=== PATIENT | male | born 1945 | race Caucasian/White ===

== ENCOUNTER → 2016-08-06 | Outpatient (CLI) | payer MEDICARE, OTHER ==
[~2016-08-06] MED LIST: AC325T PO; ALLO100T PO; ALPR1T PO; ALPR1TAB2 PO; ALPR1TAB7 PO; AMIO200T50 PO; AMLO10TA PO; AMLO10TA2 PO; ASP325T PO; ASP81TEC PO; ATEN50TA PO; ATOR40TA70 PO; Amlodipine Besylate PO; CEFE2FRO IV; CITA20TA7; CLOMIPHENE CITRATE PO; CLPD75T; CRS350T PO; CTLP20T; CYCL10TA9 PO; DABI150C2 PO; DIGO250T96 PO; DILT180C PO; DOXY100T2 PO; DRON400T PO; DXZS2T PO; ENAL20TA PO; ENLP10T; ENOX150D SQ; ENOX40DI8 SC; FLUT16SP22 NS; FURO-124 PO; FURO20TA4 PO; FURO40TA4 PO; GLBR2.5T; GLBR2.5T PO; GLYB5TAB6 PO; HCT25T; HCT25T PO; HYDR-31; HYDR-3714 PO; HYDR-3812 PO; HYDR-3816 PO; HYDR-700 PO; HYDR50TA76 PO; INSU100V6 SQ; IPRA3AMP IH; IPRA3AMP INH; LIRA0.6P SQ; LORA10TA7 PO; LOSA25TA21; LOSA25TA21 PO; LOSA50TA2 PO; LOSA50TA36 PO; LOVA10TA PO; METH40VI2 IV; METO-270; METO10TA7 PO; METO50TA7 PO; MTP100TCR; MTP50T; MULT-974 PO; NAPR-243 PO; NITR0.4T SL; NTR.4SL; NTR.4SL SL; OLME20TA21 PO; OMEP-10; OMEP20CA12; OMEP40CA36 PO; OMG1KC PO; OXYB5SYR2 PO; OXYC10TA55 PO; PANT40TA PO; PANT40TA3 PO; PNT40TEC PO; POTA-51 PO; POTA20TA15 PO; PRAM0.257 PO; PRAZ2CAP2; RANEXA 500MG PO; ROPI0.5T2 PO; ROPI2TAB4 PO; ROPI3TAB2; ROSU10TA12 PO; SIMV40TA2 PO; SPIR25TA3 PO; SPRN25T PO; TORS20TA3 PO; TRAM50TA2 PO; TRM50T PO; VANC1.254 IV; VENL150C53 PO; VENL75TA6 PO; WARF-48 PO; WARF3TAB6 PO; WARF4TAB70 PO; WARF5TAB6 PO; WARF7.5T49; WARF7.5T49 PO; WRF5T PO; ZLP10T; [UNRECOGNIZED DRUG - CODE] PO; [UNRECOGNIZED DRUG - MIXTURE]; [UNRECOGNIZED DRUG - OTHER] PO
--- NOTE | 2016-08-06 17:00 | Diagnostic Imaging Report ---
Indication: Right testicular pain. Comparison: None. Discussion: Sonographic evaluation of the scrotum was performed. The testicles appear normal and symmetric in echotexture and size bilaterally with normal color and spectral Doppler blood flow. The right testicle measures 3.7 x 1.8 x 2.4 cm. The left testicle measures 3.6 x 1.8 x 2.2 cm. The epididymides appear normal. No hydrocele or varicocele. The scrotum is unremarkable. Impression: 1. Normal sonographic appearance of the scrotum. Dictated by: Dictated on workstation # [id number]
== END ==
LOC: RAD 15:27
PROVIDERS: ATTEND Nurse Practitioner Family
DX: N50.89 Other specified disorders of the male genital organs (principal)
CPT/HCPCS: 76870

== ENCOUNTER 2016-09-29 08:17 | Inpatient (IN) | payer MEDICARE, OTHER ==
[~2016-09-29] VITALS: Ht 180.3 cm; Wt 133.5 kg
[2016-09-29] VITALS (7 sets, daily range): BP systolic 124–148; BP diastolic 68–80
[~2016-09-29 08:17] MED LIST changes: -CITA20TA7; +CITA20TA7 PO; -LOSA25TA21; -METO-270; +METO-270 PO; -ROPI3TAB2; +ROPI3TAB2 PO
[2016-09-29] MEDS ORDERED: NS IV 1000 ML 1,000 ML IV STA (09:06)
--- NOTE | 2016-09-29 09:06 | ED Fever ---
History of Present Illness General Chief Complaint: Fever-Adult/Adol Stated Complaint: COUGHING UP BLOOD, SHAKEY, COLD Source: patient, family () Exam Limitations: no limitations History of Present Illness Time seen by provider: 08:56 Initial Comments Patient presents with progressively worsening 2 weeks of productive cough and now today a fever of 103 at home. He reports last he was started on a steroid taper as well as antibiotic. He says last year he had an infection that lead to sepsis is not sure what the original infection was. He does not know what the antibiotic is. He denies any pain, nausea, vomiting, diarrhea, constipation. He states he took the antibiotics and steroids this morning. He denies COPD. He dips occasionally and drinks 3 beers a day but denies smoking. There is no rash or abdominal pain. There is no shortness of breath or chest pain. Allergies and Home Medications Allergies Coded Allergies: oxycodone HCl (Verified Allergy, Mild, itching, Pt states can take hydrocodone, 10/03/15) Sulfa (Sulfonamide Antibiotics) (Verified Allergy, Unknown, 12/09/06) Home Medications Alprazolam 1 Mg Tablet, 1 MG PO, (Reported) Citalopram Hydrobromide 20 Mg Tablet, #90 (Reported) Doxycycline Hyclate 100 Mg Tablet, #28 (Reported) Furosemide 40 Mg Tablet, 40 MG PO, (Reported) Losartan Potassium 25 Mg Tablet, #90 (Reported) Metoprolol Succinate 25 Mg Tab.er.24h, #90 (Reported) Potassium Chloride 20 Meq Tablet.er, 20 MEQ PO, (Reported) Prazosin HCl 2 Mg Capsule, #180 (Reported) Ropinirole HCl 3 Mg Tablet, #90 (Reported) Warfarin Sodium 7.5 Mg Tablet, #90 (Reported) Constitutional: see HPI EENTM: see HPI Respiratory: No cough Cardiovascular: No chest pain Gastrointestinal: No abdominal pain, No constipation, No diarrhea Genitourinary: No dysuria, No frequency Musculoskeletal: No back pain, No joint pain Past Pvfahsf-Zmcvgk-Znvpdi Hx Patient Social History Alcohol Use: Occasionally Uses Recreational Drug Use: No Smoking Status: Never a Smoker Former Smoker/When Quit: Aug 21, 1971 Recent Foreign Travel: No Contact w/Someone Who Travel: No Recent Hopitalizations: No Immunizations Up To Date Tetanus Booster (TDap): Less than 5yrs Date of Pneumonia Vaccine: Jan 20, 2014 Date of Influenza Vaccine: Jan 31, 2015 Seasonal Allergies Seasonal Allergies: No Surgeries HX Surgeries: Yes (SPINAL FUSION,RIGHT ROTATOR CUFF,COLT.KNEE ARTHROSCOPYS,LDA STENT, lap band) Surgeries: Abdominal, Coronary Stent, Gallbladder, Joint Replacement, Orthopedic, Pacemaker Respiratory Hx Respiratory Disorders: Yes Respiratory Disorders: Pneumonia Cardiovascular Hx Cardiac Disorders: Yes (STENT X1, PACEMAKER) Cardiac Disorders: Atrial Fibrillation, Coronary Artery Disease, Hypertension Neurological Hx Neurological Disorders: Yes (Restless leg syndrome) Reproductive System Hx Reproductive Disorders: No Genitourinary Hx Genitourinary Disorders: Yes Genitourinary Disorders: Renal Failure Gastrointestinal Hx Gastrointestinal Disorders: Yes (lap band surgery) Gastrointestinal Disorders: Gastroesophageal Reflux Musculoskeletal Hx Musculoskeletal Disorders: Yes (spinal fusion L5/S1) Musculoskeletal Disorders: Arthritis Endocrine Hx Endocrine Disorders: Yes Endocrine Disorders: Diabetes, Insulin dep HEENT HX ENT Disorders: No Cancer Hx Cancer: No Psychosocial Hx Psychiatric Problems: Yes Behavioral Health Disorders: Anxiety, PTSD, Depression Integumentary HX Skin/Integumentary Disorder: No Blood Transfusions Hx Blood Disorders: No Adverse Reaction to a Blood Tr: No Family Medical History Significant Family History: Heart Disease, Hypertension Family Medial History: Cancer 19 FATHER 19 MOTHER Chest pain 19 FATHER 19 MOTHER G8 BROTHER G8 BROTHER G8 BROTHER G8 BROTHER Congestive heart failure 19 MOTHER G8 BROTHER G8 BROTHER G8 BROTHER Family history: Arthritis Family history: Cardiovascular disease 19 FATHER Family history: Diabetes mellitus Family history: Glaucoma Family history: Hypertension Heart disease History of - respiratory disease Malignant neoplasm of lung 19 FATHER Myocardial infarction 19 MOTHER G8 BROTHER G8 BROTHER G8 BROTHER Parkinson's disease Prostate cancer G8 BROTHER Stroke Visual impairment No Family History of: Abdominal aortic aneurysm Goliad's disease Alcoholism Aphasia Cancer of colon Cataract Congenital heart disease Cystic fibrosis Dementia Dysphagia Family history: Allergy Family history: Alzheimer's disease Family history: Asthma Family history: Breast disease Family history: Coronary thrombosis Family history: Gastrointestinal disease Family history: Osteoporosis Family history: Thyroid disorder Headache Hearing loss Hereditary disease History of - anemia History of - disorder History of drug abuse Human immunodeficiency virus (HIV) seropositivity Hypercholesterolemia Infertile Kidney disease Psychotic disorder Seizure disorder Tuberculosis Physical Exam Vital Signs Vital Sign - Last 12Hours 09/29/16 08:39 Temp 104.4 Pulse 129 Resp 18 B/P (MAP) 188/116 Pulse Ox 90 O2 Delivery Room Air Capillary Refill : General Appearance: WD/WN, moderate distress Eyes: Bilateral Eye EOMI, Bilateral Eye Normal Inspection, Bilateral Eye PERRL HEENT: normal ENT inspection, TMs normal, other (dry mm with white plaque on tongue.) Neck: non-tender, normal inspection Respiratory: chest non-tender, lungs clear, normal breath sounds, no respiratory distress Cardiovascular: normal peripheral pulses, regular rate, rhythm, other (trace edema) Gastrointestinal: normal bowel sounds, non tender, soft Extremities: normal range of motion, non-tender, normal inspection, no calf tenderness Neurologic/Psychiatric: alert, normal mood/affect, oriented x 3 Focused Exam Lactic Acid Level Laboratory Tests Test 09/29/16 08:54 Lactic Acid Level 2.38 MMOL/L (0.50-2.00) *H Date of ETT Placement: October 01, 2015 Time of ETT Placement: 511 Progress/Results/Core Measures Results/Orders Lab Results Laboratory Tests Test 09/29/16 08:54 Range/Units White Blood Count 22.1 H 4.3-11.0 10^3/uL Red Blood Count 5.12 4.35-5.85 10^6/uL Hemoglobin 14.7 13.3-17.7 G/DL Hematocrit 45 40-54 % Mean Corpuscular Volume 87 80-99 FL Mean Corpuscular Hemoglobin 29 25-34 PG Mean Corpuscular Hemoglobin Concent 33 32-36 G/DL Red Cell Distribution Width 16.2 H 10.0-14.5 % Platelet Count 291 130-400 10^3/uL Mean Platelet Volume 10.4 7.4-10.4 FL Neutrophils (%) (Auto) 87 H 42-75 % Lymphocytes (%) (Auto) 5 L 12-44 % Monocytes (%) (Auto) 8 0-12 % Eosinophils (%) (Auto) 0 0-10 % Basophils (%) (Auto) 0 0-10 % Neutrophils # (Auto) 19.3 H 1.8-7.8 X 10^3 Lymphocytes # (Auto) 1.1 1.0-4.0 X 10^3 Monocytes # (Auto) 1.7 H 0.0-1.0 X 10^3 Eosinophils # (Auto) 0.0 0.0-0.3 10^3/uL Basophils # (Auto) 0.0 0.0-0.1 10^3/uL Neutrophils % (Manual) 88 % Lymphocytes % (Manual) 4 % Monocytes % (Manual) 4 % Eosinophils % (Manual) 0 % Basophils % (Manual) 0 % Band Neutrophils 0 % Reactive Lymphocytes 4 % Anisocytosis SLIGHT Prothrombin Time 16.1 H 12.2-14.7 SEC INR Comment 1.3 0.8-1.4 Activated Partial Thromboplast Time 33 24-35 SEC Sodium Level 139 135-145 MMOL/L Potassium Level 4.2 3.6-5.0 MMOL/L Chloride Level 103 98-107 MMOL/L Carbon Dioxide Level 23 21-32 MMOL/L Anion Gap 13 5-14 MMOL/L Blood Urea Nitrogen 25 H 7-18 MG/DL Creatinine 1.13 0.60-1.30 MG/DL Estimat Glomerular Filtration Rate > 60 BUN/Creatinine Ratio 22 Glucose Level 159 H 70-105 MG/DL Lactic Acid Level 2.38 *H 0.50-2.00 MMOL/L Calcium Level 9.5 8.5-10.1 MG/DL Total Bilirubin 1.6 H 0.1-1.0 MG/DL Aspartate Amino Transf (AST/SGOT) 21 5-34 U/L Alanine Aminotransferase (ALT/SGPT) 20 0-55 U/L Alkaline Phosphatase 86 40-136 U/L Total Protein 6.9 6.4-8.2 G/DL Albumin 3.9 3.2-4.5 G/DL Thyroid Stimulating Hormone (TSH) 0.83 0.35-4.94 UIU/ML My Orders Orders - NICHOLE KENDALL Cbc With Automated Diff (09/29/16 09:06) Comprehensive Metabolic Panel (09/29/16 09:06) Lactic Acid Analyzer (09/29/16 09:06) Thyroid Stimulating Hormone (09/29/16 09:06) Ua Culture If Indicated (09/29/16 09:06) Blood Culture (09/29/16 09:06) Influenza A And B Antigens (09/29/16 09:06) Sputum Culture (09/29/16 09:06) Chest Pa/Lat (2 View) (09/29/16 09:06) Protime With Inr (09/29/16 09:06) Partial Thromboplastin Time (09/29/16 09:06) O2 (09/29/16 09:06) Acetaminophen Tablet (Tylenol Tablet) (09/29/16 09:15) Saline Lock/Iv-Start (09/29/16 09:06) Levofloxacin 750 Mg/150 Ml Iv (Levaquin (09/29/16 09:15) Vital Signs Adult Sepsis Patie Q1HR (09/29/16 09:06) Ns Iv 1000 Ml (Sodium Chloride 0.9%) (09/29/16 09:06) Remove Rings In Anticipation O (09/29/16 09:06) Manual Differential (09/29/16 08:54) Saline Lock/Iv-Start (09/29/16 09:26) Ns Iv 1000 Ml (Sodium Chloride 0.9%) (09/29/16 09:30) Medications Given in ED Current Medications Medications Dose Ordered Sig/Leatha Route Start Time Stop Time Status Last Admin Dose Admin Acetaminophen 1,000 mg ONCE PRN PO 09/29/16 09:15 09/29/16 09:28 DC 09/29/16 09:36 1,000 MG Levofloxacin/ Dextrose 750 mg ONCE ONCE IV 09/29/16 09:15 09/29/16 09:16 DC 09/29/16 09:40 750 MG Sodium Chloride 4,000 ml @ 2,000 mls/hr PRN PRN IV 09/29/16 09:30 09/29/16 09:48 2,000 MLS/HR Vital Signs/I&O Vital Sign - Last 12Hours 09/29/16 08:39 Temp 104.4 Pulse 129 Resp 18 B/P (MAP) 188/116 Pulse Ox 90 O2 Delivery Room Air Progress Note : Time: 09:51 Progress Note Patient has a lactate of greater than 2 and a white count greater than 22 as well as a tachycardia consistent with sepsis. Primary concern would be his cough for a community acquired pneumonia. We'll cover him with Levaquin, give him adequate IV fluids and get him admitted. Diagnostic Imaging Diagonstic Imaging: Xray Plain Films/CT/US/NM/MRI: chest Comments VIA [facility]. [place], [place] NAME: CHIKI SNYDER [facility] REC#: [id number] PT STATUS: REG ER : 1945 PHYSICIAN: NICHOLE KENDALL MD ADMIT DATE: 09/29/16/ER Draft Date of Exam:09/29/16 CHEST PA/LAT (2 VIEW) EXAMINATION: CHEST (PA AND LATERAL) CLINICAL INDICATION: 71-year-old male, cough and congestion for one week. COMPARISON: October 06, 2015. FINDINGS: There is a left-sided cardiac assist device with right atrial and right ventricular leads. The leads appear intact. Stable overall appearance of the cardiomediastinal silhouette. There is an anchor overlying the right humeral head. There is no identified pneumothorax. There is no pleural effusion. There are subtle areas of reticular nodularity in the left upper lobe and right upper lobe as well as the left midlung. There is a nodular opacity projecting over the right midlung measuring 3 mm in size. IMPRESSION: 1. Subtle areas of reticular nodularity in the left upper lobe, right upper lobe, and left midlung which potentially could relate to an inflammatory or infectious etiology. There is also nonspecific streaky opacities in the left lung base which may relate to infiltrate and/or atelectasis. 2. 3 mm nodular opacity overlying the right midlung likely relating to a benign calcified granuloma. Dictated on workstation # [id number] Dict: 09/29/16 0931 Trans: 09/29/16 0937 JUANITA [id number] Interpreted by: QUOC SEVERINO MD Electronically signed by: Departure Communication Time/Spoke to Admitting Phy: 10:[address] Parson covering for Dr Guaman. Reviewed previous cultures that were negative blood and urine from 1 year ago. Okay with Levaquin and will see him today. Impression Impression: Primary Impression: Sepsis Qualified Codes: A41.9 - Sepsis, unspecified organism Additional Impression: Cough Disposition: ADMITTED INPATIENT Condition: Improved Decision to Admit Reason: Admit from ER (General) Decision to Admit/Date: September 29, 2016 Time/Decision to Admit Time: 10:09 Departure-Patient Inst. Referrals: ABEL GUAMAN MD (PCP/Family) Primary Care Physician Copy Copies To 1: ABEL GUAMAN MD, TITUS J September 29, 2016 09:06
[2016-09-29] MEDS ORDERED: DOXY100T2 PO (09:11)
[2016-09-29] MEDS ORDERED: LEVOFLOXACIN IV 750 MG/150 ML (LEVAQUIN) BAG IV ONE (09:15)
[2016-09-29 09:23] LABS: BASOPHILS % (AUTO) 0 % (0-10); EOSINOPHILS % (AUTO) 0 % (0-10); LYMPHOCYTES # (AUTO) 1.1 X 10^3 (1.0-4.0); LYMPHOCYTES % (AUTO) 5 % (12-44); MEAN CORPUSCULAR HEMOGLOBIN 29 PG (25-34); MEAN CORPUSCULAR HGB CONC 33 G/DL (32-36); MEAN CORPUSCULAR VOLUME 87 FL (80-99); MEAN PLATELET VOLUME 10.4 FL (7.4-10.4); MONOCYTES # (AUTO) 1.7 X 10^3 (0.0-1.0); MONOCYTES % (AUTO) 8 % (0-12); NEUTROPHILS # (AUTO) 19.3 X 10^3 (1.8-7.8); NEUTROPHILS % (AUTO) 87 % (42-75); PLATELET COUNT 291 10^3/uL (130-400); RED BLOOD COUNT 5.12 10^6/uL (4.35-5.85); RED CELL DISTRIBUTION WIDTH 16.2 % (10.0-14.5); WHITE BLOOD COUNT 22.1 10^3/uL (4.3-11.0)
[2016-09-29 09:27] LABS: INR 1.3 (0.8-1.4); PROTHROMBIN TIME PATIENT 16.1 SEC (12.2-14.7)
[2016-09-29] MEDS: ACETAMINOPHEN 500 MG TAB (TYLENOL) PO PRN ×2 (09:28→09:36)
[2016-09-29] MEDS ORDERED: NS IV 1000 ML 4,000 ML IV PRN (09:30)
[2016-09-29 09:31] LABS: ALANINE AMINOTRANSFERASE 20 U/L (0-55); ALBUMIN 3.9 G/DL (3.2-4.5); ANION GAP 13 MMOL/L (5-14); ASPARTATE AMINO TRANSFERASE 21 U/L (5-34); BILIRUBIN,TOTAL 1.6 MG/DL (0.1-1.0); BLOOD UREA NITROGEN 25 MG/DL (7-18); BUN/CREATININE RATIO 22; CALCIUM 9.5 MG/DL (8.5-10.1); CARBON DIOXIDE 23 MMOL/L (21-32); CHLORIDE 103 MMOL/L (98-107); CREATININE SERUM 1.13 MG/DL (0.60-1.30); GFR ESTIMATED > 60; GLUCOSE 159 MG/DL (70-105); POTASSIUM 4.2 MMOL/L (3.6-5.0); SODIUM 139 MMOL/L (135-145); TOTAL PROTEIN 6.9 G/DL (6.4-8.2)
--- NOTE | 2016-09-29 09:37 | Diagnostic Imaging Report ---
EXAMINATION: CHEST (PA AND LATERAL) CLINICAL INDICATION: 71-year-old male, cough and congestion for one week. COMPARISON: October 06, 2015. FINDINGS: There is a left-sided cardiac assist device with right atrial and right ventricular leads. The leads appear intact. Stable overall appearance of the cardiomediastinal silhouette. There is an anchor overlying the right humeral head. There is no identified pneumothorax. There is no pleural effusion. There are subtle areas of reticular nodularity in the left upper lobe and right upper lobe as well as the left midlung. There is a nodular opacity projecting over the right midlung measuring 3 mm in size. IMPRESSION: 1. Subtle areas of reticular nodularity in the left upper lobe, right upper lobe, and left midlung which potentially could relate to an inflammatory or infectious etiology. There is also nonspecific streaky opacities in the left lung base which may relate to infiltrate and/or atelectasis. 2. 3 mm nodular opacity overlying the right midlung likely relating to a benign calcified granuloma. Dictated by: Dictated on workstation # [id number]
[2016-09-29 09:51] LABS: THYROID STIMULATING HORMONE 0.83 UIU/ML (0.35-4.94)
[2016-09-29 09:53] LABS: ANISOCYTOSIS SLIGHT; BAND NEUTROPHILS 0 %; BASOPHILS % (MANUAL) 0 %; EOSINOPHILS % (MANUAL) 0 %; LYMPHOCYTES % (MANUAL) 4 %; NEUTROPHILS % (MANUAL) 88 %; REACTIVE LYMPHOCYTES 4 %
[2016-09-29] MEDS ORDERED: warFARin 7.5 MG (COUMADIN) TAB PO ONE (11:15)
--- NOTE | 2016-09-29 11:49 | History & Physical-Hospitalist ---
HPI History of Present Illness: HPI/Chief Complaint Mr. Kumar is a 71-year-old white male reports he was initiated usual state of health up until about 1/2-2 weeks ago when he developed the onset of head congestion now. He had been outdoors trimming trees and attributed to allergies. He wasn't sure whether or not he was febrile at that time. He has not felt well since. He had increased weakness questionable chills not sure whether he was febrile. he became weak to the point of staggering causing him to present to Dr. Pride's office this Friday. They apparently they found 2 ticks on his left chest which were removed. He was given prednisone and doxycycline. he is continued feel weak with chills. He's had a dry cough but did produce a little bit of hemoptysis. The scant amount of sputum he's had has been clear otherwise. He developed Reiger's this morning with weakness which caused him to present to the emergency room. There is temperature was reportedly 104 he was given antipyretic therapy. He was noted to be in atrial fibrillation with a ventricular response in the 120-130 range which has been chronic for him. His initial blood pressure was quite high in the 180/110 range but his last blood pressure was in the 120s over 70s just before this interview. He denies shortness of breath at rest but had noted increased dyspnea on exertion. He has not noted any rashes. Past medical history is significant for 3 admissions beginning in July and ending in September of last year for pneumonia. His last admission in late August led to mechanical ventilation and a three-week recovery at [facility]. He had no bouts of infections since. He has a distant past history of stent placement in the late with chronic atrial fibrillation and underlying sick sinus syndrome requiring pacemaker placement several years ago. He has history of restless leg syndrome and hypertension. Date Seen 09/29/16 Attending Physician Mani Pride MD PCP Mani Pride MD Referring Physician Date of Admission September 29, 2016 at 10:17 Home Medications & Allergies Home Medications Reviewed patient Home Medication Reconciliation Form Allergies Allergies Coded Allergies oxycodone HCl (Verified Allergy, Mild, itching, Pt states can take hydrocodone , 10/03/15) Sulfa (Sulfonamide Antibiotics) (Verified Allergy, Unknown, 12/09/06) Past Xreqbgo-Zpgimp-Bpkhqq Hx Patient Social History Alcohol Use: Occasionally Uses Recreational Drug Use: No Smoking Status: Never a Smoker Former smoker/When Quit: Aug 21, 1971 Recent Foreign Travel: No Contact w/other who traveled: No Recent Hopitalizations: No Recent Infectious Disease Expo: No Immunizations Up To Date Tetanus Booster (TDap): Less than 5yrs Date of Pneumonia Vaccine: Jan 20, 2014 Date of Influenza Vaccine: Jan 31, 2015 Seasonal Allergies Seasonal Allergies: No Surgeries HX Surgeries: Yes (SPINAL FUSION,RIGHT ROTATOR CUFF,COLT.KNEE ARTHROSCOPYS,LDA STENT, lap band) Surgeries: Abdominal, Coronary Stent, Gallbladder, Joint Replacement, Orthopedic, Pacemaker Respiratory Hx Respiratory Disorders: Yes Cardiovascular Hx Cardiovascular Disorders: Yes (STENT X1, PACEMAKER) Cardiac Disorders: Atrial Fibrillation, Coronary Artery Disease, Hypertension Neurological Hx Neurological Disorders: Yes (Restless leg syndrome) Reproductive System Hx Reproductive Disorders: No Genitourinary Hx Genitourinary Disorders: Yes Genitourinary Disorders: Renal Failure Gastrointestinal Hx Gastrointestinal Disorders: Yes (lap band surgery) Gastrointestinal Disorders: Gastroesophageal Reflux Musculoskeletal Hx Musculoskeletal Disorders: Yes (spinal fusion L5/S1) Musculoskeletal Disorders: Arthritis Endocrine Hx Endocrine Disorders: Yes Endocrine Disorders: Diabetes, Insulin dep HEENT HX ENT Disorders: No Cancer Hx Cancer: No Psychosocial Hx Psychiatric Problems: Yes Behavioral Health Disorders: Anxiety, PTSD, Depression Integumentary HX Skin/Integumentary Disorder: No Blood Transfusions Hx Blood Disorders: No Adverse Reaction to a Blood Tr: No Family Medical History Significant Family History: Heart Disease, Hypertension Family Hx: Cancer 19 FATHER 19 MOTHER Chest pain 19 FATHER 19 MOTHER G8 BROTHER G8 BROTHER G8 BROTHER G8 BROTHER Congestive heart failure 19 MOTHER G8 BROTHER G8 BROTHER G8 BROTHER Family history: Arthritis Family history: Cardiovascular disease 19 FATHER Family history: Diabetes mellitus Family history: Glaucoma Family history: Hypertension Heart disease History of - respiratory disease Malignant neoplasm of lung 19 FATHER Myocardial infarction 19 MOTHER G8 BROTHER G8 BROTHER G8 BROTHER Parkinson's disease Prostate cancer G8 BROTHER Stroke Visual impairment No Family History of: Abdominal aortic aneurysm Fallon's disease Alcoholism Aphasia Cancer of colon Cataract Congenital heart disease Cystic fibrosis Dementia Dysphagia Family history: Allergy Family history: Alzheimer's disease Family history: Asthma Family history: Breast disease Family history: Coronary thrombosis Family history: Gastrointestinal disease Family history: Osteoporosis Family history: Thyroid disorder Headache Hearing loss Hereditary disease History of - anemia History of - disorder History of drug abuse Human immunodeficiency virus (HIV) seropositivity Hypercholesterolemia Infertile Kidney disease Psychotic disorder Seizure disorder Tuberculosis Review of Systems Constitutional: chills, diaphoresis, fever, weakness, weight loss (known amount over the past month) EENTM: other (eyes any sores in his mouth current sore throat with only mild head congestion without significant rhinorrhea.) Respiratory: No no symptoms reported, No see HPI, cough, dyspnea on exertion, hemoptysis (small volume), No orthopnea, No stridor, No wheezing Cardiovascular: No chest pain, No edema, Hx of Intervention, No palpitations, No syncope, vascular heart diseas, No other Gastrointestinal: no symptoms reported, No abdominal pain, No constipation, No diarrhea, No dysphagia, No hematemesis, No heartburn, loss of appetite, No melena, No nausea, No vomiting Physical Exam Physical Exam Vital Signs Vital Sign - Last 12Hours 09/29/16 09/29/16 08:39 10:23 Temp 104.4 Pulse 129 Resp 18 B/P (MAP) 188/116 Pulse Ox 90 O2 Delivery Room Air O2 Flow Rate 2.00 Capillary Refill : Less Than 3 Seconds General Appearance: No Apparent Distress Eyes: Bilateral Eye EOMI HEENT: Normal ENT Inspection Neck: Normal Inspection, Non Tender Respiratory: Chest Non Tender, Lungs Clear, Normal Breath Sounds, No Accessory Muscle Use, No Respiratory Distress Cardiovascular: No Edema, No Gallop, No JVD, No Murmur, Irregularly Irregular Gastrointestinal: Normal Bowel Sounds, No Organomegaly, No Pulsatile Mass, Non Tender, Soft Skin: Normal Color, Warm/Dry (despite recent fever he was not diaphoretic and small erythematous papule noted previous tick bite on chest there are chronic venous insufficiency changes in the lower extremities with no other evidence for rash or petechia) Results Results/Procedures Lab Laboratory Tests 09/29/16 08:54 Assessment/Plan Admission Diagnosis 1. Sepsis of unclear etiology. White count elevation may be aggravated by recent onset steroid usage. considering tick exposure will continue by mouth doxycycline as well as the Levaquin ordered in the emergency room. Chest x-ray findings may be old although clearly can't rule out atypical pneumonia. The patient states that tick serologies were obtained and pending from Dr. Pride 's office on his visit last Friday will need to contact the office to make sure we are made aware of these results when available. 2. Mild dehydration IV fluids were initiated. 3. Chronic atrial fibrillation INR little suboptimal. 7.5 mg of Coumadin will be initiated with INR monitoring in the morning this should suffice for DVT prophylaxis. 4. History of restless leg syndrome continue at bedtime ropinirole 5. Sick sinus syndrome requiring pacemaker placement will continue low-dose beta janusz therapy SHIRIN YEH MD September 29, 2016 11:48
[2016-09-29] MEDS ORDERED: MONT10TA24 PO (13:16)
[2016-09-29] MEDS ORDERED: WARF5TAB PO (13:22)
[2016-09-29] MEDS ORDERED: AMLO5TAB2 PO (13:28)
[2016-09-29] MEDS ORDERED: GABA-486 PO (13:28)
[2016-09-29] MEDS ORDERED: PANT40TA3 PO (13:31)
[2016-09-29] MEDS ORDERED: INSU100V6 SQ ×2 (13:32)
[2016-09-29] MEDS ORDERED: warFARin 7.5 MG (COUMADIN) TAB ONE (15:05)
[2016-09-29] MEDS: DOXYCYCLINE 100 MG (VIBRAMYCIN) TABLET PO SCH ×2 (15:10→16:44)
[2016-09-29] MEDS: NS IV 1000 ML 1,000 ML IV SCH ×2 (15:11→23:46)
[2016-09-29] MEDS ORDERED: RT-ALBUTEROL/IPRATROPIUM 3 ML (DUONEB) VIAL INH PRN (16:00)
[2016-09-29] MEDS ORDERED: ACETAMINOPHEN 500 MG TAB (TYLENOL) PO PRN (16:00)
[2016-09-29 17:23] LABS: ABG BASE EXCESS -0.1 MMOL/L (-2.5-2.5); ABG HCO3 24 MMOL/L (23-27); ABG OXYGEN SATURATION 98 % (94-100); ABG PCO2 34 MMHG (35-45); ABG PH 7.45 (7.37-7.43); ABG PO2 85 MMHG (79-93); ABG TCO2 24.6 MMOL/L (21.0-31.0)
[2016-09-29 17:24] LABS: ALLENS TEST POSITIVE
[2016-09-29 17:25] LABS: PATIENT TEMP 98.3
[2016-09-29 21:07] LABS: BILIRUBIN,URINE NEGATIVE (NEGATIVE); KETONES,URINE NEGATIVE (NEGATIVE); LEUKOCYTE ESTERASE ,URINE NEGATIVE (NEGATIVE); NITRITE,URINE NEGATIVE (NEGATIVE); PH,URINE 6 (5-9); PROTEIN,URINE NEGATIVE (NEGATIVE); UROBILINOGEN,URINE NORMAL (NORMAL)
[2016-09-29 21:23] LABS: SQUAMOUS EPITHELIAL CELL,UR 0-2 /HPF
[2016-09-29] MEDS: rOPINIRole 1 MG (REQUIP) TABLET PO SCH (21:36)
[2016-09-29] MEDS: inSUlin DETERMIR 1 UNIT/0.01 ML (LEVEMIR) CHARGE PER UNIT SQ SCH (21:37)
[2016-09-30] VITALS (10 sets, daily range): BP systolic 140–180; BP diastolic 66–90
[2016-09-30 05:21] LABS: BASOPHILS % (AUTO) 0 % (0-10); EOSINOPHILS # (AUTO) 0.1 10^3/uL (0.0-0.3); EOSINOPHILS % (AUTO) 0 % (0-10); LYMPHOCYTES # (AUTO) 4.4 X 10^3 (1.0-4.0); LYMPHOCYTES % (AUTO) 24 % (12-44); MEAN CORPUSCULAR HEMOGLOBIN 28 PG (25-34); MEAN CORPUSCULAR HGB CONC 32 G/DL (32-36); MEAN CORPUSCULAR VOLUME 88 FL (80-99); MEAN PLATELET VOLUME 10.3 FL (7.4-10.4); MONOCYTES # (AUTO) 1.3 X 10^3 (0.0-1.0); MONOCYTES % (AUTO) 7 % (0-12); NEUTROPHILS # (AUTO) 12.3 X 10^3 (1.8-7.8); NEUTROPHILS % (AUTO) 68 % (42-75); PLATELET COUNT 217 10^3/uL (130-400); RED CELL DISTRIBUTION WIDTH 16.1 % (10.0-14.5); WHITE BLOOD COUNT 18.1 10^3/uL (4.3-11.0)
[2016-09-30 05:29] LABS: INR 1.4 (0.8-1.4); PROTHROMBIN TIME PATIENT 16.9 SEC (12.2-14.7)
[2016-09-30 05:46] LABS: ALANINE AMINOTRANSFERASE 14 U/L (0-55); ALBUMIN 3.1 G/DL (3.2-4.5); ANION GAP 10 MMOL/L (5-14); ASPARTATE AMINO TRANSFERASE 15 U/L (5-34); BILIRUBIN,TOTAL 1.3 MG/DL (0.1-1.0); BLOOD UREA NITROGEN 20 MG/DL (7-18); BUN/CREATININE RATIO 24; CALCIUM 8.4 MG/DL (8.5-10.1); CARBON DIOXIDE 22 MMOL/L (21-32); CHLORIDE 106 MMOL/L (98-107); CREATININE SERUM 0.82 MG/DL (0.60-1.30); GFR ESTIMATED > 60; GLUCOSE 112 MG/DL (70-105); POTASSIUM 3.7 MMOL/L (3.6-5.0); SODIUM 138 MMOL/L (135-145); TOTAL PROTEIN 5.4 G/DL (6.4-8.2)
[2016-09-30] MEDS: DOXYCYCLINE 100 MG (VIBRAMYCIN) TABLET PO SCH ×2 (06:33→17:19)
[2016-09-30] MEDS: inSUlin DETERMIR 1 UNIT/0.01 ML (LEVEMIR) CHARGE PER UNIT SQ SCH ×2 (09:10→21:09)
[2016-09-30] MEDS: LEVOFLOXACIN 500 MG/100 ML IV 100 ML IV SCH (09:10)
[2016-09-30] MEDS: NS IV 1000 ML 1,000 ML IV SCH ×3 (09:12→21:03)
--- NOTE | 2016-09-30 09:30 | Diagnostic Imaging Report ---
Indication: Dyspnea, leukocytosis. Discussion: Two views of the chest were obtained, comparison 09/29/2016. Patchy alveolar infiltrates are again noted within the bilateral upper lungs, favoring pneumonia. A 3 mm calcified granuloma again noted within the right midlung, benign. Normal heart size. Left-sided pacemaker is stable. No pleural fluid or pneumothorax. No acute osseous abnormality. Impression: 1. Bilateral alveolar infiltrates, most consistent with pneumonia. Dictated by: Dictated on workstation # [id number]
[2016-09-30] MEDS ORDERED: LOSA100T28 PO (09:56)
[2016-09-30] MEDS ORDERED: PROM5SYR PO (10:30)
[2016-09-30] MEDS ORDERED: OXYC10TA55 PO (10:30)
[2016-09-30] MEDS ORDERED: DULO60CA6 PO (10:30)
[2016-09-30] MEDS ORDERED: SPIR25TA3 PO (10:30)
--- NOTE | 2016-09-30 12:42 | Progress Note-Hospitalist ---
Standard Progress Note Progress Notes/Assess & Plan Date Seen 09/30/16 Diagnosis 1. Sepsis of unclear etiology. White count elevation may be aggravated by recent onset steroid usage. considering tick exposure will continue by mouth doxycycline as well as the Levaquin ordered in the emergency room. Chest x-ray findings may be old although clearly can't rule out atypical pneumonia. The patient states that tick serologies were obtained and pending from Dr. Pride 's office on his visit last Friday will need to contact the office to make sure we are made aware of these results when available. 2. Mild dehydration IV fluids were initiated. 3. Chronic atrial fibrillation INR little suboptimal. 7.5 mg of Coumadin will be initiated with INR monitoring in the morning this should suffice for DVT prophylaxis. 4. History of restless leg syndrome continue at bedtime ropinirole 5. Sick sinus syndrome requiring pacemaker placement will continue low-dose beta janusz therapy Assess & Plan/Chief Complaint The patient is a 71-year-old white male known to me. He apparently has felt ill for a period of about 2 weeks. Early yesterday morning he had a fever of 103 at home which proved to be 104 in the emergency room. In addition he had shaking chills and diaphoresis. He was noted that his white count was 22,000 at presentation. It is also noted that he had been taking steroids in the previous week. Urine and chest x-ray were negative. He had been seen last week and Dr. Pride's office and apparently 2 ticks were removed from his left chest. He was started on doxycycline and a tick panel was sent off. It is not presently available. I spoke to Dr. Pride's office and they have agreed to fax it to us when it is available. The patient reports that he feels much better today. He in fact made a weak effort at bargaining for dismissal today. He was informed that he may be a candidate tomorrow however I need to see a longer performance and have blood cultures reported before this is possible. Physical exam: We have a plump white male in no apparent distress. He is sitting in the recliner at bedside with family in the room. Lungs are clear to auscultation. CV is regular without murmur. Abdomen is obese. Bowel sounds are present. Extremities shows no pedal edema. Impression: Fever and chills. At this point he qualifies as Sirs but no clear source of infection is noted. 2.diabetes mellitus type II. 3.coronary artery disease. 4.COPD with previous admission including pneumonia which resulted in ventilation and transfer to [facility]. Plan: Continue Levaquin and doxycycline. Await blood cultures and serology for tickborne disease. Labs Laboratory Tests 09/29/16 08:54 09/30/16 04:32 DESTINEY BECERRA MD September 30, 2016 12:42
[2016-09-30] MEDS: GABAPENTIN 300 MG (NEURONTIN) CAP PO SCH ×2 (13:30→21:08)
[2016-09-30] MEDS ORDERED: DOXYCYCLINE 100 MG (VIBRAMYCIN) TABLET PO SCH (21:00)
[2016-09-30] MEDS ORDERED: NON-FORMULARY MEDICATION 1 EA EA (Ropinirole HCl 3 MG) PO SCH (21:00)
[2016-09-30] MEDS: rOPINIRole 1 MG (REQUIP) TABLET PO SCH (21:08)
[2016-09-30] MEDS: ALPRAZolam 1 MG (XANAX) TAB PO SCH (21:09)
[2016-10-01 00:12] VITALS: BP 150/77
[2016-10-01 04:02] VITALS: BP 142/72
[2016-10-01] MEDS: DOXYCYCLINE 100 MG (VIBRAMYCIN) TABLET PO SCH (06:07)
[2016-10-01] MEDS: NS IV 1000 ML 1,000 ML IV SCH (06:12)
[2016-10-01 07:53] VITALS: BP 142/82
[2016-10-01] MEDS ORDERED: SPIRONOLACTONE 25 MG (ALDACTONE) TAB PO SCH (09:00)
[2016-10-01] MEDS ORDERED: FUROSEMIDE 40 MG (LASIX) TAB PO SCH (09:00)
[2016-10-01] MEDS ORDERED: DULoxetine 30 MG (CYMBALTA) CAP PO SCH (09:00)
[2016-10-01] MEDS ORDERED: LOSARTAN 50 MG (COZAAR) TAB PO SCH (09:00)
[2016-10-01] MEDS ORDERED: amLODIPine 5 MG (NORVASC) TAB PO SCH (09:00)
[2016-10-01] MEDS ORDERED: warFARin 5 MG (COUMADIN) TAB PO SCH (09:00)
[2016-10-01] MEDS ORDERED: MONTELUKAST 10 MG (SINGULAIR) TAB PO SCH (09:00)
[2016-10-01] MEDS ORDERED: PANTOPRAZOLE 40 MG (PROTONIX) TAB PO SCH (09:00)
[2016-10-01] MEDS: LEVOFLOXACIN 500 MG/100 ML IV 100 ML IV SCH (09:24)
[2016-10-01] MEDS: ALPRAZolam 1 MG (XANAX) TAB PO SCH (09:25)
[2016-10-01] MEDS: GABAPENTIN 300 MG (NEURONTIN) CAP PO SCH (09:25)
[2016-10-01] MEDS: inSUlin DETERMIR 1 UNIT/0.01 ML (LEVEMIR) CHARGE PER UNIT SQ SCH (09:26)
[2016-10-01 09:54] LABS: BASOPHILS % (AUTO) 0 % (0-10); EOSINOPHILS # (AUTO) 0.1 10^3/uL (0.0-0.3); EOSINOPHILS % (AUTO) 1 % (0-10); LYMPHOCYTES % (AUTO) 20 % (12-44); MEAN CORPUSCULAR HEMOGLOBIN 28 PG (25-34); MEAN CORPUSCULAR HGB CONC 33 G/DL (32-36); MEAN CORPUSCULAR VOLUME 87 FL (80-99); MEAN PLATELET VOLUME 10.1 FL (7.4-10.4); MONOCYTES # (AUTO) 1.2 X 10^3 (0.0-1.0); MONOCYTES % (AUTO) 8 % (0-12); NEUTROPHILS # (AUTO) 10.3 X 10^3 (1.8-7.8); NEUTROPHILS % (AUTO) 71 % (42-75); PLATELET COUNT 235 10^3/uL (130-400); RED BLOOD COUNT 4.45 10^6/uL (4.35-5.85); RED CELL DISTRIBUTION WIDTH 15.8 % (10.0-14.5); WHITE BLOOD COUNT 14.5 10^3/uL (4.3-11.0)
[2016-10-01 12:04] VITALS: BP 130/76
[2016-10-01] MEDS ORDERED: LEVO750T9 PO (12:06)
--- NOTE | 2016-10-01 12:13 | Discharge Instructions ---
Discharge Instructions Discharge Medications New, Converted or Re-Newed RX: Transmitted to Pharmacy Patient Instructions Goal/Follow Up Appt: Resume medications as on the discharge list. Complete the doxycycline from your home supply Take 5 days of Levaquin Get a pro time done on 10/03 and make sure you have instructions from your community physician about any adjustments necessary on your Coumadin Return to The Hospital For: Declining condition Activity & Diet Discharge Diet: ADA Diet, Low Fat/Low Cholesterol Activity as Tolerated: Yes DESTINEY BECERRA MD October 01, 2016 12:13
--- NOTE | 2016-10-01 12:18 | Progress Note-Hospitalist ---
Standard Progress Note Progress Notes/Assess & Plan Date Seen 10/01/16 Diagnosis 1. Sepsis of unclear etiology. White count elevation may be aggravated by recent onset steroid usage. considering tick exposure will continue by mouth doxycycline as well as the Levaquin ordered in the emergency room. Chest x-ray findings may be old although clearly can't rule out atypical pneumonia. The patient states that tick serologies were obtained and pending from Dr. Guaman 's office on his visit last Friday will need to contact the office to make sure we are made aware of these results when available. 2. Mild dehydration IV fluids were initiated. 3. Chronic atrial fibrillation INR little suboptimal. 7.5 mg of Coumadin will be initiated with INR monitoring in the morning this should suffice for DVT prophylaxis. 4. History of restless leg syndrome continue at bedtime ropinirole 5. Sick sinus syndrome requiring pacemaker placement will continue low-dose beta janusz therapy Assess & Plan/Chief Complaint The patient is afebrile and feeling much better. His white blood count has fallen to 12,000. His present medications are equally efficacious orally and he will therefore be dismissed. We discussed a previously booked trip with a 's group to [facility] on 10/07. After discussing the physical requirements of him, it would appear possible for him to carry this out if there is no recrudescence of symptoms between now and then. He will require a pro time prior to his departure because of the potential interaction of his antibiotics and Coumadin. Physical exam shows him to be up and sitting in the chair at bedside. Color is good. Lungs are clear to auscultation. CV is regular. Abdomen is obese. Impression: Febrile illness/possible tickborne disease Plan: See discharge sequence for meds and activities Labs Laboratory Tests 09/30/16 04:32 10/01/16 09:47 Final Diagnosis 1.febrile illness/possible tickborne disease. 2.COPD. 3.arteriosclerotic heart disease. 4.diabetes2 Copy Copies To 1: ABEL GUAMAN MD, RODNEY K MD October 01, 2016 12:18
[2016-10-01 13:26] VITALS: BP 130/76
== END 2016-10-01 13:30 | disposition home or self-care (01) | DRG 866 ==
LOC: EDUNIT# 08:17 → ER 08:18 → 4TH 10:17
PROVIDERS: ADMIT Internal Medicine
DX: A93.8 Other specified arthropod-borne viral fevers (principal); E86.0 Dehydration; I10 Essential (primary) hypertension; E11.9 Type 2 diabetes mellitus without complications; I48.2 Chronic atrial fibrillation; J44.9 Chronic obstructive pulmonary disease, unspecified; I25.10 Atherosclerotic heart disease of native coronary artery without angina pectoris; F43.10 Post-traumatic stress disorder, unspecified; F41.9 Anxiety disorder, unspecified; G25.81 Restless legs syndrome; K21.9 Gastro-esophageal reflux disease without esophagitis; Z95.5 Presence of coronary angioplasty implant and graft; Z95.0 Presence of cardiac pacemaker; Z79.4 Long term (current) use of insulin; Z98.84 Bariatric surgery status; Z87.891 Personal history of nicotine dependence; Z86.79 Personal history of other diseases of the circulatory system
CPT/HCPCS: 36415; 71020; 80053; 81000; 82805; 82962; 83605; 84443; 85007; 85025; 85027; 85610; 85730; 87040; 87804; 93005; 94760; 96361; 96367

== ENCOUNTER → 2016-10-29 | Outpatient (CLI) | payer MEDICARE, OTHER ==
[~2016-10-29] MED LIST changes: +AMLO5TAB2 PO; +DULO60CA6 PO; +GABA-486 PO; +LEVO750T9 PO; +LOSA100T28 PO; +MONT10TA24 PO; +PROM5SYR PO; +TRAZ100T92 PO; +WARF5TAB PO; +WARF6TAB6 PO
== END ==
LOC: LAB 12:31
DX: D72.829 Elevated white blood cell count, unspecified (principal)
CPT/HCPCS: 87040

== ENCOUNTER 2016-10-31 15:00 | Outpatient (CLI) | payer MEDICARE, OTHER ==
[~2016-10-31] VITALS: Ht 180.3 cm; Wt 124.7 kg
[~2016-10-31 15:00] MED LIST changes: -TRAZ100T92 PO; -WARF6TAB6 PO
[2016-10-31] MEDS ORDERED: TRAZ100T92 PO (15:08)
[2016-10-31] MEDS ORDERED: WARF6TAB6 PO (15:08)
[2016-11-01] MEDS ORDERED: [UNRECOGNIZED DRUG - OTHER] PO (10:59)
[2016-11-01] MEDS ORDERED: TAMS0.4C2 PO (10:59)
[2016-11-01] MEDS ORDERED: DOXY100T2 PO (10:59)
== END 2016-10-31 15:13 ==
LOC: PREOP 15:00
PROVIDERS: ATTEND Surgery Pediatric Surgery
DX: Z01.818 Encounter for other preprocedural examination (principal); K21.9 Gastro-esophageal reflux disease without esophagitis; Z98.84 Bariatric surgery status

== ENCOUNTER 2016-11-01 09:55 | Day surgery (SDC) | payer MEDICARE, OTHER ==
[~2016-11-01] VITALS: Ht 180.3 cm; Wt 124.7 kg
[~2016-11-01 09:55] MED LIST changes: +TRAZ100T92 PO; +WARF6TAB6 PO
[2016-11-01 10:05] VITALS: BP 128/77
[2016-11-01] MEDS ORDERED: HURRICAINE EXT TUBE (BENZOCAINE) XX PRN (10:15)
[2016-11-01] MEDS ORDERED: NS IV 500 ML 500 ML IV PRN (10:15)
[2016-11-01] MEDS ORDERED: NALOXONE 0.4 MG/ML 1 ML (NARCAN) VIAL IVP PRN (10:15)
[2016-11-01] MEDS ORDERED: FLUMAZENIL (ROMAZICON) 0.1 MG/ML 5 ML VIAL INJ PRN (10:15)
[2016-11-01] MEDS ORDERED: LIDOCAINE JELLY 2% (XYLOCAINE) 5 ML TUBE MM PRN (10:15)
[2016-11-01] MEDS ORDERED: NS IV 500 ML 500 ML ONE (10:18)
[2016-11-01] MEDS ORDERED: [UNRECOGNIZED DRUG - OTHER] PO (10:59)
[2016-11-01] MEDS ORDERED: TAMS0.4C2 PO (10:59)
[2016-11-01] MEDS ORDERED: DOXY100T2 PO (10:59)
[2016-11-01] MEDS ORDERED: ACETAMINOPHEN 325 MG TABLET/CAPLET (TYLENOL) PO PRN (11:15)
[2016-11-01] MEDS ORDERED: ONDANSETRON 4 MG/2 ML (SDV) Z0FRAN IV PRN (11:15)
[2016-11-01] MEDS ORDERED: morphine INJ 10 MG/ML 1ML (SYR OR VIAL) IV PRN (11:15)
[2016-11-01] MEDS ORDERED: HYDROcodone/APAP 5 MG/325 MG (LORTAB) TAB PO PRN (11:15)
--- NOTE | 2016-11-01 11:15 | Progress Note-Pre Operative ---
Pre-Operative Progress Note H&P Reviewed The H&P was reviewed, patient examined and no changes noted. Date Seen by Provider: Nov 01, 2016 Time Seen by Provider: 11:00 Date H&P Reviewed: Nov 01, 2016 Time H&P Reviewed: 11:00 Pre-Operative Diagnosis: dysphagia, GERD LESLYE MARTIN MD Nov 01, 2016 11:15 am
--- NOTE | 2016-11-01 11:15 | Conscious Sedation/ASA ---
Conscious Sedation Pre-Proced Time Reviewed: 11:00 ASA Class: 2 Airway Mallampati Classification: ([place] appropriate class) I. II. III, IV Lungs Heart ASA score ASA 1: a normal healthy patient ASA 2: a patient with a mild systemic disease (mid diabetes, controlled hypertension, obesity ASA 3: a patient with a severe systemic disease that limits activity (angina , COPD, prior Myocardial infarction) ASA 4: a patient with an incapacitating disease that is a constant threat to life (CHF, renal failure) ASA 5: a moribund patient not expected to survive 24 hrs. (ruptured aneurysm) ASA 6: a declared brain patient whose organs are being harvested. For emergent operations, add the letter E after the classification Grade 3 Sedation Plan: Analgesia, Amnesia, Plan communicated to team members, Discussed options with patient/fam, Discussed risks with patient/fam Note The patient is an appropriate candidate to undergo the planned procedure, sedation, and anesthesia. The patient immediately re-assessed prior to indication. LESLYE MARTIN MD Nov 01, 2016 11:15 am
[2016-11-01] MEDS ORDERED: MIDAZOLAM 2 MG/2 ML (VERSED) VIAL ONE ×5 (11:41→11:50)
[2016-11-01] MEDS ORDERED: fentaNYL INJECTION 100 MCG/2 ML AMP ONE ×2 (11:41→11:50)
[2016-11-01] MEDS ORDERED: LIDOCAINE JELLY 2% (XYLOCAINE) 5 ML TUBE ONE (11:41)
[2016-11-01] MEDS ORDERED: HURRICAINE EXT TUBE (BENZOCAINE) ONE (11:42)
[2016-11-01] MEDS: MIDAZOLAM 2 MG/2 ML (VERSED) VIAL IVP PRN ×5 (11:50→12:02)
[2016-11-01] MEDS: fentaNYL INJECTION 100 MCG/2 ML AMP IVP PRN ×4 (11:51→12:01)
[2016-11-01 12:40] VITALS: BP 142/88
--- NOTE | 2016-11-01 12:49 | Progress Note-Post Operative ---
Post-Operative Progess Note Surgeon (s)/Rides Attendant (s) Surgeon LESLYE MARTIN MD Rides Attendant: none Pre-Operative Diagnosis dysphagia, GERD Post-Operative Diagnosis reflux esophagitis(class B-C), intact gastric pouch and band, no erosion/slippage, mild-moderate gastritis. Procedure & Operative Findings Date of Procedure 11/01/16 Procedure Performed/Findings EGD with bx. Anesthesia Type CS Estimated Blood Loss Estimated blood loss (mL): minimal Specimens/Packing Specimens Removed GE jxn, antrum LESLYE MARTIN MD Nov 01, 2016 12:48 pm
--- NOTE | 2016-11-01 12:50 | Discharge Inst-Surgical ---
D/C Lap Instructions-VERONICA Follow Up RPN Activity as tolerated High Fiber Diet 25g or more per day Avoid Alcohol, Caffeine, Spicy [place] and Acid foods. Drink 64 fluid oz or more of fluids per day. Symptoms to Report: Fever over 101 degree F, Nausea/Vomiting If any problems/questions: Contact your physician or go to Emergency Room LESLYE MARTIN MD Nov 01, 2016 12:50 pm
[2016-11-01 13:00] VITALS: BP 129/77
[2016-11-01 13:30] VITALS: BP 129/77
--- NOTE | 2016-11-01 13:34 | OPERATIVE REPORT ---
DATE OF SERVICE: 11/01/2016 ATTENDING PRIMARY CARE PHYSICIAN: Dr. Mani Pride. PREOPERATIVE DIAGNOSES: 1. Dysphagia. 2. Gastroesophageal reflux disease. 3. Morbid obesity. POSTOPERATIVE DIAGNOSES: 1. Reflux esophagitis between class B and C. Intact band. No erosion or slippage apparent. 2. Mild to moderate gastritis. 3. Small antral polyp. PROCEDURE: EGD with biopsy. SURGEON: Dr. Martin. ANESTHESIA: Conscious sedation. ESTIMATED BLOOD LOSS: Minimal. FINDINGS: Reflux esophagitis between class B and C. There were no strictures identified in this region. The band was intact and appeared to be in normal position with a normal sized gastric pouch. The endoscope was able to pass through the band without any difficulty. The band appeared to be intact with no erosions. Mild to moderate gastritis with a small antral polyp approximately 2 mm in size. Pylorus and duodenum appeared normal with no distal obstructions. DISPOSITION: The patient tolerated the procedure well. INDICATIONS: The patient is a 71-year-old male with history of morbid obesity and medical comorbidities including hypertension, hypercholesterolemia, coronary artery disease, sleep apnea and gastroesophageal reflux disease. He is status post lap band placement with an AP large band on 04/07/2014. He has had issues with reflux and regurgitation. We would do a small adjustment, then he would have significant reflux to the point where he was experiencing dysphagia and then we would remove fluid from the band, then he would become unrestricted and gain weight. He reports that despite proceeding with the necessary lifestyle and diet accommodation including small and more frequent meals as well as avoid caffeinated beverages, spicy, greasy and acidic foods as well as taking Protonix, he has had persistent symptoms. His preoperative weight was 383.7 pounds at 5 feet 11 inches, recent weight was 284.1 pounds with a body mass index of 39.8. The patient was brought to the endoscopy suite, laid in the left lateral decubitus position. After adequate IV pain and sedative medications and conscious sedation anesthesia, the mouthpiece was applied. Endoscope was placed in the mouth visualizing the pharynx and hypopharyngeal region. Vocal cords, epiglottis and vallecula identified and appeared to be normal. The endoscope was then gently intubated in the esophageal opening, esophagus insufflated. The endoscope was then advanced to the first, second and third portions of the esophagus. At the level of the GE junction, a reflux esophagitis between class B and C identified. A biopsy was taken with forceps with visualization of good hemostasis. There were no ulcers or strictures identified in this region. The gastric pouch was then entered which appeared normal in size. There were no ulcerations in this region. The band also appeared to be intact with no ulcerations or strictures in this region and the scope was easily palpable through this region. The endoscope was then retroflexed visualizing the intact band including placement as well as no erosion identified. There was a mild to moderate gastritis of the antrum with a small antral polyp approximately 2 mm in size which was biopsied with forceps with visualization of good hemostasis. The endoscope was then advanced to the pylorus and the first and second portions of the duodenum, which appeared normal with no distal obstructions. The endoscope was then slowly withdrawn while taking a second look and suctioning of residual air with no additional findings. The patient tolerated the procedure well. We will recommend continued conservative management for now with small and more frequent meals, avoidance of eating at night as well as head elevation. We will just recommend relying less on the band and more on lifestyle with high protein diet with lean meat protein sources as well as smaller more frequent meals and to stop eating when he feels any sensation of pressure or fullness. If he continues to have symptoms despite maximal medical management, he may be a candidate for removal of the band followed by an interval laparoscopic sleeve gastrectomy. Job ID: [id number] DocumentID: [id number] Dictated Date: 11/01/2016 12:19:57 Delivery Person Date: 11/01/2016 13:33:55 Dictated By: LESLYE MARTIN MD
--- OUTSIDE RECORDS SUMMARY | 2016-11-06 12:38 | XMS REPORT | Continuity of Care Document ---
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 SWELLING OF LIMB 02/16/2016 GERA DO, SIMON F Ot 719.41 JOINT PAIN-SHLDER 02/16/2016 CARISSA LU APRN Ot R22.42 LOCALIZED SWELLING, MASS AND LUMP, LEFT 02/16/2016 OTHER, UNLISTED Ot Z51.81 ENCOUNTER FOR THERAPEUTIC DRUG LEVEL MON 02/16/2016 OTHER, UNLISTED Ot Z79.01 CARE HOME (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 02/16/2016 SHARA TRAMMELL MD Ot Z51.81 ENCOUNTER FOR THERAPEUTIC DRUG LEVEL MON 02/16/2016 SHARA TRAMMELL MD Ot Z79.01 CARE HOME (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 02/21/2016 NO BLOCK MD Ot E11.9 TYPE 2 DIABETES MELLITUS WITHOUT COMPLIC 02/21/2016 NO BLOCK MD Ot I10 ESSENTIAL (PRIMARY) HYPERTENSION 02/21/2016 NO BLOCK MD, Ot I25.10 ATHSCL HEART DISEASE OF [place] CORONARY 02/21/2016 NO BLOCK MD Ot R51 HEADACHE 02/21/2016 NO BLOCK MD Ot 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 02/21/2016 NO BLOCK MD Ot Z95.0 PRESENCE OF CARDIAC PACEMAKER 02/21/2016 NO BLOCK MD Ot Z95.1 PRESENCE OF AORTOCORONARY BYPASS GRAFT 02/21/2016 NO BLOCK MD Ot Z98.1 ARTHRODESIS STATUS 08/07/2016 CARISSA LU [employer]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 Ot N50.89 OTHER SPECIFIED DISORDERS OF THE MALE GE 08/07/2016 CARISSA LU APRN Ot N50.89 OTHER SPECIFIED DISORDERS OF THE MALE GE 08/07/2016 CARISSA LU N [employer] SYSTEMS WORKER Ot N50.89 OTHER SPECIFIED DISORDERS OF THE MALE GE 08/28/2016 CARISSA LU N [employer]AS SYSTEMS WORKER Ot N50.89 OTHER SPECIFIED DISORDERS OF THE MALE GE 09/02/2016 ALY CARISSA N G[employer] SYSTEMS WORKER Ot N50.89 OTHER SPECIFIED DISORDERS OF THE MALE GE 10/01/2016 ABEL GUAMAN MD Ot A93.8 OTHER SPECIFIED ARTHROPOD-BORNE VIRAL FE 10/01/2016 ABEL GUAMAN MD Ot E11.9 TYPE 2 DIABETES MELLITUS WITHOUT COMPLIC 10/01/2016 ABEL GUAMAN MD, Ot E86.0 DEHYDRATION 10/01/2016 ABEL GUAMAN MD, Ot F41.9 ANXIETY DISORDER, UNSPECIFIED 10/01/2016 ABEL GUAMAN MD, Ot F43.10 POST-TRAUMATIC STRESS DISORDER, UNSPECIF 10/01/2016 ABEL GUAMAN MD, Ot G25.81 RESTLESS LEGS SYNDROME 10/01/2016 ABEL GUAMAN MD, Ot I10 ESSENTIAL (PRIMARY) HYPERTENSION 10/01/2016 ABEL GUAMAN MD, Ot I25.10 ATHSCL HEART DISEASE OF [place] CORONARY 10/01/2016 ABEL GUAMAN MD Ot I48.2 CHRONIC ATRIAL FIBRILLATION 10/01/2016 ABEL GUAMAN MD, Ot J44.9 CHRONIC OBSTRUCTIVE PULMONARY DISEASE, U 10/01/2016 ABEL GUAMAN MD, Ot K21.9 GASTRO-ESOPHAGEAL REFLUX DISEASE WITHOUT 10/01/2016 ABEL GUAMAN MD Ot Z79.4 CARE HOME (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 INSULIN 10/01/2016 ABEL GUAMAN MD Ot Z86.79 PERSONAL HISTORY OF OTHER DISEASES OF TH 10/01/2016 ABEL GUAMAN MD, Ot Z87.891 PERSONAL HISTORY OF NICOTINE DEPENDENCE 10/01/2016 ABEL GUAMAN MD Ot Z95.0 PRESENCE OF CARDIAC PACEMAKER 10/01/2016 ABEL GUAMAN MD Ot Z95.5 PRESENCE OF CORONARY ANGIOPLASTY IMPLANT 10/01/2016 ABEL GUAMAN MD, Ot Z98.84 BARIATRIC SURGERY STATUS 10/30/2016 ABEL GUAMAN MD, Ot D72.829 ELEVATED WHITE BLOOD CELL COUNT, UNSPECI 10/31/2016 LESLYE MARTIN MD Ot K21.9 GASTRO-ESOPHAGEAL REFLUX DISEASE WITHOUT 10/31/2016 LESLYE MARTIN MD, Ot Z01.818 ENCOUNTER FOR OTHER PREPROCEDURAL EXAMIN 10/31/2016 LESLYE MARTIN MD, Ot Z98.84 BARIATRIC SURGERY STATUS Procedures Code Description Performed By Performed On 88.72 02/20/2011 99.61 02/20/2011 40541 PSYCH DIAGNOSTIC EVALUATION 03/29/2014 [id number] 10/01/2015 [id number] 10/01/2015 Results Test Result Range Complete blood count (CBC) with automated white blood cell (WBC) differential - 02/15/16 22:50 Blood leukocytes automated count (number/volume) 8.3 10*3/ uL 4.3-11.0 Blood erythrocytes automated count (number/volume) 4.62 10*6 /uL 4.35-5.85 Venous blood hemoglobin measurement (mass/volume) 12.3 g/dL 13.3-17.7 Blood hematocrit (volume fraction) 38 % 40-54 Automated erythrocyte mean corpuscular volume 83 [foz_us] 80-99 Automated erythrocyte mean corpuscular hemoglobin (mass per erythrocyte) 27 pg 25-34 Automated erythrocyte mean corpuscular hemoglobin concentration measurement ( mass/volume) 32 g/dL 32-36 Automated erythrocyte distribution width ratio 14.8 % 10.0-14.5 Automated blood platelet count (count/volume) 207 10*3/uL 130-400 Automated blood platelet mean volume measurement 10.4 [foz_ us] 7.4-10.4 Automated blood neutrophils/100 leukocytes 54 % 42-75 Automated blood lymphocytes/100 leukocytes 34 % 12-44 Blood monocytes/100 leukocytes 10 % 0-12 Automated blood eosinophils/100 leukocytes 2 % 0-10 Automated blood basophils/100 leukocytes 0 % 0-10 Blood neutrophils automated count (number/volume) 4.5 10*3 1.8-7.8 Blood lymphocytes automated count (number/volume) 2.8 10*3 1.0-4.0 Blood monocytes automated count (number/volume) 0.9 10*3 0.0-1.0 Automated eosinophil count 0.1 10*3/uL 0.0-0.3 Automated blood basophil count (count/volume) 0.0 10*3/uL 0.0-0.1 PT panel in platelet poor plasma by coagulation assay - 02/15/16 22:50 Prothrombin time (PT) in platelet poor plasma by coagulation assay 30.7 s 12.2-14.7 INR in platelet poor plasma or blood by coagulation assay 3.0 0.8-1.4 Activated partial thromboplastin time (aPTT) in platelet poor plasma bycoagulation assay - 02/15/16 22:50 Activated partial thromboplastin time (aPTT) in platelet poor plasma bycoagulation assay 49 s 24-35 Comprehensive metabolic panel - 02/15/16 22:50 Serum or plasma sodium measurement (moles/volume) 139 mmol/ L 135-145 Serum or plasma potassium measurement (moles/volume) 4.0 mmol/L 3.6-5.0 Serum or plasma chloride measurement (moles/volume) 107 mmol /L 98-107 Carbon dioxide 20 mmol/L 21-32 Serum or plasma anion gap determination (moles/volume) 12 mmol/L 5-14 Serum or plasma urea nitrogen measurement (mass/volume) 17 mg/dL 7-18 Serum or plasma creatinine measurement (mass/volume) 1.08 mg /dL 0.60-1.30 Serum or plasma urea nitrogen/creatinine mass ratio 16 NRG Serum or plasma creatinine measurement with calculation of estimated glomerular filtration rate > NRG Serum or plasma glucose measurement (mass/volume) 116 mg/dL 70-105 Serum or plasma calcium measurement (mass/volume) 9.1 mg/dL 8.5-10.1 Serum or plasma total bilirubin measurement (mass/volume) 1.0 mg/dL 0.1-1.0 Serum or plasma alkaline phosphatase measurement (enzymatic activity/volume) 95 U/L 40-136 Serum or plasma aspartate aminotransferase measurement (enzymatic activity/ volume) 27 U/L 5-34 Serum or plasma alanine aminotransferase measurement (enzymatic activity/volume ) 20 U/L 0-55 Serum or plasma protein measurement (mass/volume) 6.6 g/dL 6.4-8.2 Serum or plasma albumin measurement (mass/volume) 4.0 g/dL 3.2-4.5 Magnesium - 02/15/16 22:50 Magnesium 2.2 mg/dL 1.8-2.4 Complete blood count (CBC) with automated white blood cell (WBC) differential - 09/29/16 08:54 Blood leukocytes automated count (number/volume) 22.1 10*3/ uL 4.3-11.0 Blood erythrocytes automated count (number/volume) 5.12 10*6 /uL 4.35-5.85 Venous blood hemoglobin measurement (mass/volume) 14.7 g/dL 13.3-17.7 Blood hematocrit (volume fraction) 45 % 40-54 Automated erythrocyte mean corpuscular volume 87 [foz_us] 80-99 Automated erythrocyte mean corpuscular hemoglobin (mass per erythrocyte) 29 pg 25-34 Automated erythrocyte mean corpuscular hemoglobin concentration measurement ( mass/volume) 33 g/dL 32-36 Automated erythrocyte distribution width ratio 16.2 % 10.0-14.5 Automated blood platelet count (count/volume) 291 10*3/uL 130-400 Automated blood platelet mean volume measurement 10.4 [foz_ us] 7.4-10.4 Automated blood neutrophils/100 leukocytes 87 % 42-75 Automated blood lymphocytes/100 leukocytes 5 % 12-44 Blood monocytes/100 leukocytes 8 % 0-12 Automated blood eosinophils/100 leukocytes 0 % 0-10 Automated blood basophils/100 leukocytes 0 % 0-10 Blood neutrophils automated count (number/volume) 19.3 10*3 1.8-7.8 Blood lymphocytes automated count (number/volume) 1.1 10*3 1.0-4.0 Blood monocytes automated count (number/volume) 1.7 10*3 0.0-1.0 Automated eosinophil count 0.0 10*3/uL 0.0-0.3 Automated blood basophil count (count/volume) 0.0 10*3/uL 0.0-0.1 Blood lactic acid measurement (moles/volume) - 09/29/16 08:54 Blood lactic acid measurement (moles/volume) 2.38 mmol/L 0.50-2.00 PT panel in platelet poor plasma by coagulation assay - 09/29/16 08:54 Prothrombin time (PT) in platelet poor plasma by coagulation assay 16.1 s 12.2-14.7 INR in platelet poor plasma or blood by coagulation assay 1.3 0.8-1.4 Activated partial thromboplastin time (aPTT) in platelet poor plasma bycoagulation assay - 09/29/16 08:54 Activated partial thromboplastin time (aPTT) in platelet poor plasma bycoagulation assay 33 s 24-35 Comprehensive metabolic panel - 09/29/16 08:54 Serum or plasma sodium measurement (moles/volume) 139 mmol/ L 135-145 Serum or plasma potassium measurement (moles/volume) 4.2 mmol/L 3.6-5.0 Serum or plasma chloride measurement (moles/volume) 103 mmol /L 98-107 Carbon dioxide 23 mmol/L 21-32 Serum or plasma anion gap determination (moles/volume) 13 mmol/L 5-14 Serum or plasma urea nitrogen measurement (mass/volume) 25 mg/dL 7-18 Serum or plasma creatinine measurement (mass/volume) 1.13 mg /dL 0.60-1.30 Serum or plasma urea nitrogen/creatinine mass ratio 22 NRG Serum or plasma creatinine measurement with calculation of estimated glomerular filtration rate > NRG Serum or plasma glucose measurement (mass/volume) 159 mg/dL 70-105 Serum or plasma calcium measurement (mass/volume) 9.5 mg/dL 8.5-10.1 Serum or plasma total bilirubin measurement (mass/volume) 1.6 mg/dL 0.1-1.0 Serum or plasma alkaline phosphatase measurement (enzymatic activity/volume) 86 U/L 40-136 Serum or plasma aspartate aminotransferase measurement (enzymatic activity/ volume) 21 U/L 5-34 Serum or plasma alanine aminotransferase measurement (enzymatic activity/volume ) 20 U/L 0-55 Serum or plasma protein measurement (mass/volume) 6.9 g/dL 6.4-8.2 Serum or plasma albumin measurement (mass/volume) 3.9 g/dL 3.2-4.5 THYROID STIMULATING HORMONE - 09/29/16 08:54 THYROID STIMULATING HORMONE 0.83 u[iU]/mL 0.35-4.94 Blood manual differential performed detection - 09/29/16 08:54 Blood monocytes/100 leukocytes 4 % NRG Manual blood segmented neutrophils/100 leukocytes 88 % NRG Blood band neutrophils/100 leukocytes 0 % NRG Manual blood lymphocytes/100 leukocytes 4 % NRG Manual eosinophils/100 leukocytes in nose 0 % NRG Manual blood basophils/100 leukocytes 0 % NRG Blood lymphocytes variant/100 leukocytes 4 % NRG Blood anisocytosis detection by light microscopy SLIGHT NRG Bacterial blood culture - 09/29/16 08:54 Bacterial blood culture NG NRG Bacterial blood culture - 09/29/16 09:35 Bacterial blood culture NG NRG Influenza virus A and B antigen detection - 09/29/16 10:05 FLU RESULT NEGATIVE FOR INFLUENZA A AND B ANTIGENS BY IA NRG Serum or plasma lactate measurement (moles/volume) - 09/29/16 11:07 Serum or plasma lactate measurement (moles/volume) 1.25 mmol /L 0.50-2.00 Blood lactic acid measurement (moles/volume) - 09/29/16 16:10 Blood lactic acid measurement (moles/volume) 2.79 mmol/L 0.50-2.00 Capillary blood glucose measurement by glucometer (mass/volume) - 09/29/16 16: 28 Capillary blood glucose measurement by glucometer (mass/volume) 132 mg/dL 70-110 Arterial blood gas measurement - 09/29/16 17:15 Blood pCO2 34 mm[Hg] 35-45 Blood pO2 85 mm[Hg] 79-93 Arterial blood bicarbonate measurement (moles/volume) 24 mmol/L 23-27 Arterial blood base excess by calculation -0.1 mmol/L -2.5-2.5 Arterial blood oxygen saturation measurement 98 % 94-100 * Inhaled oxygen flow rate 2L NRG Arterial blood pH measurement with patient temperature correction 7.45 7.37-7.43 Arterial blood carbon dioxide, total measurement (moles/volume) 24.6 mmol/L 21.0-31.0 Body site RIGHT RADIAL NRG Assessment of wrist artery patency prior to arterial puncture POSITIVE NRG Setting of ventilation mode NO NRG Measurement of body temperature 98.3 NRG Serum or plasma lactate measurement (moles/volume) - 09/29/16 18:15 Serum or plasma lactate measurement (moles/volume) 1.90 mmol /L 0.50-2.00 Capillary blood glucose measurement by glucometer (mass/volume) - 09/30/16 11: 42 Capillary blood glucose measurement by glucometer (mass/volume) 95 mg/dL 70-110 Capillary blood glucose measurement by glucometer (mass/volume) - 09/30/16 16: 40 Capillary blood glucose measurement by glucometer (mass/volume) 188 mg/dL 70-110 Capillary blood glucose measurement by glucometer (mass/volume) - 09/30/16 20: 53 Capillary blood glucose measurement by glucometer (mass/volume) 89 mg/dL 70-110 Capillary blood glucose measurement by glucometer (mass/volume) - 10/01/16 05: 10 Capillary blood glucose measurement by glucometer (mass/volume) 126 mg/dL 70-110 Capillary blood glucose measurement by glucometer (mass/volume) - 10/01/16 09: 37 Capillary blood glucose measurement by glucometer (mass/volume) 137 mg/dL 70-110 Complete blood count (CBC) with automated white blood cell (WBC) differential - 10/01/16 09:47 Blood leukocytes automated count (number/volume) 14.5 10*3/ uL 4.3-11.0 Blood erythrocytes automated count (number/volume) 4.45 10*6 /uL 4.35-5.85 Venous blood hemoglobin measurement (mass/volume) 12.6 g/dL 13.3-17.7 Blood hematocrit (volume fraction) 39 % 40-54 Automated erythrocyte mean corpuscular volume 87 [foz_us] 80-99 Automated erythrocyte mean corpuscular hemoglobin (mass per erythrocyte) 28 pg 25-34 Automated erythrocyte mean corpuscular hemoglobin concentration measurement ( mass/volume) 33 g/dL 32-36 Automated erythrocyte distribution width ratio 15.8 % 10.0-14.5 Automated blood platelet count (count/volume) 235 10*3/uL 130-400 Automated blood platelet mean volume measurement 10.1 [foz_ us] 7.4-10.4 Automated blood neutrophils/100 leukocytes 71 % 42-75 Automated blood lymphocytes/100 leukocytes 20 % 12-44 Blood monocytes/100 leukocytes 8 % 0-12 Automated blood eosinophils/100 leukocytes 1 % 0-10 Automated blood basophils/100 leukocytes 0 % 0-10 Blood neutrophils automated count (number/volume) 10.3 10*3 1.8-7.8 Blood lymphocytes automated count (number/volume) 3.0 10*3 1.0-4.0 Blood monocytes automated count (number/volume) 1.2 10*3 0.0-1.0 Automated eosinophil count 0.1 10*3/uL 0.0-0.3 Automated blood basophil count (count/volume) 0.0 10*3/uL 0.0-0.1 Capillary blood glucose measurement by glucometer (mass/volume) - 10/01/16 10: 41 Capillary blood glucose measurement by glucometer (mass/volume) 164 mg/dL 70-110 Bacterial blood culture - 10/29/16 12:46 Bacterial blood culture NG NRG Bacterial blood culture - 10/29/16 12:49 Bacterial blood culture NG NRG Capillary blood glucose measurement by glucometer (mass/volume) - 11/01/16 10: 30 Capillary blood glucose measurement by glucometer (mass/volume) 141 mg/dL 70-110 Encounters ACCT No. Visit Date/Time Discharge Status Pt. Type Provider Facility Loc./Unit Complaint [id number] 03/29/2014 08:43:00 03/29/2014 23: 59:59 CLS Dilshad GALVIN PHD, [facility]
== END 2016-11-01 13:25 | disposition home or self-care (01) ==
LOC: ENDO 09:55
PROVIDERS: ATTEND Surgery Pediatric Surgery
DX: K21.0 Gastro-esophageal reflux disease with esophagitis (principal); K29.70 Gastritis, unspecified, without bleeding; K31.7 Polyp of stomach and duodenum; I10 Essential (primary) hypertension; E78.00 Pure hypercholesterolemia, unspecified; I25.10 Atherosclerotic heart disease of native coronary artery without angina pectoris; G47.30 Sleep apnea, unspecified; E66.01 Morbid (severe) obesity due to excess calories; Z68.38 Body mass index [BMI] 38.0-38.9, adult; Z98.84 Bariatric surgery status
CPT/HCPCS: 82962

== ENCOUNTER 2016-11-17 07:08 | Inpatient (IN) | payer MEDICARE, OTHER ==
[~2016-11-17] VITALS: Ht 180.3 cm; Wt 137.7 kg
[2016-11-17] VITALS (18 sets, daily range): BP systolic 98–138; BP diastolic 56–84
[~2016-11-17 07:08] MED LIST changes: -METO-270 PO; +METO-387 PO; +TAMS0.4C2 PO; +[UNRECOGNIZED DRUG - OTHER] PO
[2016-11-17 08:11] LABS: BASOPHILS % (AUTO) 0 % (0-10); EOSINOPHILS # (AUTO) 0.1 10^3/uL (0.0-0.3); EOSINOPHILS % (AUTO) 1 % (0-10); LYMPHOCYTES # (AUTO) 3.2 X 10^3 (1.0-4.0); LYMPHOCYTES % (AUTO) 20 % (12-44); MEAN CORPUSCULAR HEMOGLOBIN 29 PG (25-34); MEAN CORPUSCULAR HGB CONC 33 G/DL (32-36); MEAN CORPUSCULAR VOLUME 87 FL (80-99); MEAN PLATELET VOLUME 9.9 FL (7.4-10.4); MONOCYTES # (AUTO) 0.9 X 10^3 (0.0-1.0); MONOCYTES % (AUTO) 6 % (0-12); NEUTROPHILS # (AUTO) 12.1 X 10^3 (1.8-7.8); NEUTROPHILS % (AUTO) 74 % (42-75); PLATELET COUNT 227 10^3/uL (130-400); RED CELL DISTRIBUTION WIDTH 17.7 % (10.0-14.5); WHITE BLOOD COUNT 16.4 10^3/uL (4.3-11.0)
[2016-11-17] MEDS ORDERED: ACETAMINOPHEN 500 MG TAB (TYLENOL) ONE (08:17)
[2016-11-17 08:22] LABS: INR 2.1 (0.8-1.4); PROTHROMBIN TIME PATIENT 23.2 SEC (12.2-14.7)
[2016-11-17 08:28] LABS: ASPARTATE AMINO TRANSFERASE 28 U/L (5-34); CALCIUM 10.3 MG/DL (8.5-10.1); CHLORIDE 100 MMOL/L (98-107); POTASSIUM 4.2 MMOL/L (3.6-5.0); SODIUM 140 MMOL/L (135-145)
[2016-11-17 08:31] LABS: BAND NEUTROPHILS 3 %; LYMPHOCYTES % (MANUAL) 24 %; NEUTROPHILS % (MANUAL) 69 %
--- NOTE | 2016-11-17 08:35 | Diagnostic Imaging Report ---
INDICATION: Febrile with chills. Comparison with 09/30/2016. FINDINGS: There has been development of dense consolidated infiltrate in the left lower lung since previous exam. Right lung is well-aerated and clear. The heart is not enlarged. Pacemaker present with leads in good position. IMPRESSION: Consolidated pneumonia left lower lobe. Dictated by: Dictated on workstation # [id number]
[2016-11-17 08:40] LABS: ALANINE AMINOTRANSFERASE 25 U/L (0-55); ALBUMIN 4.4 GM/DL (3.2-4.5); ANION GAP 17 MMOL/L (5-14); BLOOD UREA NITROGEN 20 MG/DL (7-18); BUN/CREATININE RATIO 18; CARBON DIOXIDE 23 MMOL/L (21-32); CREATININE SERUM 1.14 MG/DL (0.60-1.30); GFR ESTIMATED > 60; GLUCOSE 150 MG/DL (70-105); TOTAL PROTEIN 8.3 GM/DL (6.4-8.2)
--- NOTE | 2016-11-17 08:53 | ED General ---
General Chief Complaint: Cough/Cold/Flu Symptoms Stated Complaint: COUGHING UP BLOOD Nursing Triage Note: pt reports coughing up blood this am. pt states he is weaker than normal and has chills. no fever upon arrival. Nursing Sepsis Screen: No Definite Risk Source of Information: Patient Exam Limitations: No Limitations History of Present Illness Time Seen by Provider: 08:49 Initial Comments The patient is a 71-year-old white male known to me. He reported that they had been at [facility]. Yesterday he began to cough up some phlegm and generally feel weak. He has had a past history of possible pneumonia. He uses oxygen chronically at home. He felt as if he might chilled this morning. And he also coughed up blood. He is on Coumadin chronically. His temperature on arrival was 97.7. At approximately 0845 he began to exhibit shaking chills and his fever spiked to 100.7. Chest x-ray rest turned almost exactly at that time and shows a considerable infiltrate on the left. Timing/Duration: 12-24 Hours Associated Systoms: Cough, Fever/Chills, Shortness of Air, Weakness Allergies and Home Medications Allergies Coded Allergies: oxycodone HCl (Verified Allergy, Mild, itching, Pt states can take hydrocodone, 10/03/15) Sulfa (Sulfonamide Antibiotics) (Verified Allergy, Unknown, 12/09/06) Home Medications Amlodipine Besylate 5 Mg Tablet, 5 MG PO DAILY, (Reported) Doxycycline Hyclate 100 Mg Tablet, 100 MG PO BID, (Reported) Furosemide 40 Mg Tablet, 40 MG PO DAILY, (Reported) Gabapentin 100 Mg Capsule, 200 MG PO BID, (Reported) TAKES 2 (100MG) CAPSULES IN AM Insulin Glargine,Hum.rec.anlog 100 Unit/1 Ml Vial, 26 UNIT SQ DAILY, (Reported) Insulin Glargine,Hum.rec.anlog 100 Unit/1 Ml Vial, 26 UNIT SQ HS, (Reported) Metoprolol Succinate 25 Mg Tab.er.24h, 25 MG PO DAILY, (Reported) Montelukast Sodium 10 Mg Tablet, 10 MG PO DAILY, (Reported) Pantoprazole Sodium 40 Mg Tablet.dr, 40 MG PO DAILY, (Reported) Potassium Chloride 20 Meq Tablet.er, 40 PO BID, (Reported) Ropinirole HCl 3 Mg Tablet, 3 MG PO HS, (Reported) Spironolactone 25 Mg Tablet, 25 MG PO DAILY, (Reported) Tamsulosin HCl 0.4 Mg Cap.er.24h, 0.4 MG PO BID, (Reported) Trazodone HCl 100 Mg Tablet, 100 MG PO HS, (Reported) Warfarin Sodium 6 Mg Tablet, 4-7.5 MG PO EVENING, (Reported) [Apieonolactone] , 25 MG PO DAILY, (Reported) Constitutional: see HPI EENTM: no symptoms reported Respiratory: see HPI, cough, dyspnea on exertion, hemoptysis, short of breath Gastrointestinal: no symptoms reported Genitourinary: no symptoms reported Musculoskeletal: no symptoms reported Skin: no symptoms reported Psychiatric/Neurological: No Symptoms Reported Hematologic/Lymphatic: No Symptoms Reported Immunological/Allergic: no symptoms reported Past Afozbvm-Kbjenr-Mmgugu Hx Patient Social History Alcohol Use: Occasionally Uses Recreational Drug Use: No Smoking Status: Former Smoker Type Used: Cigarettes Former Smoker/When Quit: Aug 21, 1971 Recent Foreign Travel: No Contact w/Someone Who Travel: No Recent Infectious Disease Expo: No Recent Hopitalizations: No Immunizations Up To Date Tetanus Booster (TDap): Less than 5yrs Date of Pneumonia Vaccine: Jan 21, 2016 Date of Influenza Vaccine: Jan 31, 2015 Seasonal Allergies Seasonal Allergies: No Surgeries HX Surgeries: Yes (SPINAL FUSION,RIGHT ROTATOR CUFF,COLT TKR, LDA STENT, lap band) Surgeries: Abdominal, Coronary Stent, Gallbladder, Joint Replacement, Orthopedic, Pacemaker, Tonsillectomy Respiratory Hx Respiratory Disorders: Yes Respiratory Disorders: Pneumonia, Sleep Apnea Cardiovascular Hx Cardiac Disorders: Yes (STENT X1, PACEMAKER-meditronic) Cardiac Disorders: Atrial Fibrillation, Coronary Artery Disease, Heart Attack, Hypertension Neurological Hx Neurological Disorders: Yes (Restless leg syndrome) Reproductive System Hx Reproductive Disorders: No Sexually Transmitted Disease: No HIV/AIDS: No Genitourinary Hx Genitourinary Disorders: Yes Genitourinary Disorders: Renal Failure Gastrointestinal Hx Gastrointestinal Disorders: Yes (lap band surgery) Gastrointestinal Disorders: Gastroesophageal Reflux Musculoskeletal Hx Musculoskeletal Disorders: Yes (spinal fusion L5/S1) Musculoskeletal Disorders: Arthritis Endocrine Hx Endocrine Disorders: Yes Endocrine Disorders: Diabetes, Insulin dep HEENT HX ENT Disorders: No HEENT Disorders: Cataract Loss of Vision: Denies Hearing Impairment: Denies Cancer Hx Cancer: No Psychosocial Hx Psychiatric Problems: Yes Behavioral Health Disorders: Anxiety, PTSD, Depression Integumentary HX Skin/Integumentary Disorder: No Blood Transfusions Hx Blood Disorders: No Adverse Reaction to a Blood Tr: No Family Medical History Significant Family History: Heart Disease, Hypertension Family Medial History: Cancer 19 FATHER 19 MOTHER Chest pain 19 FATHER 19 MOTHER G8 BROTHER G8 BROTHER G8 BROTHER G8 BROTHER Congestive heart failure 19 MOTHER G8 BROTHER G8 BROTHER G8 BROTHER Family history: Arthritis Family history: Cardiovascular disease 19 FATHER Family history: Diabetes mellitus Family history: Glaucoma Family history: Hypertension Heart disease History of - respiratory disease Malignant neoplasm of lung 19 FATHER Myocardial infarction 19 MOTHER G8 BROTHER G8 BROTHER G8 BROTHER Parkinson's disease Prostate cancer G8 BROTHER Stroke Visual impairment No Family History of: Abdominal aortic aneurysm [place]'s disease Alcoholism Aphasia Cancer of colon Cataract Congenital heart disease Cystic fibrosis Dementia Dysphagia Family history: Allergy Family history: Alzheimer's disease Family history: Asthma Family history: Breast disease Family history: Coronary thrombosis Family history: Gastrointestinal disease Family history: Osteoporosis Family history: Thyroid disorder Headache Hearing loss Hereditary disease History of - anemia History of - disorder History of drug abuse Human immunodeficiency virus (HIV) seropositivity Hypercholesterolemia Infertile Kidney disease Psychotic disorder Seizure disorder Tuberculosis Physical Exam Vital Signs Vital Sign - Last 12Hours 11/17/16 11/17/16 11/17/16 07:17 07:20 07:50 Temp 97.7 Pulse 86 Resp 18 B/P (MAP) 184/102 Pulse Ox 91 O2 Delivery Room Air O2 Flow Rate 2.00 Capillary Refill : Less Than 3 Seconds General Appearance: Mild Distress, Moderate Distress Eyes: Bilateral Eye Normal Inspection HEENT: Normal ENT Inspection Neck: Normal Inspection Respiratory: Other (distant breath sounds, tachypnea, shallow respirations) Cardiovascular: Irregularly Irregular Gastrointestinal: Normal Bowel Sounds, No Organomegaly, No Pulsatile Mass, Non Tender, Soft Back: Normal Inspection, No CVA Tenderness, No Vertebral Tenderness Extremity: Normal Capillary Refill, Normal Inspection, Normal Range of Motion, Non Tender, No Calf Tenderness, No Pedal Edema Neurologic/Psychiatric: Alert, Oriented x3, No Motor/Sensory Deficits, Normal Mood/Affect Skin: Normal Color, Warm/Dry Lymphatic: No Adenopathy Focused Exam Lactic Acid Level Laboratory Tests Test 11/17/16 08:30 Lactic Acid Level 2.89 MMOL/L (0.50-2.00) *H Date of ETT Placement: October 01, 2015 Time of ETT Placement: 05 Progress/Results/Core Measures Results/Orders Lab Results Laboratory Tests Test 11/17/16 08:00 11/17/16 08:30 11/17/16 09:18 Range/Units White Blood Count 16.4 H 4.3-11.0 10^3/uL Red Blood Count 5.90 H 4.35-5.85 10^6/uL Hemoglobin 17.1 13.3-17.7 G/DL Hematocrit 52 40-54 % Mean Corpuscular Volume 87 80-99 FL Mean Corpuscular Hemoglobin 29 25-34 PG Mean Corpuscular Hemoglobin Concent 33 32-36 G/DL Red Cell Distribution Width 17.7 H 10.0-14.5 % Platelet Count 227 130-400 10^3/uL Mean Platelet Volume 9.9 7.4-10.4 FL Neutrophils (%) (Auto) 74 42-75 % Lymphocytes (%) (Auto) 20 12-44 % Monocytes (%) (Auto) 6 0-12 % Eosinophils (%) (Auto) 1 0-10 % Basophils (%) (Auto) 0 0-10 % Neutrophils # (Auto) 12.1 H 1.8-7.8 X 10^3 Lymphocytes # (Auto) 3.2 1.0-4.0 X 10^3 Monocytes # (Auto) 0.9 0.0-1.0 X 10^3 Eosinophils # (Auto) 0.1 0.0-0.3 10^3/uL Basophils # (Auto) 0.0 0.0-0.1 10^3/uL Neutrophils % (Manual) 69 % Lymphocytes % (Manual) 24 % Monocytes % (Manual) 4 % Band Neutrophils 3 % Toxic Granulation 1+ Blood Morphology Comment NORMAL Prothrombin Time 23.2 H 12.2-14.7 SEC INR Comment 2.1 H 0.8-1.4 Sodium Level 140 135-145 MMOL/L Potassium Level 4.2 3.6-5.0 MMOL/L Chloride Level 100 98-107 MMOL/L Carbon Dioxide Level 23 21-32 MMOL/L Anion Gap 17 H 5-14 MMOL/L Blood Urea Nitrogen 20 H 7-18 MG/DL Creatinine 1.14 0.60-1.30 MG/DL Estimat Glomerular Filtration Rate > 60 BUN/Creatinine Ratio 18 Glucose Level 150 H 70-105 MG/DL Calcium Level 10.3 H 8.5-10.1 MG/DL Total Bilirubin 1.0 0.1-1.0 MG/DL Aspartate Amino Transf (AST/SGOT) 28 5-34 U/L Alanine Aminotransferase (ALT/SGPT) 25 0-55 U/L Alkaline Phosphatase 103 40-136 U/L Total Protein 8.3 H 6.4-8.2 GM/DL Albumin 4.4 3.2-4.5 GM/DL Lactic Acid Level 2.89 *H 0.50-2.00 MMOL/L Urine Color YELLOW Urine Clarity CLEAR Urine pH 5 5-9 Urine Specific [place] 1.020 1.016-1.022 Urine Protein NEGATIVE NEGATIVE Urine Glucose (UA) NEGATIVE NEGATIVE Urine Ketones NEGATIVE NEGATIVE Urine Nitrite NEGATIVE NEGATIVE Urine Bilirubin NEGATIVE NEGATIVE Urine Urobilinogen 1 NORMAL MG/DL Urine Leukocyte Esterase 1+ H NEGATIVE Urine RBC (Auto) NEGATIVE NEGATIVE Urine RBC NONE /HPF Urine WBC RARE /HPF Urine Squamous Epithelial Cells RARE /HPF Urine Crystals NONE /LPF Urine Bacteria TRACE /HPF Urine Casts NONE /LPF Urine Mucus NEGATIVE /LPF Urine Culture Indicated NO My Orders Orders - DESTINEY BECERRA MD Cbc With Automated Diff (11/17/16 07:14) Comprehensive Metabolic Panel (11/17/16 07:14) Protime With Inr (11/17/16 07:14) Chest 1 View, Ap/Pa Only (11/17/16 07:14) Manual Differential (11/17/16 08:00) Acetaminophen Tablet (Tylenol Tablet) (11/17/16 08:17) Ua Culture If Indicated (11/17/16 08:55) Blood Culture (11/17/16 08:55) Sputum Culture (11/17/16 08:55) Lactic Acid Analyzer (11/17/16 08:55) Ceftriaxone Injection (Rocephin Injectio (11/17/16 09:15) Levofloxacin 750 Mg/150 Ml Iv (Levaquin (11/17/16 09:15) Lactated Ringers (Lr 1000 Ml Iv Solution (11/17/16 09:15) Lactated Ringers (Lr 1000 Ml Iv Solution (11/17/16 09:01) Medications Given in ED Current Medications Medications Dose Ordered Sig/Leatha Route Start Time Stop Time Status Last Admin Dose Admin Acetaminophen 500 mg STK-MED ONCE .ROUTE 11/17/16 08:17 11/17/16 08:22 DC 11/17/16 08:20 1,000 MG Levofloxacin/ Dextrose 150 ml @ 100 mls/hr ONCE ONCE IV 11/17/16 09:15 11/17/16 10:44 11/17/16 09:11 100 MLS/HR Vital Signs/I&O Vital Sign - Last 12Hours 11/17/16 11/17/16 11/17/16 11/17/16 07:17 07:20 07:50 08:10 Temp 97.7 97.7 97.7 Pulse 86 86 87 Resp 18 18 18 B/P (MAP) 184/102 184/102 206/139 Pulse Ox 91 91 92 O2 Delivery Room Air Nasal Cannula Nasal Cannula O2 Flow Rate 2.00 2.00 11/17/16 11/17/16 11/17/16 08:30 09:00 09:38 Temp 100.7 101.0 101.6 Pulse 102 102 102 Resp 20 20 18 B/P (MAP) 136/100 162/109 Pulse Ox 92 92 96 O2 Delivery Nasal Cannula OxyMask O2 Flow Rate 2.00 4.00 Blood Pressure Mean: 129 Departure Communication Progress Notes As noted in the history and chief complaint the patient began to exhibit fever and shaking chills. Chest x-ray by my interpretation shows apparent significant left sided infiltrate consistent with pneumonia. Additional laboratory is obtained to complete the sepsis protocol. The patient will be admitted to the ICU. SIRS, Sepsis, and Septic Shock Criteria SIRS Criteria: Temp Over 38.0 deg C (100.4 deg F) or Below 36.0 deg C (96.8 deg F): Yes Heart Rate Over 90: No Respiratory Rate Over 20 or CO2 Partial Pressure Below 32: No WBC Over 76383, Below 4000, or More than 10% bands: Yes Sepsis Criteria: Suspected or Present Source of Infection: Yes Severe Sepsis Criteria: Organ Dysfunction, Hypotension, or Hypoperfusion: No Septic Shock Criteria: Severe Sepsis with Hypotension, despite adequate fluid resuscitation: No Multiple Organ Dysfunction Syndrome Criteria: Evidence of 2 or More Organs Failing: No Meets Sepsis Criteria. Follow Sepsis Guidelines Impression Impression: Primary Impression: PNEUMONIA/SEPSIS Disposition: ADMITTED INPATIENT Condition: Stable/Unchanged Decision to Admit Reason: Admit from ER (General) Decision to Admit/Date: Nov 17, 2016 Time/Decision to Admit Time: 09:18 Departure-Patient Inst. Referrals: ABEL GUAMAN MD (PCP/Family) Primary Care Physician DESTINEY BECERRA MD Nov 17, 2016 08:53
[2016-11-17] MEDS ORDERED: LACTATED RINGERS 1,000 ML IV ONE (09:01)
[2016-11-17] MEDS ORDERED: LACTATED RINGERS 1,000 ML IV SCH (09:15)
[2016-11-17] MEDS ORDERED: cefTRIAXone INJECTION 1,000 MG in NS (IVPB) 50 ML IV ONE (09:15)
[2016-11-17] MEDS ORDERED: LEVOFLOXACIN 750 MG/150 ML IV 150 ML IV ONE (09:15)
[2016-11-17 09:23] LABS: BILIRUBIN,URINE NEGATIVE (NEGATIVE); KETONES,URINE NEGATIVE (NEGATIVE); LEUKOCYTE ESTERASE ,URINE 1+ (NEGATIVE); NITRITE,URINE NEGATIVE (NEGATIVE); PH,URINE 5 (5-9); PROTEIN,URINE NEGATIVE (NEGATIVE); UROBILINOGEN,URINE 1 MG/DL (NORMAL)
[2016-11-17 09:31] LABS: SQUAMOUS EPITHELIAL CELL,UR RARE /HPF; WBC,URINE RARE /HPF
[2016-11-17] MEDS: LACTATED RINGERS 1,000 ML IV SCH ×2 (10:47→18:32)
[2016-11-17] MEDS ORDERED: fentaNYL INJECTION 100 MCG/2 ML AMP IVP PRN (11:00)
[2016-11-17] MEDS ORDERED: LACTULOSE SYRUP 10GM/15ML (ENULOSE) 30ML UDC PO PRN (11:00)
[2016-11-17] MEDS ORDERED: ACETAMINOPHEN 500 MG TAB (TYLENOL) PO PRN (11:00)
[2016-11-17] MEDS ORDERED: ONDANSETRON 4 MG/2 ML (SDV) Z0FRAN IVP PRN (11:00)
[2016-11-17] MEDS ORDERED: HYDROcodone/APAP 5 MG/325 MG (LORTAB) TAB PO PRN (11:00)
[2016-11-17] MEDS ORDERED: ALPRAZolam 0.25 MG (XANAX) TAB PO PRN (11:00)
[2016-11-17] MEDS ORDERED: RT-ALBUTEROL/IPRATROPIUM 3 ML (DUONEB) VIAL ONE (11:45)
--- NOTE | 2016-11-17 11:53 | History & Physical-Hospitalist ---
HPI History of Present Illness: HPI/Chief Complaint CC: LLL pneumonia with sepsis HPI: This is a 71-year-old white male clinic patient of Dr. Pride'erika with a past medical history of chronic atrial fibrillation on Coumadin therapy for stroke prophylaxis and obstructive sleep apnea that presents to the ICU after diagnosed with a left lower lobe pneumonia with sepsis and elevated lactic acid. He has been placed on sepsis protocol and empiric antibiotics were initiated upon the assessment of the infiltrate on chest x-ray that currently he is sleeping soundly and denies any pain when he is aroused. His is bringing his sleep apnea machine and all of his home medications so we can reconcile. He denies any pain or shortness of breath currently. Source: patient, RN/MD Exam Limitations: clinical condition Date Seen 11/17/16 Time Seen by Provider: 11:00 Attending Physician Denise Montes DO PCP Mani Pride MD Referring Physician Date of Admission Nov 17, 2016 at 09:22 Home Medications & Allergies Home Medications Reviewed patient Home Medication Reconciliation Form Allergies Allergies Coded Allergies oxycodone HCl (Verified Allergy, Mild, itching, Pt states can take hydrocodone , 10/03/15) Sulfa (Sulfonamide Antibiotics) (Verified Allergy, Unknown, 12/09/06) Past Fleheza-Dpqspf-Dysheh Hx Patient Social History Marrital Status: Employed/Student: retired Alcohol Use: Occasionally Uses Recreational Drug Use: No Smoking Status: Former Smoker Former smoker/When Quit: Aug 21, 1971 Type Used: Cigarettes Physical Abuse Screen: No Sexual Abuse: No Recent Foreign Travel: No Contact w/other who traveled: No Recent Hopitalizations: No Recent Infectious Disease Expo: No Immunizations Up To Date Tetanus Booster (TDap): Less than 5yrs Date of Pneumonia Vaccine: Jan 21, 2016 Date of Influenza Vaccine: Jan 31, 2015 Seasonal Allergies Seasonal Allergies: No Surgeries HX Surgeries: Yes (SPINAL FUSION,RIGHT ROTATOR CUFF,COLT TKR, LDA STENT, lap band) Surgeries: Abdominal, Coronary Stent, Gallbladder, Joint Replacement, Orthopedic, Pacemaker, Tonsillectomy Respiratory Hx Respiratory Disorders: Yes Respiratory Disorders: COPD, Pneumonia, Sleep Apnea Cardiovascular Hx Cardiovascular Disorders: Yes (STENT X1, PACEMAKER-meditronic) Cardiac Disorders: Atrial Fibrillation, Coronary Artery Disease, Heart Attack, Hypertension Neurological Hx Neurological Disorders: Yes (Restless leg syndrome) Reproductive System Hx Reproductive Disorders: No Sexually Transmitted Disease: No HIV/AIDS: No Genitourinary Hx Genitourinary Disorders: Yes Genitourinary Disorders: Prostate Problems, Renal Failure Gastrointestinal Hx Gastrointestinal Disorders: Yes (lap band surgery) Gastrointestinal Disorders: Gastroesophageal Reflux Musculoskeletal Hx Musculoskeletal Disorders: Yes (spinal fusion L5/S1) Musculoskeletal Disorders: Arthritis Endocrine Hx Endocrine Disorders: Yes Endocrine Disorders: Diabetes, Insulin dep HEENT HX ENT Disorders: No HEENT Disorders: Cataract Loss of Vision: Denies Hearing Impairment: Denies Cancer Hx Cancer: No Psychosocial Hx Psychiatric Problems: Yes Behavioral Health Disorders: Anxiety, PTSD, Depression Integumentary HX Skin/Integumentary Disorder: No Blood Transfusions Hx Blood Disorders: No Adverse Reaction to a Blood Tr: No Family Medical History Significant Family History: Heart Disease, Hypertension Family Hx: Cancer 19 FATHER 19 MOTHER Chest pain 19 FATHER 19 MOTHER G8 BROTHER G8 BROTHER G8 BROTHER G8 BROTHER Congestive heart failure 19 MOTHER G8 BROTHER G8 BROTHER G8 BROTHER Family history: Arthritis Family history: Cardiovascular disease 19 FATHER Family history: Diabetes mellitus Family history: Glaucoma Family history: Hypertension Heart disease History of - respiratory disease Malignant neoplasm of lung 19 FATHER Myocardial infarction 19 MOTHER G8 BROTHER G8 BROTHER G8 BROTHER Parkinson's disease Prostate cancer G8 BROTHER Stroke Visual impairment No Family History of: Abdominal aortic aneurysm [place]'s disease Alcoholism Aphasia Cancer of colon Cataract Congenital heart disease Cystic fibrosis Dementia Dysphagia Family history: Allergy Family history: Alzheimer's disease Family history: Asthma Family history: Breast disease Family history: Coronary thrombosis Family history: Gastrointestinal disease Family history: Osteoporosis Family history: Thyroid disorder Headache Hearing loss Hereditary disease History of - anemia History of - disorder History of drug abuse Human immunodeficiency virus (HIV) seropositivity Hypercholesterolemia Infertile Kidney disease Psychotic disorder Seizure disorder Tuberculosis Review of Systems Constitutional: see HPI, chills, dizziness, fever, malaise, weakness, weight loss EENTM: no symptoms reported Respiratory: cough, dyspnea on exertion, short of breath Cardiovascular: no symptoms reported Gastrointestinal: nausea, vomiting Genitourinary: decreased output Musculoskeletal: back pain Skin: no symptoms reported Psychiatric/Neurological: No Symptoms Reported All Other Systems Reviewed Negative Unless Noted: Yes Physical Exam Physical Exam Vital Signs Vital Sign - Last 12Hours 11/17/16 11/17/16 11/17/16 07:17 07:20 07:50 Temp 97.7 Pulse 86 Resp 18 B/P (MAP) 184/102 Pulse Ox 91 O2 Delivery Room Air O2 Flow Rate 2.00 Capillary Refill : Less Than 3 Seconds General Appearance: No Apparent Distress, WD/WN, Chronically ill, Obese Eyes: Bilateral Eye Normal Inspection, Bilateral Eye PERRL HEENT: PERRL/EOMI, Normal ENT Inspection, Pharynx Normal Neck: Full Range of Motion, Normal Inspection, Non Tender, Supple, Carotid Bruit Respiratory: Chest Non Tender, No Accessory Muscle Use, No Respiratory Distress , Crackles (LLL), Decreased Breath Sounds Cardiovascular: No Edema, No Gallop, No JVD, No Murmur, Normal Peripheral Pulses, Irregularly Irregular, Tachycardia Gastrointestinal: Normal Bowel Sounds, No Organomegaly, No Pulsatile Mass, Non Tender, Soft Back: Normal Inspection, No CVA Tenderness, No Vertebral Tenderness Extremity: Normal Capillary Refill, Normal Inspection, Normal Range of Motion, Non Tender, No Calf Tenderness, No Pedal Edema Neurologic/Psychiatric: Alert, Oriented x3, No Motor/Sensory Deficits, Normal Mood/Affect Skin: Normal Color, Warm/Dry Lymphatic: No Adenopathy Results Results/Procedures Lab Laboratory Tests 11/17/16 08:00 Assessment/Plan Admission Diagnosis Assessment: Left lower lobe pneumonia with sepsis and elevated lactic acid placed on sepsis protocol Chronic it fibrillation now tachycardic at 93 bpm consulting cardiology in case rapid ventricular response occurs Obstructive sleep apnea compliant with sleep apnea machine Leukocytosis Hypertension Hyperlipidemia Assessment and Plan Plan: Sepsis protocol with IV fluids and antibiotics Nebulizer treatments Reconcile home meds when available Sleep apnea machine to be brought by Monitor closely Consult cardiology Clinical Quality Measures DVT/VTE Risk/Contraindication: Risk Factor Score Per Nursin RFS Level Per Nursing on Admit: 4+=Very High DENISE MONTES DO Nov 17, 2016 11:53
[2016-11-17] MEDS: RT-ALBUTEROL/IPRATROPIUM 3 ML (DUONEB) VIAL INH SCH ×3 (11:58→18:58)
--- NOTE | 2016-11-17 12:45 | Consultation-Cardiology ---
HPI-Cardiology Cardiology Consultation: Date of Consultation 11/17/16 Date of Admission Attending Physician Denise Montes DO Admitting Physician Mani Pride MD Consulting Physician Kelle GOLD MD HPI: Time Seen by Provider: 12:50 Chief Complaint: fever this is a 71-year-old gentleman who has history of atrial fibrillation and CAD with previous PCI. He presents with fever and was diagnosed and treated as pneumonia. During my history he is very drowsy, however, when I wake him up he is able to answer my questions. He feels better and denies any shortness of breath or chest pain at this moment. Review of Systems-Cardiology Review of Systems Time Seen by Provider: 12:57 Constitutional: fever Eyes: No As described under HPI, No no symptoms reported, No blindness, No blurred vision, No contact lenses, No drainage, No decreased acuity, No foreign body sensation, No glasses, No inflammation, No pain, No photophobia, No previous injury, No shadows, No tunnel vision, No other, No vision change Ears/Nose/Throat: No As described under HPI, No no symptoms reported, No chronic hearing loss, No epistaxis, No ear discharge, No ear pain, No loose teeth, No mouth pain, No mouth swelling, No nasal drainage, No nose pain, No recent hearing loss, No throat pain, No throat swelling, No ulcerations, No other Respiratory: No no symptoms reported, No As described under HPI, cough, No orthopnea, No shortness of breath, No SOB with excertion, No SOB at rest, No stridor, No wheezing, No other Cardiovascular: No no symptoms reported, No As described under HPI, No chest pain, No edema, No irregular heart rate, No lightheadedness, No palpitations, No syncope, No other Gastrointestinal: No no symptoms reported, No As described under HPI, No abdomen distended, No abdominal pain, No blood streaked bowels, No constipation , No diarrhea, No difficulty swallowing, No nausea, No poor appetite, No poor fluid intake, No rectal bleeding, No vomiting, No other, No nausea/vomiting/ diarrhea, No stool coloration changes Genitourinary: No no symptoms reported, No As described under HPI, No burning, No dysuria, No discharge, No frequency, No flank pain, No hematuria, No incontinence, No pain, No urgency, No other, No urine frequency changes, No urine coloration changes Musculoskeletal: No no symptoms reported, No As describe under HPI, No back pain, No gout, No joint pain, No joint swelling, No muscle pain, No muscle stiffness, No neck pain, No other Skin: No no symptoms reported, No As described under HPI, No change in color, No change in hair/nails, No dryness, No lesions, No lumps, No rash, No other, No skin related problems, No ulcerations, No rash on exposed areas, No ulcerations on exposed areas Psychiatric/Neurological: No As described under HPI, No anxiety, No depression , No emotional problems, No focal weakness, No headache, No no symptoms reported , No numbness, No other, No pre-existing deficit, No seizure, No syncope, No tingling, No tremors, No weakness Hematologic: No no symptoms reported, No As described under HPI, No anemia, No blood clots, No easy bleeding, No easy bruising, No swollen glands, No other, No bleeding abnormalities All Other Systems Reviewed Negative Unless Noted: Yes HAX-Gouaur-Ykkuxs Hx Patient Social History Marrital Status: Employed/Student: retired Alcohol Use: Occasionally Uses Recreational Drug Use: No Smoking Status: Former Smoker Former smoker/When Quit: Aug 21, 1971 Type Used: Cigarettes Recent Foreign Travel: No Recent Infectious Disease Expo: No Physical Abuse Screen: No Sexual Abuse: No Immunizations Up To Date Tetanus Booster (TDap): Less than 5yrs Date of Pneumonia Vaccine: Jan 21, 2016 Date of Influenza Vaccine: Jan 31, 2015 Past Medical History PMH As described under Assessment. Family Medical History Family Medical History: Reports fam h/o early CAD Family History: Cancer 19 FATHER 19 MOTHER Chest pain 19 FATHER 19 MOTHER G8 BROTHER G8 BROTHER G8 BROTHER G8 BROTHER Congestive heart failure 19 MOTHER G8 BROTHER G8 BROTHER G8 BROTHER Family history: Arthritis Family history: Cardiovascular disease 19 FATHER Family history: Diabetes mellitus Family history: Glaucoma Family history: Hypertension Heart disease History of - respiratory disease Malignant neoplasm of lung 19 FATHER Myocardial infarction 19 MOTHER G8 BROTHER G8 BROTHER G8 BROTHER Parkinson's disease Prostate cancer G8 BROTHER Stroke Visual impairment No Family History of: Abdominal aortic aneurysm Angelina's disease Alcoholism Aphasia Cancer of colon Cataract Congenital heart disease Cystic fibrosis Dementia Dysphagia Family history: Allergy Family history: Alzheimer's disease Family history: Asthma Family history: Breast disease Family history: Coronary thrombosis Family history: Gastrointestinal disease Family history: Osteoporosis Family history: Thyroid disorder Headache Hearing loss Hereditary disease History of - anemia History of - disorder History of drug abuse Human immunodeficiency virus (HIV) seropositivity Hypercholesterolemia Infertile Kidney disease Psychotic disorder Seizure disorder Tuberculosis Allergies and Home Medications Allergies Coded Allergies: oxycodone HCl (Verified Allergy, Mild, itching, Pt states can take hydrocodone, 10/03/15) Sulfa (Sulfonamide Antibiotics) (Verified Allergy, Unknown, 12/09/06) Home Medications Amlodipine Besylate 5 Mg Tablet, 5 MG PO DAILY, (Reported) Doxycycline Hyclate 100 Mg Tablet, 100 MG PO BID, (Reported) Furosemide 40 Mg Tablet, 40 MG PO DAILY, (Reported) Gabapentin 100 Mg Capsule, 200 MG PO BID, (Reported) TAKES 2 (100MG) CAPSULES IN AM Insulin Glargine,Hum.rec.anlog 100 Unit/1 Ml Vial, 26 UNIT SQ DAILY, (Reported) Insulin Glargine,Hum.rec.anlog 100 Unit/1 Ml Vial, 26 UNIT SQ HS, (Reported) Metoprolol Succinate 25 Mg Tab.er.24h, 25 MG PO DAILY, (Reported) Montelukast Sodium 10 Mg Tablet, 10 MG PO DAILY, (Reported) Pantoprazole Sodium 40 Mg Tablet.dr, 40 MG PO DAILY, (Reported) Potassium Chloride 20 Meq Tablet.er, 40 PO BID, (Reported) Ropinirole HCl 3 Mg Tablet, 3 MG PO HS, (Reported) Spironolactone 25 Mg Tablet, 25 MG PO DAILY, (Reported) Tamsulosin HCl 0.4 Mg Cap.er.24h, 0.4 MG PO BID, (Reported) Trazodone HCl 100 Mg Tablet, 100 MG PO HS, (Reported) Warfarin Sodium 6 Mg Tablet, 4-7.5 MG PO EVENING, (Reported) [Apieonolactone] , 25 MG PO DAILY, (Reported) Physical Exam-Cardiology Physical Exam Vital Signs/I&O Vital Sign - Last 12Hours 11/17/16 11/17/16 11/17/16 11/17/16 07:17 07:20 07:50 08:10 Temp 97.7 97.7 97.7 Pulse 86 86 87 Resp 18 18 18 B/P (MAP) 184/102 184/102 206/139 Pulse Ox 91 91 92 O2 Delivery Room Air Nasal Cannula Nasal Cannula O2 Flow Rate 2.00 2.00 11/17/16 11/17/16 11/17/16 11/17/16 08:30 09:00 09:38 09:45 Temp 100.7 101.0 101.6 Pulse 102 102 102 100 Resp 20 20 18 B/P (MAP) 136/100 162/109 Pulse Ox 92 92 96 O2 Delivery Nasal Cannula OxyMask O2 Flow Rate 2.00 4.00 11/17/16 11/17/16 11/17/16 11/17/16 09:50 10:03 11:37 11:58 Temp 99.4 99.3 Pulse 99 86 Resp 21 22 B/P (MAP) 135/78 138/79 Pulse Ox 99 97 96 95 O2 Delivery OxyMask Nasal Cannula Nasal Cannula O2 Flow Rate 5.00 3.00 3.00 4.00 11/17/16 12:00 Pulse Ox 97 Capillary Refill : Less Than 3 Seconds Constitutional: No appears stated age, No AAO x 3, No apparent distress, No PERRL, No well-developed, No well-nourished, No other HEENT: No PERRL, No normal ENT inspection, No TMs normal, No pharynx normal, No scleral icterus (R), No scleral icterus (L), No pale conjunctivae (R), No pale conjunctivae (L), No photophobia, No TM abnormal (R), No TM abnormal (L), No pharyngeal erythema, No tonsillar exudate, No other, No discharge, No EOMI, No hearing is well preserved, No hard of hearing, No oral hygience is good, No ulceration, No xanthelasmas are seen Neck: No non-tender, No full range of motion, No supple, No normal inspection, No carotid bruit, No limited range of motion, No lymphadenopathy (R), No lymphadenopathy (L), No tender lateral, No tender midline, No thyromegaly, No other, No carotid pulses are 2 + bilaterally, No with good upstrokes Respiratory: No accessory muscle use, No respiratory distress, No chest tender , No chest expansion is symmetric, No chest is bilaterally symmetric, No lungs clear to percussion, No lungs clear to auscultation, No crackles, No rhonchi, No rales, No stridor, No wheezing, No pleural rub, No other Cardiovascular: irregularly irregular, tachycardia, S1 and S2 Gastrointestinal: No tender, No soft, No round, No distended, No pulsatile mass , No organomegaly, No guarding, No rebound, No tenderness, No hernia, No mass, No audible bowel sounds, No abnormal bowel sounds, No abdominal bruits, No spleenomegaly, No other Rectal: deferred Extremities: No normal range of motion, No non-tender, No normal inspection, No pedal edema, No calf tenderness, No normal capillary refill, No pelvis stable , No calf tenderness, No inflammation, No pedal edema, No slow capillary refill , No swelling, No other, No abrasion, No clubbing, No cyanosis, No ecchymosis, No laceration, No no lower extremity edema bilateral, No significant edema, No tenderness, No wound Neurologic/Psychiatric: No insurance claims supervisor II-XII nml as tested, No no motor/sensory deficits, No alert, No normal mood/affect, No oriented x 3, No abnormal cerebellar tests, No abnormal insurance claims supervisor II-XII, No abnormal gait, No aphasia, No EOM palsy, No facial droop, No motor weakness, No sensory deficit, No depressed affect, No disoriented x 3, No other, No grossly intact, No power is 5/5 both on sides Skin: No normal color, No warm/dry, No cyanosis, No cool, diaphoresis, No damp , No ecchymosis, No jaundice, No mottled, No pallor, No rash, No tattoos/ piercings, No ulcerations, No rash on exposed areas, No ulcerations on exposed areas, No other Data Review Labs Laboratory Tests 11/17/16 08:00: White Blood Count 16.4H, Red Blood Count 5.90H, Hemoglobin 17.1, Hematocrit 52, Mean Corpuscular Volume 87, Mean Corpuscular Hemoglobin 29, Mean Corpuscular Hemoglobin Concent 33, Red Cell Distribution Width 17.7H, Platelet Count 227, Mean Platelet Volume 9.9, Neutrophils (%) (Auto) 74, Lymphocytes (%) (Auto) 20, Monocytes (%) (Auto) 6, Eosinophils (%) (Auto) 1, Basophils (%) (Auto) 0, Neutrophils # (Auto) 12.1H, Lymphocytes # (Auto) 3.2, Monocytes # (Auto) 0.9, Eosinophils # (Auto) 0.1, Basophils # (Auto) 0.0, Neutrophils % (Manual) 69, Lymphocytes % (Manual) 24, Monocytes % (Manual) 4, Band Neutrophils 3, Toxic Granulation 1+, Blood Morphology Comment NORMAL, Prothrombin Time 23.2H, INR Comment 2.1H, Sodium Level 140, Potassium Level 4.2, Chloride Level 100, Carbon Dioxide Level 23, Anion Gap 17H, Blood Urea Nitrogen 20H, Creatinine 1.14, Estimat Glomerular Filtration Rate > 60, BUN/Creatinine Ratio 18, Glucose Level 150H, Calcium Level 10.3H, Total Bilirubin 1.0, Aspartate Amino Transf (AST/SGOT ) 28, Alanine Aminotransferase (ALT/SGPT) 25, Alkaline Phosphatase 103, Total Protein 8.3H, Albumin 4.4 11/17/16 08:30: Lactic Acid Level 2.89*H 11/17/16 09:18: Urine Color YELLOW, Urine Clarity CLEAR, Urine pH 5, Urine Specific [place] 1.020, Urine Protein NEGATIVE, Urine Glucose (UA) NEGATIVE, Urine Ketones NEGATIVE, Urine Nitrite NEGATIVE, Urine Bilirubin NEGATIVE, Urine Urobilinogen 1 , Urine Leukocyte Esterase 1+H, Urine RBC (Auto) NEGATIVE, Urine RBC NONE, Urine WBC RARE, Urine Squamous Epithelial Cells RARE, Urine Crystals NONE, Urine Bacteria TRACE, Urine Casts NONE, Urine Mucus NEGATIVE, Urine Culture Indicated NO 11/17/16 10:40: Lactic Acid Level 2.91*H ECG Impression ECG Initial ECG Impression: Atrial Fibrillation w/RVR A/P-Cardiology Assessment/Admission Diagnosis Admission Diagnosis pneumonia atrial fibrillation with RVR Coronary artery disease hypertension Plan Assessment/Plan pneumonia: Defer treatment to primary team. Coronary artery disease, history of 3.5X16 mm Taxus stent in the LAD in 2005, has been following with Dr. Booth, workup has been normal, had a normal 2-D echocardiogram done in July 2015 Paroxysmal atrial fibrillation, sick sinus syndrome, history of dual-chamber pacemaker implantation. Seen and followed by Dr. Haney. currently in atrial fibrillation with heart rate between 100 and 110. He needs to be started on the same dose of beta janusz which he was taking as an outpatient. The nurse tells me that the has gone home to get his medication list, once we have that he will be started on his outpatient medications. Worsening heart rate with atrial fibrillation is likely secondary to his respiratory infection. Hypertension: elevated BP - has not started his home meds. Does need to be started. Hyperlipidemia, continue to monitor Diabetes mellitus, followed and managed by primary care physician Morbid obesity Thank you for your consultation. Please call me if you have any questions. Brenda Gold MD, FACP, FACC, FSCAI, FHRS, CCDS Interventional Cardiology Cardiac Electrophysiology Vascular Medicine and Endovascular Interventions Clinical Quality Measures DVT/VTE Risk/Contraindication: Risk Factor Score Per Nursin RFS Level Per Nursing on Admit: 4+=Very High Kelle GOLD MD Nov 17, 2016 12:45 pm
[2016-11-17] MEDS: ACETAMINOPHEN 500 MG TAB (TYLENOL) PO PRN (13:28)
[2016-11-17] MEDS ORDERED: ALPR0.5T7 PO (13:53)
[2016-11-17] MEDS ORDERED: DULO30CA48 PO (13:53)
[2016-11-17] MEDS ORDERED: ALPRAZolam 0.5 MG (XANAX) TAB PO PRN (14:15)
[2016-11-17] MEDS ORDERED: GABAPENTIN 100 MG (NEURONTIN) CAP PO SCH (14:23)
[2016-11-17] MEDS: SPIRONOLACTONE 25 MG (ALDACTONE) TAB PO SCH (15:36)
[2016-11-17] MEDS: KCL 20 MEQ TAB (K-DUR) PO SCH (15:36)
[2016-11-17] MEDS: PANTOPRAZOLE 40 MG (PROTONIX) TAB PO SCH (15:37)
[2016-11-17] MEDS: MONTELUKAST 10 MG (SINGULAIR) TAB PO SCH (15:37)
[2016-11-17] MEDS: DULoxetine 30 MG (CYMBALTA) CAP PO SCH (15:37)
[2016-11-17] MEDS: FUROSEMIDE 40 MG (LASIX) TAB PO SCH (15:38)
[2016-11-17] MEDS: amLODIPine 5 MG (NORVASC) TAB PO SCH (15:39)
[2016-11-17] MEDS ORDERED: RT-ALBUTEROL SULF 2.5 MG/3 ML PRE-MIX VIAL IH PRN (16:15)
[2016-11-17 16:19] LABS: ABG BASE EXCESS 3.9 MMOL/L (-2.5-2.5); ABG HCO3 28 MMOL/L (23-27); ABG OXYGEN SATURATION 97 % (94-100); ABG PCO2 40 MMHG (35-45); ABG PH 7.46 (7.37-7.43); ABG PO2 75 MMHG (79-93); ABG TCO2 29.1 MMOL/L (21.0-31.0); ALLENS TEST YES-POS
[2016-11-17 16:20] LABS: PATIENT TEMP 97.5
[2016-11-17] MEDS: warFARin 7.5 MG (COUMADIN) TAB PO SCH (17:54)
[2016-11-17] MEDS: ALFUZOSIN HCL 10 MG TAB (UROXATRAL) PO SCH (17:55)
[2016-11-17] MEDS: inSUlin (REGULAR) HUMAN 1 UNIT/0.01 ML (CHARGE PER UNIT) SC SCH (20:47)
[2016-11-17] MEDS ORDERED: traZODone 100 MG (DESYREL) TAB PO SCH (21:00)
[2016-11-17] MEDS: inSUlin DETERMIR 1 UNIT/0.01 ML (LEVEMIR) CHARGE PER UNIT SQ SCH (21:39)
[2016-11-17] MEDS: rOPINIRole 1 MG (REQUIP) TABLET PO SCH (21:46)
[2016-11-17] MEDS ORDERED: inSUlin DETERMIR 1 UNIT/0.01 ML (LEVEMIR) CHARGE PER UNIT SQ ONE (23:00)
[2016-11-18] VITALS (18 sets, daily range): BP systolic 109–173; BP diastolic 61–93
[2016-11-18 04:20] LABS: BASOPHILS % (AUTO) 0 % (0-10); EOSINOPHILS # (AUTO) 0.1 10^3/uL (0.0-0.3); EOSINOPHILS % (AUTO) 1 % (0-10); LYMPHOCYTES # (AUTO) 3.2 X 10^3 (1.0-4.0); LYMPHOCYTES % (AUTO) 18 % (12-44); MEAN CORPUSCULAR HEMOGLOBIN 30 PG (25-34); MEAN CORPUSCULAR HGB CONC 33 G/DL (32-36); MEAN CORPUSCULAR VOLUME 90 FL (80-99); MONOCYTES # (AUTO) 1.2 X 10^3 (0.0-1.0); MONOCYTES % (AUTO) 7 % (0-12); NEUTROPHILS # (AUTO) 13.5 X 10^3 (1.8-7.8); NEUTROPHILS % (AUTO) 75 % (42-75); PLATELET COUNT 181 10^3/uL (130-400); RED BLOOD COUNT 4.45 10^6/uL (4.35-5.85); RED CELL DISTRIBUTION WIDTH 16.6 % (10.0-14.5)
[2016-11-18 04:30] LABS: INR 2.2 (0.8-1.4); PROTHROMBIN TIME PATIENT 24.2 SEC (12.2-14.7)
[2016-11-18 04:43] LABS: ALANINE AMINOTRANSFERASE 14 U/L (0-55); ALBUMIN 3.1 GM/DL (3.2-4.5); ANION GAP 12 MMOL/L (5-14); ASPARTATE AMINO TRANSFERASE 16 U/L (5-34); BILIRUBIN,TOTAL 1.4 MG/DL (0.1-1.0); BLOOD UREA NITROGEN 18 MG/DL (7-18); BUN/CREATININE RATIO 20; CALCIUM 8.7 MG/DL (8.5-10.1); CARBON DIOXIDE 23 MMOL/L (21-32); CHLORIDE 103 MMOL/L (98-107); GFR ESTIMATED > 60; GLUCOSE 161 MG/DL (70-105); MAGNESIUM 1.8 MG/DL (1.8-2.4); PHOSPHORUS 2.5 MG/DL (2.3-4.7); POTASSIUM 3.9 MMOL/L (3.6-5.0); SODIUM 138 MMOL/L (135-145); TOTAL PROTEIN 5.5 GM/DL (6.4-8.2)
[2016-11-18] MEDS: LACTATED RINGERS 1,000 ML IV SCH ×4 (04:46→21:44)
[2016-11-18 04:49] LABS: TROPONIN I < 0.30 NG/ML (<0.30)
[2016-11-18] MEDS: inSUlin (REGULAR) HUMAN 1 UNIT/0.01 ML (CHARGE PER UNIT) SC SCH ×4 (05:25→21:05)
[2016-11-18] MEDS ORDERED: inSUlin ASPART (NovoLOG) 1 UNIT/0.01 ML (CHARGE PER UNIT) SC SCH (06:00)
[2016-11-18] MEDS: RT-ALBUTEROL/IPRATROPIUM 3 ML (DUONEB) VIAL INH SCH ×4 (07:36→19:27)
--- NOTE | 2016-11-18 07:41 | Pulmonary Consultation ---
History of Present Illness History of Present Illness Date of Consultation 11/18/16 07:35 Time Seen by Provider: 11:29 Date of Admission History of Present Illness 71yo with hx of oxygen dependanc, Afib, CHIN presented to ED secondary to productive cough sputum mixed with blood and weakness. Pt is on Coumadin for Afib. Tm since admission 101.6. CXR and labs reviewed CXR shows LLL infiltrate. I am consulted for pulmonary/CC management. Allergies and Home Medications Allergies Coded Allergies: Sulfa (Sulfonamide Antibiotics) (Verified Allergy, Intermediate, RASH, 03/04) BROKE OUT IN BRIGHT RED BURNING RASH BUT IS UNSURE OF ANY BREATHING DIFFICULTY AT THE TIME. WAS GIVEN TWO SHOTS DECADRON WHILE IN DR. OFFICE. Home Medications Alprazolam 0.5 Mg Tablet, 0.5 MG PO BID PRN for ANXIETY, (Reported) Amlodipine Besylate 5 Mg Tablet, 5 MG PO DAILY, (Reported) Duloxetine HCl 60 Mg Capsule.dr, 60 MG PO DAILY, (Reported) Enoxaparin Sodium 100 Mg/1 Ml Syringe, 100 MG SQ DAILY, #3 Prescribed by: DESTINEY BECERRA on 11/26/16 1353 Furosemide 40 Mg Tablet, 40 MG PO DAILY, (Reported) Gabapentin 100 Mg Capsule, 200 MG PO HS, (Reported) TAKES 2 (100MG) CAPSULES Insulin Glargine,Hum.rec.anlog 100 Unit/1 Ml Vial, 32 UNIT SQ DAILY, (Reported) Insulin Glargine,Hum.rec.anlog 100 Unit/1 Ml Vial, 26 UNIT SQ HS, (Reported) Levofloxacin 750 Mg Tablet, 750 MG PO DAILY@1100, #3 Beginning 11/27 take at approximately 1100 hours Prescribed by: DESTINEY BECERRA on 11/26/16 1353 Metoprolol Succinate 25 Mg Tab.er.24h, 25 MG PO DAILY, (Reported) Montelukast Sodium 10 Mg Tablet, 10 MG PO DAILY, (Reported) Oxycodone HCl 10 Mg Tab.er.12h, 10 MG PO Q12H PRN for PAIN-SEVERE, (Reported) Potassium Chloride 20 Meq Tablet.er, 20 MEQ PO BID, (Reported) Ropinirole HCl 3 Mg Tablet, 3 MG PO HS, (Reported) Spironolactone 25 Mg Tablet, 25 MG PO DAILY, (Reported) Tamsulosin HCl 0.4 Mg Cap.er.24h, 0.8 MG PO HS, (Reported) TAKES 2 (0.4 MG) CAPSULES Trazodone HCl 100 Mg Tablet, 100 MG PO HS, (Reported) Warfarin Sodium 7.5 Mg Tablet, 7.5 MG PO DAILY, (Reported) Past Ossyjxj-Smmdaz-Ejdkdq Hx Patient Social History Alcohol Use: Occasionally Uses Recreational Drug Use: No Smoking Status: Former Smoker Type Used: Cigarettes Former Smoker/When Quit: Aug 21, 1971 Recent Foreign Travel: No Contact w/Someone Who Travel: No Recent Infectious Disease Expo: No Recent Hopitalizations: No Physical Abuse Screen: No Sexual Abuse: No Immunizations Up To Date Tetanus Booster (TDap): Less than 5yrs Date of Pneumonia Vaccine: Jan 21, 2016 Date of Influenza Vaccine: Jan 31, 2015 Seasonal Allergies Seasonal Allergies: No Surgeries HX Surgeries: Yes (SPINAL FUSION,RIGHT ROTATOR CUFF,COLT TKR, LDA STENT, lap band) Surgeries: Abdominal, Coronary Stent, Gallbladder, Joint Replacement, Orthopedic, Pacemaker, Tonsillectomy Respiratory Hx Respiratory Disorders: Yes Respiratory Disorders: Pneumonia, Sleep Apnea Cardiovascular Hx Cardiac Disorders: Yes (STENT X1, PACEMAKER-meditronic) Cardiac Disorders: Atrial Fibrillation, Coronary Artery Disease, Heart Attack, Hypertension Neurological Hx Neurological Disorders: Yes (Restless leg syndrome) Reproductive System Hx Reproductive Disorders: No Sexually Transmitted Disease: No HIV/AIDS: No Genitourinary Hx Genitourinary Disorders: Yes Genitourinary Disorders: Prostate Problems, Renal Failure Gastrointestinal Hx Gastrointestinal Disorders: Yes (lap band surgery) Gastrointestinal Disorders: Gastroesophageal Reflux Musculoskeletal Hx Musculoskeletal Disorders: Yes (spinal fusion L5/S1) Musculoskeletal Disorders: Arthritis Endocrine Hx Endocrine Disorders: Yes Endocrine Disorders: Diabetes, Insulin dep HEENT HX ENT Disorders: No HEENT Disorders: Cataract Loss of Vision: Denies Hearing Impairment: Denies Cancer Hx Cancer: No Psychosocial Hx Psychiatric Problems: Yes Behavioral Health Disorders: Anxiety, PTSD, Depression Integumentary HX Skin/Integumentary Disorder: No Blood Transfusions Hx Blood Disorders: No Adverse Reaction to a Blood Tr: No Family Medical History Significant Family History: Heart Disease, Hypertension Family Medial History: Cancer 19 FATHER 19 MOTHER Chest pain 19 FATHER 19 MOTHER G8 BROTHER G8 BROTHER G8 BROTHER G8 BROTHER Congestive heart failure 19 MOTHER G8 BROTHER G8 BROTHER G8 BROTHER Family history: Arthritis Family history: Cardiovascular disease 19 FATHER Family history: Diabetes mellitus Family history: Glaucoma Family history: Hypertension Heart disease History of - respiratory disease Malignant neoplasm of lung 19 FATHER Myocardial infarction 19 MOTHER G8 BROTHER G8 BROTHER G8 BROTHER Parkinson's disease Prostate cancer G8 BROTHER Stroke Visual impairment No Family History of: Abdominal aortic aneurysm Stockbridge's disease Alcoholism Aphasia Cancer of colon Cataract Congenital heart disease Cystic fibrosis Dementia Dysphagia Family history: Allergy Family history: Alzheimer's disease Family history: Asthma Family history: Breast disease Family history: Coronary thrombosis Family history: Gastrointestinal disease Family history: Osteoporosis Family history: Thyroid disorder Headache Hearing loss Hereditary disease History of - anemia History of - disorder History of drug abuse Human immunodeficiency virus (HIV) seropositivity Hypercholesterolemia Infertile Kidney disease Psychotic disorder Seizure disorder Tuberculosis Review of Systems Time Seen by Provider: 11:29 Exam Exam Vital Signs Date Time Temp Pulse Resp B/P (MAP) Pulse Ox O2 Delivery O2 Flow Rate FiO2 11/18/16 06:00 73 14 112/77 NIV CPAP 3.00 11/18/16 05:00 68 14 117/69 NIV CPAP 3.00 11/18/16 04:17 97.9 11/18/16 04:00 71 11 111/67 97 NIV CPAP 3.00 11/18/16 04:00 97 Nasal Cannula 3.00 11/18/16 03:00 74 10 135/66 99 NIV CPAP 3.00 11/18/16 02:00 74 25 124/72 96 NIV CPAP 3.00 11/18/16 01:00 68 17 141/76 96 NIV CPAP 3.00 11/18/16 01:00 68 11/18/16 00:00 95 NIV CPAP 3.00 11/18/16 00:00 69 22 126/74 92 NIV CPAP 3.00 11/17/16 23:38 97.1 63 18 132/71 92 NIV CPAP 3.00 11/17/16 23:00 68 22 132/72 93 Nasal Cannula 3.00 11/17/16 22:00 65 18 121/63 94 Nasal Cannula 3.00 11/17/16 21:00 75 18 126/65 94 Nasal Cannula 3.00 11/17/16 20:00 94 NIV CPAP 3.00 11/17/16 20:00 64 26 114/68 92 Nasal Cannula 3.00 11/17/16 19:45 97.0 61 18 119/76 94 Nasal Cannula 3.00 11/17/16 19:00 65 14 119/61 93 Nasal Cannula 3.00 11/17/16 19:00 76 11/17/16 18:58 93 NIV CPAP 3.00 11/17/16 18:00 73 17 129/66 95 Nasal Cannula 3.00 11/17/16 17:00 71 18 129/76 95 Nasal Cannula 3.00 11/17/16 16:00 95 NIV CPAP 3.00 11/17/16 15:43 97.5 81 20 123/70 94 Nasal Cannula 3.00 11/17/16 15:22 96 4.00 11/17/16 15:00 81 19 124/84 95 Nasal Cannula 3.00 11/17/16 14:00 79 18 107/56 95 Nasal Cannula 3.00 11/17/16 13:58 97.8 11/17/16 13:28 99.4 11/17/16 13:19 86 11/17/16 13:00 Nasal Cannula 3.00 11/17/16 13:00 97 21 98/60 93 Nasal Cannula 3.00 11/17/16 12:00 97 11/17/16 12:00 95 Nasal Cannula 3.00 11/17/16 12:00 82 24 122/68 96 Nasal Cannula 3.00 11/17/16 11:58 95 4.00 11/17/16 11:37 99.3 86 22 138/79 96 Nasal Cannula 3.00 11/17/16 11:00 93 22 134/74 96 Nasal Cannula 3.00 11/17/16 10:03 97 Nasal Cannula 3.00 11/17/16 10:00 88 25 122/83 93 Nasal Cannula 3.00 11/17/16 09:50 99.4 99 21 135/78 99 OxyMask 5.00 11/17/16 09:45 100 11/17/16 09:38 101.6 102 18 96 11/17/16 09:00 101.0 102 20 162/109 92 OxyMask 4.00 11/17/16 08:30 100.7 102 20 136/100 92 Nasal Cannula 2.00 11/17/16 08:10 Nasal Cannula 2.00 11/17/16 07:50 97.7 87 18 206/139 92 Nasal Cannula 2.00 I & O 11/18/16 07:00 Intake Total 4900 ml Output Total 1600 ml Balance 3300 ml General Appearance: No Apparent Distress, WD/WN, Chronically ill, Obese HEENT: PERRL/EOMI, Normal ENT Inspection, Pharynx Normal Neck: Full Range of Motion, Normal Inspection, Non Tender, Supple, Carotid Bruit Respiratory: Chest Non Tender, No Accessory Muscle Use, No Respiratory Distress , Crackles (LLL), Decreased Breath Sounds Cardiovascular: No Edema, No Gallop, No JVD, No Murmur, Normal Peripheral Pulses, Irregularly Irregular, Tachycardia Capillary Refill: Less Than 3 Seconds Extremity: Normal Capillary Refill, Normal Inspection, Normal Range of Motion, Non Tender, No Calf Tenderness, No Pedal Edema Neurologic/Psychiatric: Alert, Oriented x3, No Motor/Sensory Deficits, Normal Mood/Affect Skin: Normal Color, Warm/Dry Lymphatic: No Adenopathy Results Lab Laboratory Tests 11/17/16 08:00 11/18/16 04:01 Assessment/Plan Assessment/Plan LLL pneumonia with sepsis -cultures pending -continue Abx therapy -SVNS, and oxygen Infiltration of left IV -obtain PICC line Hemoptysis -Check CT of chest Afib- controlled -on Coumadin -cardiology following CHIN -Uses CPAP therapy Clinical Quality Measures DVT/VTE Risk/Contraindication: Risk Factor Score Per Nursin RFS Level Per Nursing on Admit: 4+=Very High ZARI HAWKINS DO Nov 18, 2016 07:41
[2016-11-18] MEDS ORDERED: NS 100 ML (IVPB) BAG IV ONE (08:15)
[2016-11-18] MEDS ORDERED: IOHEXOL 350 MG/ML 100 ML (OMNIPAQUE 350) VIAL IV ONE (08:15)
--- NOTE | 2016-11-18 08:37 | Diagnostic Imaging Report ---
Indication: Pneumonia. Sepsis. Comparison: 11/17/2016 Findings: Single frontal radiographic view of the chest was obtained and demonstrates normal cardiac silhouette and pulmonary vasculature. Lungs show significant interval improved aeration on the left. No large effusion or pneumothorax is seen on either side. Left-sided dual-lead pacemaker is noted. Bony structures show no gross acute abnormalities. Impression: 1. Significant interval improved aeration on the left. Continued followup is recommended. Dictated by: Dictated on workstation # [id number]
[2016-11-18] MEDS: PANTOPRAZOLE 40 MG (PROTONIX) TAB PO SCH (09:29)
[2016-11-18] MEDS: MONTELUKAST 10 MG (SINGULAIR) TAB PO SCH (09:29)
[2016-11-18] MEDS: KCL 20 MEQ TAB (K-DUR) PO SCH (09:29)
[2016-11-18] MEDS: LEVOFLOXACIN 750 MG/D5W 150 ML PRE-MIX IV SCH (09:29)
[2016-11-18] MEDS: cefTRIAXone 1 GM/NS 50 ML IVPB IV SCH ×2 (09:29)
[2016-11-18] MEDS: SPIRONOLACTONE 25 MG (ALDACTONE) TAB PO SCH (09:30)
[2016-11-18] MEDS: FUROSEMIDE 40 MG (LASIX) TAB PO SCH (09:30)
[2016-11-18] MEDS: DULoxetine 30 MG (CYMBALTA) CAP PO SCH (09:30)
[2016-11-18] MEDS: inSUlin DETERMIR 1 UNIT/0.01 ML (LEVEMIR) CHARGE PER UNIT SQ SCH ×2 (09:30→21:05)
[2016-11-18] MEDS: amLODIPine 5 MG (NORVASC) TAB PO SCH (09:30)
--- NOTE | 2016-11-18 09:47 | Diagnostic Imaging Report ---
PROCEDURE: CT chest with contrast only. TECHNIQUE: Multiple contiguous axial images were obtained through the chest after administration of intravenous contrast. INDICATION: Hemoptysis. Rule out mass. 75 ML of Omnipaque 350 is administered. Comparison with 10/06/15. Findings: There are predominantly groundglass areas of patchy consolidation more prominent. A similar pattern, more extensive was seen on the previous exam of 10/06/2015. This may relate to recurrent atypical infection or inflammatory pneumonitis. This could also be related to alveolar proteinosis or hemorrhage. There is no suspicious pulmonary nodule or mass. The heart size is normal. The thoracic aorta is normal in caliber. There is no mediastinal, hilar or axillary significantly enlarged lymph nodes. There is a pacemaker seen with cardiac leads in the right ventricle and right atrium. There is also gastric band in place. Note is made of a small amount of fluid in the mid esophagus associated with mild esophageal wall thickening. This could relate to reflux, relatively tight gastric band or esophageal motility dysfunction with probable associated esophagitis explaining the wall thickening. The osseous structures demonstrate mild degenerative changes in the thoracic spine. IMPRESSION: 1. Groundglass consolidation asymmetric to the left may relate to atypical infection or inflammatory pneumonitis. Alveolar proteinosis or hemorrhage could also be considered. Correlate clinically. 2. Small amount of fluid in the esophagus associated with esophageal wall thickening may relate to motility dysfunction, reflux or potentially tight gastric band. The wall thickening is suggestive of esophagitis. Dictated by: Dictated on workstation # [id number]
--- NOTE | 2016-11-18 10:02 | Cardiology Progress Note ---
Cardiology SOAP Progress Note Subjective: Feels much better. Objective: I&O/Vital Signs Vital Sign - Last 12Hours 11/17/16 11/17/16 11/18/16 11/18/16 23:00 23:38 00:00 00:00 Temp 97.1 Pulse 68 63 69 Resp 22 18 22 B/P (MAP) 132/72 132/71 126/74 Pulse Ox 93 92 92 95 O2 Delivery Nasal Cannula NIV CPAP NIV CPAP NIV CPAP O2 Flow Rate 3.00 3.00 3.00 3.00 11/18/16 11/18/16 11/18/16 11/18/16 01:00 01:00 02:00 03:00 Pulse 68 68 74 74 Resp 17 25 10 B/P (MAP) 141/76 124/72 135/66 Pulse Ox 96 96 99 O2 Delivery NIV CPAP NIV CPAP NIV CPAP O2 Flow Rate 3.00 3.00 3.00 11/18/16 11/18/16 11/18/16 11/18/16 04:00 04:00 04:17 05:00 Temp 97.9 Pulse 71 68 Resp 11 14 B/P (MAP) 111/67 117/69 Pulse Ox 97 97 O2 Delivery Nasal Cannula NIV CPAP NIV CPAP O2 Flow Rate 3.00 3.00 3.00 11/18/16 11/18/16 11/18/16 06:00 07:00 07:36 Pulse 73 79 Resp 14 B/P (MAP) 112/77 Pulse Ox 96 O2 Delivery NIV CPAP Nasal Cannula O2 Flow Rate 3.00 3.00 Intake and Output 11/18/16 00:00 Intake Total 1450 ml Output Total 1050 ml Balance 400 ml Weight (Pounds): 297 Weight (Ounces): 1.0 Weight (Calculated Kilograms): 134.134162 Constitutional: No appears stated age, No AAO x 3, No apparent distress, No PERRL, No well-developed, No well-nourished, No other Respiratory: No accessory muscle use, No respiratory distress, No chest tender , No chest expansion is symmetric, No chest is bilaterally symmetric, No lungs clear to percussion, No lungs clear to auscultation, No crackles, No rhonchi, No rales, No stridor, No wheezing, No pleural rub, No other Cardiovascular: irregularly irregular, S1 and S2 Gastrointestional: No tender, No soft, No round, No distended, No pulsatile mass, No organomegaly, No guarding, No rebound, No tenderness, No hernia, No mass, No audible bowel sounds, No abnormal bowel sounds, No abdominal bruits, No spleenomegaly, No other Extremities: No normal range of motion, No non-tender, No normal inspection, No pedal edema, No calf tenderness, No normal capillary refill, No pelvis stable , No calf tenderness, No inflammation, No pedal edema, No slow capillary refill , No swelling, No other, No abrasion, No clubbing, No cyanosis, No ecchymosis, No laceration, No no lower extremity edema bilateral, No significant edema, No tenderness, No wound Neurologic/Psychiatric: No professor of vegetable science II-XII nml as tested, No no motor/sensory deficits, No alert, No normal mood/affect, No oriented x 3, No abnormal cerebellar tests, No abnormal professor of vegetable science II-XII, No abnormal gait, No aphasia, No EOM palsy, No facial droop, No motor weakness, No sensory deficit, No depressed affect, No disoriented x 3, No other, No grossly intact, No power is 5/5 both on sides Skin: No normal color, No warm/dry, No cyanosis, No cool, No diaphoresis, No damp, No ecchymosis, No jaundice, No mottled, No pallor, No rash, No tattoos/ piercings, No ulcerations, No rash on exposed areas, No ulcerations on exposed areas, No other Results/Procedures: Labs Laboratory Tests 11/17/16 10:40: Lactic Acid Level 2.91*H 11/17/16 13:26: Lactic Acid Level 2.12*H 11/17/16 16:04: Lactic Acid Level 2.27*H 11/17/16 16:05: Blood Gas Puncture Site RT RAD, Blood Gas Patient Temperature 97.5, Arterial Blood pH 7.46H, Arterial Blood Partial Pressure CO2 40, Arterial Blood Partial Pressure O2 75L, Arterial Blood HCO3 28H, Arterial Blood Total CO2 29.1, Arterial Blood Oxygen Saturation 97, Arterial Blood Base Excess 3.9H, Raffi Test YES-POS, Blood Gas Ventilator Setting NO, Blood Gas Inspired Oxygen 3.5 CPAP 7/2/17 20:45: Glucometer 118H 11/17/16 23:37: Glucometer 115H 11/18/16 04:01: White Blood Count 18.0H, Red Blood Count 4.45, Hemoglobin 13.3#, Hematocrit 40, Mean Corpuscular Volume 90, Mean Corpuscular Hemoglobin 30, Mean Corpuscular Hemoglobin Concent 33, Red Cell Distribution Width 16.6H, Platelet Count 181, Mean Platelet Volume 10.0, Neutrophils (%) (Auto) 75, Lymphocytes (%) (Auto) 18 , Monocytes (%) (Auto) 7, Eosinophils (%) (Auto) 1, Basophils (%) (Auto) 0, Neutrophils # (Auto) 13.5H, Lymphocytes # (Auto) 3.2, Monocytes # (Auto) 1.2H, Eosinophils # (Auto) 0.1, Basophils # (Auto) 0.0, Prothrombin Time 24.2H, INR Comment 2.2H, Sodium Level 138, Potassium Level 3.9, Chloride Level 103, Carbon Dioxide Level 23, Anion Gap 12, Blood Urea Nitrogen 18, Creatinine 0.90, Estimat Glomerular Filtration Rate > 60, BUN/Creatinine Ratio 20, Glucose Level 161H, Calcium Level 8.7, Phosphorus Level 2.5, Magnesium Level 1.8, Total Bilirubin 1.4H, Aspartate Amino Transf (AST/SGOT) 16, Alanine Aminotransferase ( ALT/SGPT) 14, Alkaline Phosphatase 63, Troponin I < 0.30, B-Type Natriuretic Peptide 141.2H, Total Protein 5.5L, Albumin 3.1L A/P: Assessment/Dx: Admission Diagnosis pneumonia atrial fibrillation with RVR Coronary artery disease hypertension Plan: Assessment/Plan pneumonia: Defer treatment to primary team. Coronary artery disease, history of 3.5X16 mm Taxus stent in the LAD in 2005, has been following with Dr. Booth, workup has been normal, had a normal 2-D echocardiogram done in July 2015 Paroxysmal atrial fibrillation, sick sinus syndrome, history of dual-chamber pacemaker implantation. Seen and followed by Dr. Haney. Atrial flutter ablation is better controlled. His heart rate was in the 80s during my interview. Outpatient medications have been started. Hypertension: Outpatient medications restarted with better blood pressure control. Hyperlipidemia, continue to monitor Diabetes mellitus, followed and managed by primary care physician Morbid obesity Dr. Eugene to take over care from tomorrow. Thank you for your consultation. Please call me if you have any questions. Brenda Gold MD, FACP, FACC, FSCAI, FHRS, CCDS Interventional Cardiology Cardiac Electrophysiology Vascular Medicine and Endovascular Interventions Kelle GOLD MD Nov 18, 2016 10:02
[2016-11-18] MEDS ORDERED: OXYC10TA55 PO (11:40)
[2016-11-18] MEDS ORDERED: DULO60CA58 PO (11:40)
[2016-11-18] MEDS ORDERED: LOSA100T28 PO (11:40)
[2016-11-18] MEDS ORDERED: WARF7.5T49 PO (11:42)
[2016-11-18] MEDS: rOPINIRole 1 MG (REQUIP) TABLET PO SCH (15:32)
--- NOTE | 2016-11-18 15:48 | Progress Note-Hospitalist ---
Standard Progress Note Progress Notes/Assess & Plan Date Seen 11/18/16 Time Seen by Provider: 15:44 Diagnosis Assessment: Left lower lobe pneumonia with sepsis and elevated lactic acid placed on sepsis protocol Chronic it fibrillation now tachycardic at 93 bpm consulting cardiology in case rapid ventricular response occurs Obstructive sleep apnea compliant with sleep apnea machine Leukocytosis Hypertension Hyperlipidemia Assess & Plan/Chief Complaint The patient reports that he feels much better today. His cough is diminished. His sense of dyspnea is also greatly improved. He has not been producing any mucus on coughing. He has had no fever since 10 o'clock yesterday. His white count has actually increased from 16,000-18,000. Physical exam: His color is much better. He is not tachypneic. Lungs show distant breath sounds without rales or rhonchi. There is no dullness on the left. CV is irregular and consistent with atrial fibrillation. Abdomen is obese and soft palpation. Extremities show no pedal edema. Impression: Left lower lobe pneumonia (sepsis) 2.chronic atrial fibrillation. 3.obstructive sleep apnea. Plan: Continue IV antibiotics Labs Laboratory Tests 11/17/16 08:00 11/18/16 04:01 DESTINEY BECERRA MD Nov 18, 2016 15:48
[2016-11-18] MEDS: ALFUZOSIN HCL 10 MG TAB (UROXATRAL) PO SCH (17:33)
[2016-11-18] MEDS: warFARin 7.5 MG (COUMADIN) TAB PO SCH (17:33)
[2016-11-18] MEDS: ACETAMINOPHEN 500 MG TAB (TYLENOL) PO PRN (21:06)
[2016-11-19] VITALS (15 sets, daily range): BP systolic 132–187; BP diastolic 74–99
[2016-11-19 04:16] LABS: BASOPHILS % (AUTO) 0 % (0-10); EOSINOPHILS # (AUTO) 0.1 10^3/uL (0.0-0.3); EOSINOPHILS % (AUTO) 1 % (0-10); LYMPHOCYTES # (AUTO) 3.5 X 10^3 (1.0-4.0); LYMPHOCYTES % (AUTO) 25 % (12-44); MEAN CORPUSCULAR HEMOGLOBIN 29 PG (25-34); MEAN CORPUSCULAR HGB CONC 33 G/DL (32-36); MEAN CORPUSCULAR VOLUME 89 FL (80-99); MEAN PLATELET VOLUME 10.1 FL (7.4-10.4); MONOCYTES # (AUTO) 1.1 X 10^3 (0.0-1.0); MONOCYTES % (AUTO) 8 % (0-12); NEUTROPHILS # (AUTO) 9.3 X 10^3 (1.8-7.8); NEUTROPHILS % (AUTO) 67 % (42-75); PLATELET COUNT 182 10^3/uL (130-400); RED BLOOD COUNT 3.98 10^6/uL (4.35-5.85)
[2016-11-19 04:40] LABS: ANION GAP 8 MMOL/L (5-14); BLOOD UREA NITROGEN 12 MG/DL (7-18); BUN/CREATININE RATIO 15; CALCIUM 8.9 MG/DL (8.5-10.1); CARBON DIOXIDE 27 MMOL/L (21-32); CHLORIDE 105 MMOL/L (98-107); CREATININE SERUM 0.79 MG/DL (0.60-1.30); GFR ESTIMATED > 60; GLUCOSE 104 MG/DL (70-105); POTASSIUM 3.6 MMOL/L (3.6-5.0); SODIUM 140 MMOL/L (135-145)
[2016-11-19] MEDS: POTASSIUM CL 10MEQ/50ML IVPB 50 ML IV SCH ×2 (05:22→06:23)
[2016-11-19] MEDS: LACTATED RINGERS 1,000 ML IV SCH ×3 (05:51→23:58)
[2016-11-19] MEDS: inSUlin (REGULAR) HUMAN 1 UNIT/0.01 ML (CHARGE PER UNIT) SC SCH ×4 (05:54→21:03)
--- NOTE | 2016-11-19 07:08 | Pulmonary Progress Note ---
Subjective Time Seen by Provider: 07:07 Subjective/Events-last exam Pt is doing better currently using home CPAP will transfer to 4th floor. He states he has not been coughing up anymore blood. Exam Exam Vital Signs Date Time Temp Pulse Resp B/P (MAP) Pulse Ox O2 Delivery O2 Flow Rate FiO2 11/19/16 06:00 60 23 167/93 98 Nasal Cannula 3.00 11/19/16 05:00 62 21 150/74 98 Nasal Cannula 3.00 11/19/16 04:00 97 Nasal Cannula 3.00 11/19/16 04:00 97.8 63 15 144/86 99 Nasal Cannula 3.00 11/19/16 03:00 64 17 149/83 99 Nasal Cannula 3.00 11/19/16 02:00 66 17 157/85 98 NIV CPAP 2.00 11/19/16 01:00 75 34 162/93 98 NIV CPAP 2.00 11/19/16 01:00 75 11/19/16 00:00 97 NIV CPAP 2.00 11/19/16 00:00 98.0 72 25 152/92 99 NIV CPAP 2.00 11/18/16 23:00 87 18 99 Nasal Cannula 3.00 11/18/16 22:00 75 24 147/79 97 Nasal Cannula 3.00 11/18/16 21:00 75 14 151/71 100 Nasal Cannula 3.00 11/18/16 20:00 98.7 86 21 173/93 100 Nasal Cannula 3.00 11/18/16 20:00 97 Nasal Cannula 3.00 11/18/16 19:27 98 Nasal Cannula 3.00 11/18/16 19:00 92 11/18/16 19:00 92 13 141/81 99 Nasal Cannula 3.00 11/18/16 18:00 73 10 Nasal Cannula 11/18/16 17:00 79 30 109/89 Nasal Cannula 11/18/16 16:00 99.0 78 11 134/69 97 Nasal Cannula 11/18/16 15:12 97 Nasal Cannula 3.00 11/18/16 15:00 78 22 154/82 Nasal Cannula 3.00 11/18/16 14:45 98 Nasal Cannula 3.00 11/18/16 14:00 78 36 137/83 Nasal Cannula 3.00 11/18/16 13:00 74 22 134/70 Nasal Cannula 3.00 11/18/16 13:00 72 11/18/16 11:54 98.2 82 28 120/70 98 Nasal Cannula 3.00 11/18/16 11:09 97 Nasal Cannula 3.00 11/18/16 10:57 98 Nasal Cannula 3.00 11/18/16 08:00 97 Nasal Cannula 3.00 11/18/16 08:00 98.0 87 16 120/61 Nasal Cannula 3.00 11/18/16 07:36 96 Nasal Cannula 3.00 I & O 11/19/16 07:00 Intake Total 4570 ml Output Total 3125 ml Balance 1445 ml General Appearance: No Apparent Distress, WD/WN, Chronically ill, Obese HEENT: PERRL/EOMI, Normal ENT Inspection, Pharynx Normal Neck: Full Range of Motion, Normal Inspection, Non Tender, Supple, Carotid Bruit Respiratory: Chest Non Tender, No Accessory Muscle Use, No Respiratory Distress , Crackles (LLL), Decreased Breath Sounds Cardiovascular: No Edema, No Gallop, No JVD, No Murmur, Normal Peripheral Pulses, Irregularly Irregular, Tachycardia Capillary Refill: Less Than 3 Seconds Extremity: Normal Capillary Refill, Normal Inspection, Normal Range of Motion, Non Tender, No Calf Tenderness, No Pedal Edema Neurologic/Psychiatric: Alert, Oriented x3, No Motor/Sensory Deficits, Normal Mood/Affect Skin: Normal Color, Warm/Dry Lymphatic: No Adenopathy Results Lab Laboratory Tests 11/17/16 08:00 11/18/16 04:01 11/19/16 04:03 Assessment/Plan Assessment/Plan LLL pneumonia with sepsis -cultures pending -continue Abx therapy -SVNS, and oxygen Infiltration of left IV -obtain PICC line Hemoptysis -CT of chest - reviewed shows pneumonia - doubt pulmonary hemorrhage Afib- controlled -on Coumadin -cardiology following [facility] -Uses CPAP therapy Labs and radiology reviewed. 233 Pt is doing better. Will transfer to the floor. CT of chest reviewed Clinical Quality Measures DVT/VTE Risk/Contraindication: Risk Factor Score Per Nursin RFS Level Per Nursing on Admit: 4+=Very High ZARI HAWKINS DO Nov 19, 2016 07:08
[2016-11-19] MEDS: RT-ALBUTEROL/IPRATROPIUM 3 ML (DUONEB) VIAL INH SCH ×4 (08:01→18:55)
--- NOTE | 2016-11-19 08:26 | Diagnostic Imaging Report ---
INDICATION: Sepsis Upright portable chest shows normal heart size and vascularity. There is patchy airspace disease which is most noticeable in the left upper lobe. No large area of consolidation is seen. Focal mass is not seen. There is no atelectasis. There is no effusion or pneumothorax. IMPRESSION: There are bilateral infiltrates which are most evident in the left upper lobe. These findings correspond with the CT chest from 11/18/16. Dictated by: Dictated on workstation # [id number]
--- NOTE | 2016-11-19 09:47 | Cardiology Progress Note ---
Subjective Date Seen by Provider: Nov 19, 2016 Time Seen by Provider: 09:43 Subjective/Events-last exam patient is sitting up in a chair, still having cough and mild dyspnea, expressed that he is getting more anxious, inquiring about restarting his Xanax. Review of Systems General: No Chills, No Night Sweats, No Fatigue, No Malaise, No Appetite, No Other HEENT: No Head Aches, No Visual Changes, No Eye Pain, No Ear Pain, No Dysphasia , No Sinus Congestion, No Post Nasal Drip, No Sore Throat, No Other Pulmonary: Dyspnea, Cough, No Pleuritic Chest Pain, No Other Cardiovascular: No: Chest Pain, Edema, Lt Headedness, Orthopnea, Other, Palpitations, Paroxysmal Noc. Dyspnea Objective-Cardiology Exam Last Set of Vital Signs Vital Signs 11/19/16 11/19/16 04:00 09:00 Temp 97.8 Pulse 79 Resp 21 B/P (MAP) 161/92 Pulse Ox 95 O2 Delivery Nasal Cannula O2 Flow Rate 3.00 Capillary Refill : Less Than 3 Seconds I&O Intake and Output 11/19/16 00:00 Intake Total 4770 ml Output Total 2000 ml Balance 2770 ml Intake Oral 1570 ml IV Total 3200 ml Output Urine Total 2000 ml General: Alert, Oriented X3, Cooperative HEENT: Atraumatic, PERRLA Neck: Supple, No JVD, No Thyromegaly Lungs: Normal Air Movement, Other (bilateral rales) Heart: Normal S1, Normal S2, No Murmurs, Other (irregular, S3 is present) Abdomen: Normal Bowel Sounds, Soft, No Tenderness, No Hepatosplenomegaly, No Masses Extremities: No Clubbing, No Cyanosis, No Edema, Normal Pulses, No Tenderness/ Swelling Skin: No Rashes, No Breakdown, No Significant Lesion Neuro: Normal Speech, Normal Tone Psych/Mental Status: Mental Status NL, Mood NL Results Lab Laboratory Tests 11/19/16 04:03 A/P-Cardiology Admission Diagnosis pneumonia Paroxysmal atrial fibrillation Coronary artery disease Hypertension Hyperlipidemia Assessment/Plan Pneumonia, chest x-ray showed bilateral infiltrate, receiving antibiotics, managed by primary care physician. Coronary artery disease, history of 3.5X16 mm Taxus stent in the LAD in 2005, has been following with Dr. Booth, workup has been normal, had a normal 2-D echocardiogram done in July 2015, currently asymptomatic. Continue to monitor. Paroxysmal atrial fibrillation, sick sinus syndrome, history of dual-chamber pacemaker implantation. Seen and followed by Dr. Haney. Atrial flutter ablation is better controlled. continue on current meds and monitor heart rate and blood pressure [id number] score is 4, yearly risk of stroke without oral anticoagulation is 4 percent, maintained on Coumadin, monitor INR Hypertension, controlled, continue on current medications and monitor blood pressure Hyperlipidemia, continue to monitor Diabetes mellitus, followed and managed by primary care physician Morbid obesity, BMI 42. Clinical Quality Measures DVT/VTE Risk/Contraindication: Risk Factor Score Per Nursin RFS Level Per Nursing on Admit: 4+=Very High LIDA WALTERS MD Nov 19, 2016 09:47
[2016-11-19] MEDS: LEVOFLOXACIN 750 MG/D5W 150 ML PRE-MIX IV SCH (09:53)
[2016-11-19] MEDS: amLODIPine 5 MG (NORVASC) TAB PO SCH (09:54)
[2016-11-19] MEDS: MONTELUKAST 10 MG (SINGULAIR) TAB PO SCH (09:54)
[2016-11-19] MEDS: SPIRONOLACTONE 25 MG (ALDACTONE) TAB PO SCH (09:54)
[2016-11-19] MEDS: KCL 20 MEQ TAB (K-DUR) PO SCH (09:54)
[2016-11-19] MEDS: PANTOPRAZOLE 40 MG (PROTONIX) TAB PO SCH (09:54)
[2016-11-19] MEDS: FUROSEMIDE 40 MG (LASIX) TAB PO SCH (09:54)
[2016-11-19] MEDS: cefTRIAXone 1 GM/NS 50 ML IVPB IV SCH ×2 (09:54)
[2016-11-19] MEDS: DULoxetine 30 MG (CYMBALTA) CAP PO SCH (09:54)
[2016-11-19] MEDS: inSUlin DETERMIR 1 UNIT/0.01 ML (LEVEMIR) CHARGE PER UNIT SQ SCH ×2 (09:55→21:48)
[2016-11-19] MEDS: ALPRAZolam 0.5 MG (XANAX) TAB PO PRN ×2 (10:29→21:48)
--- NOTE | 2016-11-19 12:22 | Progress Note-Hospitalist ---
Standard Progress Note Progress Notes/Assess & Plan Date Seen 11/19/16 Time Seen by Provider: 12:20 Diagnosis Assessment: Left lower lobe pneumonia with sepsis and elevated lactic acid placed on sepsis protocol Chronic it fibrillation now tachycardic at 93 bpm consulting cardiology in case rapid ventricular response occurs Obstructive sleep apnea compliant with sleep apnea machine Leukocytosis Hypertension Hyperlipidemia Assess & Plan/Chief Complaint The patient reports that he is feeling much better. He has been afebrile now for at least 36 hours. His white count has fallen from 18,000 yesterday to 14, 000 today. He has a minimum cough. Physical exam: Color is good and he is alert and oriented. Lungs show somewhat distant breath sounds but are clear and without rales or rhonchi. CV is irregular with a controlled rate. Abdomen is obese. There is no tenderness to palpation. Extremities show no pedal edema. Impression: Left lower lobe pneumonia. 2.chronic atrial fibrillation. Plan: Transfer to the floor. Continue IV antibiotics. He may be ready for discharge as early as tomorrow. Labs Laboratory Tests 11/18/16 04:01 11/19/16 04:03 DESTINEY BECERRA MD Nov 19, 2016 12:22
[2016-11-19] MEDS: ALFUZOSIN HCL 10 MG TAB (UROXATRAL) PO SCH (18:33)
[2016-11-19] MEDS: warFARin 7.5 MG (COUMADIN) TAB PO SCH (18:33)
[2016-11-19] MEDS: rOPINIRole 1 MG (REQUIP) TABLET PO SCH (19:02)
[2016-11-20 04:05] VITALS: BP 162/85
[2016-11-20] MEDS: inSUlin (REGULAR) HUMAN 1 UNIT/0.01 ML (CHARGE PER UNIT) SC SCH ×2 (05:51→11:03)
[2016-11-20 06:35] LABS: BASOPHILS % (AUTO) 0 % (0-10); EOSINOPHILS # (AUTO) 0.1 10^3/uL (0.0-0.3); EOSINOPHILS % (AUTO) 1 % (0-10); LYMPHOCYTES # (AUTO) 3.3 X 10^3 (1.0-4.0); LYMPHOCYTES % (AUTO) 26 % (12-44); MEAN CORPUSCULAR HEMOGLOBIN 30 PG (25-34); MEAN CORPUSCULAR HGB CONC 33 G/DL (32-36); MEAN CORPUSCULAR VOLUME 89 FL (80-99); MEAN PLATELET VOLUME 10.5 FL (7.4-10.4); MONOCYTES % (AUTO) 8 % (0-12); NEUTROPHILS # (AUTO) 8.2 X 10^3 (1.8-7.8); NEUTROPHILS % (AUTO) 65 % (42-75); PLATELET COUNT 189 10^3/uL (130-400); RED BLOOD COUNT 4.04 10^6/uL (4.35-5.85); RED CELL DISTRIBUTION WIDTH 16.1 % (10.0-14.5); WHITE BLOOD COUNT 12.7 10^3/uL (4.3-11.0)
[2016-11-20 06:48] LABS: INR 1.7 (0.8-1.4); PROTHROMBIN TIME PATIENT 19.3 SEC (12.2-14.7)
[2016-11-20 06:54] LABS: ANION GAP 12 MMOL/L (5-14); BLOOD UREA NITROGEN 9 MG/DL (7-18); BUN/CREATININE RATIO 12; CARBON DIOXIDE 24 MMOL/L (21-32); CHLORIDE 102 MMOL/L (98-107); CREATININE SERUM 0.76 MG/DL (0.60-1.30); GFR ESTIMATED > 60; GLUCOSE 78 MG/DL (70-105); MAGNESIUM 1.8 MG/DL (1.8-2.4); PHOSPHORUS 3.5 MG/DL (2.3-4.7); POTASSIUM 3.7 MMOL/L (3.6-5.0); SODIUM 138 MMOL/L (135-145)
[2016-11-20] MEDS: RT-ALBUTEROL/IPRATROPIUM 3 ML (DUONEB) VIAL INH SCH ×2 (07:12→11:00)
--- NOTE | 2016-11-20 07:23 | Diagnostic Imaging Report ---
INDICATION: Sepsis. Comparison with 11/19/2016. FINDINGS: Patchy infiltrate again noted in the left upper lobe. Right lung appears clear. Costophrenic angles are sharp. Heart remains mildly enlarged. No evidence of pulmonary edema. Pacemaker with generator on the left appears unchanged. IMPRESSION: 1. Persistent patchy left upper lobe alveolar infiltrate. 2. Right lung appears clear. Dictated by: Dictated on workstation # [id number]
[2016-11-20 07:52] VITALS: BP 153/78
[2016-11-20] MEDS: LACTATED RINGERS 1,000 ML IV SCH (08:13)
[2016-11-20] MEDS: SPIRONOLACTONE 25 MG (ALDACTONE) TAB PO SCH (08:13)
[2016-11-20] MEDS: KCL 20 MEQ TAB (K-DUR) PO SCH (08:13)
[2016-11-20] MEDS: inSUlin DETERMIR 1 UNIT/0.01 ML (LEVEMIR) CHARGE PER UNIT SQ SCH (08:13)
[2016-11-20] MEDS: amLODIPine 5 MG (NORVASC) TAB PO SCH (08:13)
[2016-11-20] MEDS: cefTRIAXone 1 GM/NS 50 ML IVPB IV SCH ×2 (08:13)
[2016-11-20] MEDS: FUROSEMIDE 40 MG (LASIX) TAB PO SCH (08:13)
[2016-11-20] MEDS: DULoxetine 30 MG (CYMBALTA) CAP PO SCH (08:13)
[2016-11-20] MEDS: PANTOPRAZOLE 40 MG (PROTONIX) TAB PO SCH (08:13)
[2016-11-20] MEDS: MONTELUKAST 10 MG (SINGULAIR) TAB PO SCH (08:14)
--- NOTE | 2016-11-20 09:03 | Cardiology Progress Note ---
Subjective Date Seen by Provider: Nov 20, 2016 Time Seen by Provider: 08:45 Subjective/Events-last exam Patient sitting up in bed. Reports he feels much improved. Asking to go home. Denies any CP or dyspnea. Review of Systems General: No Night Sweats, No Fatigue, No Malaise HEENT: No Visual Changes, No Dysphasia, No Sore Throat Pulmonary: No Dyspnea, No Cough Cardiovascular: No: Chest Pain, Edema, Palpitations, Paroxysmal Noc. Dyspnea Gastrointestinal: No: Constipation, Nausea, Vomiting Genitourinary: No Dysuria, No Frequency Musculoskeletal: No: back pain, neck pain Neurological: No: Change in speech, Confusion, Numbness, Weakness Objective-Cardiology Exam Last Set of Vital Signs Vital Signs 11/20/16 11/20/16 07:52 11:55 Temp 98.0 Pulse 88 Resp 20 B/P (MAP) 153/78 Pulse Ox 96 O2 Delivery Room Air O2 Flow Rate 3.00 Capillary Refill : Less Than 3 Seconds I&O Intake and Output 11/20/16 00:00 Intake Total 3150 ml Output Total 4100 ml Balance -950 ml Intake Oral 1850 ml IV Total 1300 ml Output Urine Total 4100 ml # Bowel Movements 3 General: Alert, Oriented X3, Cooperative HEENT: Atraumatic, PERRLA Neck: Supple, No JVD, No Thyromegaly Lungs: Clear to Auscultation, Normal Air Movement Heart: Normal S1, Normal S2, No Murmurs, Other (irregular, S3 is present) Abdomen: Normal Bowel Sounds, Soft, No Tenderness, No Hepatosplenomegaly, No Masses Extremities: No Clubbing, No Cyanosis, No Edema, Normal Pulses, No Tenderness/ Swelling Skin: No Rashes, No Breakdown, No Significant Lesion Neuro: Normal Speech, Normal Tone Psych/Mental Status: Mental Status NL, Mood NL Results Lab Laboratory Tests 11/20/16 05:50 A/P-Cardiology Admission Diagnosis pneumonia Paroxysmal atrial fibrillation Coronary artery disease Hypertension Hyperlipidemia Assessment/Plan Pneumonia, improved, managed by primary care physician Coronary artery disease, history of 3.5X16 mm Taxus stent in the LAD in 2005, has been following with Dr. Booth, workup has been normal, had a normal 2-D echocardiogram done in July 2015, currently asymptomatic. Continue to monitor. Paroxysmal atrial fibrillation, sick sinus syndrome, history of dual-chamber pacemaker implantation. Seen and followed by Dr. Haney. Heart rate is better controlled. Continue on current meds and monitor heart rate and blood pressure [id number] score is 4, yearly risk of stroke without oral anticoagulation is 4 percent, maintained on Coumadin, monitor INR Hypertension,mildly elevated, continue on current medications and monitor blood pressure Hyperlipidemia, continue to monitor Diabetes mellitus, followed and managed by primary care physician Morbid obesity, BMI 42. This is Dr. Eugene, I have seen and evaluated the patient, her for physical examination and interview the patient, he was reporting improvement in his symptoms, lungs were clear to auscultation, heart rate is controlled. Patient is being managed for pneumonia, coronary artery disease, paroxysmal atrial fibrillation and hypertension. He expressed that he is going to follow-up with Dr. Booth in the next one to 2 weeks. Denied any chest pain. Agree with the current plan. Continue to monitor as an outpatient. Maintained on Coumadin, I explained to him the slight decrease in INR due to the use of antibiotics. Clinical Quality Measures DVT/VTE Risk/Contraindication: Risk Factor Score Per Nursin RFS Level Per Nursing on Admit: 4+=Very High ROZ WILSON Nov 20, 2016 09:03 LIDA EUGENE MD Nov 20, 2016 17:32
[2016-11-20] MEDS: LEVOFLOXACIN 750 MG/D5W 150 ML PRE-MIX IV SCH (09:11)
--- NOTE | 2016-11-20 10:08 | Pulmonary Progress Note ---
Subjective Time Seen by Provider: 10:07 Subjective/Events-last exam pt feels improved. Exam Exam Vital Signs Date Time Temp Pulse Resp B/P (MAP) Pulse Ox O2 Delivery O2 Flow Rate FiO2 11/20/16 07:52 98.0 88 20 153/78 96 Room Air 11/20/16 07:13 96 Room Air 11/20/16 04:05 98.0 78 20 162/85 98 Room Air 11/20/16 01:00 83 11/19/16 23:08 96.4 69 20 162/81 98 Room Air 11/19/16 20:30 98 Room Air 3.00 11/19/16 19:34 98.3 76 20 146/85 96 Room Air 11/19/16 19:00 74 11/19/16 18:58 97 Room Air 11/19/16 16:07 98.4 69 22 187/99 97 Room Air 11/19/16 14:50 97 Room Air 11/19/16 12:00 97 Room Air 11/19/16 12:00 97.7 71 16 136/86 97 Room Air 11/19/16 11:22 98 Room Air I & O 11/20/16 07:00 Intake Total 2100 ml Output Total 2925 ml Balance -825 ml General Appearance: No Apparent Distress, WD/WN, Chronically ill, Obese HEENT: PERRL/EOMI, Normal ENT Inspection, Pharynx Normal Neck: Full Range of Motion, Normal Inspection, Non Tender, Supple, Carotid Bruit Respiratory: Chest Non Tender, No Accessory Muscle Use, No Respiratory Distress , Crackles (LLL), Decreased Breath Sounds Cardiovascular: No Edema, No Gallop, No JVD, No Murmur, Normal Peripheral Pulses, Irregularly Irregular, Tachycardia Capillary Refill: Less Than 3 Seconds Extremity: Normal Capillary Refill, Normal Inspection, Normal Range of Motion, Non Tender, No Calf Tenderness, No Pedal Edema Neurologic/Psychiatric: Alert, Oriented x3, No Motor/Sensory Deficits, Normal Mood/Affect Skin: Normal Color, Warm/Dry Lymphatic: No Adenopathy Results Lab Laboratory Tests 11/19/16 04:03 11/20/16 05:50 Assessment/Plan Assessment/Plan LLL pneumonia with sepsis -cultures negative -continue Abx therapy -SVNS, and oxygen Hemoptysis -CT of chest - reviewed shows pneumonia - doubt pulmonary hemorrhage Afib- controlled -on Coumadin -cardiology following [facility] -Uses CPAP therapy Labs and radiology reviewed. 232 Clinical Quality Measures DVT/VTE Risk/Contraindication: Risk Factor Score Per Nursin RFS Level Per Nursing on Admit: 4+=Very High ZARI HAWKINS DO Nov 20, 2016 10:08
--- NOTE | 2016-11-20 10:50 | Discharge Summary-Hospitalist ---
Diagnosis/Chief Complaint Date of Admission Nov 17, 2016 at 09:22 Date of Discharge Admission Diagnosis Assessment: Left lower lobe pneumonia with sepsis and elevated lactic acid placed on sepsis protocol Chronic it fibrillation now tachycardic at 93 bpm consulting cardiology in case rapid ventricular response occurs Obstructive sleep apnea compliant with sleep apnea machine Leukocytosis Hypertension Hyperlipidemia Discharge Diagnosis Assessment: Left lower lobe pneumonia with sepsis and elevated lactic acid placed on sepsis protocol Chronic it fibrillation now tachycardic at 93 bpm consulting cardiology in case rapid ventricular response occurs sees Dr Do as out-pt Obstructive sleep apnea compliant with sleep apnea machine Leukocytosis Hypertension Hyperlipidemia Plan: Sepsis protocol with IV fluids and antibiotics Nebulizer treatments Reconcile home meds when available Sleep apnea machine to be brought by Monitor closely Consult cardiology Reason Hospital Visit/Course CC: LLL pneumonia with sepsis HPI: This is a 71-year-old white male clinic patient of Dr. Pride'erika with a past medical history of chronic atrial fibrillation on Coumadin therapy for stroke prophylaxis and obstructive sleep apnea that presents to the ICU after diagnosed with a left lower lobe pneumonia with sepsis and elevated lactic acid. He has been placed on sepsis protocol and empiric antibiotics were initiated upon the assessment of the infiltrate on chest x-ray that currently he is sleeping soundly and denies any pain when he is aroused. His is bringing his sleep apnea machine and all of his home medications so we can reconcile. He denies any pain or shortness of breath currently. Notes from 11/20/16 Chart Review: No fever Vitals stable WBC 12.7 Hgb 12 CMP normal INR 1.7 Reviewed meds pt on Rocephin, Levaquin, and Coumadin Review cardiology note Patient Interview: Pt states that he was doing well until he was disconnected and had to take the sticker off his chest. Pt did not like that it was pulling his chest hair. Pt would like to dc Pt confirms Dr. Do for cardiology and Dr. Ash as PCP. Pt confirms [facility] as pharmacy Pt states that he has been up and around and has just showered Pt has had BMs Physical exam stable. Lungs sound perfect Pt feels that he could benefit from some cough syrup. Pt does not feel that he needs pain medicine. Pt is concerned about getting pneumonia again. Pt was informed that if a pt has pneumonia once, they are at risk to have it again. Pt states that he will try harder to notice his symptoms when they occur so that he can get earlier treatment. AFVSS, Pleasant, O x 3 Irr Irr, CTAB No edema Plan: DC Telemetry Cough syrup and Abx to [facility] pharmacy Follow up with Dr. Pride Scribed by Tayler Ragsdale under the direct supervision of Dr. Rai. Hospital course: Patient had an uneventful hospital course. He was admitted for pneumonia with sepsis and placed on empiric abx per protocol with Nebs and O2 and Cardiology consultation due to AF w/mild RVR. Pt was maintained on all meds and sleep apnea machine and overall did very well. He was transferred to 4th floor and continued to improve and overall he was feeling well enough to be DC home on PO abx. Pt will see PCP within 1 week and PT/INR will be monitored closely. Discharge Summary Discharge Physical Examination Allergies: Coded Allergies: oxycodone HCl (Verified Allergy, Mild, itching, Pt states can take hydrocodone, 10/03/15) Sulfa (Sulfonamide Antibiotics) (Verified Allergy, Unknown, 12/09/06) Vitals & I&Os Vital Signs Date Time Temp Pulse Resp B/P (MAP) Pulse Ox O2 Delivery O2 Flow Rate FiO2 11/20/16 07:52 98.0 88 20 153/78 96 Room Air 11/19/16 20:30 3.00 Hospital Course Labs (last 24 hrs) Laboratory Tests 11/19/16 11:43: Glucometer 201H 11/19/16 15:58: Glucometer 147H 11/19/16 20:54: Glucometer 133H 11/20/16 05:50: White Blood Count 12.7H, Red Blood Count 4.04L, Hemoglobin 12.0L, Hematocrit 36L , Mean Corpuscular Volume 89, Mean Corpuscular Hemoglobin 30, Mean Corpuscular Hemoglobin Concent 33, Red Cell Distribution Width 16.1H, Platelet Count 189, Mean Platelet Volume 10.5H, Neutrophils (%) (Auto) 65, Lymphocytes (%) (Auto) 26 , Monocytes (%) (Auto) 8, Eosinophils (%) (Auto) 1, Basophils (%) (Auto) 0, Neutrophils # (Auto) 8.2H, Lymphocytes # (Auto) 3.3, Monocytes # (Auto) 1.0, Eosinophils # (Auto) 0.1, Basophils # (Auto) 0.0, Prothrombin Time 19.3H, INR Comment 1.7H, Sodium Level 138, Potassium Level 3.7, Chloride Level 102, Carbon Dioxide Level 24, Anion Gap 12, Blood Urea Nitrogen 9, Creatinine 0.76, Estimat Glomerular Filtration Rate > 60, BUN/Creatinine Ratio 12, Glucose Level 78, Calcium Level 9.0, Phosphorus Level 3.5, Magnesium Level 1.8 11/20/16 05:51: Glucometer 81 11/20/16 10:42: Glucometer 152H Microbiology 11/17/16 Blood Culture - Preliminary, Resulted No growth 11/17/16 MRSA Screen - Final, Complete MRSA not isolated Pending Labs Laboratory Tests 11/20/16 05:50: White Blood Count 12.7, Red Blood Count 4.04, Hemoglobin 12.0, Hematocrit 36, Mean Corpuscular Volume 89, Mean Corpuscular Hemoglobin 30, Mean Corpuscular Hemoglobin Concent 33, Red Cell Distribution Width 16.1, Platelet Count 189, Mean Platelet Volume 10.5, Neutrophils (%) (Auto) 65, Lymphocytes (%) (Auto) 26 , Monocytes (%) (Auto) 8, Eosinophils (%) (Auto) 1, Basophils (%) (Auto) 0, Neutrophils # (Auto) 8.2, Lymphocytes # (Auto) 3.3, Monocytes # (Auto) 1.0, Eosinophils # (Auto) 0.1, Basophils # (Auto) 0.0, Prothrombin Time 19.3, INR Comment 1.7, Sodium Level 138, Potassium Level 3.7, Chloride Level 102, Carbon Dioxide Level 24, Anion Gap 12, Blood Urea Nitrogen 9, Creatinine 0.76, Estimat Glomerular Filtration Rate > 60, BUN/Creatinine Ratio 12, Glucose Level 78, Calcium Level 9.0, Phosphorus Level 3.5, Magnesium Level 1.8 11/20/16 05:51: Glucometer 81 11/20/16 10:42: Glucometer 152 Discharge Home Medications: Active Scripts Active Guaifenesin-Codeine Syrup (Guaifenesin/Codeine) 10 Ml Syrp 10 Ml PO Q4H Cefdinir 300 Mg Capsule 300 Mg PO BID Reported Warfarin Sodium 7.5 Mg Tablet 7.5 Mg PO DAILY Losartan Potassium 100 Mg Tablet 100 Mg PO DAILY Duloxetine HCl 60 Mg Capsule.dr 60 Mg PO DAILY Oxycontin (Oxycodone HCl) 10 Mg Tab.er.12h 10 Mg PO Q12H Alprazolam 0.5 Mg Tablet 0.5 Mg PO BID PRN Tamsulosin HCl 0.4 Mg Cap.er.24h 0.8 Mg PO HS TAKES 2 (0.4 MG) CAPSULES Trazodone HCl 100 Mg Tablet 100 Mg PO HS Spironolactone 25 Mg Tablet 25 Mg PO DAILY Lantus (Insulin Glargine,Hum.rec.anlog) 100 Unit/1 Ml Vial 26 Unit SQ HS Lantus (Insulin Glargine,Hum.rec.anlog) 100 Unit/1 Ml Vial 32 Unit SQ DAILY Gabapentin 100 Mg Capsule 200 Mg PO DAILY TAKES 2 (100MG) CAPSULES IN AM Amlodipine Besylate 5 Mg Tablet 5 Mg PO DAILY Montelukast Sodium 10 Mg Tablet 10 Mg PO DAILY Ropinirole HCl 3 Mg Tablet 3 Mg PO HS Potassium Chloride 20 Meq Tablet.er 20 Meq PO BID Lasix (Furosemide) 40 Mg Tablet 40 Mg PO DAILY Metoprolol Succinate 25 Mg Tab.er.24h 25 Mg PO DAILY Instructions to patient/family Please see electonic discharge instructions given to patient. Clinical Quality Measures DVT/VTE Risk/Contraindication: Risk Factor Score Per Nursin RFS Level Per Nursing on Admit: 4+=Very High REYNALDO RAI DO Nov 20, 2016 10:50
[2016-11-20] MEDS ORDERED: CEFD300C3 PO (10:56)
[2016-11-20] MEDS ORDERED: GFCD10B PO (10:56)
[2016-11-20 11:55] VITALS: BP 153/78
== END 2016-11-20 11:55 | disposition home or self-care (01) | DRG 871 ==
LOC: EDUNIT# 07:08 → ER 07:09 → ICU 09:22 → 4TH 11-19 12:50
PROVIDERS: ADMIT Internal Medicine; ATTEND Internal Medicine
PROC: 02HV33Z Insertion of Infusion Device into Superior Vena Cava, Percutaneous Approach (ICD-10-PCS; principal; 2016-11-17)
DX: A41.9 Sepsis, unspecified organism (principal); J18.9 Pneumonia, unspecified organism; R04.2 Hemoptysis; I48.0 Paroxysmal atrial fibrillation; G47.33 Obstructive sleep apnea (adult) (pediatric); I10 Essential (primary) hypertension; E78.5 Hyperlipidemia, unspecified; I25.10 Atherosclerotic heart disease of native coronary artery without angina pectoris; E11.9 Type 2 diabetes mellitus without complications; E66.01 Morbid (severe) obesity due to excess calories; K21.9 Gastro-esophageal reflux disease without esophagitis; G25.81 Restless legs syndrome; Z99.81 Dependence on supplemental oxygen; Z79.01 Long term (current) use of anticoagulants; Z87.891 Personal history of nicotine dependence; Z95.5 Presence of coronary angioplasty implant and graft; Z95.0 Presence of cardiac pacemaker; Z79.4 Long term (current) use of insulin; Z68.41 Body mass index [BMI] 40.0-44.9, adult
CPT/HCPCS: 36415; 71010; 71260; 76937; 80048; 80053; 81000; 82274; 82805; 82962; 83605; 83615; 83735; 83880; 84100; 84484; 85007; 85025; 85027; 85045; 85610; 87040; 87081; 88368; 88369; 94640; 94760; 96365; 99214

== ENCOUNTER 2016-11-23 10:17 | Inpatient (IN) | payer MEDICARE, OTHER ==
[~2016-11-23] VITALS: Ht 180.3 cm; Wt 136.5 kg
[2016-11-23] VITALS (12 sets, daily range): BP systolic 105–138; BP diastolic 60–82
[~2016-11-23 10:17] MED LIST changes: +ALPR0.5T7 PO; +CEFD300C3 PO; +DULO30CA48 PO; +DULO60CA58 PO; +GFCD10B PO; +METO-270 PO; -METO-387 PO
[2016-11-23] MEDS ORDERED: IBUPROFEN 800 MG (MOTRIN) TAB PO ONE (10:45)
[2016-11-23] MEDS ORDERED: ACETAMINOPHEN 500 MG TAB (TYLENOL) PO ONE (10:45)
[2016-11-23 10:59] LABS: BILIRUBIN,URINE NEGATIVE (NEGATIVE); KETONES,URINE NEGATIVE (NEGATIVE); LEUKOCYTE ESTERASE ,URINE NEGATIVE (NEGATIVE); NITRITE,URINE NEGATIVE (NEGATIVE); PH,URINE 5 (5-9); PROTEIN,URINE NEGATIVE (NEGATIVE); UROBILINOGEN,URINE NORMAL (NORMAL)
[2016-11-23 11:02] LABS: BASOPHILS # (AUTO) 0.1 10^3/uL (0.0-0.1); BASOPHILS % (AUTO) 0 % (0-10); EOSINOPHILS # (AUTO) 0.1 10^3/uL (0.0-0.3); EOSINOPHILS % (AUTO) 1 % (0-10); LYMPHOCYTES # (AUTO) 1.8 X 10^3 (1.0-4.0); LYMPHOCYTES % (AUTO) 9 % (12-44); MEAN CORPUSCULAR HEMOGLOBIN 29 PG (25-34); MEAN CORPUSCULAR HGB CONC 33 G/DL (32-36); MEAN CORPUSCULAR VOLUME 88 FL (80-99); MEAN PLATELET VOLUME 10.2 FL (7.4-10.4); MONOCYTES # (AUTO) 1.3 X 10^3 (0.0-1.0); MONOCYTES % (AUTO) 6 % (0-12); NEUTROPHILS # (AUTO) 16.9 X 10^3 (1.8-7.8); NEUTROPHILS % (AUTO) 84 % (42-75); PLATELET COUNT 282 10^3/uL (130-400); RED BLOOD COUNT 5.55 10^6/uL (4.35-5.85); RED CELL DISTRIBUTION WIDTH 16.6 % (10.0-14.5); WHITE BLOOD COUNT 20.2 10^3/uL (4.3-11.0)
--- NOTE | 2016-11-23 11:08 | Diagnostic Imaging Report ---
INDICATION: Hematemesis with fever. Post recent discharge for pneumonia. TECHNIQUE: Two view chest 11:08 AM CORRELATION STUDY: 11/20/2016 FINDINGS: There are rather prominent scattered somewhat patchy rounded nodular areas of increased density throughout both lung tovar which have adversely changed since the prior study. Left-sided pacemaker is stable. Heart size borderline enlarged and overall is improved and decreased from prior study. Vasculature is obscured. Likely prior right rotator cuff surgery. Degenerative changes of the thoracic spine. IMPRESSION: Extensive somewhat patchy nodular infiltrates have developed throughout both lung tovar, right greater than left. Features favor probable pneumonia. However, other processes including embolic phenomenon not excluded. Followup imaging until complete resolution, is recommended. Dictated by: Dictated on workstation # [id number]
[2016-11-23 11:09] LABS: INR 1.4 (0.8-1.4); PROTHROMBIN TIME PATIENT 16.8 SEC (12.2-14.7)
[2016-11-23 11:17] LABS: ALANINE AMINOTRANSFERASE 19 U/L (0-55); ALBUMIN 4.1 GM/DL (3.2-4.5); ANION GAP 15 MMOL/L (5-14); ASPARTATE AMINO TRANSFERASE 34 U/L (5-34); BLOOD UREA NITROGEN 13 MG/DL (7-18); BUN/CREATININE RATIO 11; CALCIUM 9.7 MG/DL (8.5-10.1); CARBON DIOXIDE 23 MMOL/L (21-32); CHLORIDE 99 MMOL/L (98-107); CREATININE SERUM 1.15 MG/DL (0.60-1.30); GFR ESTIMATED > 60; GLUCOSE 162 MG/DL (70-105); MAGNESIUM 2.8 MG/DL (1.8-2.4); SODIUM 137 MMOL/L (135-145); TOTAL PROTEIN 8.3 GM/DL (6.4-8.2)
[2016-11-23 11:19] LABS: SQUAMOUS EPITHELIAL CELL,UR 0-2 /HPF
[2016-11-23] MEDS ORDERED: LEVOFLOXACIN 750 MG/150 ML IV 150 ML IV ONE (11:30)
--- NOTE | 2016-11-23 11:54 | ED General ---
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 Nursing Sepsis Screen: Possible Sepsis Risk Allergies and Home Medications Allergies Coded Allergies: oxycodone HCl (Verified Allergy, Mild, itching, Pt states can take hydrocodone, 10/03/15) Sulfa (Sulfonamide Antibiotics) (Verified Allergy, Unknown, 12/09/06) Home Medications Alprazolam 0.5 Mg Tablet, 0.5 MG PO BID PRN for ANXIETY, (Reported) Amlodipine Besylate 5 Mg Tablet, 5 MG PO DAILY, (Reported) Cefdinir 300 Mg Capsule, 300 MG PO BID, #10 Prescribed by: REYNALDO RAI on 11/20/16 1056 Duloxetine HCl 60 Mg Capsule.dr, 60 MG PO DAILY, (Reported) Furosemide 40 Mg Tablet, 40 MG PO DAILY, (Reported) Gabapentin 100 Mg Capsule, 200 MG PO DAILY, (Reported) TAKES 2 (100MG) CAPSULES IN AM Guaifenesin/Codeine 10 Ml Syrp, 10 ML PO Q4H, #30 Prescribed by: REYNALDO RAI on 11/20/16 1056 Insulin Glargine,Hum.rec.anlog 100 Unit/1 Ml Vial, 32 UNIT SQ DAILY, (Reported) Insulin Glargine,Hum.rec.anlog 100 Unit/1 Ml Vial, 26 UNIT SQ HS, (Reported) Losartan Potassium 100 Mg Tablet, 100 MG PO DAILY, (Reported) Metoprolol Succinate 25 Mg Tab.er.24h, 25 MG PO DAILY, (Reported) Montelukast Sodium 10 Mg Tablet, 10 MG PO DAILY, (Reported) Oxycodone HCl 10 Mg Tab.er.12h, 10 MG PO Q12H, (Reported) Potassium Chloride 20 Meq Tablet.er, 20 MEQ PO BID, (Reported) Ropinirole HCl 3 Mg Tablet, 3 MG PO HS, (Reported) Spironolactone 25 Mg Tablet, 25 MG PO DAILY, (Reported) Tamsulosin HCl 0.4 Mg Cap.er.24h, 0.8 MG PO HS, (Reported) TAKES 2 (0.4 MG) CAPSULES Trazodone HCl 100 Mg Tablet, 100 MG PO HS, (Reported) Warfarin Sodium 7.5 Mg Tablet, 7.5 MG PO DAILY, (Reported) Past Gnughtk-Zpiupj-Ufgbrj Hx Patient Social History Alcohol Use: Occasionally Uses Recreational Drug Use: No Smoking Status: Former Smoker Type Used: Cigarettes Former Smoker/When Quit: Aug 21, 1971 Recent Foreign Travel: No Contact w/Someone Who Travel: No Recent Infectious Disease Expo: No Recent Hopitalizations: Yes (11/20/16) Immunizations Up To Date Tetanus Booster (TDap): Less than 5yrs Date of Pneumonia Vaccine: Jan 21, 2016 Date of Influenza Vaccine: Jan 31, 2015 Seasonal Allergies Seasonal Allergies: No Surgeries HX Surgeries: Yes (SPINAL FUSION,RIGHT ROTATOR CUFF,COLT TKR, LDA STENT, lap band) Surgeries: Abdominal, Coronary Stent, Gallbladder, Joint Replacement, Orthopedic, Pacemaker, Tonsillectomy Respiratory Hx Respiratory Disorders: Yes Respiratory Disorders: Pneumonia, Sleep Apnea Cardiovascular Hx Cardiac Disorders: Yes (STENT X1, PACEMAKER-meditronic) Cardiac Disorders: Atrial Fibrillation, Coronary Artery Disease, Heart Attack, Hypertension Neurological Hx Neurological Disorders: Yes (Restless leg syndrome) Reproductive System Hx Reproductive Disorders: No Sexually Transmitted Disease: No HIV/AIDS: No Genitourinary Hx Genitourinary Disorders: Yes Genitourinary Disorders: Prostate Problems, Renal Failure Gastrointestinal Hx Gastrointestinal Disorders: Yes (lap band surgery) Gastrointestinal Disorders: Gastroesophageal Reflux Musculoskeletal Hx Musculoskeletal Disorders: Yes (spinal fusion L5/S1) Musculoskeletal Disorders: Arthritis Endocrine Hx Endocrine Disorders: Yes Endocrine Disorders: Diabetes, Insulin dep HEENT HX ENT Disorders: No HEENT Disorders: Cataract Loss of Vision: Denies Hearing Impairment: Denies Cancer Hx Cancer: No Psychosocial Hx Psychiatric Problems: Yes Behavioral Health Disorders: Anxiety, PTSD, Depression Integumentary HX Skin/Integumentary Disorder: No Blood Transfusions Hx Blood Disorders: No Adverse Reaction to a Blood Tr: No Family Medical History Significant Family History: Heart Disease, Hypertension Family Medial History: Cancer 19 FATHER 19 MOTHER Chest pain 19 FATHER 19 MOTHER G8 BROTHER G8 BROTHER G8 BROTHER G8 BROTHER Congestive heart failure 19 MOTHER G8 BROTHER G8 BROTHER G8 BROTHER Family history: Arthritis Family history: Cardiovascular disease 19 FATHER Family history: Diabetes mellitus Family history: Glaucoma Family history: Hypertension Heart disease History of - respiratory disease Malignant neoplasm of lung 19 FATHER Myocardial infarction 19 MOTHER G8 BROTHER G8 BROTHER G8 BROTHER Parkinson's disease Prostate cancer G8 BROTHER Stroke Visual impairment No Family History of: Abdominal aortic aneurysm Redstone's disease Alcoholism Aphasia Cancer of colon Cataract Congenital heart disease Cystic fibrosis Dementia Dysphagia Family history: Allergy Family history: Alzheimer's disease Family history: Asthma Family history: Breast disease Family history: Coronary thrombosis Family history: Gastrointestinal disease Family history: Osteoporosis Family history: Thyroid disorder Headache Hearing loss Hereditary disease History of - anemia History of - disorder History of drug abuse Human immunodeficiency virus (HIV) seropositivity Hypercholesterolemia Infertile Kidney disease Psychotic disorder Seizure disorder Tuberculosis Physical Exam Vital Signs Vital Sign - Last 12Hours 11/23/16 11/23/16 10:26 10:40 Temp 102.5 Pulse 117 Resp 24 Pulse Ox 93 O2 Delivery Room Air O2 Flow Rate 2.00 Capillary Refill : Less Than 3 Seconds Focused Exam Lactic Acid Level Laboratory Tests Test 11/23/16 10:31 Date of ETT Placement: October 01, 2015 Time of ETT Placement: 511 Progress/Results/Core Measures Results/Orders Lab Results Laboratory Tests Test 11/23/16 10:31 11/23/16 10:45 11/23/16 10:50 Range/Units White Blood Count 20.2 H 4.3-11.0 10^3/uL Red Blood Count 5.55 4.35-5.85 10^6/uL Hemoglobin 16.1 # 13.3-17.7 G/DL Hematocrit 49 40-54 % Mean Corpuscular Volume 88 80-99 FL Mean Corpuscular Hemoglobin 29 25-34 PG Mean Corpuscular Hemoglobin Concent 33 32-36 G/DL Red Cell Distribution Width 16.6 H 10.0-14.5 % Platelet Count 282 130-400 10^3/uL Mean Platelet Volume 10.2 7.4-10.4 FL Neutrophils (%) (Auto) 84 H 42-75 % Lymphocytes (%) (Auto) 9 L 12-44 % Monocytes (%) (Auto) 6 0-12 % Eosinophils (%) (Auto) 1 0-10 % Basophils (%) (Auto) 0 0-10 % Neutrophils # (Auto) 16.9 H 1.8-7.8 X 10^3 Lymphocytes # (Auto) 1.8 1.0-4.0 X 10^3 Monocytes # (Auto) 1.3 H 0.0-1.0 X 10^3 Eosinophils # (Auto) 0.1 0.0-0.3 10^3/uL Basophils # (Auto) 0.1 0.0-0.1 10^3/uL Prothrombin Time 16.8 H 12.2-14.7 SEC INR Comment 1.4 0.8-1.4 Activated Partial Thromboplast Time 37 H 24-35 SEC Sodium Level 137 135-145 MMOL/L Potassium Level 5.4 H 3.6-5.0 MMOL/L Chloride Level 99 98-107 MMOL/L Carbon Dioxide Level 23 21-32 MMOL/L Anion Gap 15 H 5-14 MMOL/L Blood Urea Nitrogen 13 7-18 MG/DL Creatinine 1.15 0.60-1.30 MG/DL Estimat Glomerular Filtration Rate > 60 BUN/Creatinine Ratio 11 Glucose Level 162 H 70-105 MG/DL Calcium Level 9.7 8.5-10.1 MG/DL Magnesium Level 2.8 H 1.8-2.4 MG/DL Total Bilirubin 1.0 0.1-1.0 MG/DL Aspartate Amino Transf (AST/SGOT) 34 5-34 U/L Alanine Aminotransferase (ALT/SGPT) 19 0-55 U/L Alkaline Phosphatase 116 40-136 U/L Total Protein 8.3 H 6.4-8.2 GM/DL Albumin 4.1 3.2-4.5 GM/DL Urine Color YELLOW Urine Clarity CLEAR Urine pH 5 5-9 Urine Specific [place] 1.005 L 1.016-1.022 Urine Protein NEGATIVE NEGATIVE Urine Glucose (UA) NEGATIVE NEGATIVE Urine Ketones NEGATIVE NEGATIVE Urine Nitrite NEGATIVE NEGATIVE Urine Bilirubin NEGATIVE NEGATIVE Urine Urobilinogen NORMAL NORMAL MG/DL Urine Leukocyte Esterase NEGATIVE NEGATIVE Urine RBC (Auto) NEGATIVE NEGATIVE Urine RBC NONE /HPF Urine WBC NONE /HPF Urine Squamous Epithelial Cells 0-2 /HPF Urine Crystals NONE /LPF Urine Bacteria NEGATIVE /HPF Urine Casts NONE /LPF Urine Mucus NEGATIVE /LPF Urine Culture Indicated NO My Orders Orders - VIHSAL EL DO Saline Lock/Iv-Start (11/23/16 10:31) Monitor-Rhythm Ecg Trace Only (11/23/16 10:31) Cbc With Automated Diff (11/23/16 10:31) Comprehensive Metabolic Panel (11/23/16 10:31) Lactic Acid Analyzer (11/23/16 10:31) Magnesium (11/23/16 10:31) Protime With Inr (11/23/16 10:31) Partial Thromboplastin Time (11/23/16 10:31) Blood Culture (11/23/16 10:31) Sputum Culture (11/23/16 10:31) Chest Pa/Lat (2 View) (11/23/16 10:31) Acetaminophen Tablet (Tylenol Tablet) (11/23/16 10:45) Ibuprofen Tablet (Motrin Tablet) (11/23/16 10:45) Ua Culture If Indicated (11/23/16 10:43) Manual Differential (11/23/16 10:45) Levofloxacin 750 Mg/150 Ml Iv (Levaquin (11/23/16 11:30) Medications Given in ED Current Medications Medications Dose Ordered Sig/Leatha Route Start Time Stop Time Status Last Admin Dose Admin Acetaminophen 1,000 mg ONCE ONCE PO 11/23/16 10:45 11/23/16 10:46 DC 11/23/16 11:05 1,000 MG Ibuprofen 800 mg ONCE ONCE PO 11/23/16 10:45 11/23/16 10:46 DC 11/23/16 11:04 800 MG Vital Signs/I&O Vital Sign - Last 12Hours 11/23/16 11/23/16 10:26 10:40 Temp 102.5 Pulse 117 Resp 24 B/P (MAP) Pulse Ox 93 O2 Delivery Room Air Nasal Cannula O2 Flow Rate 2.00 Progress Note : Progress Note NO LONGER SHIVERING, AND PT RESTING COMFORTABLY TEMP CAME DOWN NO DYSPNEA AND O2 SATS REMAINED IN MID 90'S ON O2 AT 2L/NC Diagnostic Imaging Comments CXR--EXTENSIVE BILATERAL PATCHY INFILTRATES --RIGHT > LEFT, PER RADIOLOGIST REPORT @ 1121 Departure Communication Progress Notes 1125--SPOKE WITH DR. RAI, ACCEPTS PT FOR ADMIT 1130--SPOKE WITH DR. HAWKINS FOR PULMONOLOGY CONSULT--ANTIBIOTIC ORDERS NOTED FOR CEFEPIME, LEVAQUIN AND VANCOMYCIN Impression Impression: Primary Impression: Bilateral pneumonia Additional Impressions: Sepsis Chronic atrial fibrillation Disposition: ADMITTED INPATIENT Condition: Improved Decision to Admit Reason: Admit from ER (General) Decision to Admit/Date: Nov 23, 2016 Time/Decision to Admit Time: 11:25 Departure-Patient Inst. Referrals: ABEL GUAMAN MD (PCP/Family) Primary Care Physician VISHAL EL DO Nov 23, 2016 11:54
[2016-11-23 12:07] LABS: BAND NEUTROPHILS 2 %; LYMPHOCYTES % (MANUAL) 8 %; NEUTROPHILS % (MANUAL) 89 %
[2016-11-23] MEDS ORDERED: ACETAMINOPHEN 500 MG TAB (TYLENOL) PO PRN (13:00)
[2016-11-23] MEDS ORDERED: VANCOMYCIN 2000 MG/NS 500 ML IVPB IV NR ×2 (13:00)
[2016-11-23] MEDS ORDERED: CATHETER FLUSH 10 ML SYR IV PRN (13:00)
[2016-11-23] MEDS: NS IV 1000 ML 1,000 ML IV SCH ×2 (13:14→22:58)
[2016-11-23] MEDS: CEFEPIME 2 GM/NS 50 ML IVPB IV SCH ×2 (13:35)
--- NOTE | 2016-11-23 14:15 | Pulmonary Consultation ---
History of Present Illness History of Present Illness Date of Consultation 11/23/16 14:13 Time Seen by Provider: 08:16 Date of Admission History of Present Illness 71yo with recent hospitalization 1 wk ago secondary to pneumonia and coughing up blood. He also has a hx of Afib and is on Coumadin. Pt presented to Ed secondary to progressive SOB, hemoptysis, fever/chills. He was found to have leukocytosis of 20,000. CXR shows persistent infiltration. I am consulted for pulmonary/CC management. Allergies and Home Medications Allergies Coded Allergies: Sulfa (Sulfonamide Antibiotics) (Verified Allergy, Intermediate, RASH, 03/04) BROKE OUT IN BRIGHT RED BURNING RASH BUT IS UNSURE OF ANY BREATHING DIFFICULTY AT THE TIME. WAS GIVEN TWO SHOTS DECADRON WHILE IN DR. OFFICE. Home Medications Alprazolam 0.5 Mg Tablet, 0.5 MG PO BID PRN for ANXIETY, (Reported) Amlodipine Besylate 5 Mg Tablet, 5 MG PO DAILY, (Reported) Duloxetine HCl 60 Mg Capsule.dr, 60 MG PO DAILY, (Reported) Enoxaparin Sodium 100 Mg/1 Ml Syringe, 100 MG SQ DAILY, #3 Prescribed by: DESTINEY BECERRA on 11/26/16 1353 Furosemide 40 Mg Tablet, 40 MG PO DAILY, (Reported) Gabapentin 100 Mg Capsule, 200 MG PO HS, (Reported) TAKES 2 (100MG) CAPSULES Insulin Glargine,Hum.rec.anlog 100 Unit/1 Ml Vial, 32 UNIT SQ DAILY, (Reported) Insulin Glargine,Hum.rec.anlog 100 Unit/1 Ml Vial, 26 UNIT SQ HS, (Reported) Levofloxacin 750 Mg Tablet, 750 MG PO DAILY@1100, #3 Beginning 11/27 take at approximately 1100 hours Prescribed by: DESTINEY BECERRA on 11/26/16 1353 Metoprolol Succinate 25 Mg Tab.er.24h, 25 MG PO DAILY, (Reported) Montelukast Sodium 10 Mg Tablet, 10 MG PO DAILY, (Reported) Oxycodone HCl 10 Mg Tab.er.12h, 10 MG PO Q12H PRN for PAIN-SEVERE, (Reported) Potassium Chloride 20 Meq Tablet.er, 20 MEQ PO BID, (Reported) Ropinirole HCl 3 Mg Tablet, 3 MG PO HS, (Reported) Spironolactone 25 Mg Tablet, 25 MG PO DAILY, (Reported) Tamsulosin HCl 0.4 Mg Cap.er.24h, 0.8 MG PO HS, (Reported) TAKES 2 (0.4 MG) CAPSULES Trazodone HCl 100 Mg Tablet, 100 MG PO HS, (Reported) Warfarin Sodium 7.5 Mg Tablet, 7.5 MG PO DAILY, (Reported) Past Osztqig-Ezxltq-Jmsdcg Hx Patient Social History Alcohol Use: Occasionally Uses Recreational Drug Use: No Smoking Status: Former Smoker Type Used: Cigarettes Former Smoker/When Quit: Aug 21, 1971 Recent Foreign Travel: No Contact w/Someone Who Travel: No Recent Infectious Disease Expo: No Recent Hopitalizations: Yes (11/20/16) Immunizations Up To Date Tetanus Booster (TDap): Less than 5yrs Date of Pneumonia Vaccine: Jan 21, 2016 Date of Influenza Vaccine: Jan 31, 2015 Seasonal Allergies Seasonal Allergies: No Surgeries HX Surgeries: Yes (SPINAL FUSION,RIGHT ROTATOR CUFF,COLT TKR, LDA STENT, lap band) Surgeries: Abdominal, Coronary Stent, Gallbladder, Joint Replacement, Orthopedic, Pacemaker, Tonsillectomy Respiratory Hx Respiratory Disorders: Yes Respiratory Disorders: Pneumonia, Sleep Apnea Cardiovascular Hx Cardiac Disorders: Yes (STENT X1, PACEMAKER-meditronic) Cardiac Disorders: Atrial Fibrillation, Coronary Artery Disease, Heart Attack, Hypertension Neurological Hx Neurological Disorders: Yes (Restless leg syndrome) Reproductive System Hx Reproductive Disorders: No Sexually Transmitted Disease: No HIV/AIDS: No Genitourinary Hx Genitourinary Disorders: Yes Genitourinary Disorders: Prostate Problems, Renal Failure Gastrointestinal Hx Gastrointestinal Disorders: Yes (lap band surgery) Gastrointestinal Disorders: Gastroesophageal Reflux Musculoskeletal Hx Musculoskeletal Disorders: Yes (spinal fusion L5/S1) Musculoskeletal Disorders: Arthritis Endocrine Hx Endocrine Disorders: Yes Endocrine Disorders: Diabetes, Insulin dep HEENT HX ENT Disorders: No HEENT Disorders: Cataract Loss of Vision: Denies Hearing Impairment: Denies Cancer Hx Cancer: No Psychosocial Hx Psychiatric Problems: Yes Behavioral Health Disorders: Anxiety, PTSD, Depression Integumentary HX Skin/Integumentary Disorder: No Blood Transfusions Hx Blood Disorders: No Adverse Reaction to a Blood Tr: No Family Medical History Significant Family History: Heart Disease, Hypertension Family Medial History: Cancer 19 FATHER 19 MOTHER Chest pain 19 FATHER 19 MOTHER G8 BROTHER G8 BROTHER G8 BROTHER G8 BROTHER Congestive heart failure 19 MOTHER G8 BROTHER G8 BROTHER G8 BROTHER Family history: Arthritis Family history: Cardiovascular disease 19 FATHER Family history: Diabetes mellitus Family history: Glaucoma Family history: Hypertension Heart disease History of - respiratory disease Malignant neoplasm of lung 19 FATHER Myocardial infarction 19 MOTHER G8 BROTHER G8 BROTHER G8 BROTHER Parkinson's disease Prostate cancer G8 BROTHER Stroke Visual impairment No Family History of: Abdominal aortic aneurysm Haines's disease Alcoholism Aphasia Cancer of colon Cataract Congenital heart disease Cystic fibrosis Dementia Dysphagia Family history: Allergy Family history: Alzheimer's disease Family history: Asthma Family history: Breast disease Family history: Coronary thrombosis Family history: Gastrointestinal disease Family history: Osteoporosis Family history: Thyroid disorder Headache Hearing loss Hereditary disease History of - anemia History of - disorder History of drug abuse Human immunodeficiency virus (HIV) seropositivity Hypercholesterolemia Infertile Kidney disease Psychotic disorder Seizure disorder Tuberculosis Review of Systems Time Seen by Provider: 14:51 Constitutional: Chills, Fever, Weakness Respiratory: Hemoptysis, SOB with excertion, Shortness of breath, Wheezing Neurological: Numbness, Weakness Exam Exam Vital Signs Date Time Temp Pulse Resp B/P (MAP) Pulse Ox O2 Delivery O2 Flow Rate FiO2 11/23/16 12:45 101.6 104 20 96 Nasal Cannula 2.00 11/23/16 10:40 Nasal Cannula 2.00 11/23/16 10:26 102.5 117 24 93 Room Air General Appearance: Moderate Distress HEENT: PERRL/EOMI, TMs Normal, Pharynx Normal Neck: Full Range of Motion, Non Tender, Supple Respiratory: Chest Non Tender, Decreased Breath Sounds, Respiratory Distress Cardiovascular: Regular Rate, Rhythm Capillary Refill: Less Than 3 Seconds Extremity: Normal Capillary Refill, Normal Inspection Neurologic/Psychiatric: Alert, Oriented x3 Skin: Normal Color Lymphatic: No Adenopathy Results Lab Laboratory Tests 11/23/16 10:45 Assessment/Plan Assessment/Plan Hemoptysis with pneumonia post bronchoscopy this AM -- no signs of hemoptysis on bronchoscopy -Continue Abx -restart home coumadin and continue hep drip for now -SCDs -Duoneb Q 6 IS -Pt will need repeat CT as outpatient Afib 255 ZARI HAWKINS DO Nov 23, 2016 14:15
[2016-11-23] MEDS ORDERED: HEParin 1000 UNIT/ML (10ML VIAL) FOR BOLUS IV PRN (14:30)
[2016-11-23] MEDS: RT-ALBUTEROL/IPRATROPIUM 3 ML (DUONEB) VIAL INH SCH ×2 (15:10→20:16)
[2016-11-23] MEDS: HEParin DRIP 25000 UNIT/500ML 500 ML IV SCH (15:19)
[2016-11-23] MEDS: inSUlin (REGULAR) HUMAN 1 UNIT/0.01 ML (CHARGE PER UNIT) SC SCH ×2 (17:35→21:28)
[2016-11-24] VITALS (24 sets, daily range): BP systolic 114–154; BP diastolic 55–85
[2016-11-24] MEDS: CEFEPIME 2 GM/NS 50 ML IVPB IV SCH ×6 (00:03→23:47)
[2016-11-24] MEDS: VANCOMYCIN 1500 MG/NS 500 ML IVPB IV SCH ×4 (00:47→13:25)
[2016-11-24] MEDS: RT-ALBUTEROL/IPRATROPIUM 3 ML (DUONEB) VIAL INH SCH ×4 (01:51→20:48)
[2016-11-24 02:03] LABS: BASOPHILS % (AUTO) 0 % (0-10); EOSINOPHILS # (AUTO) 0.1 10^3/uL (0.0-0.3); EOSINOPHILS % (AUTO) 1 % (0-10); LYMPHOCYTES # (AUTO) 4.1 X 10^3 (1.0-4.0); LYMPHOCYTES % (AUTO) 29 % (12-44); MEAN CORPUSCULAR HEMOGLOBIN 30 PG (25-34); MEAN CORPUSCULAR HGB CONC 33 G/DL (32-36); MEAN CORPUSCULAR VOLUME 89 FL (80-99); MEAN PLATELET VOLUME 9.6 FL (7.4-10.4); MONOCYTES # (AUTO) 1.2 X 10^3 (0.0-1.0); MONOCYTES % (AUTO) 9 % (0-12); NEUTROPHILS # (AUTO) 8.9 X 10^3 (1.8-7.8); NEUTROPHILS % (AUTO) 62 % (42-75); PLATELET COUNT 245 10^3/uL (130-400); RED BLOOD COUNT 4.22 10^6/uL (4.35-5.85); RED CELL DISTRIBUTION WIDTH 15.9 % (10.0-14.5); WHITE BLOOD COUNT 14.3 10^3/uL (4.3-11.0)
[2016-11-24 02:23] LABS: ALANINE AMINOTRANSFERASE 11 U/L (0-55); ANION GAP 10 MMOL/L (5-14); ASPARTATE AMINO TRANSFERASE 11 U/L (5-34); BILIRUBIN,TOTAL 0.7 MG/DL (0.1-1.0); BLOOD UREA NITROGEN 16 MG/DL (7-18); BUN/CREATININE RATIO 14; CALCIUM 8.4 MG/DL (8.5-10.1); CARBON DIOXIDE 25 MMOL/L (21-32); CHLORIDE 104 MMOL/L (98-107); CREATININE SERUM 1.13 MG/DL (0.60-1.30); GFR ESTIMATED > 60; GLUCOSE 164 MG/DL (70-105); POTASSIUM 3.8 MMOL/L (3.6-5.0); SODIUM 139 MMOL/L (135-145); TOTAL PROTEIN 5.6 GM/DL (6.4-8.2)
[2016-11-24 02:38] LABS: MAGNESIUM 1.7 MG/DL (1.8-2.4); PHOSPHORUS 3.1 MG/DL (2.3-4.7)
[2016-11-24] MEDS: POTASSIUM CL 10MEQ/50ML IVPB 50 ML IV SCH (02:43)
[2016-11-24] MEDS: KCL 20 MEQ TAB (K-DUR) PO SCH ×2 (02:43→17:17)
[2016-11-24] MEDS: MAGNESIUM 1 GM/100 ML IVPB 100 ML IV SCH ×3 (02:44→06:26)
[2016-11-24] MEDS: inSUlin (REGULAR) HUMAN 1 UNIT/0.01 ML (CHARGE PER UNIT) SC SCH ×4 (06:09→21:05)
[2016-11-24] MEDS: NS IV 1000 ML 1,000 ML IV SCH ×3 (09:33→23:47)
[2016-11-24] MEDS: ALPRAZolam 0.5 MG (XANAX) TAB PO SCH (09:46)
--- NOTE | 2016-11-24 10:01 | Diagnostic Imaging Report ---
INDICATION: Pneumonia. COMPARISON: Comparison made with prior examination 11/23/2016. FINDINGS: There is cardiomegaly. There is mild venous congestion. There is no pleural effusion or pneumothorax. Mediastinum is unremarkable. Pacemaker overlies the left hemithorax. IMPRESSION: Cardiomegaly and mild central pulmonary venous congestion. Dictated by: Dictated on workstation # [id number]
[2016-11-24] MEDS: LEVOFLOXACIN 750 MG/D5W 150 ML PRE-MIX IV SCH (10:40)
--- NOTE | 2016-11-24 11:58 | History & Physical-Hospitalist ---
HPI History of Present Illness: HPI/Chief Complaint CC: Severe pneumonia with F/C HPI: This is a 71-year-old white male known to me from prior hospitalizations the most recent one week ago 11/17/16 who presented to the emergency room with fever and chills leukocytosis of 20,000 and recurrent pneumonia bilateral on chest x-ray. He completed his antibiotics as instructed when we discharged him last week and overall felt well until abruptly began having fever and chills and diaphoresis went to the emergency room and found to have the recurrent uncomplicated bilateral pneumonia. Dr. Alford was gracious enough to see him yesterday and will plan on bronchoscopy tomorrow. At this current time patient denies any pain and overall feels much better. Source: patient Exam Limitations: no limitations Date Seen 11/24/16 Time Seen by Provider: 10:30 Attending Physician Denise Montes DO PCP Mani Pride MD Referring Physician Date of Admission Nov 23, 2016 at 11:25 Home Medications & Allergies Home Medications Reviewed patient Home Medication Reconciliation Form Allergies Allergies Coded Allergies oxycodone HCl (Verified Allergy, Mild, itching, Pt states can take hydrocodone , 10/03/15) Sulfa (Sulfonamide Antibiotics) (Verified Allergy, Unknown, 12/09/06) Past Wxzignl-Thaoiv-Cosoto Hx Patient Social History Marrital Status: Employed/Student: retired Alcohol Use: Occasionally Uses Recreational Drug Use: No Smoking Status: Former Smoker Former smoker/When Quit: Aug 21, 1971 Type Used: Cigarettes Physical Abuse Screen: No Sexual Abuse: No Recent Foreign Travel: No Contact w/other who traveled: No Recent Hopitalizations: Yes (DISCHARGED 11/20/16) Recent Infectious Disease Expo: No Immunizations Up To Date Tetanus Booster (TDap): Less than 5yrs Date of Pneumonia Vaccine: Jan 21, 2016 Date of Influenza Vaccine: Jan 31, 2015 Seasonal Allergies Seasonal Allergies: No Surgeries HX Surgeries: Yes (SPINAL FUSION,RIGHT ROTATOR CUFF,COLT TKR, LDA STENT, lap band) Surgeries: Abdominal, Coronary Stent, Gallbladder, Joint Replacement, Orthopedic, Pacemaker, Tonsillectomy Respiratory Hx Respiratory Disorders: Yes Respiratory Disorders: COPD, Pneumonia, Sleep Apnea Cardiovascular Hx Cardiovascular Disorders: Yes (STENT X1, PACEMAKER-meditronic) Cardiac Disorders: Atrial Fibrillation, Coronary Artery Disease, Heart Attack, Hypertension Neurological Hx Neurological Disorders: Yes (Restless leg syndrome) Reproductive System Hx Reproductive Disorders: No Sexually Transmitted Disease: No HIV/AIDS: No Genitourinary Hx Genitourinary Disorders: Yes Genitourinary Disorders: Prostate Problems, Renal Failure Gastrointestinal Hx Gastrointestinal Disorders: Yes (lap band surgery) Gastrointestinal Disorders: Gastroesophageal Reflux Musculoskeletal Hx Musculoskeletal Disorders: Yes (spinal fusion L5/S1) Musculoskeletal Disorders: Arthritis Endocrine Hx Endocrine Disorders: Yes Endocrine Disorders: Diabetes, Insulin dep HEENT HX ENT Disorders: No HEENT Disorders: Cataract Loss of Vision: Denies Hearing Impairment: Denies Cancer Hx Cancer: No Psychosocial Hx Psychiatric Problems: Yes Behavioral Health Disorders: Anxiety, PTSD, Depression Integumentary HX Skin/Integumentary Disorder: No Blood Transfusions Hx Blood Disorders: No Adverse Reaction to a Blood Tr: No Family Medical History Significant Family History: Heart Disease, Hypertension Family Hx: Cancer 19 FATHER 19 MOTHER Chest pain 19 FATHER 19 MOTHER G8 BROTHER G8 BROTHER G8 BROTHER G8 BROTHER Congestive heart failure 19 MOTHER G8 BROTHER G8 BROTHER G8 BROTHER Family history: Arthritis Family history: Cardiovascular disease 19 FATHER Family history: Diabetes mellitus Family history: Glaucoma Family history: Hypertension Heart disease History of - respiratory disease Malignant neoplasm of lung 19 FATHER Myocardial infarction 19 MOTHER G8 BROTHER G8 BROTHER G8 BROTHER Parkinson's disease Prostate cancer G8 BROTHER Stroke Visual impairment No Family History of: Abdominal aortic aneurysm [place]'s disease Alcoholism Aphasia Cancer of colon Cataract Congenital heart disease Cystic fibrosis Dementia Dysphagia Family history: Allergy Family history: Alzheimer's disease Family history: Asthma Family history: Breast disease Family history: Coronary thrombosis Family history: Gastrointestinal disease Family history: Osteoporosis Family history: Thyroid disorder Headache Hearing loss Hereditary disease History of - anemia History of - disorder History of drug abuse Human immunodeficiency virus (HIV) seropositivity Hypercholesterolemia Infertile Kidney disease Psychotic disorder Seizure disorder Tuberculosis Review of Systems Constitutional: see HPI, chills, diaphoresis, dizziness, fever, malaise, weakness EENTM: no symptoms reported Respiratory: cough, dyspnea on exertion, short of breath Cardiovascular: no symptoms reported Gastrointestinal: nausea Genitourinary: no symptoms reported Musculoskeletal: no symptoms reported Skin: no symptoms reported Psychiatric/Neurological: No Symptoms Reported All Other Systems Reviewed Negative Unless Noted: Yes Physical Exam Physical Exam Vital Signs Vital Sign - Last 12Hours 11/23/16 11/23/16 10:26 10:40 Temp 102.5 Pulse 117 Resp 24 Pulse Ox 93 O2 Delivery Room Air O2 Flow Rate 2.00 Capillary Refill : Less Than 3 Seconds General Appearance: No Apparent Distress, WD/WN, Chronically ill, Obese Eyes: Bilateral Eye Normal Inspection, Bilateral Eye PERRL HEENT: PERRL/EOMI, Normal ENT Inspection, Pharynx Normal Neck: Full Range of Motion, Normal Inspection, Non Tender, Supple, Carotid Bruit Respiratory: Chest Non Tender, Lungs Clear, Normal Breath Sounds, No Accessory Muscle Use, No Respiratory Distress Cardiovascular: Regular Rate, Rhythm, No Edema, No Gallop, No JVD, No Murmur, Normal Peripheral Pulses Gastrointestinal: Normal Bowel Sounds, No Organomegaly, No Pulsatile Mass, Non Tender, Soft Back: Normal Inspection, No CVA Tenderness, No Vertebral Tenderness Extremity: Normal Capillary Refill, Normal Inspection, Normal Range of Motion, Non Tender, No Calf Tenderness, No Pedal Edema Neurologic/Psychiatric: Alert, Oriented x3, No Motor/Sensory Deficits, Normal Mood/Affect Skin: Normal Color, Warm/Dry Lymphatic: No Adenopathy Results Results/Procedures Lab Laboratory Tests 11/23/16 10:45 11/24/16 01:56 Assessment/Plan Admission Diagnosis Assessment: Recurrent bilateral pneumonia after recently being discharged one week prior for pneumonia in need of bronchoscopy Severe COPD Severe sleep apnea Atrial fibrillation Anticoagulation for stroke prophylaxis Hypertension Hyperlipidemia Assessment and Plan Plan: Bronchoscopy tomorrow appreciate Dr. Alford's consultation Empiric antibiotics triple antibiotics therapy Sleep apnea treatment Nebulizer treatments O2 Clinical Quality Measures DVT/VTE Risk/Contraindication: Risk Factor Score Per Nursin RFS Level Per Nursing on Admit: 4+=Very High DENISE MONTES DO Nov 24, 2016 11:58
[2016-11-24] MEDS ORDERED: guaiFENesin/CODEINE (ROBITUSSIN AC) 10ML UDC PO PRN (12:00)
[2016-11-24] MEDS ORDERED: OXYCODONE HCL 10 MG PO SCH (12:00)
[2016-11-24] MEDS ORDERED: TROUGH ORDER-PHARMACY XX NR (12:00)
[2016-11-24] MEDS ORDERED: ALPRAZolam 0.5 MG (XANAX) TAB PO PRN (12:00)
[2016-11-24] MEDS: oxyCODONE ER 10 MG (OxyCONTIN CR) TAB PO SCH ×2 (13:25→20:40)
[2016-11-24] MEDS: HEParin DRIP 25000 UNIT/500ML 500 ML IV SCH (15:40)
[2016-11-24] MEDS: ALFUZOSIN HCL 10 MG TAB (UROXATRAL) PO SCH (17:17)
[2016-11-24] MEDS: inSUlin DETERMIR 1 UNIT/0.01 ML (LEVEMIR) CHARGE PER UNIT SQ SCH (20:40)
[2016-11-24] MEDS: traZODone 100 MG (DESYREL) TAB PO SCH (20:40)
[2016-11-24] MEDS: rOPINIRole 1 MG (REQUIP) TABLET PO SCH (20:40)
[2016-11-24] MEDS ORDERED: INSULIN GLARGINE HUM REC ANLOG 26 UNIT SQ SCH (21:00)
[2016-11-24] MEDS ORDERED: TAMSULOSIN HCL 0.8 MG PO SCH (21:00)
[2016-11-24] MEDS ORDERED: NON-FORMULARY MEDICATION 1 EA EA (Potassium Chloride 20 MEQ) PO SCH (21:00)
[2016-11-24] MEDS ORDERED: NON-FORMULARY MEDICATION 1 EA EA (Ropinirole HCl 3 MG) PO SCH (21:00)
[2016-11-25] VITALS (15 sets, daily range): BP systolic 111–143; BP diastolic 55–116
[2016-11-25] MEDS: VANCOMYCIN 1500 MG/NS 500 ML IVPB IV SCH ×2 (00:53)
[2016-11-25] MEDS: RT-ALBUTEROL/IPRATROPIUM 3 ML (DUONEB) VIAL INH SCH ×4 (02:30→20:10)
[2016-11-25 03:59] LABS: BASOPHILS % (AUTO) 0 % (0-10); EOSINOPHILS # (AUTO) 0.1 10^3/uL (0.0-0.3); EOSINOPHILS % (AUTO) 1 % (0-10); LYMPHOCYTES # (AUTO) 3.6 X 10^3 (1.0-4.0); LYMPHOCYTES % (AUTO) 36 % (12-44); MEAN CORPUSCULAR HEMOGLOBIN 30 PG (25-34); MEAN CORPUSCULAR HGB CONC 33 G/DL (32-36); MEAN CORPUSCULAR VOLUME 90 FL (80-99); MEAN PLATELET VOLUME 9.7 FL (7.4-10.4); MONOCYTES % (AUTO) 10 % (0-12); NEUTROPHILS # (AUTO) 5.1 X 10^3 (1.8-7.8); NEUTROPHILS % (AUTO) 52 % (42-75); PLATELET COUNT 221 10^3/uL (130-400); RED BLOOD COUNT 4.02 10^6/uL (4.35-5.85); RED CELL DISTRIBUTION WIDTH 16.1 % (10.0-14.5); WHITE BLOOD COUNT 9.9 10^3/uL (4.3-11.0)
[2016-11-25 04:35] LABS: ANION GAP 9 MMOL/L (5-14); BLOOD UREA NITROGEN 11 MG/DL (7-18); BUN/CREATININE RATIO 13; CALCIUM 8.8 MG/DL (8.5-10.1); CARBON DIOXIDE 24 MMOL/L (21-32); CHLORIDE 104 MMOL/L (98-107); CREATININE SERUM 0.83 MG/DL (0.60-1.30); GFR ESTIMATED > 60; GLUCOSE 166 MG/DL (70-105); SODIUM 137 MMOL/L (135-145)
[2016-11-25 04:51] LABS: MAGNESIUM 1.9 MG/DL (1.8-2.4); PHOSPHORUS 3.1 MG/DL (2.3-4.7)
[2016-11-25] MEDS ORDERED: LIDOCAINE PF 1% 2 ML AMP INJ ONE (06:00)
[2016-11-25] MEDS ORDERED: LIDOCAINE 4% INJ (XYLOCAINE) 5ML AMP INJ ONE (06:00)
[2016-11-25] MEDS ORDERED: LIDOCAINE JELLY 2% (XYLOCAINE) 30 ML TUBE TOP ONE (06:00)
[2016-11-25] MEDS: POTASSIUM CL 10MEQ/50ML IVPB 50 ML IV SCH (06:12)
[2016-11-25] MEDS: KCL 20 MEQ TAB (K-DUR) PO SCH ×3 (06:13→17:44)
[2016-11-25] MEDS: inSUlin (REGULAR) HUMAN 1 UNIT/0.01 ML (CHARGE PER UNIT) SC SCH ×4 (06:13→20:54)
[2016-11-25] MEDS: MAGNESIUM 1 GM/100 ML IVPB 100 ML IV SCH (06:13)
[2016-11-25] MEDS ORDERED: MIDAZOLAM 5 MG/5 ML (VERSED) VIAL ONE (06:31)
[2016-11-25] MEDS ORDERED: fentaNYL INJECTION 100 MCG/2 ML AMP ONE (06:31)
--- NOTE | 2016-11-25 08:10 | Diagnostic Imaging Report ---
INDICATION: Post bronchoscopy. Frontal chest obtained at 7:04 AM and compared with same day at 5:39 AM. There is poor inspiration. There is some right basilar infiltrate versus atelectasis. There is mild central vascular prominence. There is no pneumothorax or pleural fluid. Pacemaker is unchanged. IMPRESSION: Poor inspiration. No pneumothorax or pleural fluid following bronchoscopy. There is a small area of infiltrate versus atelectasis in the right base, suggest followup. Dictated by: Dictated on workstation # [id number]
--- NOTE | 2016-11-25 08:11 | Diagnostic Imaging Report ---
Indication: Lower respiratory infection Portable chest 5:39 AM Heart size and pulmonary vascular normal. Lungs are clear. There are no effusions or pneumothoraces. Impression: Negative chest Dictated by: Dictated on workstation # [id number]
[2016-11-25] MEDS ORDERED: NON-FORMULARY MEDICATION 1 EA EA (Duloxetine HCl 60 MG) PO SCH (09:00)
[2016-11-25] MEDS ORDERED: INSULIN GLARGINE HUM REC ANLOG 32 UNIT SQ SCH (09:00)
[2016-11-25] MEDS ORDERED: NON-FORMULARY MEDICATION 1 EA EA (Losartan Potassium 100 MG) PO SCH (09:00)
[2016-11-25] MEDS: GABAPENTIN 100 MG (NEURONTIN) CAP PO SCH (09:34)
[2016-11-25] MEDS: MONTELUKAST 10 MG (SINGULAIR) TAB PO SCH (09:34)
[2016-11-25] MEDS: amLODIPine 5 MG (NORVASC) TAB PO SCH (09:34)
[2016-11-25] MEDS: ALPRAZolam 0.5 MG (XANAX) TAB PO SCH (09:34)
[2016-11-25] MEDS: FUROSEMIDE 40 MG (LASIX) TAB PO SCH (09:34)
[2016-11-25] MEDS: SPIRONOLACTONE 25 MG (ALDACTONE) TAB PO SCH (09:35)
[2016-11-25] MEDS: DULoxetine 30 MG (CYMBALTA) CAP PO SCH (09:35)
[2016-11-25] MEDS: LOSARTAN 50 MG (COZAAR) TAB PO SCH (09:35)
[2016-11-25] MEDS: inSUlin DETERMIR 1 UNIT/0.01 ML (LEVEMIR) CHARGE PER UNIT SQ SCH ×2 (09:35→20:54)
[2016-11-25] MEDS: LEVOFLOXACIN 750 MG/D5W 150 ML PRE-MIX IV SCH (09:36)
[2016-11-25] MEDS: oxyCODONE ER 10 MG (OxyCONTIN CR) TAB PO SCH ×2 (09:39→20:28)
[2016-11-25] MEDS ORDERED: CEFD300C3 PO (10:04)
[2016-11-25] MEDS: PANTOPRAZOLE 40 MG (PROTONIX) TAB PO SCH (11:45)
--- NOTE | 2016-11-25 11:53 | Pulmonary Procedures ---
Pulmonary Procedures Date of Procedure Date of Service: Nov 25, 2016 Bronch Bronchoscopy with bronchoalveolar lavage (BAL), Preop DX hemoptysis Postop DX: No signs of hemoptysis noted Complications: none After informed consent obtained and formal time out pt was sedated using Fentanyl and Versed. Bronchoscope was advanced through the nare and vocal cords. 1% lidocaine was used to anesthetize vocal cords, epiglottis, danial, and left/right main stem bronchus. An anatomical tour was undertaken down to the segmental bronchi bilaterally. No endobronchial lesions noted. From the L a bronchoalveolar lavage (BAL. Pt tolerated procedure well. No complications noted. Stat CXR is pending. ZARI HAWKINS DO Nov 25, 2016 11:53
[2016-11-25] MEDS ORDERED: TROUGH ORDER-PHARMACY XX NR (12:00)
--- NOTE | 2016-11-25 12:27 | Progress Note-Hospitalist ---
Standard Progress Note Progress Notes/Assess & Plan Date Seen 11/25/16 Time Seen by Provider: 12:21 Diagnosis Assessment: Recurrent bilateral pneumonia after recently being discharged one week prior for pneumonia in need of bronchoscopy Severe COPD Severe sleep apnea Atrial fibrillation Anticoagulation for stroke prophylaxis Hypertension Hyperlipidemia Assess & Plan/Chief Complaint The patient is a 71-year-old white male well-known to me. He was admitted to a week ago for the acute onset of a left-sided pneumonia. That would have been at least his third admission for pneumonia and less than 2 years. He responded well to therapy and was discharged on 11/20. He returned to the emergency room on the evening of 11/23 with recrudescence of fever and cough. Chest x-ray at that time showed significant and new infiltrates on the right with the left having greatly improved. His outpatient treatment is challenging on an antibiotic basis because of his chronic use of warfarin for anticoagulation for stroke prophylaxis because of chronic atrial fibrillation. He reports that he is greatly improved today and Dr. Alford has okayed transfer to the floor. His previous antibiotic regimen was Rocephin and Levaquin. He was sent home on Omnicef because of concerns about hypertension anticoagulation. In retrospect it appears that we likely would have been better with Levaquin despite the risks of hyperanticoagulation. Physical exam: He is alert and energetic. Color is pink. Lungs show distant breath sounds but no rales or rhonchi. CV shows a controlled rate but is irregular consistent with the atrial fibrillation. Impression: Recrudescence of recent pneumonia. 2.severe COPD. 3.obstructive sleep apnea. 4.chronic atrial fibrillation. Plan: It is noted that he is afebrile and his white count has been coming down nicely. He will receive antibiotics on the floor. At the present he will remain on a heparin drip. Labs Laboratory Tests 11/24/16 01:56 11/25/16 03:52 DESTINEY BECERRA MD Nov 25, 2016 12:27
[2016-11-25] MEDS: ALFUZOSIN HCL 10 MG TAB (UROXATRAL) PO SCH (17:44)
[2016-11-25] MEDS ORDERED: warFARin 7.5 MG (COUMADIN) TAB PO SCH (18:00)
[2016-11-25] MEDS: rOPINIRole 1 MG (REQUIP) TABLET PO SCH (20:27)
[2016-11-25] MEDS: traZODone 100 MG (DESYREL) TAB PO SCH (20:28)
[2016-11-25] MEDS: HEParin DRIP 25000 UNIT/500ML 500 ML IV SCH (22:00)
[2016-11-26 00:21] VITALS: BP 120/58
[2016-11-26] MEDS: RT-ALBUTEROL/IPRATROPIUM 3 ML (DUONEB) VIAL INH SCH ×2 (02:18→09:08)
[2016-11-26 04:55] LABS: BASOPHILS # (AUTO) 0.1 10^3/uL (0.0-0.1); BASOPHILS % (AUTO) 1 % (0-10); EOSINOPHILS # (AUTO) 0.2 10^3/uL (0.0-0.3); EOSINOPHILS % (AUTO) 1 % (0-10); LYMPHOCYTES % (AUTO) 39 % (12-44); MEAN CORPUSCULAR HEMOGLOBIN 30 PG (25-34); MEAN CORPUSCULAR HGB CONC 32 G/DL (32-36); MEAN CORPUSCULAR VOLUME 91 FL (80-99); MEAN PLATELET VOLUME 10.6 FL (7.4-10.4); MONOCYTES % (AUTO) 10 % (0-12); NEUTROPHILS # (AUTO) 5.2 X 10^3 (1.8-7.8); NEUTROPHILS % (AUTO) 50 % (42-75); PLATELET COUNT 263 10^3/uL (130-400); RED BLOOD COUNT 4.14 10^6/uL (4.35-5.85); RED CELL DISTRIBUTION WIDTH 16.2 % (10.0-14.5); WHITE BLOOD COUNT 10.4 10^3/uL (4.3-11.0)
[2016-11-26 05:06] LABS: INR 1.2 (0.8-1.4); PROTHROMBIN TIME PATIENT 15.1 SEC (12.2-14.7)
[2016-11-26 05:18] LABS: ANION GAP 8 MMOL/L (5-14); BLOOD UREA NITROGEN 10 MG/DL (7-18); BUN/CREATININE RATIO 11; CALCIUM 9.1 MG/DL (8.5-10.1); CARBON DIOXIDE 28 MMOL/L (21-32); CHLORIDE 103 MMOL/L (98-107); CREATININE SERUM 0.88 MG/DL (0.60-1.30); GFR ESTIMATED > 60; GLUCOSE 151 MG/DL (70-105); POTASSIUM 4.1 MMOL/L (3.6-5.0); SODIUM 139 MMOL/L (135-145)
[2016-11-26] MEDS: inSUlin (REGULAR) HUMAN 1 UNIT/0.01 ML (CHARGE PER UNIT) SC SCH ×2 (05:19→11:13)
[2016-11-26] MEDS: PANTOPRAZOLE 40 MG (PROTONIX) TAB PO SCH (06:02)
[2016-11-26] MEDS: KCL 20 MEQ TAB (K-DUR) PO SCH (06:02)
--- NOTE | 2016-11-26 07:23 | Physician Query Clarification ---
PQ-Conflicting Diagnosis Admission/Discharge Admission Date: Nov 23, 2016 at 11:25 Discharge Date: The medical record reflects the following clinical scenario: History/Risk Factors: Pneumonia Severe COPD Clinical Findings: WBC-20.2, Bands 2, Temp 102.5, Pulse 117, Resp 24, Lactic Acid 3.22 Treatment: Triple antibiotic treatment-IV Cefepime HCI, Levofloxacin and Vancomycin HCI Question: Do you agree with the impression of ( Sepsis )per (Dr. Thibodeaux) Please document a response below. PHYSICIAN RESPONSE Do you agree w/Consulting Dx?: Yes In responding to this query, please exercise your independent professional judgment. The purpose of this communication is to more accurately reflect the complexity of your patients condition. The fact that a question is asked does not imply that any particular answer is desired or expected. Thank you for your timely response to this clarification. Requestors name: Estelle Belcher [facility] Phone # ext [phone] or [phone] THIS PHYSICIAN QUERY FORM IS A PERMANENT PART OF THE MEDICAL RECORD ESTELLE BELCHER Nov 26, 2016 07:23 REYNALDO RAI DO Nov 27, 2016 08:25
[2016-11-26 08:08] VITALS: BP 138/65
[2016-11-26] MEDS: FUROSEMIDE 40 MG (LASIX) TAB PO SCH (08:58)
[2016-11-26] MEDS: inSUlin DETERMIR 1 UNIT/0.01 ML (LEVEMIR) CHARGE PER UNIT SQ SCH (08:58)
[2016-11-26] MEDS: SPIRONOLACTONE 25 MG (ALDACTONE) TAB PO SCH (08:58)
[2016-11-26] MEDS: MONTELUKAST 10 MG (SINGULAIR) TAB PO SCH (08:58)
[2016-11-26] MEDS: DULoxetine 30 MG (CYMBALTA) CAP PO SCH (08:58)
[2016-11-26] MEDS: amLODIPine 5 MG (NORVASC) TAB PO SCH (08:58)
[2016-11-26] MEDS: GABAPENTIN 100 MG (NEURONTIN) CAP PO SCH (08:59)
[2016-11-26] MEDS: ALPRAZolam 0.5 MG (XANAX) TAB PO SCH (09:00)
[2016-11-26] MEDS: oxyCODONE ER 10 MG (OxyCONTIN CR) TAB PO SCH (09:00)
[2016-11-26] MEDS: LOSARTAN 50 MG (COZAAR) TAB PO SCH (09:04)
--- OUTSIDE RECORDS SUMMARY | 2016-11-26 09:06 | XMS REPORT | Continuity of Care Document ---
Author Author [facility] Address Unknown Phone Unavailable Allergies Active Description Code Type Severity Reaction Onset Reported/Identified Relationship to Patient Clinical Status Yes Sulfa (Sulfonamide Antibiotics) [id number] Drug Allergy Unknown N/A 12/09/2006 Yes oxycodone HCl [id number] Drug Allergy Mild itching 03/28/2014 Yes oxycodone HCl [id number] Drug Allergy Mild itching, Pt sta 10/03/2015 [...] NOS 09/02/2010 Ot 414.01 CORONARY ATHEROSCLEROSIS OF [place] CORON 09/02/2010 Ot 427.31 ATRIAL FIBRILLATION 09/02/2010 [...] NOS 10/17/2010 Ot 414.01 CORONARY ATHEROSCLEROSIS OF [place] CORON 10/17/2010 Ot 424.0 MITRAL VALVE DISORDER [...] NOS 02/21/2011 Ot 414.01 CORONARY ATHEROSCLEROSIS OF [place] CORON 02/21/2011 Ot 427.31 ATRIAL FIBRILLATION 02/21/2011 [...] NOS 06/19/2012 Ot 414.01 CORONARY ATHEROSCLEROSIS OF [place] CORON 06/19/2012 Ot 427.31 ATRIAL FIBRILLATION 06/19/2012 [...] DESTINEY BECERRA MD Ot 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 11/06/2012 DESTINEY BECERRA MD Ot V58.61 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S,LT,CURRENT [...] GUAMAN MD Ot 414.01 CORONARY ATHEROSCLEROSIS OF [place] CORON 09/21/2013 ABEL GUAMAN MD Ot 427.31 [...] MD Ot 530.81 ESOPHAGEAL REFLUX 04/08/2014 VERONICA GOULD, LESLYE Ot 715.90 OSTEOARTHROS NOS-UNSPEC 04/08/2014 LESLYE [...] FACP CCDS Ot 414.01 CORONARY ATHEROSCLEROSIS OF [place] CORON 08/21/2014 YOHANNES GOULD FACC, ALI FACP [...] MASS INDEX 45.0-49.9, ADULT 12/09/2014 CARISSA LU FIRE CLAIMS ADJUSTER Ot 789.00 12/30/2014 CARISSA LU FIRE CLAIMS ADJUSTER Ot 789.00 01/17/2015 DENIZ GOULD, ABEL Sage Ot 729.81 01/31/2015 OSIIMARTI JOEL GARBAGE COLLECTOR Ot 715.96 01/31/2015 OSIIMARTI JOEL GARBAGE COLLECTOR Ot 959.7 01/31/2015 OSMARTI JAVIER GARBAGE COLLECTOR Ot E000.8 01/31/2015 OSMARTI JAVIER GARBAGE COLLECTOR Ot E849.0 01/31/2015 OSMARTI JAVIER GARBAGE COLLECTOR Ot E888.9 01/31/2015 Ot 272.4 01/31/2015 Ot [...] MD, Ot I25.10 ATHSCL HEART DISEASE OF [place] CORONARY 06/25/2015 SHIRIN YEH MD Ot I48.91 UNSPECIFIED ATRIAL FIBRILLATION 06/25/2015 SHIRIN YEH MD Ot I95.1 ORTHOSTATIC HYPOTENSION 06/25/2015 SHIRIN YEH MD, Ot K21.9 GASTRO-ESOPHAGEAL REFLUX DISEASE WITHOUT 06/25/2015 SHIRIN YEH MD Ot T38.0X5A ADVERSE EFFECT OF GLUCOCORT/SYNTH ANALOG 06/25/2015 SHIRIN YEH MD, Ot T50.2X5A ADVRS EFF OF CRBNC-ANHYDR INHIBTR, BENZO 06/25/2015 SHIRIN YEH MD Ot Z79.4 PENITENTIARY (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 INSULIN 07/24/2015 SHIRIN YEH [...] GOULD, SHIRIN D Ot Z86.79 07/24/2015 RAO GOLUD, SHIRIN D Ot Z87.891 07/24/2015 RAO GOULD, SHIRIN D Ot Z95.0 07/24/2015 RAO GOULD, SHIRIN D Ot Z95.5 07/24/2015 RAO GOULD, SHIRIN D Ot Z98.84 07/25/2015 RAO GOULD, SHIRIN D Ot A41.9 07/25/2015 RAO GOULD, SHIRIN D Ot E11.9 07/25/2015 RAO GOULD, SHIRIN Sage Ot E66.01 07/25/2015 RAO GOULD, SHIRIN Sage Ot G25.81 07/25/2015 RAO GOULD, SHIRIN D Ot G62.9 07/25/2015 ROA GOULD, SHIRIN Sage Ot I25.10 07/25/2015 RAO [...] RAO GOULD, SHIRIN Sage Ot Z86.79 07/26/2015 RAO GOULD, SHIRIN Sage Ot Z87.891 07/26/2015 RAO [...] MD, Ot I25.10 ATHSCL HEART DISEASE OF [place] CORONARY 07/27/2015 SHIRIN YEH MD Ot I48.2 [...] ADULT 07/27/2015 SHIRIN YEH MD Ot 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 07/27/2015 SHIRIN YEH [...] DO Ot I25.10 ATHSCL HEART DISEASE OF [place] CORONARY 08/04/2015 REYNALDO RAI DO Ot I48.0 [...] ADULT 08/04/2015 REYNALDO RAI DO Ot 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 08/04/2015 REYNALDO RAI [...] MD Ot I25.10 ATHSCL HEART DISEASE OF [place] CORONARY 08/14/2015 DESTINEY BECERRA MD Ot I48.2 [...] ADULT 08/14/2015 DESTINEY BECERRA MD Ot Z79.4 PENITENTIARY (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 INSULIN 08/14/2015 DESTINEY BECERRA [...] FEVER) 09/18/2015 URSULA DORMAN MD Ot Z79.01 PENITENTIARY (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 09/18/2015 URSULA DORMAN MD Ot Z79.4 PENITENTIARY (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 INSULIN 09/18/2015 LAKIA GOULD, [...] MD Ot I25.10 ATHSCL HEART DISEASE OF [place] CORONARY 10/06/2015 RASHEEDA BOSS MD Ot I48.2 CHRONIC ATRIAL FIBRILLATION 10/06/2015 RASHEEDA BOSS MD Ot J44.9 CHRONIC OBSTRUCTIVE PULMONARY DISEASE , U 10/06/2015 RASHEEDA BOSS MD Ot J80 ACUTE RESPIRATORY DISTRESS SYNDROME 10/06/2015 RASHEEDA BOSS MD Ot J81.1 CHRONIC PULMONARY EDEMA 10/06/2015 RASHEEDA BOSS MD Ot J84.89 OTHER SPECIFIED INTERSTITIAL PULMONARY D 10/06/2015 RASHEEDA BOSS MD Ot J96.01 ACUTE RESPIRATORY FAILURE WITH HYPOXIA 10/06/2015 RASHEEDA BOSS MD Ot M54.9 DORSALGIA, UNSPECIFIED 10/06/2015 RASHEEDA BOSS MD Ot N32.89 OTHER SPECIFIED DISORDERS OF BLADDER 10/06/2015 SANDNESS MD, RASHEEDA M Ot N40.1 ENLARGED PROSTATE WITH LOWER URINARY TRA 10/06/2015 RASHEEAD BOSS MD Ot R04.2 HEMOPTYSIS 10/06/2015 RASHEEDA BOSS MD Ot R33.8 OTHER RETENTION OF URINE 10/06/2015 RASHEEDA BOSS MD Ot R39.89 OTHER SYMPTOMS AND SIGNS INVOLVING THE G 10/06/2015 RASHEEDA BOSS MD Ot R65.20 SEVERE SEPSIS WITHOUT SEPTIC SHOCK 10/06/2015 RASHEEDA BOSS MD Ot Z68.42 BODY MASS INDEX (BMI) 45.0-49.9, ADULT 10/06/2015 RASHEEDA BOSS MD Ot Z79.4 PENITENTIARY (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 INSULIN 10/06/2015 RASHEEDA BOSS [...] LEVEL MON 11/01/2015 OTHER, UNLISTED Ot Z79.01 CARBON BRUSHER ASSEMBLER (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 11/10/2015 SHARA TRAMMELL MD Ot Z79.01 PENITENTIARY (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 11/10/2015 SHARA TRAMMELL MD Ot Z51.81 ENCOUNTER FOR THERAPEUTIC DRUG LEVEL MON 11/10/2015 SHARA TRAMMELL MD Ot Z79.01 CARBON BRUSHER ASSEMBLER (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 11/22/2015 OTHER, UNLISTED Ot Z51.81 ENCOUNTER FOR THERAPEUTIC DRUG LEVEL Fri11/22/2015 OTHER, UNLISTED Ot Z79.01 CARBON BRUSHER ASSEMBLER (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 11/29/2015 SHARA TRAMMELL MD Ot Z51.81 ENCOUNTER FOR THERAPEUTIC DRUG LEVEL MON 11/29/2015 SHARA TRAMMELL MD Ot Z79.01 CARBON BRUSHER ASSEMBLER (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 02/15/2016 NO BLOCK MD Ot E11.9 TYPE 2 DIABETES MELLITUS WITHOUT COMPLIC 02/15/2016 NO BLOCK MD Ot I10 ESSENTIAL (PRIMARY) HYPERTENSION 02/15/2016 NO BLOCK MD Ot I25.10 ATHSCL HEART DISEASE OF [place] CORONARY 02/15/2016 NO BLOCK MD Ot R51 HEADACHE 02/15/2016 NO BLOCK MD Ot Z79.899 OTHER PENITENTIARY (CURRENT) DRUG THERAPY 02/15/2016 NO BLOCK MD Ot Z95.0 PRESENCE OF CARDIAC PACEMAKER 02/15/2016 NO BLOCK MD Ot Z95.1 PRESENCE OF AORTOCORONARY BYPASS GRAFT 02/15/2016 NO BLOCK MD Ot Z98.1 ARTHRODESIS STATUS 02/16/2016 OSMARTI JAVIER GARBAGE COLLECTOR Ot 715.96 OSTEOARTHROS NOS-L/LEG 02/16/2016 MARTI MELGOZA GARBAGE COLLECTOR Ot 959.7 LOWER LEG INJURY NOS 02/16/2016 MARTI MELGOZA GARBAGE COLLECTOR Ot E000.8 OTHER EXTERNAL CAUSE STATUS 02/16/2016 MARTI MELGOZA GARBAGE COLLECTOR Ot E849.0 ACCIDENT IN HOME 02/16/2016 MARTI MELGOZA GARBAGE COLLECTOR Ot E888.9 FALL NOS 02/16/2016 Ot 715.95 [...] Ot V58.69 OTH MED,LT,CURRENT USE 02/16/2016 SHARA TRAMMELL MD Ot V58.83 ENCOUNTER FOR THERAPEUTIC DRUG [...] LEVEL MON 02/16/2016 OTHER, UNLISTED Ot Z79.01 PENITENTIARY (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 02/16/2016 SHARA TRAMMELL MD Ot Z51.81 ENCOUNTER FOR THERAPEUTIC DRUG LEVEL MON 02/16/2016 SHARA TRAMMELL MD Ot Z79.01 PENITENTIARY (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 02/21/2016 NO BLOCK MD Ot E11.9 TYPE 2 DIABETES MELLITUS WITHOUT COMPLIC 02/21/2016 NO BLOCK MD Ot I10 ESSENTIAL (PRIMARY) HYPERTENSION 02/21/2016 NO BLOCK MD, Ot I25.10 ATHSCL HEART DISEASE OF [place] CORONARY 02/21/2016 NO BLOCK MD Ot R51 HEADACHE 02/21/2016 NO BLOCK MD Ot Z79.899 OTHER CARBON BRUSHER ASSEMBLER (CURRENT) DRUG THERAPY 02/21/2016 NO BLOCK MD Ot Z95.0 PRESENCE OF CARDIAC PACEMAKER 02/21/2016 NO BLOCK MD Ot Z95.1 PRESENCE OF AORTOCORONARY BYPASS GRAFT 02/21/2016 NO BLOCK MD Ot Z98.1 ARTHRODESIS STATUS 08/07/2016 CARISSA LU FIRE CLAIMS ADJUSTER Ot N50.89 OTHER SPECIFIED DISORDERS OF THE MALE GE 08/07/2016 CARISSA LU APRN Ot N50.89 OTHER SPECIFIED DISORDERS OF THE MALE GE 08/07/2016 CARISSA LU N FIRE CLAIMS ADJUSTER Ot N50.89 OTHER SPECIFIED DISORDERS OF THE MALE GE 08/28/2016 CARISSA LU N FIRE CLAIMS ADJUSTER Ot N50.89 OTHER SPECIFIED DISORDERS OF THE MALE GE 09/02/2016 ALY CARISSA N FIRE CLAIMS ADJUSTER Ot N50.89 OTHER SPECIFIED DISORDERS OF THE [...] MD, Ot I25.10 ATHSCL HEART DISEASE OF [place] CORONARY 10/01/2016 ABEL GUAMAN MD Ot I48.2 CHRONIC ATRIAL FIBRILLATION 10/01/2016 ABEL GUAMAN MD, Ot J44.9 CHRONIC OBSTRUCTIVE PULMONARY DISEASE, U 10/01/2016 ABEL GUAMAN MD, Ot K21.9 GASTRO-ESOPHAGEAL REFLUX DISEASE WITHOUT 10/01/2016 ABEL GUAMAN MD Ot Z79.4 PENITENTIARY (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 INSULIN 10/01/2016 ABEL GUAMAN [...] MARTIN MD, Ot Z98.84 BARIATRIC SURGERY STATUS 11/08/2016 LESLYE MARTIN MD, Ot E66.01 MORBID (SEVERE) OBESITY DUE TO EXCESS CA 11/08/2016 LESLYE MARTIN MD Ot E78.00 PURE HYPERCHOLESTEROLEMIA, UNSPECIFIED 11/08/2016 LESLYE MARTIN MD, Ot G47.30 SLEEP APNEA, UNSPECIFIED 11/08/2016 LESLYE MARTIN MD Ot I10 ESSENTIAL (PRIMARY) HYPERTENSION 11/08/2016 LESLYE MARTIN MD, Ot I25.10 ATHSCL HEART DISEASE OF [place] CORONARY 11/08/2016 LESLYE MARTIN MD Ot K21.0 GASTRO-ESOPHAGEAL REFLUX DISEASE WITH ES 11/08/2016 LESLYE MARTIN MD, Ot K29.70 GASTRITIS, UNSPECIFIED, WITHOUT BLEEDING 11/08/2016 LESLYE MARTIN MD, Ot K31.7 POLYP OF STOMACH AND DUODENUM 11/08/2016 LESLYE MARTIN MD Ot Z68.38 BODY MASS INDEX (BMI) 38.0-38.9, ADULT 11/08/2016 LESLYE MARTIN MD, Ot Z98.84 BARIATRIC SURGERY STATUS 11/20/2016 REYNALDO RAI DO Ot A41.9 SEPSIS, UNSPECIFIED ORGANISM 11/20/2016 SKYE RAI DOI Ot E11.9 TYPE 2 DIABETES MELLITUS WITHOUT COMPLIC 11/20/2016 REYNALDO RAI DO Ot E66.01 MORBID (SEVERE) OBESITY DUE TO EXCESS CA 11/20/2016 SKYE RAI DOI Ot E78.5 HYPERLIPIDEMIA, UNSPECIFIED 11/20/2016 FREDI ORTEGA REYNALDO Ot G25.81 RESTLESS LEGS SYNDROME 11/20/2016 REYNALDO RAI DO Ot G47.33 OBSTRUCTIVE SLEEP APNEA (ADULT) (PEDIATR 11/20/2016 SKYE RAI DOI Ot I10 ESSENTIAL (PRIMARY) HYPERTENSION 11/20/2016 SKYE RAI DOI Ot I25.10 ATHSCL HEART DISEASE OF [place] CORONARY 11/20/2016 REYNALDO RAI DO Ot I48.0 PAROXYSMAL ATRIAL FIBRILLATION 11/20/2016 REYNALDO RAI DO Ot J18.9 PNEUMONIA, UNSPECIFIED ORGANISM 11/20/2016 SKYE RAI DOI Ot K21.9 GASTRO-ESOPHAGEAL REFLUX DISEASE WITHOUT 11/20/2016 FREDI ORTEGA REYNALDO Ot R04.2 HEMOPTYSIS 11/20/2016 RAIREYNALDO BONILLA DO Ot Z68.41 BODY MASS INDEX (BMI) 40.0-44.9, ADULT 11/20/2016 REYNALDO RAI DO Ot Z79.01 PENITENTIARY (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 11/20/2016 REYNALDO RAI DO Ot 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 11/20/2016 REYNALDO RAI DO Ot Z87.891 PERSONAL HISTORY OF NICOTINE DEPENDENCE 11/20/2016 REYNALDO RAI DO Ot Z95.0 PRESENCE OF CARDIAC PACEMAKER 11/20/2016 REYNALDO ARI DO Ot Z95.5 PRESENCE OF CORONARY ANGIOPLASTY IMPLANT 11/20/2016 REYNALDO RAI DO Ot Z99.81 DEPENDENCE ON SUPPLEMENTAL OXYGEN 11/21/2016 DENIZ GOUDL, ABEL Sage Ot D72.829 ELEVATED WHITE BLOOD CELL COUNT, UNSPECI Procedures Code Description Performed By Performed On 88.72 02/20/2011 99.61 02/20/2011 69718 PSYCH DIAGNOSTIC EVALUATION 03/29/2014 30BY45A 10/01/2015 [id number] 10/01/2015 [id number] INSERTION OF INFUSION DEV INTO SUP VENA 11/17/2016 Results Test Result Range Complete blood count [...] measurement by glucometer (mass/volume) 141 mg/dL 70-110 Complete blood count (CBC) with automated white blood cell (WBC) differential - 11/17/16 08:00 Blood leukocytes automated count (number/volume) 16.4 10*3/ uL 4.3-11.0 Blood erythrocytes automated count (number/volume) 5.90 10*6 /uL 4.35-5.85 Venous blood hemoglobin measurement (mass/volume) 17.1 g/dL 13.3-17.7 Blood hematocrit (volume fraction) 52 % 40-54 Automated erythrocyte mean corpuscular volume 87 [foz_us] 80-99 Automated erythrocyte mean corpuscular hemoglobin (mass per erythrocyte) 29 pg 25-34 Automated erythrocyte mean corpuscular hemoglobin concentration measurement ( mass/volume) 33 g/dL 32-36 Automated erythrocyte distribution width ratio 17.7 % 10.0-14.5 Automated blood platelet count (count/volume) 227 10*3/uL 130-400 Automated blood platelet mean volume measurement 9.9 [foz_us ] 7.4-10.4 Automated blood neutrophils/100 leukocytes 74 % 42-75 Automated blood lymphocytes/100 leukocytes 20 % 12-44 Blood monocytes/100 leukocytes 6 % 0-12 Automated blood eosinophils/100 leukocytes 1 % 0-10 Automated blood basophils/100 leukocytes 0 % 0-10 Blood neutrophils automated count (number/volume) 12.1 10*3 1.8-7.8 Blood lymphocytes automated count (number/volume) 3.2 10*3 1.0-4.0 Blood monocytes automated count (number/volume) 0.9 10*3 0.0-1.0 Automated eosinophil count 0.1 10*3/uL 0.0-0.3 Automated blood basophil count (count/volume) 0.0 10*3/uL 0.0-0.1 PT panel in platelet poor plasma by coagulation assay - 11/17/16 08:00 Prothrombin time (PT) in platelet poor plasma by coagulation assay 23.2 s 12.2-14.7 INR in platelet poor plasma or blood by coagulation assay 2.1 0.8-1.4 Comprehensive metabolic panel - 11/17/16 08:00 Serum or plasma sodium measurement (moles/volume) 140 mmol/ L 135-145 Serum or plasma potassium measurement (moles/volume) 4.2 mmol/L 3.6-5.0 Serum or plasma chloride measurement (moles/volume) 100 mmol /L 98-107 Carbon dioxide 23 mmol/L 21-32 Serum or plasma anion gap determination (moles/volume) 17 mmol/L 5-14 Serum or plasma urea nitrogen measurement (mass/volume) 20 mg/dL 7-18 Serum or plasma creatinine measurement (mass/volume) 1.14 mg /dL 0.60-1.30 Serum or plasma urea nitrogen/creatinine mass ratio 18 NRG Serum or plasma creatinine measurement with calculation of estimated glomerular filtration rate > NRG Serum or plasma glucose measurement (mass/volume) 150 mg/dL 70-105 Serum or plasma calcium measurement (mass/volume) 10.3 mg/ dL 8.5-10.1 Serum or plasma total bilirubin measurement (mass/volume) 1.0 mg/dL 0.1-1.0 Serum or plasma alkaline phosphatase measurement (enzymatic activity/volume) 103 U/L 40-136 Serum or plasma aspartate aminotransferase measurement (enzymatic activity/ volume) 28 U/L 5-34 Serum or plasma alanine aminotransferase measurement (enzymatic activity/volume ) 25 U/L 0-55 Serum or plasma protein measurement (mass/volume) 8.3 g/dL 6.4-8.2 Serum or plasma albumin measurement (mass/volume) 4.4 g/dL 3.2-4.5 Blood manual differential performed detection - 11/17/16 08:00 Blood monocytes/100 leukocytes 4 % NRG Manual blood segmented neutrophils/100 leukocytes 69 % NRG Blood band neutrophils/100 leukocytes 3 % NRG Manual blood lymphocytes/100 leukocytes 24 % NRG Blood erythrocyte morphology finding identification NORMAL NRG Blood toxic granules detection by light microscopy 1+ NRG Bacterial blood culture - 11/17/16 08:00 Bacterial blood culture NG NRG Blood lactic acid measurement (moles/volume) - 11/17/16 08:30 Blood lactic acid measurement (moles/volume) 2.89 mmol/L 0.50-2.00 Bacterial blood culture - 11/17/16 08:30 Bacterial blood culture NG NRG Complete urinalysis with reflex to culture - 11/17/16 09:18 Urine color determination YELLOW NRG Urine clarity determination CLEAR NRG Urine pH measurement by test strip 5 5- 9 Specific gravity of urine by test strip 1.020 1.016-1.022 Urine protein assay by test strip, semi-quantitative NEGATIVE NEGATIVE Urine glucose detection by automated test strip NEGATIVE NEGATIVE Erythrocytes detection in urine sediment by light microscopy NEGATIVE NEGATIVE Urine ketones detection by automated test strip NEGATIVE NEGATIVE Urine nitrite detection by test strip NEGATIVE NEGATIVE Urine total bilirubin detection by test strip NEGATIVE NEGATIVE Urine urobilinogen measurement by automated test strip (mass/volume) 1 mg/dL NORMAL Urine leukocyte esterase detection by dipstick 1+ NEGATIVE Automated urine sediment erythrocyte count by microscopy (number/high power field) NONE NRG Automated urine sediment leukocyte count by microscopy (number/high power field ) RARE NRG Bacteria detection in urine sediment by light microscopy TRACE NRG Squamous epithelial cells detection in urine sediment by light microscopy RARE NRG Crystals detection in urine sediment by light microscopy NONE NRG Casts detection in urine sediment by light microscopy NONE NRG Mucus detection in urine sediment by light microscopy NEGATIVE NRG Complete urinalysis with reflex to culture NO NRG Methicillin resistant Staphylococcus aureus (MRSA) screening culture - 10:05 Methicillin resistant Staphylococcus aureus (MRSA) screening culture NEG NRG Serum or plasma lactate measurement (moles/volume) - 11/17/16 10:40 Serum or plasma lactate measurement (moles/volume) 2.91 mmol /L 0.50-2.00 Blood lactic acid measurement (moles/volume) - 11/17/16 13:26 Blood lactic acid measurement (moles/volume) 2.12 mmol/L 0.50-2.00 Serum or plasma lactate measurement (moles/volume) - 11/17/16 16:04 Serum or plasma lactate measurement (moles/volume) 2.27 mmol /L 0.50-2.00 Arterial blood gas measurement - 11/17/16 16:05 Blood pCO2 40 mm[Hg] 35-45 Blood pO2 75 mm[Hg] 79-93 Arterial blood bicarbonate measurement (moles/volume) 28 mmol/L 23-27 Arterial blood base excess by calculation 3.9 mmol/L -2.5-2.5 Arterial blood oxygen saturation measurement 97 % 94-100 * Inhaled oxygen flow rate 3.5 CPAP NRG Arterial blood pH measurement with patient temperature correction 7.46 7.37-7.43 Arterial blood carbon dioxide, total measurement (moles/volume) 29.1 mmol/L 21.0-31.0 Body site RT RAD NRG Assessment of wrist artery patency prior to arterial puncture YES-POS NRG Setting of ventilation mode NO NRG Measurement of body temperature 97.5 NRG Capillary blood glucose measurement by glucometer (mass/volume) - 11/17/16 20: 45 Capillary blood glucose measurement by glucometer (mass/volume) 118 mg/dL 70-110 Capillary blood glucose measurement by glucometer (mass/volume) - 11/17/16 23: 37 Capillary blood glucose measurement by glucometer (mass/volume) 115 mg/dL 70-110 Complete blood count (CBC) with automated white blood cell (WBC) differential - 11/18/16 04:01 Blood leukocytes automated count (number/volume) 18.0 10*3/ uL 4.3-11.0 Blood erythrocytes automated count (number/volume) 4.45 10*6 /uL 4.35-5.85 Venous blood hemoglobin measurement (mass/volume) 13.3 g/dL 13.3-17.7 Blood hematocrit (volume fraction) 40 % 40-54 Automated erythrocyte mean corpuscular volume 90 [foz_us] 80-99 Automated erythrocyte mean corpuscular hemoglobin (mass per erythrocyte) 30 pg 25-34 Automated erythrocyte mean corpuscular hemoglobin concentration measurement ( mass/volume) 33 g/dL 32-36 Automated erythrocyte distribution width ratio 16.6 % 10.0-14.5 Automated blood platelet count (count/volume) 181 10*3/uL 130-400 Automated blood platelet mean volume measurement 10.0 [foz_ us] 7.4-10.4 Automated blood neutrophils/100 leukocytes 75 % 42-75 Automated blood lymphocytes/100 leukocytes 18 % 12-44 Blood monocytes/100 leukocytes 7 % 0-12 Automated blood eosinophils/100 leukocytes 1 % 0-10 Automated blood basophils/100 leukocytes 0 % 0-10 Blood neutrophils automated count (number/volume) 13.5 10*3 1.8-7.8 Blood lymphocytes automated count (number/volume) 3.2 10*3 1.0-4.0 Blood monocytes automated count (number/volume) 1.2 10*3 0.0-1.0 Automated eosinophil count 0.1 10*3/uL 0.0-0.3 Automated blood basophil count (count/volume) 0.0 10*3/uL 0.0-0.1 Comprehensive metabolic panel - 11/18/16 04:01 Serum or plasma sodium measurement (moles/volume) 138 mmol/ L 135-145 Serum or plasma potassium measurement (moles/volume) 3.9 mmol/L 3.6-5.0 Serum or plasma chloride measurement (moles/volume) 103 mmol /L 98-107 Carbon dioxide 23 mmol/L 21-32 Serum or plasma anion gap determination (moles/volume) 12 mmol/L 5-14 Serum or plasma urea nitrogen measurement (mass/volume) 18 mg/dL 7-18 Serum or plasma creatinine measurement (mass/volume) 0.90 mg /dL 0.60-1.30 Serum or plasma urea nitrogen/creatinine mass ratio 20 NRG Serum or plasma creatinine measurement with calculation of estimated glomerular filtration rate > NRG Serum or plasma glucose measurement (mass/volume) 161 mg/dL 70-105 Serum or plasma calcium measurement (mass/volume) 8.7 mg/dL 8.5-10.1 Serum or plasma total bilirubin measurement (mass/volume) 1.4 mg/dL 0.1-1.0 Serum or plasma alkaline phosphatase measurement (enzymatic activity/volume) 63 U/L 40-136 Serum or plasma aspartate aminotransferase measurement (enzymatic activity/ volume) 16 U/L 5-34 Serum or plasma alanine aminotransferase measurement (enzymatic activity/volume ) 14 U/L 0-55 Serum or plasma protein measurement (mass/volume) 5.5 g/dL 6.4-8.2 Serum or plasma albumin measurement (mass/volume) 3.1 g/dL 3.2-4.5 Serum or plasma phosphate measurement (mass/volume) - 11/18/16 04:01 Serum or plasma phosphate measurement (mass/volume) 2.5 mg/ dL 2.3-4.7 Magnesium - 11/18/16 04:01 Magnesium 1.8 mg/dL 1.8-2.4 PT panel in platelet poor plasma by coagulation assay - 11/18/16 04:01 Prothrombin time (PT) in platelet poor plasma by coagulation assay 24.2 s 12.2-14.7 INR in platelet poor plasma or blood by coagulation assay 2.2 0.8-1.4 Serum or plasma troponin i.cardiac measurement (mass/volume) - 11/18/16 04:01 Serum or plasma troponin i.cardiac measurement (mass/volume) < ng/mL <0.30 Serum or plasma lithium measurement (moles/volume) - 11/18/16 04:01 BNP level 141.2 pg/mL <100.0 Capillary blood glucose measurement by glucometer (mass/volume) - 11/18/16 11: 38 Capillary blood glucose measurement by glucometer (mass/volume) 125 mg/dL 70-110 Capillary blood glucose measurement by glucometer (mass/volume) - 11/18/16 16: 49 Capillary blood glucose measurement by glucometer (mass/volume) 177 mg/dL 70-110 Capillary blood glucose measurement by glucometer (mass/volume) - 11/18/16 20: 59 Capillary blood glucose measurement by glucometer (mass/volume) 187 mg/dL 70-110 Complete blood count (CBC) with automated white blood cell (WBC) differential - 11/19/16 04:03 Blood leukocytes automated count (number/volume) 14.0 10*3/ uL 4.3-11.0 Blood erythrocytes automated count (number/volume) 3.98 10*6 /uL 4.35-5.85 Venous blood hemoglobin measurement (mass/volume) 11.7 g/dL 13.3-17.7 Blood hematocrit (volume fraction) 36 % 40-54 Automated erythrocyte mean corpuscular volume 89 [foz_us] 80-99 Automated erythrocyte mean corpuscular hemoglobin (mass per erythrocyte) 29 pg 25-34 Automated erythrocyte mean corpuscular hemoglobin concentration measurement ( mass/volume) 33 g/dL 32-36 Automated erythrocyte distribution width ratio 16.0 % 10.0-14.5 Automated blood platelet count (count/volume) 182 10*3/uL 130-400 Automated blood platelet mean volume measurement 10.1 [foz_ us] 7.4-10.4 Automated blood neutrophils/100 leukocytes 67 % 42-75 Automated blood lymphocytes/100 leukocytes 25 % 12-44 Blood monocytes/100 leukocytes 8 % 0-12 Automated blood eosinophils/100 leukocytes 1 % 0-10 Automated blood basophils/100 leukocytes 0 % 0-10 Blood neutrophils automated count (number/volume) 9.3 10*3 1.8-7.8 Blood lymphocytes automated count (number/volume) 3.5 10*3 1.0-4.0 Blood monocytes automated count (number/volume) 1.1 10*3 0.0-1.0 Automated eosinophil count 0.1 10*3/uL 0.0-0.3 Automated blood basophil count (count/volume) 0.0 10*3/uL 0.0-0.1 Whole blood basic metabolic panel - 11/19/16 04:03 Serum or plasma sodium measurement (moles/volume) 140 mmol/ L 135-145 Serum or plasma potassium measurement (moles/volume) 3.6 mmol/L 3.6-5.0 Serum or plasma chloride measurement (moles/volume) 105 mmol /L 98-107 Carbon dioxide 27 mmol/L 21-32 Serum or plasma anion gap determination (moles/volume) 8 mmol/L 5-14 Serum or plasma urea nitrogen measurement (mass/volume) 12 mg/dL 7-18 Serum or plasma creatinine measurement (mass/volume) 0.79 mg /dL 0.60-1.30 Serum or plasma urea nitrogen/creatinine mass ratio 15 NRG Serum or plasma creatinine measurement with calculation of estimated glomerular filtration rate > NRG Serum or plasma glucose measurement (mass/volume) 104 mg/dL 70-105 Serum or plasma calcium measurement (mass/volume) 8.9 mg/dL 8.5-10.1 Serum or plasma phosphate measurement (mass/volume) - 11/19/16 04:03 Serum or plasma phosphate measurement (mass/volume) 3.0 mg/ dL 2.3-4.7 Magnesium - 11/19/16 04:03 Magnesium 2.0 mg/dL 1.8-2.4 Stool occult blood screen - 11/19/16 10:50 Stool gastrointestinal hemoglobin detection POSITIVE NEGATIVE Capillary blood glucose measurement by glucometer (mass/volume) - 11/19/16 11: 43 Capillary blood glucose measurement by glucometer (mass/volume) 201 mg/dL 70-110 Capillary blood glucose measurement by glucometer (mass/volume) - 11/19/16 15: 58 Capillary blood glucose measurement by glucometer (mass/volume) 147 mg/dL 70-110 Capillary blood glucose measurement by glucometer (mass/volume) - 11/19/16 20: 54 Capillary blood glucose measurement by glucometer (mass/volume) 133 mg/dL 70-110 Complete blood count (CBC) with automated white blood cell (WBC) differential - 11/20/16 05:50 Blood leukocytes automated count (number/volume) 12.7 10*3/ uL 4.3-11.0 Blood erythrocytes automated count (number/volume) 4.04 10*6 /uL 4.35-5.85 Venous blood hemoglobin measurement (mass/volume) 12.0 g/dL 13.3-17.7 Blood hematocrit (volume fraction) 36 % 40-54 Automated erythrocyte mean corpuscular volume 89 [foz_us] 80-99 Automated erythrocyte mean corpuscular hemoglobin (mass per erythrocyte) 30 pg 25-34 Automated erythrocyte mean corpuscular hemoglobin concentration measurement ( mass/volume) 33 g/dL 32-36 Automated erythrocyte distribution width ratio 16.1 % 10.0-14.5 Automated blood platelet count (count/volume) 189 10*3/uL 130-400 Automated blood platelet mean volume measurement 10.5 [foz_ us] 7.4-10.4 Automated blood neutrophils/100 leukocytes 65 % 42-75 Automated blood lymphocytes/100 leukocytes 26 % 12-44 Blood monocytes/100 leukocytes 8 % 0-12 Automated blood eosinophils/100 leukocytes 1 % 0-10 Automated blood basophils/100 leukocytes 0 % 0-10 Blood neutrophils automated count (number/volume) 8.2 10*3 1.8-7.8 Blood lymphocytes automated count (number/volume) 3.3 10*3 1.0-4.0 Blood monocytes automated count (number/volume) 1.0 10*3 0.0-1.0 Automated eosinophil count 0.1 10*3/uL 0.0-0.3 Automated blood basophil count (count/volume) 0.0 10*3/uL 0.0-0.1 Whole blood basic metabolic panel - 11/20/16 05:50 Serum or plasma sodium measurement (moles/volume) 138 mmol/ L 135-145 Serum or plasma potassium measurement (moles/volume) 3.7 mmol/L 3.6-5.0 Serum or plasma chloride measurement (moles/volume) 102 mmol /L 98-107 Carbon dioxide 24 mmol/L 21-32 Serum or plasma anion gap determination (moles/volume) 12 mmol/L 5-14 Serum or plasma urea nitrogen measurement (mass/volume) 9 mg /dL 7-18 Serum or plasma creatinine measurement (mass/volume) 0.76 mg /dL 0.60-1.30 Serum or plasma urea nitrogen/creatinine mass ratio 12 NRG Serum or plasma creatinine measurement with calculation of estimated glomerular filtration rate > NRG Serum or plasma glucose measurement (mass/volume) 78 mg/dL 70-105 Serum or plasma calcium measurement (mass/volume) 9.0 mg/dL 8.5-10.1 Serum or plasma phosphate measurement (mass/volume) - 11/20/16 05:50 Serum or plasma phosphate measurement (mass/volume) 3.5 mg/ dL 2.3-4.7 Magnesium - 11/20/16 05:50 Magnesium 1.8 mg/dL 1.8-2.4 PT panel in platelet poor plasma by coagulation assay - 11/20/16 05:50 Prothrombin time (PT) in platelet poor plasma by coagulation assay 19.3 s 12.2-14.7 INR in platelet poor plasma or blood by coagulation assay 1.7 0.8-1.4 Capillary blood glucose measurement by glucometer (mass/volume) - 11/20/16 05: 51 Capillary blood glucose measurement by glucometer (mass/volume) 81 mg/dL 70-110 Capillary blood glucose measurement by glucometer (mass/volume) - 11/20/16 10: 42 Capillary blood glucose measurement by glucometer (mass/volume) 152 mg/dL 70-110 PT panel in platelet poor plasma by coagulation assay - 11/23/16 10:45 Prothrombin time (PT) in platelet poor plasma by coagulation assay 16.8 s 12.2-14.7 INR in platelet poor plasma or blood by coagulation assay 1.4 0.8-1.4 Activated partial thromboplastin time (aPTT) in platelet poor plasma bycoagulation assay - 11/23/16 10:45 Activated partial thromboplastin time (aPTT) in platelet poor plasma bycoagulation assay 37 s 24-35 Complete blood count (CBC) with automated white blood cell (WBC) differential - 11/23/16 10:45 Blood leukocytes automated count (number/volume) 20.2 10*3/ uL 4.3-11.0 Blood erythrocytes automated count (number/volume) 5.55 10*6 /uL 4.35-5.85 Venous blood hemoglobin measurement (mass/volume) 16.1 g/dL 13.3-17.7 Blood hematocrit (volume fraction) 49 % 40-54 Automated erythrocyte mean corpuscular volume 88 [foz_us] 80-99 Automated erythrocyte mean corpuscular hemoglobin (mass per erythrocyte) 29 pg 25-34 Automated erythrocyte mean corpuscular hemoglobin concentration measurement ( mass/volume) 33 g/dL 32-36 Automated erythrocyte distribution width ratio 16.6 % 10.0-14.5 Automated blood platelet count (count/volume) 282 10*3/uL 130-400 Automated blood platelet mean volume measurement 10.2 [foz_ us] 7.4-10.4 Automated blood neutrophils/100 leukocytes 84 % 42-75 Automated blood lymphocytes/100 leukocytes 9 % 12-44 Blood monocytes/100 leukocytes 6 % 0-12 Automated blood eosinophils/100 leukocytes 1 % 0-10 Automated blood basophils/100 leukocytes 0 % 0-10 Blood neutrophils automated count (number/volume) 16.9 10*3 1.8-7.8 Blood lymphocytes automated count (number/volume) 1.8 10*3 1.0-4.0 Blood monocytes automated count (number/volume) 1.3 10*3 0.0-1.0 Automated eosinophil count 0.1 10*3/uL 0.0-0.3 Automated blood basophil count (count/volume) 0.1 10*3/uL 0.0-0.1 Comprehensive metabolic panel - 11/23/16 10:45 Serum or plasma sodium measurement (moles/volume) 137 mmol/ L 135-145 Serum or plasma potassium measurement (moles/volume) 4.0 mmol/L 3.6-5.0 Serum or plasma chloride measurement (moles/volume) 99 mmol/ L 98-107 Carbon dioxide 23 mmol/L 21-32 Serum or plasma anion gap determination (moles/volume) 15 mmol/L 5-14 Serum or plasma urea nitrogen measurement (mass/volume) 13 mg/dL 7-18 Serum or plasma creatinine measurement (mass/volume) 1.15 mg /dL 0.60-1.30 Serum or plasma urea nitrogen/creatinine mass ratio 11 NRG Serum or plasma creatinine measurement with calculation of estimated glomerular filtration rate > NRG Serum or plasma glucose measurement (mass/volume) 162 mg/dL 70-105 Serum or plasma calcium measurement (mass/volume) 9.7 mg/dL 8.5-10.1 Serum or plasma total bilirubin measurement (mass/volume) 1.0 mg/dL 0.1-1.0 Serum or plasma alkaline phosphatase measurement (enzymatic activity/volume) 116 U/L 40-136 Serum or plasma aspartate aminotransferase measurement (enzymatic activity/ volume) 34 U/L 5-34 Serum or plasma alanine aminotransferase measurement (enzymatic activity/volume ) 19 U/L 0-55 Serum or plasma protein measurement (mass/volume) 8.3 g/dL 6.4-8.2 Serum or plasma albumin measurement (mass/volume) 4.1 g/dL 3.2-4.5 Magnesium - 11/23/16 10:45 Magnesium 2.8 mg/dL 1.8-2.4 Blood manual differential performed detection - 11/23/16 10:45 Blood monocytes/100 leukocytes 1 % NRG Manual blood segmented neutrophils/100 leukocytes 89 % NRG Blood band neutrophils/100 leukocytes 2 % NRG Manual blood lymphocytes/100 leukocytes 8 % NRG Blood smudge cells detection by light microscopy SLIGHT NRG Blood erythrocyte morphology finding identification 2 NRG Blood platelet clump detection by light microscopy SLIGHT NRG Complete urinalysis with reflex to culture - 11/23/16 10:50 Urine color determination YELLOW NRG Urine clarity determination CLEAR NRG Urine pH measurement by test strip 5 5- 9 Specific gravity of urine by test strip 1.005 1.016-1.022 Urine protein assay by test strip, semi-quantitative NEGATIVE NEGATIVE Urine glucose detection by automated test strip NEGATIVE NEGATIVE Erythrocytes detection in urine sediment by light microscopy NEGATIVE NEGATIVE Urine ketones detection by automated test strip NEGATIVE NEGATIVE Urine nitrite detection by test strip NEGATIVE NEGATIVE Urine total bilirubin detection by test strip NEGATIVE NEGATIVE Urine urobilinogen measurement by automated test strip (mass/volume) NORMAL NORMAL Urine leukocyte esterase detection by dipstick NEGATIVE NEGATIVE Automated urine sediment erythrocyte count by microscopy (number/high power field) NONE NRG Automated urine sediment leukocyte count by microscopy (number/high power field ) NONE NRG Bacteria detection in urine sediment by light microscopy NEGATIVE NRG Squamous epithelial cells detection in urine sediment by light microscopy 0-2 NRG Crystals detection in urine sediment by light microscopy NONE NRG Casts detection in urine sediment by light microscopy NONE NRG Mucus detection in urine sediment by light microscopy NEGATIVE NRG Complete urinalysis with reflex to culture NO NRG Blood lactic acid measurement (moles/volume) - 11/23/16 11:53 Blood lactic acid measurement (moles/volume) 3.22 mmol/L 0.50-2.00 Serum or plasma lactate measurement (moles/volume) - 11/23/16 13:47 Serum or plasma lactate measurement (moles/volume) 2.22 mmol /L 0.50-2.00 Capillary blood glucose measurement by glucometer (mass/volume) - 11/23/16 17: 28 Capillary blood glucose measurement by glucometer (mass/volume) 190 mg/dL 70-110 Activated partial thromboplastin time (aPTT) in platelet poor plasma bycoagulation assay - 11/23/16 18:58 Activated partial thromboplastin time (aPTT) in platelet poor plasma bycoagulation assay 56 s 24-35 Blood lactic acid measurement (moles/volume) - 11/23/16 19:50 Blood lactic acid measurement (moles/volume) 1.67 mmol/L 0.50-2.00 Capillary blood glucose measurement by glucometer (mass/volume) - 11/23/16 21: 21 Capillary blood glucose measurement by glucometer (mass/volume) 235 mg/dL 70-110 Complete blood count (CBC) with automated white blood cell (WBC) differential - 11/24/16 01:56 Blood leukocytes automated count (number/volume) 14.3 10*3/ uL 4.3-11.0 Blood erythrocytes automated count (number/volume) 4.22 10*6 /uL 4.35-5.85 Venous blood hemoglobin measurement (mass/volume) 12.5 g/dL 13.3-17.7 Blood hematocrit (volume fraction) 38 % 40-54 Automated erythrocyte mean corpuscular volume 89 [foz_us] 80-99 Automated erythrocyte mean corpuscular hemoglobin (mass per erythrocyte) 30 pg 25-34 Automated erythrocyte mean corpuscular hemoglobin concentration measurement ( mass/volume) 33 g/dL 32-36 Automated erythrocyte distribution width ratio 15.9 % 10.0-14.5 Automated blood platelet count (count/volume) 245 10*3/uL 130-400 Automated blood platelet mean volume measurement 9.6 [foz_us ] 7.4-10.4 Automated blood neutrophils/100 leukocytes 62 % 42-75 Automated blood lymphocytes/100 leukocytes 29 % 12-44 Blood monocytes/100 leukocytes 9 % 0-12 Automated blood eosinophils/100 leukocytes 1 % 0-10 Automated blood basophils/100 leukocytes 0 % 0-10 Blood neutrophils automated count (number/volume) 8.9 10*3 1.8-7.8 Blood lymphocytes automated count (number/volume) 4.1 10*3 1.0-4.0 Blood monocytes automated count (number/volume) 1.2 10*3 0.0-1.0 Automated eosinophil count 0.1 10*3/uL 0.0-0.3 Automated blood basophil count (count/volume) 0.0 10*3/uL 0.0-0.1 Activated partial thromboplastin time (aPTT) in platelet poor plasma bycoagulation assay - 11/24/16 01:56 Activated partial thromboplastin time (aPTT) in platelet poor plasma bycoagulation assay 147 s 24-35 Comprehensive metabolic panel - 11/24/16 01:56 Serum or plasma sodium measurement (moles/volume) 139 mmol/ L 135-145 Serum or plasma potassium measurement (moles/volume) 3.8 mmol/L 3.6-5.0 Serum or plasma chloride measurement (moles/volume) 104 mmol /L 98-107 Carbon dioxide 25 mmol/L 21-32 Serum or plasma anion gap determination (moles/volume) 10 mmol/L 5-14 Serum or plasma urea nitrogen measurement (mass/volume) 16 mg/dL 7-18 Serum or plasma creatinine measurement (mass/volume) 1.13 mg /dL 0.60-1.30 Serum or plasma urea nitrogen/creatinine mass ratio 14 NRG Serum or plasma creatinine measurement with calculation of estimated glomerular filtration rate > NRG Serum or plasma glucose measurement (mass/volume) 164 mg/dL 70-105 Serum or plasma calcium measurement (mass/volume) 8.4 mg/dL 8.5-10.1 Serum or plasma total bilirubin measurement (mass/volume) 0.7 mg/dL 0.1-1.0 Serum or plasma alkaline phosphatase measurement (enzymatic activity/volume) 85 U/L 40-136 Serum or plasma aspartate aminotransferase measurement (enzymatic activity/ volume) 11 U/L 5-34 Serum or plasma alanine aminotransferase measurement (enzymatic activity/volume ) 11 U/L 0-55 Serum or plasma protein measurement (mass/volume) 5.6 g/dL 6.4-8.2 Serum or plasma albumin measurement (mass/volume) 3.0 g/dL 3.2-4.5 Serum or plasma phosphate measurement (mass/volume) - 11/24/16 01:56 Serum or plasma phosphate measurement (mass/volume) 3.1 mg/ dL 2.3-4.7 Magnesium - 11/24/16 01:56 Magnesium 1.7 mg/dL 1.8-2.4 Encounters ACCT No. Visit Date/Time Discharge Status Pt. Type Provider Facility Loc./Unit Complaint [id number] 03/29/2014 08:43:00 03/29/2014 23: 59:59 ELDA GALVIN PHD, [facility]
--- OUTSIDE RECORDS SUMMARY | 2016-11-26 09:25 | XMS REPORT | Continuity of Care Document ---
Author Author [facility] Address Unknown Phone Unavailable Allergies Active Description Code Type Severity Reaction Onset Reported/Identified Relationship to Patient Clinical Status Yes Sulfa (Sulfonamide Antibiotics) [id number] Drug Allergy Unknown N/A 12/09/2006 Yes oxycodone HCl [id number] Drug Allergy Mild itching 03/28/2014 Yes oxycodone HCl [id number] Drug Allergy Mild itching, Pt sta 10/03/2015 [...] NOS 09/02/2010 Ot 414.01 CORONARY ATHEROSCLEROSIS OF [place] CORON 09/02/2010 Ot 427.31 ATRIAL FIBRILLATION 09/02/2010 [...] NOS 10/17/2010 Ot 414.01 CORONARY ATHEROSCLEROSIS OF [place] CORON 10/17/2010 Ot 424.0 MITRAL VALVE DISORDER [...] NOS 02/21/2011 Ot 414.01 CORONARY ATHEROSCLEROSIS OF [place] CORON 02/21/2011 Ot 427.31 ATRIAL FIBRILLATION 02/21/2011 [...] NOS 06/19/2012 Ot 414.01 CORONARY ATHEROSCLEROSIS OF [place] CORON 06/19/2012 Ot 427.31 ATRIAL FIBRILLATION 06/19/2012 [...] DESTINEY BECERRA MD Ot 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 11/06/2012 DESTINEY BECERRA MD Ot V58.61 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S,LT,CURRENT USE 11/27/2012 LIDA WALTERS MD Ot 413.9 ANGINA PECTORIS NEC/NOS 11/27/2012 LIDA WLATERS MD Ot V57.89 REHABILITATION PROC NEC 04/01/2013 [...] GUAMAN MD Ot 414.01 CORONARY ATHEROSCLEROSIS OF [place] CORON 09/21/2013 ABEL GUAMAN MD Ot 427.31 [...] FACP CCDS Ot 414.01 CORONARY ATHEROSCLEROSIS OF [place] CORON 08/21/2014 YOHANNES GOULD FACC, ALI FACP CCDS Ot 427.31 ATRIAL FIBRILLATION 08/21/2014 YOHANNES GOULD FACaCrline, ALI FACP CCDS Ot 786.50 CHEST PAIN NOS 08/21/2014 YOHANNES GOULD FACCarline, ALI FACP CCDS Ot V45.82 PERCUTANEOUS TRANSLUM CORON ANGIOPLASTY 08/21/2014 YOHANNES GOULD FACC, ALI FACP CCDS Ot V58.61 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S,LT,CURRENT USE 08/21/2014 YOHANNES GOULD FACC, ALI FACP CCDS Ot V85.42 BODY MASS INDEX 45.0-49.9, ADULT 12/09/2014 CARISSA LU TALENT ACQUISITION PARTNER Ot 789.00 12/30/2014 CARISSA LU TALENT ACQUISITION PARTNER Ot 789.00 01/17/2015 DENIZ GOULD, ABEL Sage Ot 729.81 01/31/2015 OSIIMARTI JOEL PEDIATRIC NP Ot 715.96 01/31/2015 OSIIMARTI JOEL PEDIATRIC NP Ot 959.7 01/31/2015 OSMARTI JAVIER PEDIATRIC NP Ot E000.8 01/31/2015 OSMARTI JAVIER PEDIATRIC NP Ot E849.0 01/31/2015 OSMARTI JAVIER PEDIATRIC NP Ot E888.9 01/31/2015 Ot 272.4 01/31/2015 Ot [...] MD, Ot I25.10 ATHSCL HEART DISEASE OF [place] CORONARY 06/25/2015 SHIRIN YEH MD Ot I48.91 UNSPECIFIED ATRIAL FIBRILLATION 06/25/2015 SHIRIN YEH MD Ot I95.1 ORTHOSTATIC HYPOTENSION 06/25/2015 SHIRIN YEH MD, Ot K21.9 GASTRO-ESOPHAGEAL REFLUX DISEASE WITHOUT 06/25/2015 SHIRIN YEH MD Ot T38.0X5A ADVERSE EFFECT OF GLUCOCORT/SYNTH ANALOG 06/25/2015 SHIRIN YEH MD, Ot T50.2X5A ADVRS EFF OF CRBNC-ANHYDR INHIBTR, BENZO 06/25/2015 SHIRIN YEH MD Ot Z79.4 JAIL (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 INSULIN 07/24/2015 SHIRIN YEH [...] MD Ot G62.9 POLYNEUROPATHY, UNSPECIFIED 07/27/2015 SHIRIN EYH MD, Ot I25.10 ATHSCL HEART DISEASE OF [place] CORONARY 07/27/2015 SHIRIN YEH MD Ot I48.2 CHRONIC ATRIAL FIBRILLATION 07/27/2015 SIHRIN YEH MD, Ot I49.5 SICK SINUS SYNDROME 07/27/2015 SHIRIN YEH MD, Ot J18.9 PNEUMONIA, UNSPECIFIED ORGANISM 07/27/2015 SHIRIN YEH MD Ot L03.311 CELLULITIS OF ABDOMINAL WALL 07/27/2015 SHIRIN YEH MD Ot M79.3 PANNICULITIS, UNSPECIFIED 07/27/2015 SHIRIN YEH MD Ot R09.02 HYPOXEMIA 07/27/2015 SHIRIN YEH MD Ot Z68.42 BODY MASS INDEX (BMI) 45.0-49.9, ADULT 07/27/2015 SHIRIN YEH MD Ot Z79.4 CUT OUT WORKER (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 INSULIN 07/27/2015 SHIRIN [...] DO Ot I25.10 ATHSCL HEART DISEASE OF [place] CORONARY 08/04/2015 REYNALDO RAI DO Ot I48.0 [...] ADULT 08/04/2015 REYNALDO RAI DO Ot Z79.4 CUT OUT WORKER (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 INSULIN 08/04/2015 REYNALDO [...] MD Ot I25.10 ATHSCL HEART DISEASE OF [place] CORONARY 08/14/2015 DESTINEY BECERRA MD Ot I48.2 [...] ADULT 08/14/2015 DESTINEY BECERRA MD Ot Z79.4 JAIL (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 INSULIN 08/14/2015 DESTINEY BECERRA [...] FEVER) 09/18/2015 URSULA DORMAN MD Ot Z79.01 JAIL (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 09/18/2015 URSULA DORMAN MD Ot Z79.4 JAIL (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 INSULIN 09/18/2015 LAKIA GOULD, [...] MD Ot I25.10 ATHSCL HEART DISEASE OF [place] CORONARY 10/06/2015 RASHEEDA BOSS MD Ot I48.2 [...] ADULT 10/06/2015 RASHEEDA BOSS MD Ot Z79.4 JAIL (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 INSULIN 10/06/2015 RASHEEDA BOSS [...] LEVEL MON 11/01/2015 OTHER, UNLISTED Ot Z79.01 CUT OUT 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 11/10/2015 SHARA TRAMMELL MD Ot Z79.01 JAIL (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 11/10/2015 SHARA TRAMMELL MD Ot Z51.81 ENCOUNTER FOR THERAPEUTIC DRUG LEVEL MON 11/10/2015 SHARA TRAMMELL MD Ot Z79.01 CUT OUT 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 11/22/2015 OTHER, UNLISTED Ot Z51.81 ENCOUNTER FOR THERAPEUTIC DRUG LEVEL Fri11/22/2015 OTHER, UNLISTED Ot Z79.01 CUT OUT 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 11/29/2015 SHARA TRAMMELL MD Ot Z51.81 ENCOUNTER FOR THERAPEUTIC DRUG LEVEL MON 11/29/2015 SHARA TRAMMELL MD Ot Z79.01 CUT OUT 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 02/15/2016 NO BLOCK MD Ot E11.9 TYPE 2 DIABETES MELLITUS WITHOUT COMPLIC 02/15/2016 NO BLOCK MD Ot I10 ESSENTIAL (PRIMARY) HYPERTENSION 02/15/2016 NO BLOCK MD Ot I25.10 ATHSCL HEART DISEASE OF [place] CORONARY 02/15/2016 NO BLOCK MD Ot R51 HEADACHE 02/15/2016 NO BLOCK MD Ot Z79.899 OTHER JAIL (CURRENT) DRUG THERAPY 02/15/2016 NO BLOCK MD Ot Z95.0 PRESENCE OF CARDIAC PACEMAKER 02/15/2016 NO BLOCK MD Ot Z95.1 PRESENCE OF AORTOCORONARY BYPASS GRAFT 02/15/2016 NO BLOCK MD Ot Z98.1 ARTHRODESIS STATUS 02/16/2016 OSMARTI JAVIER PEDIATRIC NP Ot 715.96 OSTEOARTHROS NOS-L/LEG 02/16/2016 MARTI MELGOZA PEDIATRIC NP Ot 959.7 LOWER LEG INJURY NOS 02/16/2016 MARTI MELGOZA PEDIATRIC NP Ot E000.8 OTHER EXTERNAL CAUSE STATUS 02/16/2016 MARTI MELGOZA PEDIATRIC NP Ot E849.0 ACCIDENT IN HOME 02/16/2016 MARTI MELGOZA PEDIATRIC NP Ot E888.9 FALL NOS 02/16/2016 Ot 715.95 [...] LEVEL MON 02/16/2016 OTHER, UNLISTED Ot Z79.01 JAIL (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 02/16/2016 SHARA TRAMMELL MD Ot Z51.81 ENCOUNTER FOR THERAPEUTIC DRUG LEVEL MON 02/16/2016 SHARA TRAMMELL MD Ot Z79.01 JAIL (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 02/21/2016 NO BLOCK MD Ot E11.9 TYPE 2 DIABETES MELLITUS WITHOUT COMPLIC 02/21/2016 NO BLOCK MD Ot I10 ESSENTIAL (PRIMARY) HYPERTENSION 02/21/2016 NO BLOCK MD, Ot I25.10 ATHSCL HEART DISEASE OF [place] CORONARY 02/21/2016 NO BLOCK MD Ot R51 HEADACHE 02/21/2016 NO BLOCK MD Ot Z79.899 OTHER CUT OUT WORKER (CURRENT) DRUG THERAPY 02/21/2016 NO BLOCK MD Ot Z95.0 PRESENCE OF CARDIAC PACEMAKER 02/21/2016 NO BLOCK MD Ot Z95.1 PRESENCE OF AORTOCORONARY BYPASS GRAFT 02/21/2016 NO BLOCK MD Ot Z98.1 ARTHRODESIS STATUS 08/07/2016 CARISSA LU TALENT ACQUISITION PARTNER Ot N50.89 OTHER SPECIFIED DISORDERS OF THE MALE GE 08/07/2016 CAIRSSA LU APRN Ot N50.89 OTHER SPECIFIED DISORDERS OF THE MALE GE 08/07/2016 CARISSA LU N TALENT ACQUISITION PARTNER Ot N50.89 OTHER SPECIFIED DISORDERS OF THE MALE GE 08/28/2016 CARISSA LU N TALENT ACQUISITION PARTNER Ot N50.89 OTHER SPECIFIED DISORDERS OF THE MALE GE 09/02/2016 ALY CARISSA N TALENT ACQUISITION PARTNER Ot N50.89 OTHER SPECIFIED DISORDERS OF THE MALE GE 10/01/2016 ABEL GUAMAN MD Ot A93.8 OTHER SPECIFIED ARTHROPOD-BORNE VIRAL FE 10/01/2016 ABEL GUAMAN MD Ot E11.9 TYPE 2 DIABETES MELLITUS WITHOUT COMPLIC 10/01/2016 ABEL GUAMAN MD, Ot E86.0 DEHYDRATION 10/01/2016 ABLE GUAMAN MD, Ot F41.9 ANXIETY DISORDER, UNSPECIFIED 10/01/2016 ABEL GUAMAN MD, Ot F43.10 POST-TRAUMATIC STRESS DISORDER, UNSPECIF 10/01/2016 ABEL GUAMAN MD, Ot G25.81 RESTLESS LEGS SYNDROME 10/01/2016 ABEL GUAMAN MD, Ot I10 ESSENTIAL (PRIMARY) HYPERTENSION 10/01/2016 ABEL GUAMAN MD, Ot I25.10 ATHSCL HEART DISEASE OF [place] CORONARY 10/01/2016 ABEL GUAMAN MD Ot I48.2 CHRONIC ATRIAL FIBRILLATION 10/01/2016 ABEL GUAMAN MD, Ot J44.9 CHRONIC OBSTRUCTIVE PULMONARY DISEASE, U 10/01/2016 ABEL GUAMAN MD, Ot K21.9 GASTRO-ESOPHAGEAL REFLUX DISEASE WITHOUT 10/01/2016 ABEL GUAMAN MD Ot Z79.4 JAIL (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 INSULIN 10/01/2016 ABEL GUAMAN [...] MD, Ot I25.10 ATHSCL HEART DISEASE OF [place] CORONARY 11/08/2016 LESLYE MARTIN MD Ot K21.0 [...] DOI Ot I25.10 ATHSCL HEART DISEASE OF [place] CORONARY 11/20/2016 REYNALDO RAI DO Ot I48.0 PAROXYSMAL ATRIAL FIBRILLATION 11/20/2016 REYNALDO RAI DO Ot J18.9 PNEUMONIA, UNSPECIFIED ORGANISM 11/20/2016 SKYE RAI DOI Ot K21.9 GASTRO-ESOPHAGEAL REFLUX DISEASE WITHOUT 11/20/2016 FREDI ORTEGA REYNALDO Ot R04.2 HEMOPTYSIS 11/20/2016 RAIREYNALDO BONILLA DO Ot Z68.41 BODY MASS INDEX (BMI) 40.0-44.9, ADULT 11/20/2016 REYNALDO RAI DO Ot Z79.01 JAIL (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 11/20/2016 REYNALDO RAI DO Ot Z79.4 CUT OUT WORKER (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 INSULIN 11/20/2016 REYNALDO RAI DO Ot Z87.891 PERSONAL HISTORY OF NICOTINE DEPENDENCE 11/20/2016 REYNALDO RAI DO Ot Z95.0 PRESENCE OF CARDIAC PACEMAKER 11/20/2016 REYNALDO RAI DO Ot Z95.5 PRESENCE OF CORONARY ANGIOPLASTY IMPLANT 11/20/2016 REYNALDO RAI DO Ot Z99.81 DEPENDENCE ON SUPPLEMENTAL OXYGEN 11/21/2016 DENIZ GOULD, ABEL Sage Ot D72.829 ELEVATED WHITE BLOOD CELL COUNT, UNSPECI Procedures Code Description Performed By Performed On 88.72 02/20/2011 99.61 02/20/2011 13569 PSYCH DIAGNOSTIC EVALUATION 03/29/2014 [id number] 10/01/2015 [id number] 10/01/2015 [id number] INSERTION OF INFUSION DEV INTO SUP VENA [...] Status Pt. Type Provider Facility Loc./Unit Complaint [id number] 03/29/2014 08:43:00 03/29/2014 23: 59:59 ELDA GALVIN PHD, [facility]
[2016-11-26] MEDS ORDERED: LEVOFLOXACIN 750 MG TAB (LEVAQUIN) PO SCH (11:00)
--- NOTE | 2016-11-26 13:47 | Progress Note-Hospitalist ---
Standard Progress Note Progress Notes/Assess & Plan Date Seen 11/26/16 Time Seen by Provider: 13:43 Diagnosis Assessment: Recurrent bilateral pneumonia after recently being discharged one week prior for pneumonia in need of bronchoscopy Severe COPD Severe sleep apnea Atrial fibrillation Anticoagulation for stroke prophylaxis Hypertension Hyperlipidemia Assess & Plan/Chief Complaint The patient reports that he continues to improve and is in fact feeling quite well. He has been afebrile for days. He believes that the bronchoscopy performed by Dr. Alford was helpful as well. I discussed the patient with Waldo Flowers, clinical drying can worker. Levaquin will serve as well and deliver blood levels compatible with IV administration. We will elect to restart his warfarin at 7.5 mg each p.m. as that had been a stable dose previously. The patient will bridge with 3 days of subcutaneous therapeutic Lovenox beginning tomorrow. Physical exam: The patient is alert and lively. Lungs are clear to auscultation. CV is irregular. Abdomen is obese and soft to palpation. Impression: Right lower lobe pneumonia. 2.COPD. 3.sleep apnea. 4.chronic atrial fibrillation. 5.hypertension Labs Laboratory Tests 11/25/16 03:52 11/26/16 04:01 DESTINEY BECERRA MD Nov 26, 2016 13:47
[2016-11-26] MEDS ORDERED: ENOX100D9 SQ (13:53)
[2016-11-26] MEDS ORDERED: LEVO750T39 PO (13:53)
--- NOTE | 2016-11-26 13:57 | Discharge Instructions ---
Discharge Instructions Patient Instructions Patient Instructions Take your first dose of Levaquin tomorrow at approximately 1100 hours. Inject your first dose of Lovenox on arising in the morning. Resume your warfarin 7.5 mg after your evening meal tonight. Get a pro time/INR at the lab of your choice next Friday, the results should go to Dr. Guaman [facility] to [facility]: Declining condition Activity & Diet Discharge Diet: Coumadin Patient Diet Activity as Tolerated: Yes Copy Copies To 1: ABEL GUAMAN MD, RODNEY K MD Nov 26, 2016 13:57
[2016-11-26 14:25] VITALS: BP 138/65
--- NOTE | 2016-11-26 14:55 | Pulmonary Progress Note ---
Subjective Time Seen by Provider: 14:54 Subjective/Events-last exam No complications noted. Exam Exam Vital Signs Date Time Temp Pulse Resp B/P (MAP) Pulse Ox O2 Delivery O2 Flow Rate FiO2 11/26/16 14:25 66 20 138/65 94 Room Air 11/26/16 09:09 94 Room Air 11/26/16 09:00 Room Air 11/26/16 08:08 97.4 66 20 138/65 93 Room Air 11/26/16 02:19 90 Room Air 11/26/16 00:21 97.0 72 22 120/58 96 Room Air 11/25/16 20:30 Room Air 11/25/16 20:10 91 Room Air 11/25/16 19:28 98.2 66 20 126/55 94 Room Air 11/25/16 16:11 97.1 65 20 111/67 95 Room Air 11/25/16 15:16 94 Room Air I & O 11/26/16 07:00 Intake Total 5060 ml Output Total 2900 ml Balance 2160 ml General Appearance: No Apparent Distress HEENT: PERRL/EOMI, TMs Normal, Pharynx Normal Neck: Full Range of Motion, Non Tender, Supple Respiratory: Chest Non Tender, Decreased Breath Sounds, Respiratory Distress Cardiovascular: Regular Rate, Rhythm Capillary Refill: Less Than 3 Seconds Extremity: Normal Capillary Refill, Normal Inspection Neurologic/Psychiatric: Alert, Oriented x3 Skin: Normal Color Lymphatic: No Adenopathy Results Lab Laboratory Tests 11/25/16 03:52 11/26/16 04:01 Assessment/Plan Assessment/Plan Hemoptysis with pneumonia post bronchoscopy this AM -- no signs of hemoptysis on bronchoscopy -Continue Abx with Levaquin -coumadin for Afib -SCDs -Duoneb Q 6 IS -Pt will need repeat CT as outpatient Afib 232 Clinical Quality Measures DVT/VTE Risk/Contraindication: Risk Factor Score Per Nursin RFS Level Per Nursing on Admit: 4+=Very High ZARI HAWKINS DO Nov 26, 2016 14:55
== END 2016-11-26 14:25 | disposition home or self-care (01) | DRG 853 ==
LOC: EDUNIT# 10:17 → ER 10:17 → ICU 11:25 → 4TH 11-25 13:41
PROVIDERS: ADMIT Internal Medicine; ATTEND Internal Medicine
PROC: 0B9D8ZX Drainage of Right Middle Lung Lobe, Via Natural or Artificial Opening Endoscopic, Diagnostic (ICD-10-PCS; principal; 2016-11-25)
DX: A41.9 Sepsis, unspecified organism (principal); J44.0 Chronic obstructive pulmonary disease with (acute) lower respiratory infection; J18.9 Pneumonia, unspecified organism; R04.2 Hemoptysis; Z68.41 Body mass index [BMI] 40.0-44.9, adult; G47.33 Obstructive sleep apnea (adult) (pediatric); Z87.891 Personal history of nicotine dependence; I48.2 Chronic atrial fibrillation; I25.10 Atherosclerotic heart disease of native coronary artery without angina pectoris; I25.2 Old myocardial infarction; I10 Essential (primary) hypertension; E11.9 Type 2 diabetes mellitus without complications; G25.81 Restless legs syndrome; Z79.4 Long term (current) use of insulin; E78.5 Hyperlipidemia, unspecified; E66.9 Obesity, unspecified; K21.9 Gastro-esophageal reflux disease without esophagitis; M19.91 Primary osteoarthritis, unspecified site; F41.9 Anxiety disorder, unspecified; F32.9 Major depressive disorder, single episode, unspecified; F43.10 Post-traumatic stress disorder, unspecified; Z79.01 Long term (current) use of anticoagulants; Z95.0 Presence of cardiac pacemaker; Z96.653 Presence of artificial knee joint, bilateral; Z98.1 Arthrodesis status
CPT/HCPCS: 36415; 71010; 71020; 80048; 80053; 80202; 81000; 82962; 83605; 83735; 84100; 85007; 85025; 85027; 85610; 85730; 87040; 87070; 87081; 87101; 87116; 87205; 93041; 94640; 94664; 94760; 96365

== ENCOUNTER 2016-12-05 13:28 | Outpatient (RCR) | payer MEDICARE, OTHER ==
[2016-11-14 09:48] LABS: BASOPHILS % (AUTO) 0 % (0-10); EOSINOPHILS # (AUTO) 0.1 10^3/uL (0.0-0.3); EOSINOPHILS % (AUTO) 2 % (0-10); LYMPHOCYTES # (AUTO) 2.9 X 10^3 (1.0-4.0); LYMPHOCYTES % (AUTO) 35 % (12-44); MEAN CORPUSCULAR HEMOGLOBIN 29 PG (25-34); MEAN CORPUSCULAR HGB CONC 33 G/DL (32-36); MEAN CORPUSCULAR VOLUME 88 FL (80-99); MEAN PLATELET VOLUME 9.5 FL (7.4-10.4); MONOCYTES # (AUTO) 0.9 X 10^3 (0.0-1.0); MONOCYTES % (AUTO) 11 % (0-12); NEUTROPHILS # (AUTO) 4.2 X 10^3 (1.8-7.8); NEUTROPHILS % (AUTO) 52 % (42-75); PLATELET COUNT 215 10^3/uL (130-400); RED BLOOD COUNT 4.89 10^6/uL (4.35-5.85); RED CELL DISTRIBUTION WIDTH 16.5 % (10.0-14.5); RETICULOCYTE % 0.99 % (0.50-2.40); WHITE BLOOD COUNT 8.1 10^3/uL (4.3-11.0)
[2016-11-14 10:14] LABS: ALANINE AMINOTRANSFERASE 17 U/L (0-55); ALBUMIN 3.7 GM/DL (3.2-4.5); ANION GAP 11 MMOL/L (5-14); ASPARTATE AMINO TRANSFERASE 16 U/L (5-34); BILIRUBIN,TOTAL 0.8 MG/DL (0.1-1.0); BLOOD UREA NITROGEN 16 MG/DL (7-18); BUN/CREATININE RATIO 18; CALCIUM 9.1 MG/DL (8.5-10.1); CARBON DIOXIDE 28 MMOL/L (21-32); CHLORIDE 103 MMOL/L (98-107); CREATININE SERUM 0.88 MG/DL (0.60-1.30); GFR ESTIMATED > 60; GLUCOSE 95 MG/DL (70-105); LACTATE DEHYDROGENASE 266 U/L (125-220); POTASSIUM 4.1 MMOL/L (3.6-5.0); SODIUM 142 MMOL/L (135-145); TOTAL PROTEIN 6.5 GM/DL (6.4-8.2)
[2016-11-14 10:15] LABS: BAND NEUTROPHILS 0 %; LYMPHOCYTES % (MANUAL) 35 %; NEUTROPHILS % (MANUAL) 52 %
[2016-11-14 10:16] LABS: ANISOCYTOSIS SLIGHT; BASOPHILS % (MANUAL) 2 %; EOSINOPHILS % (MANUAL) 1 %; POIKILOCYTOSIS SLIGHT; REACTIVE LYMPHOCYTES 1 %
[2016-11-18 08:26] LABS: CLINICAL IND D72.829
[2016-11-20 09:47] LABS: BCR ABL FISH QL SEE FOOTNOTE
[~2016-12-05 13:28] MED LIST changes: +ENOX100D9 SQ; +LEVO750T39 PO
[2016-12-05 14:07] LABS: BASOPHILS % (AUTO) 0 % (0-10); EOSINOPHILS # (AUTO) 0.1 10^3/uL (0.0-0.3); EOSINOPHILS % (AUTO) 1 % (0-10); LYMPHOCYTES # (AUTO) 3.4 X 10^3 (1.0-4.0); LYMPHOCYTES % (AUTO) 32 % (12-44); MEAN CORPUSCULAR HEMOGLOBIN 29 PG (25-34); MEAN CORPUSCULAR HGB CONC 33 G/DL (32-36); MEAN CORPUSCULAR VOLUME 89 FL (80-99); MEAN PLATELET VOLUME 9.1 FL (7.4-10.4); MONOCYTES # (AUTO) 1.1 X 10^3 (0.0-1.0); MONOCYTES % (AUTO) 10 % (0-12); NEUTROPHILS # (AUTO) 6.1 X 10^3 (1.8-7.8); NEUTROPHILS % (AUTO) 57 % (42-75); PLATELET COUNT 314 10^3/uL (130-400); RED BLOOD COUNT 4.67 10^6/uL (4.35-5.85); RED CELL DISTRIBUTION WIDTH 15.8 % (10.0-14.5); WHITE BLOOD COUNT 10.7 10^3/uL (4.3-11.0)
[2017-01-21] MEDS ORDERED: PANT40TA3 PO (10:33)
[2017-01-23] MEDS ORDERED: HYDR-3816 PO (09:57)
== END 2017-02-12 | disposition home or self-care (01) ==
LOC: ONC 13:28
PROVIDERS: ATTEND Internal Medicine Hematology & Oncology
DX: D72.829 Elevated white blood cell count, unspecified (principal); I25.10 Atherosclerotic heart disease of native coronary artery without angina pectoris; I11.0 Hypertensive heart disease with heart failure; I50.30 Unspecified diastolic (congestive) heart failure; E11.9 Type 2 diabetes mellitus without complications; I08.1 Rheumatic disorders of both mitral and tricuspid valves; I48.0 Paroxysmal atrial fibrillation; G47.33 Obstructive sleep apnea (adult) (pediatric); Z79.899 Other long term (current) drug therapy
CPT/HCPCS: 36415; 80053; 83615; 85007; 85025; 85027; 85045; 88368; 88369; 99214

== ENCOUNTER → 2016-12-27 | Outpatient (CLI) | payer MEDICARE, OTHER ==
[~2016-12-27] MED LIST changes: +RT-ALBUTEROL SULF 2.5 MG/3 ML PRE-MIX VIAL IH ONE
== END ==
LOC: RT 11:33
PROVIDERS: ATTEND Nurse Practitioner Family
DX: R05 Cough (principal); R06.00 Dyspnea, unspecified
CPT/HCPCS: 94060; 94640; 94726; 94729

== ENCOUNTER 2017-01-11 00:04 | Emergency (ER) | payer MEDICARE, OTHER ==
[~2017-01-11] VITALS: Ht 180.3 cm; Wt 136.8 kg
[~2017-01-11 00:04] MED LIST changes: -RT-ALBUTEROL SULF 2.5 MG/3 ML PRE-MIX VIAL IH ONE
[2017-01-11 00:26] LABS: BASOPHILS # (AUTO) 0.1 10^3/uL (0.0-0.1); BASOPHILS % (AUTO) 0 % (0-10); EOSINOPHILS # (AUTO) 0.1 10^3/uL (0.0-0.3); EOSINOPHILS % (AUTO) 1 % (0-10); LYMPHOCYTES # (AUTO) 4.3 X 10^3 (1.0-4.0); LYMPHOCYTES % (AUTO) 34 % (12-44); MEAN CORPUSCULAR HEMOGLOBIN 29 PG (25-34); MEAN CORPUSCULAR HGB CONC 33 G/DL (32-36); MEAN CORPUSCULAR VOLUME 87 FL (80-99); MEAN PLATELET VOLUME 10.1 FL (7.4-10.4); MONOCYTES # (AUTO) 1.2 X 10^3 (0.0-1.0); MONOCYTES % (AUTO) 10 % (0-12); NEUTROPHILS # (AUTO) 6.9 X 10^3 (1.8-7.8); NEUTROPHILS % (AUTO) 55 % (42-75); PLATELET COUNT 257 10^3/uL (130-400); RED BLOOD COUNT 4.75 10^6/uL (4.35-5.85); RED CELL DISTRIBUTION WIDTH 13.9 % (10.0-14.5); WHITE BLOOD COUNT 12.6 10^3/uL (4.3-11.0)
[2017-01-11] MEDS ORDERED: ASPIRIN 81 MG CHEW (CHILDREN'S ASA) PO ONE (00:30)
[2017-01-11] MEDS ORDERED: RX-NITROGLYCERIN 0.4 MG TAB BTL 25'S SL PRN (00:30)
[2017-01-11 00:36] LABS: INR 3.9 (0.8-1.4); PROTHROMBIN TIME PATIENT 37.5 SEC (12.2-14.7)
[2017-01-11 00:47] LABS: ALANINE AMINOTRANSFERASE 15 U/L (0-55); ALBUMIN 3.7 GM/DL (3.2-4.5); ANION GAP 13 MMOL/L (5-14); ASPARTATE AMINO TRANSFERASE 18 U/L (5-34); BILIRUBIN,TOTAL 0.5 MG/DL (0.1-1.0); BLOOD UREA NITROGEN 16 MG/DL (7-18); BUN/CREATININE RATIO 16; CARBON DIOXIDE 24 MMOL/L (21-32); CHLORIDE 100 MMOL/L (98-107); CREATININE SERUM 0.99 MG/DL (0.60-1.30); GFR ESTIMATED > 60; GLUCOSE 166 MG/DL (70-105); POTASSIUM 4.2 MMOL/L (3.6-5.0); SODIUM 137 MMOL/L (135-145); TOTAL PROTEIN 6.8 GM/DL (6.4-8.2)
[2017-01-11 00:54] LABS: MYOGLOBIN SERUM 59.6 NG/ML (10.0-92.0)
--- NOTE | 2017-01-11 02:45 | ED Chest Pain ---
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 He describes the pain as a heaviness in the right chest that migrated to the left chest and then back to the right again. He also complains of aching in his teeth associated with the pain. He has a "strange feeling" in his neck. Nitroglycerin 2 at home was not helpful. He denies any shortness of air, sweats, lightheadedness, or nausea. Patient's primary over hauler helper is Dr. Do. He reports having a stress test and an echo performed last week in the office which were both reportedly normal. Pain was stated as 4/10 at its worst and is now 2/10. Patient does have a history of atrial fibrillation and is on anticoagulation. Review of his chart shows a cardiac catheterization performed at this facility in 2012. He had a patent LAD stent at that time with no other obstructive disease. Allergies and Home Medications Allergies Coded Allergies: Sulfa (Sulfonamide Antibiotics) (Verified Allergy, Intermediate, RASH, 03/04) BROKE OUT IN BRIGHT RED BURNING RASH BUT IS UNSURE OF ANY BREATHING DIFFICULTY AT THE TIME. WAS GIVEN TWO SHOTS DECADRON WHILE IN DR. OFFICE. Home Medications Alprazolam 0.5 Mg Tablet, 0.5 MG PO BID PRN for ANXIETY, (Reported) Amlodipine Besylate 5 Mg Tablet, 5 MG PO DAILY, (Reported) Duloxetine HCl 60 Mg Capsule.dr, 60 MG PO DAILY, (Reported) Furosemide 40 Mg Tablet, 40 MG PO DAILY, (Reported) Gabapentin 100 Mg Capsule, 200 MG PO HS, (Reported) TAKES 2 (100MG) CAPSULES Insulin Glargine,Hum.rec.anlog 100 Unit/1 Ml Vial, 32 UNIT SQ DAILY, (Reported) Insulin Glargine,Hum.rec.anlog 100 Unit/1 Ml Vial, 26 UNIT SQ HS, (Reported) Metoprolol Succinate 25 Mg Tab.er.24h, 25 MG PO DAILY, (Reported) Montelukast Sodium 10 Mg Tablet, 10 MG PO DAILY, (Reported) Oxycodone HCl 10 Mg Tab.er.12h, 10 MG PO Q12H PRN for PAIN-SEVERE, (Reported) Potassium Chloride 20 Meq Tablet.er, 20 MEQ PO BID, (Reported) Ropinirole HCl 3 Mg Tablet, 3 MG PO HS, (Reported) Spironolactone 25 Mg Tablet, 25 MG PO DAILY, (Reported) Tamsulosin HCl 0.4 Mg Cap.er.24h, 0.8 MG PO HS, (Reported) TAKES 2 (0.4 MG) CAPSULES Trazodone HCl 100 Mg Tablet, 100 MG PO HS, (Reported) Warfarin Sodium 7.5 Mg Tablet, 7.5 MG PO DAILY, (Reported) Review of Systems Constitutional: no symptoms reported EENTM: No Symptoms Reported Respiratory: No Symptoms Reported Cardiovascular: See HPI Gastrointestinal: No Symptoms Reported Genitourinary: No Symptoms Reported Musculoskeletal: no symptoms reported Skin: no symptoms reported Psychiatric/Neurological: No Symptoms Reported Endocrine: No Symptoms Reported Past Wtnklmz-Oocsgx-Upvvuf Hx Patient Social History Alcohol Use: Denies Use Number of Drinks Today: AA Alcohol Beverage of Choice: Beer Recreational Drug Use: No Smoking Status: Former Smoker Type Used: Cigarettes Former Smoker, Quit: September 29, 1981 Recent Foreign Travel: No Contact w/Someone Who Travel: No Recent Infectious Disease Expo: No Physical Abuse: No Sexual Abuse: No Immunizations Up To Date Tetanus Booster (TDap): Less than 5yrs Date of Pneumonia Vaccine: Jan 21, 2016 Date of Influenza Vaccine: Jan 31, 2015 Seasonal Allergies Seasonal Allergies: No Surgeries History of Surgeries: Yes (SPINAL FUSION,RIGHT ROTATOR CUFF,COLT TKR, LDA STENT , lap band) Surgeries: Abdominal, Coronary Stent, Gallbladder, Joint Replacement, Orthopedic, Pacemaker, Tonsillectomy Respiratory History of Respiratory Disorde: Yes Respiratory Disorders: Pneumonia, Sleep Apnea Currently Using CPAP: Yes Currently Using BIPAP: No Cardiovascular History of Cardiac Disorders: Yes (STENT X1, PACEMAKER-meditronic) Cardiac Disorders: Atrial Fibrillation, Coronary Artery Disease, Heart Attack, Hypertension Neurological History of Neurological Disord: Yes (Restless leg syndrome) Reproductive System Hx Reproductive Disorders: No Sexually Transmitted Disease: No HIV/AIDS: No Genitourinary History of Genitourinary Disor: Yes Genitourinary Disorders: Prostate Problems, Renal Failure Gastrointestinal History of Gastrointestinal Di: Yes (lap band surgery) Gastrointestinal Disorders: Gastroesophageal Reflux Musculoskeletal History of Musculoskeletal Dis: Yes (spinal fusion L5/S1) Musculoskeletal Disorders: Arthritis Endocrine History of Endocrine Disorders: Yes Endocrine Disorders: Diabetes, Insulin dep HEENT History of HEENT Disorders: Yes HEENT Disorders: Cataract Loss of Vision: Denies Hearing Impairment: Denies Cancer History of Cancer: No Psychosocial History of Psychiatric Problem: Yes Behavioral Health Disorders: Anxiety, PTSD, Depression Suicide Risk Score: 0 Integumentary History of Skin or Integumenta: No Blood Transfusions History of Blood Disorders: No Adverse Reaction to a Blood Tr: No Family Medical History Significant Family History: Heart Disease, Hypertension Family Medial History: Cancer 19 FATHER 19 MOTHER Chest pain 19 FATHER 19 MOTHER G8 BROTHER G8 BROTHER G8 BROTHER G8 BROTHER Congestive heart failure 19 MOTHER G8 BROTHER G8 BROTHER G8 BROTHER Family history: Arthritis Family history: Cardiovascular disease 19 FATHER Family history: Diabetes mellitus Family history: Glaucoma Family history: Hypertension Heart disease History of - respiratory disease Malignant neoplasm of lung 19 FATHER Myocardial infarction 19 MOTHER G8 BROTHER G8 BROTHER G8 BROTHER Parkinson's disease Prostate cancer G8 BROTHER Stroke Visual impairment No Family History of: Abdominal aortic aneurysm Yolo's disease Alcoholism Aphasia Cancer of colon Cataract Congenital heart disease Cystic fibrosis Dementia Dysphagia Family history: Allergy Family history: Alzheimer's disease Family history: Asthma Family history: Breast disease Family history: Coronary thrombosis Family history: Gastrointestinal disease Family history: Osteoporosis Family history: Thyroid disorder Headache Hearing loss Hereditary disease History of - anemia History of - disorder History of drug abuse Human immunodeficiency virus (HIV) seropositivity Hypercholesterolemia Infertile Kidney disease Psychotic disorder Seizure disorder Tuberculosis Physical Exam Vital Signs Vital Sign - Last 12Hours 01/11/17 00:10 Temp 98.2 Pulse 83 Resp 18 B/P (MAP) 167/113 Pulse Ox 96 Capillary Refill : Less Than 3 Seconds General Appearance: No Apparent Distress, WD/WN HEENT: PERRL/EOMI, Normal ENT Inspection Neck: Normal Inspection Respiratory: Lungs Clear, Normal Breath Sounds, No Accessory Muscle Use, No Respiratory Distress Cardiovascular: Regular Rate, Rhythm, No Edema, No Murmur, Normal Peripheral Pulses Gastrointestinal: Normal Bowel Sounds, Non Tender, Soft Extremity: Normal Inspection, No Calf Tenderness, No Pedal Edema Neurologic/Psychiatric: Alert, Oriented x3, No Motor/Sensory Deficits, Normal Mood/Affect, 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 Norm as Tested Skin: Normal Color, Warm/Dry Date of ETT Placement: October 01, 2015 Time of ETT Placement: 511 Progress/Results/Core Measures Results/Orders Lab Results Laboratory Tests Test 01/11/17 00:15 01/11/17 02:10 Range/Units White Blood Count 12.6 H 4.3-11.0 10^3/uL Red Blood Count 4.75 4.35-5.85 10^6/uL Hemoglobin 13.7 13.3-17.7 G/DL Hematocrit 41 40-54 % Mean Corpuscular Volume 87 80-99 FL Mean Corpuscular Hemoglobin 29 25-34 PG Mean Corpuscular Hemoglobin Concent 33 32-36 G/DL Red Cell Distribution Width 13.9 10.0-14.5 % Platelet Count 257 130-400 10^3/uL Mean Platelet Volume 10.1 7.4-10.4 FL Neutrophils (%) (Auto) 55 42-75 % Lymphocytes (%) (Auto) 34 12-44 % Monocytes (%) (Auto) 10 0-12 % Eosinophils (%) (Auto) 1 0-10 % Basophils (%) (Auto) 0 0-10 % Neutrophils # (Auto) 6.9 1.8-7.8 X 10^3 Lymphocytes # (Auto) 4.3 H 1.0-4.0 X 10^3 Monocytes # (Auto) 1.2 H 0.0-1.0 X 10^3 Eosinophils # (Auto) 0.1 0.0-0.3 10^3/uL Basophils # (Auto) 0.1 0.0-0.1 10^3/uL Prothrombin Time 37.5 H 12.2-14.7 SEC INR Comment 3.9 H 0.8-1.4 Activated Partial Thromboplast Time 51 H 24-35 SEC Sodium Level 137 135-145 MMOL/L Potassium Level 4.2 3.6-5.0 MMOL/L Chloride Level 100 98-107 MMOL/L Carbon Dioxide Level 24 21-32 MMOL/L Anion Gap 13 5-14 MMOL/L Blood Urea Nitrogen 16 7-18 MG/DL Creatinine 0.99 0.60-1.30 MG/DL Estimat Glomerular Filtration Rate > 60 BUN/Creatinine Ratio 16 Glucose Level 166 H 70-105 MG/DL Calcium Level 9.0 8.5-10.1 MG/DL Magnesium Level 2.0 1.8-2.4 MG/DL Total Bilirubin 0.5 0.1-1.0 MG/DL Aspartate Amino Transf (AST/SGOT) 18 5-34 U/L Alanine Aminotransferase (ALT/SGPT) 15 0-55 U/L Alkaline Phosphatase 107 40-136 U/L Myoglobin 59.6 10.0-92.0 NG/ML Troponin I < 0.30 < 0.30 <0.30 NG/ML Total Protein 6.8 6.4-8.2 GM/DL Albumin 3.7 3.2-4.5 GM/DL My Orders Orders - URSULA DORMAN MD Ekg Tracing (01/11/17 00:06) Cbc With Automated Diff (01/11/17 00:08) Magnesium (01/11/17 00:08) Chest 1 View, Ap/Pa Only (01/11/17 00:08) Cardiac Profile 1 (01/11/17 00:08) Comprehensive Metabolic Panel (01/11/17 00:08) Myoglobin Serum (01/11/17 00:08) Protime With Inr (01/11/17 00:08) Partial Thromboplastin Time (01/11/17 00:08) O2 (01/11/17 00:08) Monitor-Rhythm Ecg Trace Only (01/11/17 00:08) Saline Lock/Iv-Start (01/11/17 00:08) Aspirin Chewable Tablet (Baby Aspirin Ch (01/11/17 00:30) Rx-Nitroglycerin Sl Tabs (Rx-Nitrostat S (01/11/17 00:30) Troponin I (01/11/17 02:08) Medications Given in ED Vital Signs/I&O Vital Sign - Last 12Hours 01/11/17 01/11/17 00:10 02:49 Temp 98.2 Pulse 83 62 Resp 18 18 B/P (MAP) 167/113 Pulse Ox 96 97 Blood Pressure Mean: 131 Progress Note : Progress Note A third nitroglycerin was administered in the emergency room which did not improve his pain. He reports belching which did significantly improve his pain. Case was reviewed with Dr. Eugene who agrees this patient can be dismissed home if a repeat 2 hour troponin is negative as patient just had a negative stress test performed by Dr. Do and had no obstructive disease on his heart catheter in 2012. Patient is agreeable to this plan. Repeat troponin was negative and patient was feeling well at the time of dismissal. INR was super therapeutic and patient was advised to hold his next dose. ECG Initial ECG Impression Date: Jan 11, 2017 Initial ECG Impression Time: 00:10 Initial ECG Rate: 72 Initial ECG Rhythm: A Fib/Flutter Initial ECG Impression: Atrial Fibrillation Comment Atrial fibrillation. Rate controlled. No ST elevation or depression. Diagnostic Imaging Diagonstic Imaging: Xray Plain Films/CT/US/NM/MRI: chest Comments Chest x-ray viewed by me and report not available. No acute abnormalities appreciated. Departure Impression Impression: Primary Impression: Chest pain Qualified Codes: R07.9 - Chest pain, unspecified Additional Impression: Supratherapeutic INR Disposition: 01 HOME, SELF-CARE Condition: Improved Departure-Patient Inst. Decision time for Depature: 02:42 Referrals: ABEL GUAMAN MD (PCP/Family) Primary Care Physician Patient Instructions: Chest Pain (DC) Add. Discharge Instructions: Return to emergency room if symptoms worsen again. Follow-up with your over hauler helper and your primary care provider soon as possible. Consider taking an antacid such as omeprazole for gastric upset. Avoid foods and beverages that irritate your stomach. Skip your next dose of warfarin as your INR is elevated at 3.9 today. Have your INR checked again early next week. All discharge instructions reviewed with patient and/or family. Voiced understanding. URSULA DORMAN MD Jan 11, 2017 2:45 am
[2017-01-11 02:49] VITALS: BP 142/76
--- NOTE | 2017-01-11 06:37 | Diagnostic Imaging Report ---
EXAM: CHEST 1 VIEW, AP/PA ONLY INDICATION: Chest pain. COMPARISON: Chest radiograph 11/25/2016. FINDINGS: Normal heart size and pulmonary vascularity. No focal pulmonary opacity, pleural effusion or pneumothorax. Cardiac pacer. Calcified aorta. No acute osseous findings. IMPRESSION: No acute cardiopulmonary findings. Dictated by: Dictated on workstation # [id number]
== END 2017-01-11 02:55 | disposition home or self-care (01) ==
LOC: EDUNIT# 00:04 → ER 00:05
DX: R07.9 Chest pain, unspecified (principal); E11.9 Type 2 diabetes mellitus without complications; F32.9 Major depressive disorder, single episode, unspecified; F43.10 Post-traumatic stress disorder, unspecified; F41.9 Anxiety disorder, unspecified; K21.9 Gastro-esophageal reflux disease without esophagitis; G25.81 Restless legs syndrome; I25.10 Atherosclerotic heart disease of native coronary artery without angina pectoris; I25.2 Old myocardial infarction; I48.91 Unspecified atrial fibrillation; I10 Essential (primary) hypertension; G47.30 Sleep apnea, unspecified; Z87.891 Personal history of nicotine dependence; Z96.653 Presence of artificial knee joint, bilateral; Z90.89 Acquired absence of other organs; Z79.4 Long term (current) use of insulin; Z51.81 Encounter for therapeutic drug level monitoring; Z79.01 Long term (current) use of anticoagulants; Z98.84 Bariatric surgery status; Z95.5 Presence of coronary angioplasty implant and graft; Z95.0 Presence of cardiac pacemaker
CPT/HCPCS: 36415; 71010; 80053; 83735; 83874; 84484; 85025; 85610; 85730; 93005

== ENCOUNTER → 2017-01-16 | Outpatient (CLI) | payer MEDICARE, OTHER ==
--- NOTE | 2017-01-16 09:39 | Diagnostic Imaging Report ---
PROCEDURE: CT chest without contrast. TECHNIQUE: Multiple contiguous axial images were obtained through the chest without the use of intravenous contrast. INDICATION: Pneumonia. The previous CT chest exam of 11/18/2016, noted diffuse groundglass densities throughout both lungs, particularly in the left perihilar region. These findings were felt to be most likely due to an atypical infection or inflammatory pneumonitis. On this exam the lungs are now generally clear and well aerated. There is no evidence for pneumonia, and there is no sign of a pleural effusion. There is a smooth 5.9-mm noncalcified nodule in the left lung base. This finding was not clearly evident on the prior exam or on the previous study of 10/06/2015, as this portion of the lung was obscured by the groundglass infiltrates. I do suspect that this is a benign process. Even so, I would recommend that a six-month followup CT chest exam be performed for further study. There is no other parenchymal mass identified. There is a small 4-mm calcified granuloma in the right upper lung, however. The heart is stable in size and within normal limits. Coronary artery calcifications are again noted. The aorta is not abnormally dilated. There is no obvious mediastinal or hilar adenopathy. The thyroid gland is not visualized in its entirety. Where visualized the gland is unremarkable. The sections through the upper abdomen fail to show any sign of an acute abnormality. There has been a prior lab band procedure. The left-sided pacemaker seen previously is again evident. IMPRESSION: 1. The appearance of the chest has improved considerably since the prior exam as both lungs are much better aerated. There is no evidence for active disease at this time. 2. The small nodular density in the left lung base is most likely a benign process. Recommendations as above. Dictated by: Dictated on workstation # [id number]
== END ==
LOC: RAD 07:30
PROVIDERS: ATTEND Internal Medicine Critical Care Medicine
DX: R91.1 Solitary pulmonary nodule (principal); Z95.0 Presence of cardiac pacemaker
CPT/HCPCS: 71250

== ENCOUNTER 2017-01-21 11:00 | Outpatient (CLI) | payer MEDICARE, OTHER ==
[~2017-01-21] VITALS: Ht 180.3 cm; Wt 136.8 kg
== END 2017-01-21 11:27 ==
LOC: PREOP 11:00
PROVIDERS: ATTEND Surgery
DX: Z01.818 Encounter for other preprocedural examination (principal); K21.9 Gastro-esophageal reflux disease without esophagitis; R10.9 Unspecified abdominal pain; J69.0 Pneumonitis due to inhalation of food and vomit

== ENCOUNTER 2017-01-23 05:53 | Inpatient (IN) | payer MEDICARE, OTHER ==
[~2017-01-23] VITALS: Ht 180.3 cm; Wt 136.8 kg
[2017-01-23] MEDS ORDERED: NS (IVPB) 50 ML ONE (06:38)
[2017-01-23] MEDS ORDERED: ceFAZolin 1,000 MG (ANCEF) VIAL ONE (06:38)
[2017-01-23] MEDS ORDERED: FAMOTIDINE 20MG/2ML IV (PEPCID) IV ONE (06:45)
[2017-01-23 07:01] LABS: INR 3.9 (0.8-1.4); PROTHROMBIN TIME PATIENT 37.8 SEC (12.2-14.7)
[2017-01-23] MEDS: LACTATED RINGERS 1,000 ML IV PRN ×2 (07:03→09:00)
[2017-01-23] MEDS ORDERED: fentaNYL INJECTION 100 MCG/2 ML AMP ONE (07:09)
[2017-01-23] MEDS ORDERED: proPOfol 200 MG/20 ML (DIPRIVAN) VIAL IV ONE (07:09)
[2017-01-23] MEDS ORDERED: SEVOFLURANE (ULTANE) 15 ML INHAL SOLN ONE ×7 (07:09→10:10)
[2017-01-23] MEDS ORDERED: LACTATED RINGERS 1,000 ML IV ONE ×2 (07:09→08:51)
[2017-01-23] MEDS ORDERED: MIDAZOLAM 2 MG/2 ML (VERSED) VIAL ONE (07:09)
[2017-01-23] MEDS ORDERED: ONDANSETRON 4 MG/2 ML (SDV) Z0FRAN ONE (07:09)
[2017-01-23] MEDS ORDERED: ROCURONIUM 50 MG/5 ML (ZEMURON) VIAL IV ONE (07:09)
[2017-01-23] MEDS ORDERED: LIDOCAINE PF 2% 5 ML (XYLOCAINE) VIAL ONE (07:09)
[2017-01-23] MEDS ORDERED: BUP/EPI 0.5% 1:200,000 (MARCAINE) 10ML VIAL IJ ONE (07:09)
[2017-01-23] MEDS ORDERED: ceFAZolin 1 GM/NS 50 ML IVPB IV ONE ×2 (07:15)
[2017-01-23 07:19] VITALS: BP 159/94
--- NOTE | 2017-01-23 08:09 | Progress Note-Pre Operative ---
Pre-Operative Progress Note H&P Reviewed The H&P was reviewed, patient examined and no changes noted. Date Seen by Provider: Jan 23, 2017 Time Seen by Provider: 07:50 Date H&P Reviewed: Jan 23, 2017 Time H&P Reviewed: 07:55 Pre-Operative Diagnosis: Abdominal pain, reflux, hx aspiration pneumonia ANDREA LUTZ APRN Jan 23, 2017 8:09 am
[2017-01-23] MEDS ORDERED: morphine INJ 10 MG/ML 1ML (SYR OR VIAL) IVP PRN (08:45)
[2017-01-23] MEDS ORDERED: HYDROcodone/APAP 5 MG/325 MG (LORTAB) TAB PO ONE (08:45)
[2017-01-23] MEDS ORDERED: ACETAMINOPHEN 325 MG TABLET/CAPLET (TYLENOL) PO PRN (08:45)
[2017-01-23] MEDS ORDERED: ONDANSETRON 4 MG/2 ML (SDV) Z0FRAN IVP PRN ×2 (08:45→10:15)
[2017-01-23] MEDS ORDERED: SUCCINYLCHOLINE INJ 100 MG/5 ML SYR ONE (08:51)
--- NOTE | 2017-01-23 09:53 | Progress Note-Post Operative ---
Post-Operative Progess Note Surgeon (s)/Probation And Patrol Agent (s) Surgeon LESLYE MARTIN MD Probation And Patrol Agent: none Pre-Operative Diagnosis Abdominal pain, reflux, hx aspiration pneumonia Post-Operative Diagnosis left upper quadrant adhesions. liver steatosis. Procedure & Operative Findings Date of Procedure 01/23/17 Procedure Performed/Findings diagnostic laparoscopy. removal laparoscopic adjustable gastric band and subcutaneous reservoir. Anesthesia Type GET Estimated Blood Loss Estimated blood loss (mL): minimal Specimens/Packing Specimens Removed none LESLYE MARTIN MD Jan 23, 2017 09:53
[2017-01-23] MEDS ORDERED: HYDR-3816 PO (09:57)
--- NOTE | 2017-01-23 09:59 | Discharge Inst-Surgical ---
D/C Lap Instructions-VERONICA New, Converted, or Re-Newed RX: RX on Chart Follow Up Appt in 2 weeks Activity as tolerated No driving for 24 hours No driving while on pain medications Incentive Spirometry use every 2 hours while awake Phase 1 clear liquids 2-3 days then advance as tolerated. Symptoms to Report: Fever over 101 degree F, Nausea/Vomiting Infection Signs and Symptoms to report: Increased redness, Foul odor of wound, Increased drainage Bathing instructions: May shower Operative Area Clean/Dry; Keep incision clean/dry If any problems/questions: Contact your physician or go to Emergency Room LESLYE MARTIN MD Jan 23, 2017 09:59
[2017-01-23] MEDS ORDERED: morphine INJ 10 MG/ML 1ML (SYR OR VIAL) ONE (10:24)
[2017-01-23] MEDS: morphine INJ 10 MG/ML 1ML (SYR OR VIAL) IVP PRN ×3 (10:34→10:42)
--- NOTE | 2017-01-23 11:04 | OPERATIVE REPORT ---
DATE OF SERVICE: 01/23/2017 ATTENDING PHYSICIAN: Dr. Mani Pride PREOPERATIVE DIAGNOSIS: Abdominal pain, reflux, regurgitation. PROCEDURE: Diagnostic laparoscopy and removal of laparoscopic adjustable gastric band and subcutaneous reservoir. Lysis of adhesions. SURGEON: Dr. Martin. CIVIL PROCESS SERVER: Gelacio Herrera APRN. ANESTHESIA: General endotracheal. ESTIMATED BLOOD LOSS: Minimal. FINDINGS: Significant adhesion tissue of the omentum, liver, peritoneal lining to the adjustable gastric band liver steatosis. Due to his symptoms the band and subcutaneous reservoir were removed. DISPOSITION: The patient tolerated the procedure well. INDICATIONS: The patient is a 71-year-old male with recurrent issues with left upper abdominal quadrant pain, gastroesophageal reflux disease and regurgitation. He reports that he has had these symptoms for quite some time now. He is status post a laparoscopic gastric sleeve resection; however, has had fluid removed from the band and continues to have these symptoms. 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 He also reports that he has had a significant amount of pain in the left upper abdominal quadrant without eating as well as after eating a meal. He does not report any hematemesis, no coffee ground emesis. DESCRIPTION OF PROCEDURE: The patient was brought to the operating room, laid supine on the table. After adequate IV pain and sedative medications under general anesthesia, the abdomen was prepped and draped in standard surgical fashion. 0.5% Marcaine with epinephrine was used to anesthetize the overlying skin to the left upper abdominal quadrant. A small transverse skin incision made using a 15 blade. An 0 silk suture was applied to the medial aspect of the incision for retraction and a Veress needle inserted with a low opening pressure of 0 mmHg. The abdomen was then insufflated to 15 mmHg pressure. The Veress needle removed and a 5 mm Xcel trocar placed followed by a 5 mm port 5 degree angle laparoscope. A four quadrant abdominal exploration was performed. There were extensive adhesions in the left upper abdominal quadrant to the left lobe of the liver including the mesentery, stomach and liver and peritoneal lining. There was also significant liver steatosis. There was also omental adhesions towards the anterior abdominal wall. Under direct visualization, we then proceeded to place mid abdominal left of midline and right 10 mm ports under direct visualization after the skin and peritoneal lining were anesthetized using 0.5% Marcaine with epinephrine and a transverse skin incision made using 15 blade. In a similar manner, a right upper abdominal quadrant 5 mm port was placed. The patient was then placed in steep reverse Trendelenburg position. All of the adhesions to the liver, omentum and mesentery and stomach were then taken down using Sonicision under direct visualization. Due to the extensive adhesions and his symptomatology, we proceeded with removal of the band. The adhesion around the buckle of the band was taken down using the Sonicision. The band was then unbuckled. The skin incision to the port site was then extended using a 15 blade. The port was then fully excised including the sutures using electrocautery. The band tubing was then cut and the band tubing removed from the buckle and the entire band removed around the stomach without any resistance and removed out of the peritoneal cavity. Good hemostasis was observed. The fascia and peritoneum to the 10 mm port sites were then closed under direct visualization using a Rusty-Maia device and 0 Vicryl suture. The abdomen was desufflated and remaining ports removed. All skin incisions were closed using 4-0 Monocryl running subcuticular sutures. Wounds were then cleaned and covered with Dermabond. The patient tolerated the procedure well. We will start IV normal pain medication as well as a clear liquid diet. Once he is tolerating clears and has good pain control with oral pain medication, he is ambulating well, we will discharge him home. He will be instructed to proceed with a phase 1 clear liquid diet for the next 3 days and then slowly advance as tolerated. He will also be instructed to proceed with a high protein diet with lean meat protein sources as well as regularly scheduled exercise to maintain his weight. Job ID: [id number] DocumentID: [id number] Dictated Date: 01/23/2017 10:10:11 Machine Tender Date: 01/23/2017 11:04:00 Dictated By: LESLYE MARTIN MD
[2017-01-23 11:05] VITALS: BP 159/79
[2017-01-23 11:35] VITALS: BP 147/75
[2017-01-23] MEDS ORDERED: HYDROcodone/APAP 5 MG/325 MG (LORTAB) TAB ONE (12:01)
[2017-01-23 12:05] VITALS: BP 150/70
== END 2017-01-23 12:25 | disposition home or self-care (01) | DRG 336 ==
LOC: 4TH 05:53 → SDC 05:53 → EDSTATUS 08:00 → SDC 12:25
PROVIDERS: ADMIT Surgery; ATTEND Surgery
PROC: 0FN04ZZ Release Liver, Percutaneous Endoscopic Approach (ICD-10-PCS; 2017-01-23)
PROC: 0DNS4ZZ (ICD-10-PCS; 2017-01-23)
PROC: 0DNW4ZZ Release Peritoneum, Percutaneous Endoscopic Approach (ICD-10-PCS; 2017-01-23)
PROC: 0DP64CZ Removal of Extraluminal Device from Stomach, Percutaneous Endoscopic Approach (ICD-10-PCS; principal; 2017-01-23 08:25)
DX: K66.0 Peritoneal adhesions (postprocedural) (postinfection) (principal); Z98.84 Bariatric surgery status; I10 Essential (primary) hypertension; E78.00 Pure hypercholesterolemia, unspecified; I25.119 Atherosclerotic heart disease of native coronary artery with unspecified angina pectoris; G47.33 Obstructive sleep apnea (adult) (pediatric); K21.9 Gastro-esophageal reflux disease without esophagitis; E11.43 Type 2 diabetes mellitus with diabetic autonomic (poly)neuropathy; Z68.41 Body mass index [BMI] 40.0-44.9, adult; J44.9 Chronic obstructive pulmonary disease, unspecified; E66.01 Morbid (severe) obesity due to excess calories; F43.10 Post-traumatic stress disorder, unspecified; F10.21 Alcohol dependence, in remission; Z96.652 Presence of left artificial knee joint; Z79.899 Other long term (current) drug therapy; Z95.5 Presence of coronary angioplasty implant and graft; Z95.0 Presence of cardiac pacemaker; Z87.891 Personal history of nicotine dependence
CPT/HCPCS: 36415; 82962; 85610; 87081; 94664

== ENCOUNTER 2017-02-10 10:11 | Outpatient (RCR) | payer MEDICARE, OTHER | END 2017-02-15 | disposition home or self-care (01) | LOC: PULM 10:11 | PROVIDERS: ATTEND Nurse Practitioner Family | DX: J18.9 Pneumonia, unspecified organism (principal); R06.00 Dyspnea, unspecified | CPT/HCPCS: 99211 ==

== ENCOUNTER 2017-04-08 10:00 | Outpatient (RCR) | payer MEDICARE, OTHER ==
[~2017-04-08 10:00] MED LIST changes: +ACHD5005 PO; -HYDR-3812 PO; -METO-270 PO; +METO-387 PO
== END 2017-05-19 | disposition home or self-care (01) ==
LOC: PULM 10:00
PROVIDERS: ATTEND Nurse Practitioner Family
DX: J18.9 Pneumonia, unspecified organism (principal); R06.00 Dyspnea, unspecified

== ENCOUNTER 2017-06-26 10:41 | Outpatient (RCR) | payer MEDICARE, OTHER ==
[2017-04-04 13:38] LABS: BASOPHILS % (AUTO) 0 % (0-10); EOSINOPHILS # (AUTO) 0.1 10^3/uL (0.0-0.3); EOSINOPHILS % (AUTO) 1 % (0-10); HEMATOCRIT 44 % (40-54); HEMOGLOBIN 14.6 G/DL (13.3-17.7); LYMPHOCYTES % (AUTO) 26 % (12-44); MEAN CORPUSCULAR HEMOGLOBIN 28 PG (25-34); MEAN CORPUSCULAR HGB CONC 33 G/DL (32-36); MEAN CORPUSCULAR VOLUME 84 FL (80-99); MEAN PLATELET VOLUME 10.7 FL (7.4-10.4); MONOCYTES # (AUTO) 1.6 X 10^3 (0.0-1.0); MONOCYTES % (AUTO) 14 % (0-12); NEUTROPHILS # (AUTO) 6.9 X 10^3 (1.8-7.8); NEUTROPHILS % (AUTO) 60 % (42-75); PLATELET COUNT 259 10^3/uL (130-400); RED BLOOD COUNT 5.23 10^6/uL (4.35-5.85); WHITE BLOOD COUNT 11.6 10^3/uL (4.3-11.0)
[2017-04-04 13:57] LABS: ALBUMIN 3.9 GM/DL (3.2-4.5); CALCIUM 9.4 MG/DL (8.5-10.1); CREATININE SERUM 1.55 MG/DL (0.60-1.30); POTASSIUM 4.5 MMOL/L (3.6-5.0); TOTAL PROTEIN 7.6 GM/DL (6.4-8.2)
[2017-04-04 14:58] LABS: ABSOLUTE RETIC # 77 10e9/L (24-90); RETICULOCYTE % 1.45 % (0.50-2.40)
[2017-04-04 15:11] LABS: LYMPHOCYTES % (MANUAL) 35 %; MONOCYTES % (MANUAL) 9 %; NEUTROPHILS % (MANUAL) 56 %; RBC MORPH NORMAL
[~2017-06-26 10:41] MED LIST changes: +HYDR-34 PO; -HYDR-3816 PO; +VANC1.2520 IV; -VANC1.254 IV
[2017-06-26 10:57] LABS: BASOPHILS # (AUTO) 0.1 10^3/uL (0.0-0.1); BASOPHILS % (AUTO) 1 % (0-10); EOSINOPHILS # (AUTO) 0.2 10^3/uL (0.0-0.3); EOSINOPHILS % (AUTO) 3 % (0-10); HEMATOCRIT 46 % (40-54); HEMOGLOBIN 15.6 G/DL (13.3-17.7); LYMPHOCYTES # (AUTO) 4.3 X 10^3 (1.0-4.0); LYMPHOCYTES % (AUTO) 48 % (12-44); MEAN CORPUSCULAR HEMOGLOBIN 28 PG (25-34); MEAN CORPUSCULAR HGB CONC 34 G/DL (32-36); MEAN CORPUSCULAR VOLUME 83 FL (80-99); MEAN PLATELET VOLUME 11.2 FL (7.4-10.4); MONOCYTES # (AUTO) 1.2 X 10^3 (0.0-1.0); MONOCYTES % (AUTO) 14 % (0-12); NEUTROPHILS # (AUTO) 3.2 X 10^3 (1.8-7.8); NEUTROPHILS % (AUTO) 36 % (42-75); PLATELET COUNT 192 10^3/uL (130-400); RED BLOOD COUNT 5.54 10^6/uL (4.35-5.85); WHITE BLOOD COUNT 8.9 10^3/uL (4.3-11.0)
[2017-06-26 11:23] LABS: ALBUMIN 3.7 GM/DL (3.2-4.5); BILIRUBIN,TOTAL 0.7 MG/DL (0.1-1.0); CALCIUM 8.9 MG/DL (8.5-10.1); CREATININE SERUM 1.28 MG/DL (0.60-1.30); POTASSIUM 4.5 MMOL/L (3.6-5.0); TOTAL PROTEIN 7.6 GM/DL (6.4-8.2)
== END 2017-07-03 | disposition home or self-care (01) ==
LOC: ONC 10:41
PROVIDERS: ATTEND Internal Medicine Hematology & Oncology
DX: D72.829 Elevated white blood cell count, unspecified (principal); I25.10 Atherosclerotic heart disease of native coronary artery without angina pectoris; I10 Essential (primary) hypertension; E11.9 Type 2 diabetes mellitus without complications; I48.0 Paroxysmal atrial fibrillation; I08.1 Rheumatic disorders of both mitral and tricuspid valves; J44.9 Chronic obstructive pulmonary disease, unspecified; E66.9 Obesity, unspecified; Z68.42 Body mass index [BMI] 45.0-49.9, adult; Z79.4 Long term (current) use of insulin; Z79.01 Long term (current) use of anticoagulants; Z79.899 Other long term (current) drug therapy
CPT/HCPCS: 36415; 80053; 83615; 85007; 85025; 85027; 85045; 99213

== ENCOUNTER → 2017-07-08 | Outpatient (CLI) | payer MEDICARE, OTHER ==
--- NOTE | 2017-07-08 15:04 | Diagnostic Imaging Report ---
PROCEDURE: CT chest without contrast. TECHNIQUE: Multiple contiguous axial images were obtained through the chest without the use of intravenous contrast. INDICATION: Lung nodules, followup. COMPARISON: Comparison is made with prior CT chest from 01/16/2017. FINDINGS: A left chest wall cardiac pacemaker remains in place. No axillary lymphadenopathy is detected. Hilar and mediastinal evaluation is limited without intravenous contrast. There appears to be a calcified right paratracheal node, stable in size. There are coronary arterial calcifications present. No pericardial or pleural fluid is detected. Parenchymal evaluation again demonstrates a calcified granuloma in the right upper lobe. There continues to be improved appearance to the chest. There were small nodules noted in the superior segment of the left lower lobe on prior CT that are no longer present and likely were on an infectious/inflammatory basis. In addition, the measured nodule on prior exam more inferiorly in the left lower lobe has resolved as well. There is a new slightly nodular density in the inferior right lobe near the posterior sulcus measuring 6 mm, image 50. Followup could be performed. No ground-glass infiltrates are detected. There is some soft tissue density in the right anterior abdominal wall. This is at the site of patient's previous port and may represent scarring. IMPRESSION: 1. Resolution of previously noted left lower lobe pulmonary nodules. There is a new nodule in the right lower lobe, indeterminate. Followup CT chest in six months is recommended to show continued stability. Dictated by: Dictated on workstation # [id number]
== END ==
LOC: RAD 13:14
PROVIDERS: ATTEND Nurse Practitioner Family
DX: R91.1 Solitary pulmonary nodule (principal); R06.00 Dyspnea, unspecified
CPT/HCPCS: 71250

== ENCOUNTER → 2017-07-31 | Outpatient (CLI) | payer MEDICARE, OTHER ==
--- NOTE | 2017-07-31 11:46 | Diagnostic Imaging Report ---
PROCEDURE: US left lower extremity venous. TECHNIQUE: Multiple real-time grayscale images were obtained over the left lower extremity in various projections. Additional duplex Doppler and color Doppler images were also obtained. INDICATION: Pain and swelling of the left leg The previous left lower extremity venous Doppler exam performed on 03/13/2015 failed to show any sign of a deep venous thrombosis. On this exam, there is still generally good blood flow and compressibility at all levels. There is no evidence for deep venous thrombosis. IMPRESSION: There is still no evidence for deep venous thrombosis of the left lower extremity. Dictated by: Dictated on workstation # [id number]
== END ==
LOC: RAD 10:34
PROVIDERS: ATTEND Nurse Practitioner Family
DX: M79.89 Other specified soft tissue disorders (principal)

== ENCOUNTER 2017-09-18 11:07 | Outpatient (RCR) | payer MEDICARE, OTHER ==
[~2017-09-18 11:07] MED LIST changes: -CITA20TA7 PO; +CITA20TA9 PO; -IPRA3AMP IH; -IPRA3AMP INH; +IPRA3AMP31 IH; +IPRA3AMP31 INH; +SPIR25TA5 PO; +TRAZ-190 PO; -TRAZ100T92 PO; +WARF6TAB49 PO; -WARF6TAB6 PO
[2017-09-18 11:57] LABS: BASOPHILS # (AUTO) 0.1 10^3/uL (0.0-0.1); BASOPHILS % (AUTO) 1 % (0-10); EOSINOPHILS # (AUTO) 0.3 10^3/uL (0.0-0.3); EOSINOPHILS % (AUTO) 3 % (0-10); HEMATOCRIT 46 % (40-54); HEMOGLOBIN 15.1 G/DL (13.3-17.7); LYMPHOCYTES # (AUTO) 2.7 X 10^3 (1.0-4.0); LYMPHOCYTES % (AUTO) 29 % (12-44); MEAN CORPUSCULAR HEMOGLOBIN 29 PG (25-34); MEAN CORPUSCULAR HGB CONC 33 G/DL (32-36); MEAN CORPUSCULAR VOLUME 87 FL (80-99); MEAN PLATELET VOLUME 11.1 FL (7.4-10.4); MONOCYTES # (AUTO) 0.9 X 10^3 (0.0-1.0); MONOCYTES % (AUTO) 10 % (0-12); NEUTROPHILS # (AUTO) 5.3 X 10^3 (1.8-7.8); NEUTROPHILS % (AUTO) 58 % (42-75); PLATELET COUNT 209 10^3/uL (130-400); RED BLOOD COUNT 5.27 10^6/uL (4.35-5.85); RED CELL DISTRIBUTION WIDTH 15.3 % (10.0-14.5); WHITE BLOOD COUNT 9.2 10^3/uL (4.3-11.0)
[2017-09-18 12:19] LABS: ALANINE AMINOTRANSFERASE 22 U/L (0-55); ALKALINE PHOSPHATASE 88 U/L (40-136); BUN/CREATININE RATIO 19; CARBON DIOXIDE 26 MMOL/L (21-32); CHLORIDE 102 MMOL/L (98-107); CREATININE SERUM 1.07 MG/DL (0.60-1.30); GFR ESTIMATED > 60; GLUCOSE 291 MG/DL (70-105); POTASSIUM 4.4 MMOL/L (3.6-5.0); SODIUM 137 MMOL/L (135-145); TOTAL PROTEIN 7.5 GM/DL (6.4-8.2)
== END 2017-12-17 | disposition home or self-care (01) ==
LOC: ONC 11:07
PROVIDERS: ATTEND Internal Medicine Hematology & Oncology
DX: D72.829 Elevated white blood cell count, unspecified (principal); I25.10 Atherosclerotic heart disease of native coronary artery without angina pectoris; I10 Essential (primary) hypertension; E11.9 Type 2 diabetes mellitus without complications; I48.0 Paroxysmal atrial fibrillation; I08.1 Rheumatic disorders of both mitral and tricuspid valves; J44.9 Chronic obstructive pulmonary disease, unspecified; E66.9 Obesity, unspecified; Z68.42 Body mass index [BMI] 45.0-49.9, adult; Z79.4 Long term (current) use of insulin; Z79.01 Long term (current) use of anticoagulants; Z79.899 Other long term (current) drug therapy
CPT/HCPCS: 36415; 80053; 83615; 85025; 99213

== ENCOUNTER → 2017-09-25 | Outpatient (CLI) | payer MEDICARE, OTHER ==
[~2017-09-25] MED LIST changes: +BARIUM SUSPENSION 105% (LIQUID POLIBAR PLUS) 240 ML/DOSE PO ONE; +BARIUM SUSPENSION 60% (LIQUID EZ PAQUE) 240 ML DOSE PO ONE; +IPRA3AMP IH; +IPRA3AMP INH; -IPRA3AMP31 IH; -IPRA3AMP31 INH; -SPIR25TA5 PO; -TRAZ-190 PO; +TRAZ100T92 PO
--- NOTE | 2017-09-25 17:13 | Diagnostic Imaging Report ---
EXAM: Upper GI exam INDICATION: Preop gastric sleeve. COMPARISON: There are no prior studies available for comparison. A double contrast exam was performed. The patient swallowed the contrast material without difficulty. There was no delay or obstruction of the passage of barium through the esophagus. There was no sign of a hiatal hernia nor is there any evidence for reflux. The stomach shows good distensibility and motility. There is no mass or ulceration evident. The duodenal bulb and proximal small bowel are unremarkable. IMPRESSION: 1. There is no evidence for a hiatal hernia or for gastroesophageal reflux. 2. There is no gastric mass or ulceration identified. 3. The duodenal bulb and proximal small bowel are unremarkable. Dictated by: Dictated on workstation # [id number]
== END ==
LOC: RAD 09:27
PROVIDERS: ATTEND Nurse Practitioner Family
DX: K21.9 Gastro-esophageal reflux disease without esophagitis (principal); Z98.84 Bariatric surgery status
CPT/HCPCS: 74241

== ENCOUNTER 2017-12-26 15:24 | Outpatient (RCR) | payer MEDICARE, OTHER ==
[~2017-12-26 15:24] MED LIST changes: -AMLO10TA2 PO; +AMLO10TA6 PO; -AMLO5TAB2 PO; +AMLO5TAB7 PO; -BARIUM SUSPENSION 105% (LIQUID POLIBAR PLUS) 240 ML/DOSE PO ONE; -BARIUM SUSPENSION 60% (LIQUID EZ PAQUE) 240 ML DOSE PO ONE; -IPRA3AMP IH; -IPRA3AMP INH; +IPRA3AMP31 IH; +IPRA3AMP31 INH; -LOSA100T28 PO; +LOSA100T8 PO; -LOSA25TA21 PO; +LOSA25TA6 PO; -LOSA50TA36 PO; +LOSA50TA7 PO; -ROPI3TAB2 PO; +ROPI3TAB4 PO; +SPIR25TA5 PO; +TRAZ-190 PO; -TRAZ100T92 PO
[2017-12-26 15:45] LABS: BASOPHILS % (AUTO) 0 % (0-10); EOSINOPHILS # (AUTO) 0.1 10^3/uL (0.0-0.3); EOSINOPHILS % (AUTO) 1 % (0-10); HEMATOCRIT 50 % (40-54); HEMOGLOBIN 16.3 G/DL (13.3-17.7); LYMPHOCYTES # (AUTO) 2.7 X 10^3 (1.0-4.0); LYMPHOCYTES % (AUTO) 27 % (12-44); MEAN CORPUSCULAR HEMOGLOBIN 30 PG (25-34); MEAN CORPUSCULAR HGB CONC 33 G/DL (32-36); MEAN CORPUSCULAR VOLUME 92 FL (80-99); MEAN PLATELET VOLUME 10.9 FL (7.4-10.4); MONOCYTES # (AUTO) 1.1 X 10^3 (0.0-1.0); MONOCYTES % (AUTO) 11 % (0-12); NEUTROPHILS # (AUTO) 6.1 X 10^3 (1.8-7.8); NEUTROPHILS % (AUTO) 61 % (42-75); PLATELET COUNT 196 10^3/uL (130-400); RED CELL DISTRIBUTION WIDTH 15.8 % (10.0-14.5); WHITE BLOOD COUNT 10.1 10^3/uL (4.3-11.0)
[2017-12-26 16:04] LABS: BILIRUBIN,TOTAL 0.9 MG/DL (0.1-1.0); CALCIUM 9.5 MG/DL (8.5-10.1); CREATININE SERUM 1.23 MG/DL (0.60-1.30); POTASSIUM 4.4 MMOL/L (3.6-5.0); TOTAL PROTEIN 7.3 GM/DL (6.4-8.2)
== END 2018-01-16 | disposition home or self-care (01) ==
LOC: ONC 15:24
PROVIDERS: ATTEND Internal Medicine Hematology & Oncology
DX: D72.829 Elevated white blood cell count, unspecified (principal); I25.10 Atherosclerotic heart disease of native coronary artery without angina pectoris; I10 Essential (primary) hypertension; E11.9 Type 2 diabetes mellitus without complications; I48.0 Paroxysmal atrial fibrillation; I08.1 Rheumatic disorders of both mitral and tricuspid valves; J44.9 Chronic obstructive pulmonary disease, unspecified; E66.9 Obesity, unspecified; Z68.42 Body mass index [BMI] 45.0-49.9, adult; Z79.4 Long term (current) use of insulin; Z79.01 Long term (current) use of anticoagulants; Z79.899 Other long term (current) drug therapy
CPT/HCPCS: 36415; 80053; 83615; 85025; 99213

== ENCOUNTER 2018-06-26 07:45 | Outpatient (RCR) | payer MEDICARE, OTHER ==
[~2018-06-26 07:45] MED LIST changes: -AMLO10TA6 PO; +AMLO10TA7 PO; -AMLO5TAB7 PO; +AMLO5TAB9 PO; +LOSA100T57 PO; -LOSA100T8 PO; +LOSA25TA41 PO; -LOSA25TA6 PO; +LOSA50TA63 PO; -LOSA50TA7 PO; -VANC1.2520 IV; +VANC1.2521 IV
[2018-06-26 08:21] LABS: BASOPHILS # (AUTO) 0.1 10^3/uL (0.0-0.1); BASOPHILS % (AUTO) 1 % (0-10); EOSINOPHILS # (AUTO) 0.3 10^3/uL (0.0-0.3); EOSINOPHILS % (AUTO) 3 % (0-10); HEMATOCRIT 49 % (40-54); HEMOGLOBIN 16.5 G/DL (13.3-17.7); LYMPHOCYTES # (AUTO) 3.6 X 10^3 (1.0-4.0); LYMPHOCYTES % (AUTO) 35 % (12-44); MEAN CORPUSCULAR HEMOGLOBIN 30 PG (25-34); MEAN CORPUSCULAR HGB CONC 34 G/DL (32-36); MEAN CORPUSCULAR VOLUME 90 FL (80-99); MEAN PLATELET VOLUME 11.3 FL (7.4-10.4); MONOCYTES # (AUTO) 0.9 X 10^3 (0.0-1.0); MONOCYTES % (AUTO) 9 % (0-12); NEUTROPHILS # (AUTO) 5.3 X 10^3 (1.8-7.8); NEUTROPHILS % (AUTO) 52 % (42-75); PLATELET COUNT 196 10^3/uL (130-400); RED CELL DISTRIBUTION WIDTH 15.3 % (10.0-14.5); WHITE BLOOD COUNT 10.2 10^3/uL (4.3-11.0)
[2018-06-26 08:44] LABS: ALANINE AMINOTRANSFERASE 21 U/L (0-55); ALKALINE PHOSPHATASE 68 U/L (40-136); BILIRUBIN,TOTAL 0.7 MG/DL (0.1-1.0); BUN/CREATININE RATIO 16; CALCIUM 9.5 MG/DL (8.5-10.1); CARBON DIOXIDE 21 MMOL/L (21-32); CHLORIDE 103 MMOL/L (98-107); CREATININE SERUM 1.15 MG/DL (0.60-1.30); GFR ESTIMATED > 60; GLUCOSE 162 MG/DL (70-105); POTASSIUM 4.4 MMOL/L (3.6-5.0); SODIUM 137 MMOL/L (135-145); TOTAL PROTEIN 7.4 GM/DL (6.4-8.2)
== END 2018-09-24 | disposition home or self-care (01) ==
LOC: ONC 07:45
PROVIDERS: ATTEND Internal Medicine Hematology & Oncology
DX: D72.829 Elevated white blood cell count, unspecified (principal); I25.10 Atherosclerotic heart disease of native coronary artery without angina pectoris; I10 Essential (primary) hypertension; E11.9 Type 2 diabetes mellitus without complications; I48.0 Paroxysmal atrial fibrillation; I08.1 Rheumatic disorders of both mitral and tricuspid valves; J44.9 Chronic obstructive pulmonary disease, unspecified; E66.9 Obesity, unspecified; Z68.42 Body mass index [BMI] 45.0-49.9, adult; Z79.4 Long term (current) use of insulin; Z79.01 Long term (current) use of anticoagulants; Z79.899 Other long term (current) drug therapy
CPT/HCPCS: 36415; 80053; 83615; 85025; 99213

== ENCOUNTER 2018-12-25 10:02 | Outpatient (RCR) | payer MEDICARE, OTHER ==
[~2018-12-25 10:02] MED LIST changes: -DULO30CA48 PO; +DULO30CA49 PO; -DULO60CA58 PO; +DULO60CA59 PO
[2018-12-25 10:21] LABS: BASOPHILS % (AUTO) 0 % (0-10); EOSINOPHILS # (AUTO) 0.3 10^3/uL (0.0-0.3); EOSINOPHILS % (AUTO) 3 % (0-10); HEMATOCRIT 45 % (40-54); HEMOGLOBIN 14.6 G/DL (13.3-17.7); LYMPHOCYTES # (AUTO) 3.6 X 10^3 (1.0-4.0); LYMPHOCYTES % (AUTO) 40 % (12-44); MEAN CORPUSCULAR HEMOGLOBIN 31 PG (25-34); MEAN CORPUSCULAR HGB CONC 33 G/DL (32-36); MEAN CORPUSCULAR VOLUME 95 FL (80-99); MEAN PLATELET VOLUME 10.5 FL (7.4-10.4); MONOCYTES # (AUTO) 0.9 X 10^3 (0.0-1.0); MONOCYTES % (AUTO) 10 % (0-12); NEUTROPHILS # (AUTO) 4.3 X 10^3 (1.8-7.8); NEUTROPHILS % (AUTO) 47 % (42-75); PLATELET COUNT 188 10^3/uL (130-400); RED CELL DISTRIBUTION WIDTH 14.7 % (10.0-14.5); WHITE BLOOD COUNT 9.1 10^3/uL (4.3-11.0)
[2018-12-25 10:39] LABS: ALANINE AMINOTRANSFERASE 16 U/L (0-55); ALBUMIN 3.9 GM/DL (3.2-4.5); ALKALINE PHOSPHATASE 76 U/L (40-136); BILIRUBIN,TOTAL 0.5 MG/DL (0.1-1.0); BUN/CREATININE RATIO 15; CALCIUM 9.5 MG/DL (8.5-10.1); CARBON DIOXIDE 25 MMOL/L (21-32); CHLORIDE 106 MMOL/L (98-107); CREATININE SERUM 1.04 MG/DL (0.60-1.30); GFR ESTIMATED > 60; GLUCOSE 158 MG/DL (70-105); POTASSIUM 4.5 MMOL/L (3.6-5.0); SODIUM 140 MMOL/L (135-145); TOTAL PROTEIN 6.5 GM/DL (6.4-8.2)
[2019-01-25] MEDS ORDERED: TIZA4CAP8 PO (19:02)
== END 2019-03-25 | disposition home or self-care (01) ==
LOC: ONC 10:02
PROVIDERS: ATTEND Internal Medicine Hematology & Oncology
DX: D72.829 Elevated white blood cell count, unspecified (principal); I25.10 Atherosclerotic heart disease of native coronary artery without angina pectoris; I10 Essential (primary) hypertension; E11.9 Type 2 diabetes mellitus without complications; I48.0 Paroxysmal atrial fibrillation; I08.1 Rheumatic disorders of both mitral and tricuspid valves; J44.9 Chronic obstructive pulmonary disease, unspecified; E66.9 Obesity, unspecified; Z68.42 Body mass index [BMI] 45.0-49.9, adult; Z79.4 Long term (current) use of insulin; Z79.01 Long term (current) use of anticoagulants; Z79.899 Other long term (current) drug therapy
CPT/HCPCS: 36415; 80053; 85025; 99213

== ENCOUNTER 2019-01-25 17:46 | Emergency (ER) | payer MEDICARE, OTHER ==
[~2019-01-25] VITALS: Ht 180.3 cm; Wt 114.0 kg
--- NOTE | 2019-01-25 18:03 | ED Head Injury ---
General Stated Complaint: FALL - HIT HEAD Source: patient History of Present Illness Date Seen by Provider: Jan 25, 2019 Time Seen by Provider: 17:50 Initial Comments PT ARRIVES VIA POV STATES HE SLIPPED AND FELL, HITTING THE BACK OF HIS HEAD ON CORNER OF DOOR JAMB NOT WITNESSED, BUT ARRIVES A VERY SHORT TIME AFTER--SHE HEARD HIM HIT HIS HEAD AND RUSHED STRAIGHT TO HIM PT DOES NOT KNOW IF HE HAD BRIEF LOSS OF CONSCIOUSNESS OR NOT, BUT STATES HE REMEMBERS HITTING HIS HEAD AND THEN BEING ON THE FLOOR, AND PT WAS ON THE FLOOR WHEN ARRIVED. OCCURRED AT 1630 AT [facility] STATES HIS NECK AND LOW BACK ARE STARTING TO GET STIFF NO VISION CHANGES NO DIZZINESS NO NEW PARESTHESIAS OR MOTOR DEFICITS--HAS NEUROPATHY FROM [facility] ?SLIGHT NAUSEA BRIEFLY--NOT NOW HAS SLIGHT HEADACHE/ HEAD PAIN AT SITE OF IMPACT--LEFT CROWN OF HEAD NO BLEEDING--HAS VERY MINOR ABRASION TO AREA PT IS ON COUMADIN FOR CHRONIC ATRIAL FIBRILLATION DENIES OTHER INJURIES OR AREAS OF PAIN PCP: DR. 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 HAWKINS Allergies and Home Medications Allergies Coded Allergies: Sulfa (Sulfonamide Antibiotics) (Verified Allergy, Intermediate, RASH, 01/21/17) BROKE OUT IN BRIGHT RED BURNING RASH BUT IS UNSURE OF ANY BREATHING DIFFICULTY AT THE TIME. WAS GIVEN TWO SHOTS DECADRON WHILE IN OFFICE. Home Medications Alprazolam 0.5 Mg Tablet, 0.5 MG PO BID PRN for ANXIETY, (Reported) Amlodipine Besylate 5 Mg Tablet, 5 MG PO DAILY, (Reported) Duloxetine HCl 60 Mg Capsule.dr, 60 MG PO DAILY, (Reported) Furosemide 40 Mg Tablet, 40 MG PO DAILY, (Reported) Gabapentin 100 Mg Capsule, 200 MG PO TID, (Reported) TAKES 2 (100MG) CAPSULES Hydrocodone Bit/Acetaminophen 1 Each Tablet, 1-2 EACH PO Q6H Prescribed by: LESLYE MARTIN on 01/23/17 0957 Insulin Glargine,Hum.rec.anlog 100 Unit/1 Ml Vial, 32 UNIT SQ DAILY, (Reported) Insulin Glargine,Hum.rec.anlog 100 Unit/1 Ml Vial, 26 UNIT SQ HS, (Reported) Metoprolol Succinate 25 Mg Tab.er.24h, 25 MG PO DAILY, (Reported) Pantoprazole Sodium 40 Mg Tablet.dr, 40 MG PO BID, (Reported) Potassium Chloride 20 Meq Tablet.er, 20 MEQ PO BID, (Reported) Ropinirole HCl 3 Mg Tablet, 3 MG PO HS, (Reported) Spironolactone 25 Mg Tablet, 25 MG PO DAILY, (Reported) Tamsulosin HCl 0.4 Mg Cap.er.24h, 0.8 MG PO HS, (Reported) TAKES 2 (0.4 MG) CAPSULES Tizanidine HCl 4 Mg Capsule, 4 MG PO TID Prescribed by: VISHAL EL on 01/25/191901 Trazodone HCl 100 Mg Tablet, 100 MG PO HS, (Reported) Warfarin Sodium 7.5 Mg Tablet, 7.5 MG PO DAILY, (Reported) Patient Home Medication List Home Medication List Reviewed: Yes Review of Systems Review of Systems Constitutional: no symptoms reported Eyes: No Symptoms Reported Ears, Nose, Mouth, Throat: no symptoms reported Respiratory: no symptoms reported Cardiovascular: no symptoms reported Gastrointestinal: see HPI, nausea Genitourinary: no symptoms reported Musculoskeletal: see HPI, back pain, neck pain Skin: see HPI Psychiatric/Neurological: See HPI; Denies Cognitive Dysfunction; Headache, Other (PER HPI) Endocrine: No Symptoms Reported Hematologic/Lymphatic: See HPI Past Gqwycmp-Grcupw-Ofsnmr Hx Past Med/Social Hx: Reviewed and Corrections made Patient Social History Alcohol Use: Regular Use (HX OF ABUSE, NOW "OCCASIONALLY" DRINKS) Alcohol Beverage of Choice: Beer Recreational Drug Use: No Smoking Status: Former Smoker Type Used: Cigarettes Former Smoker, Quit: September 29, 1981 Recent Foreign Travel: No Contact w/Someone Who Travel: No Recent Hopitalizations: No Immunizations Up To Date Tetanus Booster (TDap): Less than 5yrs Date of Pneumonia Vaccine: Jan 21, 2016 Date of Influenza Vaccine: Feb 01, 2016 Seasonal Allergies Seasonal Allergies: Yes Past Medical History Surgeries: Yes (L5/S1 SPINAL FUSION; RIGHT ROTATOR CUFF REPAIR; BILATERAL KNEE SCOPES; BILATERAL TOTAL KNEE REPLACEMENTS; CARDIAC CATH WITH LDA STENT X 1; LAP BAND BARIATRIC SURGERY--LATER REMOVAL OF LAP BAND; CATARACT SURGERY) Abdominal, Cardiac, Coronary Stent, Eye Surgery, Gallbladder, Joint Replacement, Orthopedic, Pacemaker, Tonsillectomy Respiratory: Yes (ASPIRATION PNEUMONIA DUE TO GERD) Pneumonia, Sleep Apnea Currently Using CPAP: Yes Currently Using BIPAP: No Cardiac: Yes (STENT X1, PACEMAKER-MEDTRONIC) Atrial Fibrillation, Coronary Artery Disease, Heart Attack, High Cholesterol, Hypertension Neurological: Yes (RESTLESS LEG SYNDROME; PERIPHERAL NEUROPATHY--FEET) Neuropathy Reproductive Disorders: No Sexually Transmitted Disease: No HIV/AIDS: No Genitourinary: Yes Prostate Problems, Renal Failure Gastrointestinal: Yes (LAP BAND BARIATRIC SURGERY) Gastroesophageal Reflux Musculoskeletal: Yes (SPINAL FUSION L5/S1; BILATERAL TOTAL KNEE REPLACEMENTS) Arthritis Endocrine: Yes (OBESITY) Diabetes, Insulin dep HEENT: Yes Cataract Loss of Vision: Bilateral Hearing Impairment: Denies Cancer: No Psychosocial: Yes Anxiety, PTSD, Depression Integumentary: No Blood Disorders: No Adverse Reaction/Blood Tranf: No Family Medical History Cancer 19 FATHER 19 MOTHER Chest pain 19 FATHER 19 MOTHER G8 BROTHER G8 BROTHER G8 BROTHER G8 BROTHER Congestive heart failure 19 MOTHER G8 BROTHER G8 BROTHER G8 BROTHER Family history: Arthritis Family history: Cardiovascular disease 19 FATHER Family history: Diabetes mellitus Family history: Glaucoma Family history: Hypertension Heart disease History of - respiratory disease Malignant neoplasm of lung 19 FATHER Myocardial infarction 19 MOTHER G8 BROTHER G8 BROTHER G8 BROTHER Parkinson's disease Prostate cancer G8 BROTHER Stroke Visual impairment No Family History of: Abdominal aortic aneurysm [place]'s disease Alcoholism Aphasia Cancer of colon Cataract Congenital heart disease Cystic fibrosis Dementia Dysphagia Family history: Allergy Family history: Alzheimer's disease Family history: Asthma Family history: Breast disease Family history: Coronary thrombosis Family history: Gastrointestinal disease Family history: Osteoporosis Family history: Thyroid disorder Headache Hearing loss Hereditary disease History of - anemia History of - disorder History of drug abuse Human immunodeficiency virus (HIV) seropositivity Hypercholesterolemia Infertile Kidney disease Psychotic disorder Seizure disorder Tuberculosis Heart Disease, Hypertension Physical Exam Vital Signs Vital Signs - First Documented 01/25/19 17:52 Temp 36.9 Pulse 67 Resp 19 B/P (MAP) 187/109 Pulse Ox 97 O2 Delivery Room Air Capillary Refill : Height, Weight, BMI Height: 5'11.00" Weight: 301lbs. 8.0oz. [id number]; 42.1 BMI Method:Stated General Appearance: WD/WN, no apparent distress, obese HEENT: PERRL/EOMI, normal ENT inspection, other (SMALL RAISED CONTUSION WITH VERY SUPERFICIAL ABRASION TO LEFT CROWN OF HEAD. NO BRUISING NOTED AT THIS TIME AND NO BLEEDING) Neck: tender lateral (MILD TENDERNESS AND SPASMS TO PARA-CERVICAL MUSCLES) Cardiovascular: regular rate, rhythm, no murmur Respiratory: chest non-tender, normal breath sounds Gastrointestinal: non tender, soft Back: other (MILD LUMBAR PARAVERTEBRAL MUSCLE TENDERNESS ) Extremities: normal range of motion, non-tender, normal inspection, no pedal edema, no calf tenderness, normal capillary refill Psychiatric: alert, oriented x 3 Crainal Nerves: normal hearing, normal speech, PERRL Coordination/Gait: normal gait (WALKS WITHOUT DIFFICULTY) Motor/Sensory: no motor deficit, sensory deficit (PERIPHERAL NEUROPATHY) Skin: normal color, warm/dry José Miguel Coma Score Best Eye Response: (4) Open Spontaneously Best Verbal Response: (5) Oriented Best Motor Response: (6) Obeys Commands [place] Total: 15 Procedures/Interventions Date of ETT Placement: October 01, 2015 Time of ETT Placement: 511 Progress/Results/Core Measures Results/Orders Lab Results Laboratory Tests Test 01/25/19 18:05 Range/Units White Blood Count 11.8 H 4.3-11.0 10^3/uL Red Blood Count 4.97 4.35-5.85 10^6/uL Hemoglobin 15.7 13.3-17.7 G/DL Hematocrit 47 40-54 % Mean Corpuscular Volume 94 80-99 FL Mean Corpuscular Hemoglobin 32 25-34 PG Mean Corpuscular Hemoglobin Concent 34 32-36 G/DL Red Cell Distribution Width 14.7 H 10.0-14.5 % Platelet Count 210 130-400 10^3/uL Mean Platelet Volume 10.5 H 7.4-10.4 FL Neutrophils (%) (Auto) 61 42-75 % Lymphocytes (%) (Auto) 27 12-44 % Monocytes (%) (Auto) 11 0-12 % Eosinophils (%) (Auto) 2 0-10 % Basophils (%) (Auto) 0 0-10 % Neutrophils # (Auto) 7.2 1.8-7.8 X 10^3 Lymphocytes # (Auto) 3.2 1.0-4.0 X 10^3 Monocytes # (Auto) 1.3 H 0.0-1.0 X 10^3 Eosinophils # (Auto) 0.2 0.0-0.3 10^3/uL Basophils # (Auto) 0.0 0.0-0.1 10^3/uL Prothrombin Time 23.7 H 12.2-14.7 SEC INR Comment 2.0 H 0.8-1.4 Activated Partial Thromboplast Time 38 H 24-35 SEC Sodium Level 136 135-145 MMOL/L Potassium Level 4.2 3.6-5.0 MMOL/L Chloride Level 100 98-107 MMOL/L Carbon Dioxide Level 25 21-32 MMOL/L Anion Gap 11 5-14 MMOL/L Blood Urea Nitrogen 22 H 7-18 MG/DL Creatinine 1.25 0.60-1.30 MG/DL Estimat Glomerular Filtration Rate 57 BUN/Creatinine Ratio 18 Glucose Level 157 H 70-105 MG/DL Calcium Level 9.7 8.5-10.1 MG/DL My Orders Orders - VISHAL EL DO Ed Iv/Invasive Line Start (01/25/19 17:57) Ct Head/Cervical Spine Wo (01/25/19 17:57) Ct Thoracic/Lumbar Spine Wo (01/25/19 17:57) Basic Metabolic Panel (01/25/19 17:57) Cbc With Automated Diff (01/25/19 17:57) Protime With Inr (01/25/19 17:57) Partial Thromboplastin Time (01/25/19 17:57) Vital Signs/I&O 01/25/19 17:52 Temp 36.9 Pulse 67 Resp 19 B/P (MAP) 187/109 Pulse Ox 97 O2 Delivery Room Air Progress Progress Note : Progress Note UNEVENTFUL ER STAY PT DECLINES PAIN MEDICATION AT THIS TIME Diagnostic Imaging Comments CT HEAD/CERVICAL SPINE--NO ACUTE PROCESS, DEGENERATIVE CHANGES OF CERVICAL SPINE AND AGE-RELATED CHANGES OF BRAIN CT THORACIC/LUMBAR SPINE--NO ACUTE PROCESS, DEGENERATIVE CHANGES OF SPINE PER RADIOLOGIST REPORTS AT 1854 Reviewed: Reviewed by Me Departure Impression Primary Impression: Minor head injury without loss of consciousness Additional Impression: CERVICAL AND LUMBAR STRAIN Disposition: 01 HOME, SELF-CARE Condition: Stable Departure-Patient Inst. Referrals: ABEL GUAMAN MD (PCP/Family) Primary Care Physician Patient Instructions: Cervical Muscle Strain (DC), Lumbar Muscle Strain (DC), Minor Head Injury (DC) Add. Discharge Instructions: HOME, REST TYLENOL NEEDED FOR PAIN FOR FIRST 24 HOURS, THEN YOU MAY TAKE YOUR HYDROCODONE NEEDED FOR PAIN CONTINUE YOUR REGULAR MEDICATIONS PRESCRIBED FOLLOW UP WITH YOUR DR NEEDED, RETURN TO ER IF PROBLEMS Scripts Tizanidine HCl (Tizanidine HCl) 4 Mg Capsule 4 MG PO TID for Muscle Spasms, #15 CAP Prov: VISHAL EL DO 01/25/19 VISHAL EL DO Jan 25, 2019 18:03
[2019-01-25 18:12] LABS: BASOPHILS % (AUTO) 0 % (0-10); EOSINOPHILS # (AUTO) 0.2 10^3/uL (0.0-0.3); EOSINOPHILS % (AUTO) 2 % (0-10); HEMATOCRIT 47 % (40-54); HEMOGLOBIN 15.7 G/DL (13.3-17.7); LYMPHOCYTES # (AUTO) 3.2 X 10^3 (1.0-4.0); LYMPHOCYTES % (AUTO) 27 % (12-44); MEAN CORPUSCULAR HEMOGLOBIN 32 PG (25-34); MEAN CORPUSCULAR HGB CONC 34 G/DL (32-36); MEAN CORPUSCULAR VOLUME 94 FL (80-99); MEAN PLATELET VOLUME 10.5 FL (7.4-10.4); MONOCYTES # (AUTO) 1.3 X 10^3 (0.0-1.0); MONOCYTES % (AUTO) 11 % (0-12); NEUTROPHILS # (AUTO) 7.2 X 10^3 (1.8-7.8); NEUTROPHILS % (AUTO) 61 % (42-75); PLATELET COUNT 210 10^3/uL (130-400); RED CELL DISTRIBUTION WIDTH 14.7 % (10.0-14.5); WHITE BLOOD COUNT 11.8 10^3/uL (4.3-11.0)
[2019-01-25 18:23] LABS: PROTHROMBIN TIME PATIENT 23.7 SEC (12.2-14.7)
[2019-01-25 18:29] LABS: CALCIUM 9.7 MG/DL (8.5-10.1); CREATININE SERUM 1.25 MG/DL (0.60-1.30); POTASSIUM 4.2 MMOL/L (3.6-5.0)
--- NOTE | 2019-01-25 18:36 | Diagnostic Imaging Report ---
PROCEDURE: CT head and CT cervical spine without contrast. TECHNIQUE: Multiple contiguous axial images were obtained through the brain and cervical spine without the use of intravenous contrast. Sagittal and coronal reformations through the cervical spine were then performed. Auto Exposure Controls were utilized during the CT exam to meet ALARA standards for radiation dose reduction. INDICATION: Fall. Headache and neck pain. COMPARISON: Comparison is made to the prior CT of the head from August 12, 2015. FINDINGS: Mild age-related global volume loss is present and not significantly changed from the previous exam. There are no CT findings of acute intracranial hemorrhage. There is no evidence of an abnormal extra-axial collection. There is no intracranial mass effect or shift. There is no hydrocephalus. There are no findings of territorial loss of mcdonald-white differentiation or abnormal low density within the basal ganglia or the dov. The mastoid air cells are clear. There is no fluid level evident within the paranasal sinuses. The visualized portions of the orbits are unremarkable. No calvarial fracture is evident. There appears to be some minimal soft tissue swelling overlying the high posterior left parietal region. The cervical spine demonstrates straightening of the cervical lordosis. There is normal alignment of the craniocervical junction and a normal relationship of the lateral masses of C1 and C2. The facets are normally aligned. There is no facet joint or disc space widening. Vertebral body heights are maintained. There are no findings of an acute cervical spine fracture. 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 Lung apices are clear. Soft tissues of the neck demonstrate no acute process. IMPRESSION: 1. No CT evidence of an acute intracranial abnormality. 2. Minimal left parietal soft tissue swelling without calvarial fracture. 3. No evidence of cervical spine fracture or traumatic malalignment. 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 Dictated by: Dictated on workstation # [id number]
--- NOTE | 2019-01-25 18:44 | Diagnostic Imaging Report ---
PROCEDURE: CT thoracic and lumbar spine without contrast. TECHNIQUE: Multiple contiguous axial images were obtained through the thoracic and lumbar spine without the use of intravenous contrast. Sagittal and coronal reformations were then performed. INDICATION: Fall. Back pain. FINDINGS: There is a grade 1 degenerative anterolisthesis of both L4 on L5 and L5 on S1. The alignment is otherwise normal. The minimal S-shaped scoliosis is likely positional in nature. There are multilevel endplate changes present throughout the thoracic and the lumbar spine but there are no CT findings of an acute thoracic or lumbar fracture or evidence of a suspicious marrow replacing lesion. The facets throughout the thoracic and lumbar spine maintain appropriate alignment. There is no facet joint or disc space widening. There are no findings of high-grade canal stenosis within the thoracic spine. Within the lumbar spine, there appear to be moderate to severe central canal stenosis at L3-4 and L4-5 and prior decompressive laminectomies at the L5-S1 level. Paraspinal soft tissues appear unremarkable. There are atherosclerotic calcifications within a normal caliber aorta. The kidneys are nonobstructed. Visualized portion of the lungs appear clear. Cardiomegaly is present. There is a pacemaker device. No posterior rib fractures are evident. IMPRESSION: 1. Thoracolumbar degenerative disc disease with degenerative anterolisthesis of L4 on L5 and L5 on S1. 2. Multilevel endplate changes and facet arthropathy. 3. No findings of an acute thoracic or lumbar fracture. 4. No high-grade thoracic canal stenosis. There does appear to be advanced canal stenosis at both the L3-4 and L4-5 levels within the lumbar spine. There have been prior decompressive laminectomies at the L5-S1 level. Dictated by: Dictated on workstation # [id number]
[2019-01-25] MEDS ORDERED: TIZA4CAP8 PO (19:02)
[2019-01-25 19:11] VITALS: BP 166/91
== END 2019-01-25 19:16 | disposition home or self-care (01) ==
LOC: EDUNIT# 17:46 → ER 17:47
DX: S09.90XA Unspecified injury of head, initial encounter (principal); S39.012A Strain of muscle, fascia and tendon of lower back, initial encounter; S16.1XXA Strain of muscle, fascia and tendon at neck level, initial encounter; S00.93XA Contusion of unspecified part of head, initial encounter; G47.30 Sleep apnea, unspecified; K21.9 Gastro-esophageal reflux disease without esophagitis; I48.91 Unspecified atrial fibrillation; I25.10 Atherosclerotic heart disease of native coronary artery without angina pectoris; I25.2 Old myocardial infarction; E78.00 Pure hypercholesterolemia, unspecified; I10 Essential (primary) hypertension; E11.40 Type 2 diabetes mellitus with diabetic neuropathy, unspecified; E66.9 Obesity, unspecified; F41.9 Anxiety disorder, unspecified; F43.10 Post-traumatic stress disorder, unspecified; F32.9 Major depressive disorder, single episode, unspecified; Z68.35 Body mass index [BMI] 35.0-35.9, adult; Z88.2 Allergy status to sulfonamides; Z79.4 Long term (current) use of insulin; Z87.891 Personal history of nicotine dependence; Z98.2 Presence of cerebrospinal fluid drainage device; Z98.1 Arthrodesis status; Z96.653 Presence of artificial knee joint, bilateral; Z95.5 Presence of coronary angioplasty implant and graft; Z98.84 Bariatric surgery status; Z95.0 Presence of cardiac pacemaker; Z82.49 Family history of ischemic heart disease and other diseases of the circulatory system; Z80.1 Family history of malignant neoplasm of trachea, bronchus and lung; Z80.42 Family history of malignant neoplasm of prostate; W01.198A Fall on same level from slipping, tripping and stumbling with subsequent striking against other object, initial encounter
CPT/HCPCS: 36415; 70450; 72125; 72128; 72131; 80048; 85025; 85610; 85730

== ENCOUNTER → 2019-11-11 | Outpatient (CLI) | payer MEDICARE, OTHER ==
[~2019-11-11] MED LIST changes: -METO-387 PO; -MONT10TA24 PO; +MONT10TA26 PO; +MTP25TSR PO; -ROPI0.5T2 PO; +ROPI0.5T4 PO; -ROPI2TAB4 PO; +ROPI2TAB6 PO; +TIZA4CAP8 PO; -TRAM50TA2 PO; -TRAZ-190 PO; +TRAZ-227 PO; -WARF5TAB PO; +WARF5TAB2 PO
--- NOTE | 2019-11-11 16:35 | Diagnostic Imaging Report ---
INDICATION: Shortness of breath. EXAMINATION: PA and lateral chest. FINDINGS: There is a dual-chamber pacemaker. Heart size and pulmonary vascularity are normal. Lungs are clear. There is no effusion or pneumothorax. IMPRESSION: Negative chest. Dictated by: Dictated on workstation # [id number]
== END ==
LOC: RAD 15:45
PROVIDERS: ATTEND Nurse Practitioner Family
DX: R06.02 Shortness of breath (principal)
CPT/HCPCS: 71046

== ENCOUNTER 2021-10-19 15:18 | Emergency (ER) | payer MEDICARE, OTHER ==
[~2021-10-19] VITALS: Ht 180.3 cm; Wt 150.8 kg
[~2021-10-19 15:18] MED LIST changes: +AMLO-250 PO; +AMLO-251 PO; -AMLO10TA7 PO; -AMLO5TAB9 PO; -DULO60CA6 PO; +DULO60CA7 PO; +GLBR5T PO; +MONT-40 PO; -MONT10TA26 PO; -PANT40TA3 PO; +PANT40TA52 PO; +POTA-179 PO; +WARF4TAB3 PO; -WARF4TAB70 PO; +WARF7.5T3; +WARF7.5T3 PO; -WARF7.5T49; -WARF7.5T49 PO
--- NOTE | 2021-10-19 15:57 | ED Upper Extremity ---
General Chief Complaint: Trauma-Non Activation Stated Complaint: L HAND INDEX FINGER LAC Nursing Triage Note: PT AMBULATORY INTO ER WITH COMPLAINT OF LACERATION TO LEFT 2ND FINGER. PT STATES THAT HE WAS AT HOME WIDDLING A STICK WHEN THE KNIFE DECIDED TO WADDLE. PT CLEANED WOUND AT HOME WITH RUBBING ALCOHOL AND WATER. WOUND IS COVERED WITH CLEAN GAUZE. PAIN RATED AT 4/10. Source: patient Exam Limitations: no limitations History of Present Illness Date Seen by Provider: Oct 19, 2021 Time Seen by Provider: 15:21 Initial Comments 76yoM with PMH of CAD with stents, afib on Warfarin, HTN, coming in after cutting his left index finger on a knife just prior to arrival. He was using it on a stick and slipped. His last tetanus shot was 4 years ago. Bleeding well controlled. He has no new numbness or weakness. He says it was a relatively superficial cut. Is otherwise denying any other acute complaints. Allergies and Home Medications Allergies Coded Allergies: Sulfa (Sulfonamide Antibiotics) (Verified Allergy, Intermediate, RASH, 01/21/17) BROKE OUT IN BRIGHT RED BURNING RASH BUT IS UNSURE OF ANY BREATHING DIFFICULTY AT THE TIME. WAS GIVEN TWO SHOTS DECADRON WHILE IN DR. OFFICE. Patient Home Medication List Home Medication List Reviewed: Yes Alprazolam (Alprazolam) 0.5 Mg Tablet, 0.5 MG PO BID PRN for ANXIETY, (Reported) Entered as Reported by: JOSE ALAS on 11/17/16 1353 Amlodipine Besylate (Amlodipine Besylate) 5 Mg Tablet, 5 MG PO DAILY, (Reported) Entered as Reported by: BARBARA HIDALGO on 09/29/16 1328 Duloxetine HCl (Duloxetine HCl) 60 Mg Capsule.dr, 60 MG PO DAILY, (Reported) Entered as Reported by: DURGA STOCK on 11/18/16 1140 Furosemide (Lasix) 40 Mg Tablet, 40 MG PO DAILY, (Reported) Entered as Reported by: ERICK BACA on 02/15/16 2245 Gabapentin (Gabapentin) 100 Mg Capsule, 200 MG PO TID, (Reported) Entered as Reported by: BARBARA HIDALGO on 09/29/16 1328 Hydrocodone Bit/Acetaminophen (Lortab 7.5 Mg Tablet) 1 Each Tablet, 1-2 EACH PO Q6H Prescribed by: LESLYE MARTIN on 01/23/17 0957 Insulin Glargine,Hum.rec.anlog (Lantus) 100 Unit/1 Ml Vial, 32 UNIT SQ DAILY, (Reported) Entered as Reported by: BARBARA HIDALGO on 09/29/16 1332 Insulin Glargine,Hum.rec.anlog (Lantus) 100 Unit/1 Ml Vial, 26 UNIT SQ HS, (Reported) Entered as Reported by: BARBARA HIDALGO on 09/29/16 1332 Metoprolol Succinate (Metoprolol Succinate) 25 Mg Tab.er.24h, 25 MG PO DAILY, (Reported) Entered as Reported by: ERICK BACA on 02/15/16 224 Pantoprazole Sodium (Pantoprazole Sodium) 40 Mg Tablet.dr, 40 MG PO BID, (Reported) Entered as Reported by: SAMSON RETANA on 01/21/17 103 Potassium Chloride (Potassium Chloride) 20 Meq Tablet.er, 20 MEQ PO BID, (Reported) Entered as Reported by: ERICK BACA on 02/15/16 224 Ropinirole HCl (Ropinirole HCl) 3 Mg Tablet, 3 MG PO HS, (Reported) Entered as Reported by: ERICK BACA on 02/15/16 224 Spironolactone (Spironolactone) 25 Mg Tablet, 25 MG PO DAILY, (Reported) Entered as Reported by: AMBAR MARISCAL on 09/30/16 1030 Tamsulosin HCl (Tamsulosin HCl) 0.4 Mg Cap.er.24h, 0.8 MG PO HS, (Reported) Entered as Reported by: KIAN LAI on 11/01/16 1059 Tizanidine HCl (Tizanidine HCl) 4 Mg Capsule, 4 MG PO TID Prescribed by: VISHAL EL on 01/25/19 1902 Trazodone HCl (Trazodone HCl) 100 Mg Tablet, 100 MG PO HS, (Reported) Entered as Reported by: DELMAR STREET on 10/31/16 1508 Warfarin Sodium (Warfarin Sodium) 7.5 Mg Tablet, 7.5 MG PO DAILY, (Reported) Entered as Reported by: DURGA STOCK on 11/18/16 1142 Review of Systems Constitutional: No fever EENTM: No blurred vision Respiratory: no symptoms reported Cardiovascular: no symptoms reported Gastrointestinal: no symptoms reported Genitourinary: no symptoms reported Musculoskeletal: no symptoms reported Skin: other (lac to left index finger) Psychiatric/Neurological: No Symptoms Reported All Other Systems Reviewed Negative Unless Noted: Yes Past Emwfzop-Fijfxi-Tkuqji Hx Patient Social History Tobacco Use?: No Use of E-Cig and/or Vaping dev: No Substance use?: No Alcohol Use?: Yes Alcohol type: Beer, Hard Liquor, Wine Alcohol Frequency: Several times a month Pt feels they are or have been: No Immunizations Up To Date Tetanus Booster (TDap): Less than 5yrs Influenza Vaccine Up-to-Date: Yes; Up-to-Date COVID19 Vaccine 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: [employer]-Septic Seasonal Allergies Seasonal Allergies: Yes Past Medical History Surgeries: Yes Abdominal, Cardiac, Coronary Stent, Eye Surgery, Gallbladder, Joint Replacement, Orthopedic, Pacemaker, Tonsillectomy Respiratory: Yes (ASPIRATION PNEUMONIA DUE TO GERD) Pneumonia, Sleep Apnea Currently Using CPAP: Yes Currently Using BIPAP: No Cardiac: Yes (STENT X1, PACEMAKER-[employer] [employer]) Atrial Fibrillation, Coronary Artery Disease, Heart Attack, High Cholesterol, Hypertension Neurological: Yes (RESTLESS LEG SYNDROME; PERIPHERAL NEUROPATHY--FEET) Neuropathy Reproductive Disorders: No Sexually Transmitted Disease: No HIV/AIDS: No Genitourinary: Yes Prostate Problems, Renal Failure Gastrointestinal: Yes (LAP BAND BARIATRIC SURGERY) Gastroesophageal Reflux Musculoskeletal: Yes (SPINAL FUSION L5/S1; BILATERAL TOTAL KNEE REPLACEMENTS) Arthritis Endocrine: Yes (OBESITY) Diabetes, Insulin dep HEENT: Yes Cataract Loss of Vision: Bilateral Hearing Impairment: Denies Cancer: No Psychosocial: Yes Anxiety, PTSD, Depression Integumentary: No Blood Disorders: No Adverse Reaction/Blood Tranf: No Family Medical History Cancer 19 FATHER 19 MOTHER Chest pain 19 FATHER 19 MOTHER G8 BROTHER G8 BROTHER G8 BROTHER G8 BROTHER Congestive heart failure 19 MOTHER G8 BROTHER G8 BROTHER G8 BROTHER Family history: Arthritis Family history: Cardiovascular disease 19 FATHER Family history: Diabetes mellitus Family history: Glaucoma Family history: Hypertension Heart disease History of - respiratory disease Malignant neoplasm of lung 19 FATHER Myocardial infarction 19 MOTHER G8 BROTHER G8 BROTHER G8 BROTHER Parkinson's disease Prostate cancer G8 BROTHER Stroke Visual impairment No Family History of: Abdominal aortic aneurysm [place]'s disease Alcoholism Aphasia Cancer of colon Cataract Congenital heart disease Cystic fibrosis Dementia Dysphagia Family history: Allergy Family history: Alzheimer's disease Family history: Asthma Family history: Breast disease Family history: Coronary thrombosis Family history: Gastrointestinal disease Family history: Osteoporosis Family history: Thyroid disorder Headache Hearing loss Hereditary disease History of - anemia History of - disorder History of drug abuse Human immunodeficiency virus (HIV) seropositivity Hypercholesterolemia Infertile Kidney disease Psychotic disorder Seizure disorder Tuberculosis Heart Disease, Hypertension Physical Exam Vital Signs Vital Signs - First Documented 10/19/21 15:32 Temp 36.3 Pulse 79 Resp 20 B/P (MAP) 139/93 (108) Pulse Ox 97 O2 Delivery Room Air Capillary Refill : Less Than 3 Seconds Height, Weight, BMI Height: 5'11.00" Weight: 301lbs. 8.0oz. [id number]; 46.00 BMI Method:Stated General Appearance: WD/WN, no apparent distress HEENT: PERRL/EOMI, normal ENT inspection, pharynx normal Neck: non-tender, full range of motion, supple, normal inspection Cardiovascular: no edema, no murmur, irregularly irregular Respiratory: chest non-tender, lungs clear, normal breath sounds, no respiratory distress, no accessory muscle use Gastrointestinal: normal bowel sounds, non tender, soft; No distended, No guarding, No rebound Back: normal inspection, no CVA tenderness, no vertebral tenderness Shoulder: normal inspection Hand: normal ROM, laceration (laceration that is 3cm along the left proximal index finger along the dorsal surface just distal to the MCP joint. Superficial with no visible tendon, neurovascularly intact including full flexion and extension of finger) Neurologic/Tendon: normal sensation, normal motor functions, normal tendon functions Neurologic/Psychiatric: no motor/sensory deficits, alert, normal mood/affect Skin: normal color, warm/dry Lymphatic: no adenopathy Procedures/Interventions Date of ETT Placement: October 01, 2015 Time of ETT Placement: 511 Wound Location: Upper Extremities Other Wound Location left index finger Wound Length (cm): 3 Wound's Depth, Shape: superficial Wound Explored: clean Irrigated w/ Saline (ccs): 100 Anesthesia: 1% Lidocaine Volume Anesthetic (ccs): 1 Suture: Ethlion Suture Size: 4-0 Number of Sutures: 1 Sterile Dressing Applied?: Yes Progress Single running suture along the length of the wound with good closure. He tolerated the procedure well. Progress/Results/Core Measures Results/Orders Vital Signs/I&O 10/19/21 15:32 Temp 36.3 Pulse 79 Resp 20 B/P (MAP) 139/93 (108) Pulse Ox 97 O2 Delivery Room Air Blood Pressure Mean: 108 Progress Progress Note : Progress Note Presented for superficial laceration to the left index finger. ABCs were intact and vitals were stable on presentation. Neurovascular exam normal. Tetanus is up-to-date. He was cleaned and then sutured without difficulty. I believe he stable for discharge with outpatient follow-up. He was sent home with strict return precautions. Departure Impression Primary Impression: Finger laceration Qualified Codes: S61.211A - Laceration without foreign body of left index finger without damage to nail, initial encounter Disposition: HOME, SELF-CARE Condition: Stable Departure-Patient Inst. Decision time for Depature: 15:58 Referrals: ABEL GUAMAN MD (PCP/Family) Primary Care Physician Patient Instructions: Laceration Repair With Stitches ED Add. Discharge Instructions: The stitches need to come out in 10 days. He can come to the ER or go to your regular doctor. They have any redness spitting up your arm, pus coming out of the wound, or fever I would want you to be seen immediately by doctor. Do not let her get wet for at least 2 days, afterwards he can let water run over it, but do not scrub it. Try to keep a clean Band-Aid on it to keep it from getting dirty. ISH CHOW MD Oct 19, 2021 15:57
[2021-10-19 16:09] VITALS: BP 139/93
== END 2021-10-19 16:08 | disposition home or self-care (01) ==
LOC: EDUNIT# 15:18 → ER 15:19
DX: S61.211A Laceration without foreign body of left index finger without damage to nail, initial encounter (principal); I48.91 Unspecified atrial fibrillation; I25.10 Atherosclerotic heart disease of native coronary artery without angina pectoris; E11.42 Type 2 diabetes mellitus with diabetic polyneuropathy; G47.30 Sleep apnea, unspecified; Z99.89 Dependence on other enabling machines and devices; Z79.4 Long term (current) use of insulin; Z79.01 Long term (current) use of anticoagulants; W26.0XXA Contact with knife, initial encounter; Y92.009 Unspecified place in unspecified non-institutional (private) residence as the place of occurrence of the external cause
CPT/HCPCS: 12001

== ENCOUNTER 2022-01-23 13:47 | Inpatient (IN) | payer MEDICARE ==
[~2022-01-23] VITALS: Ht 180.3 cm; Wt 152.9 kg
[~2022-01-23 13:47] MED LIST changes: +LEVO750T PO; -LEVO750T39 PO
--- NOTE | 2022-01-23 14:21 | ED Cardiac General ---
History of Present Illness General Stated Complaint: LOW BP 90/40 - DIZZY - WEAK Source: patient Exam Limitations: no limitations History of Present Illness Date Seen by Provider: Jan 23, 2022 Time Seen by Provider: 14:12 Initial Comments This is a 76-year-old male who presented to the ER via POV with his for concerns of low blood pressure and dizziness. states that he appeared to be having some increasing dizziness over the past week however this significantl y worsened today. He was seen at the [facility] for his annual health visit and he was noted to have low blood pressure in office. States that on the way home his vision was a little hazy and he was still feeling off so his checked his blood sugar and his blood pressure at home. His blood pressure was 90/40 and his blood sugar was in the 170s So she decided to bring him to the emergency department for evaluation. He states that he had been feeling overall fine, no headache, fever, chills, cough, shortness of breath, chest pain, nausea, vomiting, abdominal pain, dysuria, hematuria. He denies any wounds or lesions other than a scratch on his right forearm. Allergies and Home Medications Allergies Coded Allergies: Sulfa (Sulfonamide Antibiotics) (Verified Allergy, Intermediate, RASH, 01/21/17) BROKE OUT IN BRIGHT RED BURNING RASH BUT IS UNSURE OF ANY BREATHING DIFFICULTY AT THE TIME. WAS GIVEN TWO SHOTS DECADRON WHILE IN DR. OFFICE. Patient Home Medication List Home Medication List Reviewed: Yes Alprazolam (Alprazolam) 0.5 Mg Tablet, 0.5 MG PO BID PRN for ANXIETY, (Reported) Entered as Reported by: JOSE ALAS on 11/17/16 1353 Amlodipine Besylate (Amlodipine Besylate) 5 Mg Tablet, 5 MG PO DAILY, (Reported) Entered as Reported by: BARBARA HIDALGO on 09/29/16 1328 Duloxetine HCl (Duloxetine HCl) 60 Mg Capsule., 60 MG PO DAILY, (Reported) Entered as Reported by: DURGA STOCK on 11/18/16 1140 Furosemide (Lasix) 40 Mg Tablet, 40 MG PO DAILY, (Reported) Entered as Reported by: ERICK BACA on 02/15/16 2245 Gabapentin (Gabapentin) 100 Mg Capsule, 200 MG PO TID, (Reported) Entered as Reported by: BARBARA HIDALGO on 09/29/16 1328 Hydrocodone Bit/Acetaminophen (Lortab 7.5 Mg Tablet) 1 Each Tablet, 1-2 EACH PO Q6H Prescribed by: LESLYE MARTIN on 01/23/17 0957 Insulin Glargine,Hum.rec.anlog (Lantus) 100 Unit/1 Ml Vial, 32 UNIT SQ DAILY, (Reported) Entered as Reported by: BARBARA HIDALOG on 09/29/16 1332 Insulin Glargine,Hum.rec.anlog (Lantus) 100 Unit/1 Ml Vial, 26 UNIT SQ HS, (Reported) Entered as Reported by: BARBARA HIDALGO on 09/29/16 1332 Metoprolol Succinate (Metoprolol Succinate) 25 Mg Tab.er.24h, 25 MG PO DAILY, (Reported) Entered as Reported by: ERICK BACA on 02/15/16 2243 Pantoprazole Sodium (Pantoprazole Sodium) 40 Mg Tablet.dr, 40 MG PO BID, (Reported) Entered as Reported by: SAMSON RETANA on 01/21/17 1033 Potassium Chloride (Potassium Chloride) 20 Meq Tablet.er, 20 MEQ PO BID, (Reported) Entered as Reported by: ERICK BACA on 02/15/16 2245 Ropinirole HCl (Ropinirole HCl) 3 Mg Tablet, 3 MG PO HS, (Reported) Entered as Reported by: ERICK BACA on 02/15/16 2245 Spironolactone (Spironolactone) 25 Mg Tablet, 25 MG PO DAILY, (Reported) Entered as Reported by: AMBAR MARISCAL on 09/30/16 1030 Tamsulosin HCl (Tamsulosin HCl) 0.4 Mg Cap.er.24h, 0.8 MG PO HS, (Reported) Entered as Reported by: KIAN LAI on 11/01/16 1059 Tizanidine HCl (Tizanidine HCl) 4 Mg Capsule, 4 MG PO TID Prescribed by: VISHAL EL on 01/25/19 1902 Trazodone HCl (Trazodone HCl) 100 Mg Tablet, 100 MG PO HS, (Reported) Entered as Reported by: DELMAR STREET on 10/31/16 1508 Warfarin Sodium (Warfarin Sodium) 7.5 Mg Tablet, 7.5 MG PO DAILY, (Reported) Entered as Reported by: DURGA STOCK on 11/18/16 1142 Review of Systems Review of Systems Constitutional: see HPI EENTM: See HPI Respiratory: No Symptoms Reported Cardiovascular: No Symptoms Reported Gastrointestinal: No Symptoms Reported Genitourinary: No Symptoms Reported Musculoskeletal: no symptoms reported Skin: see HPI Psychiatric/Neurological: No Symptoms Reported Endocrine: No Symptoms Reported Hematologic/Lymphatic: No Symptoms Reported Past Fmkfaem-Xjjrkb-Ihffvt Hx Immunizations Up To Date Tetanus Booster (TDap): Less than 5yrs Seasonal Allergies Seasonal Allergies: Yes Past Medical History Surgeries: Yes Abdominal, Cardiac, Coronary Stent, Eye Surgery, Gallbladder, Joint Replacement, Orthopedic, Pacemaker, Tonsillectomy Respiratory: Yes (ASPIRATION PNEUMONIA DUE TO GERD) Pneumonia, Sleep Apnea Currently Using CPAP: Yes Currently Using BIPAP: No Cardiac: Yes (STENT X1, PACEMAKER-[employer]) Atrial Fibrillation, Coronary Artery Disease, Heart Attack, High Cholesterol, Hypertension Neurological: Yes (RESTLESS LEG SYNDROME; PERIPHERAL NEUROPATHY--FEET) Neuropathy Reproductive Disorders: No Sexually Transmitted Disease: No HIV/AIDS: No Genitourinary: Yes Prostate Problems, Renal Failure Gastrointestinal: Yes (LAP BAND BARIATRIC SURGERY) Gastroesophageal Reflux Musculoskeletal: Yes (SPINAL FUSION L5/S1; BILATERAL TOTAL KNEE REPLACEMENTS) Arthritis Endocrine: Yes (OBESITY) Diabetes, Insulin dep HEENT: Yes Cataract Loss of Vision: Bilateral Hearing Impairment: Denies Cancer: No Psychosocial: Yes Anxiety, PTSD, Depression Integumentary: No Blood Disorders: No Adverse Reaction/Blood Tranf: No Family Medical History Cancer 19 FATHER 19 MOTHER Chest pain 19 FATHER 19 MOTHER G8 BROTHER G8 BROTHER G8 BROTHER G8 BROTHER Congestive heart failure 19 MOTHER G8 BROTHER G8 BROTHER G8 BROTHER Family history: Arthritis Family history: Cardiovascular disease 19 FATHER Family history: Diabetes mellitus Family history: Glaucoma Family history: Hypertension Heart disease History of - respiratory disease Malignant neoplasm of lung 19 FATHER Myocardial infarction 19 MOTHER G8 BROTHER G8 BROTHER G8 BROTHER Parkinson's disease Prostate cancer G8 BROTHER Stroke Visual impairment No Family History of: Abdominal aortic aneurysm [place] disease Alcoholism Aphasia Cancer of colon Cataract Congenital heart disease Cystic fibrosis Dementia Dysphagia Family history: Allergy Family history: Alzheimer's disease Family history: Asthma Family history: Breast disease Family history: Coronary thrombosis Family history: Gastrointestinal disease Family history: Osteoporosis Family history: Thyroid disorder Headache Hearing loss Hereditary disease History of - anemia History of - disorder History of drug abuse Human immunodeficiency virus (HIV) seropositivity Hypercholesterolemia Infertile Kidney disease Psychotic disorder Seizure disorder Tuberculosis Heart Disease, Hypertension Physical Exam Vital Signs Vital Signs - First Documented 01/23/22 14:05 Temp 36.7 Pulse 63 Resp 19 B/P (MAP) 109/56 (73) Pulse Ox 96 O2 Delivery Room Air Capillary Refill : Height, Weight, BMI Height: 5'11.00" Weight: 301lbs. 8.0oz. 136.075194vi; 46.00 BMI Method:Stated General Appearance: No Apparent Distress, Obese HEENT: PERRL/EOMI, Normal ENT Inspection, Pharynx Normal, Moist Mucous Membranes Neck: Normal Inspection, Non Tender, Supple Respiratory: Lungs Clear, Normal Breath Sounds, No Accessory Muscle Use, No Respiratory Distress; No Rales, No Wheezing Cardiovascular: Regular Rate, Rhythm, No Edema; No No Gallop; Normal Peripheral Pulses Gastrointestinal: Normal Bowel Sounds, Non Tender, Soft Extremity: Normal Capillary Refill Neurologic/Psychiatric: Alert, Oriented x3, No Motor/Sensory Deficits, Normal Mood/Affect Skin: Normal Color, Warm/Dry Focused Exam Lactate Level 01/23/22 14:45: Lactic Acid Level 3.58*H Lactic Acid Level Laboratory Tests Test 01/23/22 14:45 Lactic Acid Level 3.58 MMOL/L (0.50-2.00) *H Procedures/Interventions Date of ETT Placement: October 01, 2015 Time of ETT Placement: 511 Suture Size: 4-0 Progress/Results/Core Measures Results/Orders Lab Results Laboratory Tests Test 01/23/22 14:20 01/23/22 14:45 01/23/22 15:25 Range/Units White Blood Count 15.2 H 4.3-11.0 10^3/uL Red Blood Count 5.35 4.30-5.52 10^6/uL Hemoglobin 16.6 13.3-17.7 g/dL Hematocrit 48 40-54 % Mean Corpuscular Volume 91 80-99 fL Mean Corpuscular Hemoglobin 31 25-34 pg Mean Corpuscular Hemoglobin Concent 34 32-36 g/dL Red Cell Distribution Width 14.7 H 10.0-14.5 % Platelet Count 237 130-400 10^3/uL Mean Platelet Volume 10.4 9.0-12.2 fL Immature Granulocyte % (Auto) 1 % Neutrophils (%) (Auto) 66 42-75 % Lymphocytes (%) (Auto) 22 12-44 % Monocytes (%) (Auto) 10 0-12 % Eosinophils (%) (Auto) 1 0-10 % Basophils (%) (Auto) 1 0-10 % Neutrophils # (Auto) 10.1 H 1.8-7.8 10^3/uL Lymphocytes # (Auto) 3.3 1.0-4.0 10^3/uL Monocytes # (Auto) 1.5 H 0.0-1.0 10^3/uL Eosinophils # (Auto) 0.2 0.0-0.3 10^3/uL Basophils # (Auto) 0.1 0.0-0.1 10^3/uL Immature Granulocyte # (Auto) 0.2 H 0.0-0.1 10^3/uL Neutrophils % (Manual) 72 % Lymphocytes % (Manual) 20 % Monocytes % (Manual) 6 % Eosinophils % (Manual) 0 % Basophils % (Manual) 0 % Band Neutrophils 2 % Blood Morphology Comment NORMAL Prothrombin Time 16.7 H 12.2-14.7 SEC INR Comment 1.3 0.8-1.4 Activated Partial Thromboplast Time 41 H 24-35 SEC Sodium Level 137 135-145 MMOL/L Potassium Level 4.2 3.6-5.0 MMOL/L Chloride Level 98 98-107 MMOL/L Carbon Dioxide Level 23 21-32 MMOL/L Anion Gap 16 H 5-14 MMOL/L Blood Urea Nitrogen 50 H 7-18 MG/DL Creatinine 1.82 H 0.60-1.30 MG/DL Estimat Glomerular Filtration Rate 38 BUN/Creatinine Ratio 27 Glucose Level 233 H 70-105 MG/DL Calcium Level 9.7 8.5-10.1 MG/DL Corrected Calcium 9.5 8.5-10.1 MG/DL Magnesium Level 2.2 1.6-2.4 MG/DL Total Bilirubin 1.2 H 0.1-1.0 MG/DL Aspartate Amino Transf (AST/SGOT) 15 5-34 U/L Alanine Aminotransferase (ALT/SGPT) 20 0-55 U/L Alkaline Phosphatase 87 40-136 U/L Myoglobin 241.1 H 10.0-92.0 NG/ML Troponin I 0.044 H <0.028 NG/ML Total Protein 7.4 6.4-8.2 GM/DL Albumin 4.3 3.2-4.5 GM/DL Lactic Acid Level 3.58 *H 0.50-2.00 MMOL/L Urine Color YELLOW Urine Clarity CLEAR Urine pH 5.5 5-9 Urine Specific [place] 1.015 L 1.016-1.022 Urine Protein NEGATIVE NEGATIVE Urine Glucose (UA) 3+ H NEGATIVE Urine Ketones TRACE H NEGATIVE Urine Nitrite NEGATIVE NEGATIVE Urine Bilirubin NEGATIVE NEGATIVE Urine Urobilinogen 0.2 < = 1.0 MG/DL Urine Leukocyte Esterase NEGATIVE NEGATIVE Urine RBC (Auto) NEGATIVE NEGATIVE Urine RBC NONE /HPF Urine WBC 0-2 /HPF Urine Squamous Epithelial Cells 0-2 /HPF Urine Crystals NONE /LPF Urine Bacteria MODERATE H /HPF Urine Casts PRESENT /LPF Urine Hyaline Casts 10-25 H /LPF Urine Mucus SMALL H /LPF Urine Culture Indicated YES My Orders Orders - LEONORA CAHNDRA APRN Ekg Tracing (01/23/22 14:08) Cbc With Automated Diff (01/23/22 14:19) Comprehensive Metabolic Panel (01/23/22 14:19) Blood Culture (01/23/22 14:19) Sputum Culture (01/23/22 14:19) Urinalysis (01/23/22 14:19) Urine Culture (01/23/22 14:19) Protime With Inr (01/23/22 14:19) Partial Thromboplastin Time (01/23/22 14:19) Chest 1 View, Ap/Pa Only (01/23/22 14:19) Ed Iv/Invasive Line Start (01/23/22 14:19) Vital Signs Adult Sepsis Patie Q15M (01/23/22 14:19) O2 (01/23/22 14:19) Remove Rings In Anticipation O (01/23/22 14:19) Lactic Acid Analyzer (01/23/22 14:19) Magnesium (01/23/22 14:19) Myoglobin Serum (01/23/22 14:19) Manual Differential (01/23/22 14:20) Ns Iv 1000 Ml (Sodium Chloride 0.9%) (01/23/22 15:00) Troponin I Jayy (01/23/22 15:02) Soliman Cath (01/23/22 15:16) Cefepime Injection (Maxipime Injection) (01/23/22 15:45) Urine Culture (01/23/22 15:25) Medications Given in ED Current Medications Medications Dose Ordered Sig/Leatha Route Start Time Stop Time Status Last Admin Dose Admin Cefepime HCl 1000 mg/Sodium Chloride 50 ml @ 100 mls/hr ONCE ONCE IV 01/23/22 15:45 01/23/22 16:14 01/23/22 15:46 100 MLS/HR Sodium Chloride 1,000 ml @ 999 mls/hr ONCE ONCE IV 01/23/22 15:00 01/23/22 16:00 DC 01/23/22 15:05 999 MLS/HR Vital Signs/I&O 01/23/22 14:05 Temp 36.7 Pulse 63 Resp 19 B/P (MAP) 109/56 (73) Pulse Ox 96 O2 Delivery Room Air Diagnostic Imaging Diagonstic Imaging: Xray Plain Films/CT/US/NM/MRI: chest Comments [facility], [place] NAME: CHIKI SNYDER [facility] REC#: [id number] PT STATUS: REG ER : 1945 PHYSICIAN: LEONORA CHANDRA APRN ADMIT DATE: 01/23/22/ER Draft Date of Exam:01/23/22 CHEST 1 VIEW, AP/PA ONLY INDICATION: Dizziness, low BP. COMPARISON: 11/11/2019. FINDINGS: Single frontal view of the chest demonstrates normal heart size and pulmonary vascularity. The lungs are well aerated and clear. No large pleural effusion or pneumothorax is seen. The visualized osseous structures show no acute abnormalities. Left-sided dual-lead pacemaker is noted. IMPRESSION: 1. No acute cardiopulmonary process. Dictated on workstation # [id number] Dict: 01/23/22 1447 Trans: 01/23/22 1448 [id number] Interpreted by: JP NAIR MD Electronically signed by: Departure Communication (Admissions) Time/Spoke to Admitting Phy: 15:41 Impression Primary Impression: Sepsis due to undetermined organism Disposition: ADMITTED INPATIENT Condition: Stable Departure-Patient Inst. Referrals: NO,LOCAL PHYSICIAN (PCP/Family) Primary Care Physician LEONORA CHANDRA NAILHEAD OPERATOR Jan 23, 2022 14:21
[2022-01-23 14:35] LABS: BASOPHILS # (AUTO) 0.1 10^3/uL (0.0-0.1); BASOPHILS % (AUTO) 1 % (0-10); EOSINOPHILS # (AUTO) 0.2 10^3/uL (0.0-0.3); EOSINOPHILS % (AUTO) 1 % (0-10); HEMATOCRIT 48 % (40-54); HEMOGLOBIN 16.6 g/dL (13.3-17.7); LYMPHOCYTES # (AUTO) 3.3 10^3/uL (1.0-4.0); LYMPHOCYTES % (AUTO) 22 % (12-44); MEAN CORPUSCULAR HEMOGLOBIN 31 pg (25-34); MEAN CORPUSCULAR HGB CONC 34 g/dL (32-36); MEAN CORPUSCULAR VOLUME 91 fL (80-99); MEAN PLATELET VOLUME 10.4 fL (9.0-12.2); MONOCYTES # (AUTO) 1.5 10^3/uL (0.0-1.0); MONOCYTES % (AUTO) 10 % (0-12); NEUTROPHILS # (AUTO) 10.1 10^3/uL (1.8-7.8); NEUTROPHILS % (AUTO) 66 % (42-75); PLATELET COUNT 237 10^3/uL (130-400); WHITE BLOOD COUNT 15.2 10^3/uL (4.3-11.0)
[2022-01-23 14:43] LABS: ALBUMIN 4.3 GM/DL (3.2-4.5)
[2022-01-23 14:44] LABS: POTASSIUM 4.2 MMOL/L (3.6-5.0)
[2022-01-23 14:45] LABS: CALCIUM 9.7 MG/DL (8.5-10.1)
[2022-01-23 14:46] LABS: TOTAL PROTEIN 7.4 GM/DL (6.4-8.2)
[2022-01-23 14:48] LABS: BILIRUBIN,TOTAL 1.2 MG/DL (0.1-1.0)
--- NOTE | 2022-01-23 14:48 | Diagnostic Imaging Report ---
INDICATION: Dizziness, low BP. COMPARISON: 11/11/2019. FINDINGS: Single frontal view of the chest demonstrates normal heart size and pulmonary vascularity. The lungs are well aerated and clear. No large pleural effusion or pneumothorax is seen. The visualized osseous structures show no acute abnormalities. Left-sided dual-lead pacemaker is noted. IMPRESSION: 1. No acute cardiopulmonary process. Dictated by: Dictated on workstation # [id number]
[2022-01-23 14:50] LABS: CREATININE SERUM 1.82 MG/DL (0.60-1.30); INR 1.3 (0.8-1.4); MAGNESIUM 2.2 MG/DL (1.6-2.4); PROTHROMBIN TIME PATIENT 16.7 SEC (12.2-14.7)
[2022-01-23 14:56] LABS: BAND NEUTROPHILS 2 %; BASOPHILS % (MANUAL) 0 %; EOSINOPHILS % (MANUAL) 0 %; LYMPHOCYTES % (MANUAL) 20 %; MONOCYTES % (MANUAL) 6 %; NEUTROPHILS % (MANUAL) 72 %; RBC MORPH NORMAL
[2022-01-23] MEDS ORDERED: NS IV 1000 ML 1,000 ML IV ONE (15:00)
[2022-01-23 15:31] LABS: BILIRUBIN,URINE NEGATIVE (NEGATIVE); CLARITY,URINE CLEAR; COLOR,URINE YELLOW; GLUCOSE, URINE (UA) 3+ (NEGATIVE); KETONES,URINE TRACE (NEGATIVE); LEUKOCYTE ESTERASE ,URINE NEGATIVE (NEGATIVE); NITRITE,URINE NEGATIVE (NEGATIVE); PH,URINE 5.5 (5-9); PROTEIN,URINE NEGATIVE (NEGATIVE)
[2022-01-23] MEDS ORDERED: CEFEPIME INJECTION 1,000 MG in NS (IVPB) 50 ML IV ONE (15:45)
[2022-01-23 16:04] LABS: BACTERIA,URINE MODERATE /HPF; SQUAMOUS EPITHELIAL CELL,UR 0-2 /HPF; WBC,URINE 0-2 /HPF
--- NOTE | 2022-01-23 16:31 | History & Physical-Hospitalist ---
History of Present Illness HPI/Chief Complaint Pt is a 76yoCM with a PMH of HTN, IDDMDII, a fib who presented to the ER due to confusion and hypotension. He states for a few days he has had some urinary frequency. Today he was seen by his PCP at the [facility] and was noted to have low blood pressure which he says was not addressed there. He returned home and found ti difficult to get in the house. His got home and noted that he was confused. He has a history of sepsis with bacteremia requiring intubation and so she insisted him come to the ER. He was found to be quite hypotensive and UA revealed bacteruria. He is being admitted for severe sepsis and IV abx. Source: patient Exam Limitations: no limitations Date Seen 01/23/22 Time Seen by a Provider: 16:10 Attending Physician No,Local Physician PCP Admitting Physician: Attending Physician: Referring Physician Date of Admission Home Medications & Allergies Home Medications Reviewed patient Home Medication Reconciliation performed by pharmacy medication reconciliations technician biological health and/or nursing. Patients Allergies have been reviewed. Allergies Allergies Coded Allergies Sulfa (Sulfonamide Antibiotics) (Verified Allergy, Intermediate, RASH, 01/21/17) BROKE OUT IN BRIGHT RED BURNING RASH BUT IS UNSURE OF ANY BREATHING DIFFICULTY AT THE TIME. WAS GIVEN TWO SHOTS DECADRON WHILE IN DR. OFFICE. Past Fbwothe-Zbvsnm-Rhsajc Hx Patient Social History Marrital Status: Tobacco Use?: Yes Tobacco type used: Cigars Smoking Status: Light Tobacco Smoker Smokeless type used: Chew Smokeless Tobacco Frequency: Current Everyday User Use of E-Cig and/or Vaping dev: No Substance use?: No Alcohol Use?: Yes Alcohol type: Beer Alcohol Frequency: Couple times a week Pt feels they are or have been: No Immunizations Up To Date Date of Influenza Vaccine: Feb 01, 2016 First/Initial COVID19 Vaccinat: 09/07 Second COVID19 Vaccination Alfredito: 09/07 Tetanus Booster (TDap): Less Than 5 Years Date of Pneumonia Vaccine: Jan 21, 2016 Seasonal Allergies Seasonal Allergies: Yes Current Status Advance Directives: No Communicates: Verbally Primary Language: Slovak Preferred Spoken Language: Slovak Is interpretation needed?: No Sensory deficits: Vision impairment Implanted or Applied Medical D: Pacemaker Past Medical History Surgeries: Abdominal, Cardiac, Coronary Stent, Eye Surgery, Gallbladder, Joint Replacement, Orthopedic, Pacemaker, Tonsillectomy Pneumonia, Sleep Apnea Currently Using CPAP: Yes Currently Using BIPAP: No Atrial Fibrillation, Coronary Artery Disease, Heart Attack, High Cholesterol, Hypertension Neuropathy Sexually Transmitted Disease: No HIV/AIDS: No Prostate Problems, Renal Failure Gastroesophageal Reflux Arthritis Diabetes, Insulin dep Cataract Loss of Vision: Bilateral Hearing Impairment: Denies Anxiety, PTSD, Depression Blood Disorders: No Adverse Reaction/Blood Tranf: No Family Medical History Reviewed Nursing Family Hx Cancer 19 FATHER 19 MOTHER Chest pain 19 FATHER 19 MOTHER G8 BROTHER G8 BROTHER G8 BROTHER G8 BROTHER Congestive heart failure 19 MOTHER G8 BROTHER G8 BROTHER G8 BROTHER Family history: Arthritis Family history: Cardiovascular disease 19 FATHER Family history: Diabetes mellitus Family history: Glaucoma Family history: Hypertension Heart disease History of - respiratory disease Malignant neoplasm of lung 19 FATHER Myocardial infarction 19 MOTHER G8 BROTHER G8 BROTHER G8 BROTHER Parkinson's disease Prostate cancer G8 BROTHER Stroke Visual impairment No Family History of: Abdominal aortic aneurysm Mohnton's disease Alcoholism Aphasia Cancer of colon Cataract Congenital heart disease Cystic fibrosis Dementia Dysphagia Family history: Allergy Family history: Alzheimer's disease Family history: Asthma Family history: Breast disease Family history: Coronary thrombosis Family history: Gastrointestinal disease Family history: Osteoporosis Family history: Thyroid disorder Headache Hearing loss Hereditary disease History of - anemia History of - disorder History of drug abuse Human immunodeficiency virus (HIV) seropositivity Hypercholesterolemia Infertile Kidney disease Psychotic disorder Seizure disorder Tuberculosis Heart Disease, Hypertension Review of Systems Constitutional: No chills, No fever; malaise EENTM: no symptoms reported Respiratory: No cough, No short of breath Cardiovascular: No chest pain, No edema; Hx of Intervention Gastrointestinal: No abdominal pain, No constipation, No diarrhea, No nausea, No vomiting Genitourinary: No decreased output, No dysuria; frequency Musculoskeletal: no symptoms reported Skin: no symptoms reported Psychiatric/Neurological: No Symptoms Reported Physical Exam Physical Exam Vital Signs Vital Signs - First Documented 01/23/22 14:05 Temp 36.7 Pulse 63 Resp 19 B/P (MAP) 109/56 (73) Pulse Ox 96 O2 Delivery Room Air Capillary Refill : Height, Weight, BMI Height: 5'11.00" Weight: 301lbs. 8.0oz. 136.728262xk; 44.00 BMI Method:Stated General Appearance: No Apparent Distress, WD/WN HEENT: PERRL/EOMI, Moist Mucous Membranes, Scleral Icterus (L), Scleral Icterus (R) Neck: Normal Inspection, Supple Respiratory: Lungs Clear, No Accessory Muscle Use, No Respiratory Distress Cardiovascular: Regular Rate, Rhythm, No JVD, No Murmur Gastrointestinal: Normal Bowel Sounds, Non Tender, Soft Extremity: Normal Capillary Refill, No Calf Tenderness, No Pedal Edema Neurologic/Psychiatric: Alert, Oriented x3 (( reports still a little confused from baseline)), Normal Mood/Affect Results Results/Procedures Labs Laboratory Tests 01/23/22 14:20 Patient resulted labs reviewed. Imaging: Reviewed Imaging Report Imaging [facility]. [place], [place] NAME: CHIKI SNYDER [facility] REC#: [id number] PT STATUS: REG ER : 1945 PHYSICIAN: LEONORA CHANDRA APRN ADMIT DATE: 01/23/22/ER Draft Date of Exam:01/23/22 CHEST 1 VIEW, AP/PA ONLY INDICATION: Dizziness, low BP. COMPARISON: 11/11/2019. FINDINGS: Single frontal view of the chest demonstrates normal heart size and pulmonary vascularity. The lungs are well aerated and clear. No large pleural effusion or pneumothorax is seen. The visualized osseous structures show no acute abnormalities. Left-sided dual-lead pacemaker is noted. IMPRESSION: 1. No acute cardiopulmonary process. Dictated on workstation # [id number] Dict: 01/23/22 1447 Trans: 01/23/22 1448 [id number] Interpreted by: JP NAIR MD Electronically signed by: Assessment/Plan Admission Diagnosis Severe Sepsis Admission Status: Inpatient Order (span 2 midnights) Reason for Inpatient Admission: see below Assessment and Plan Severe Sepsis metabolic encephalopathy Urine with large bacteria and leukocytosis with tachycardia Could be UTI or prostatitis Lactic acid 3.5 Hypotension improved but marginal- high risk for progression to shock Continue on abx Await cultures Admit to ICU for hypotension Will not give 30cc/kg bolus as does not meet shock criteria and has history of CHF HTN Hold home meds IDDMII SSI Takes 62 units of insulin HS, will give smaller dose given poor oral intake today A-fib CHF Continue eliquis Rate controlled currently Telemetry Watch for fluid overload with IVF for sepsis Diagnosis/Problems Diagnosis/Problems (1) Metabolic encephalopathy (2) Obesity Qualifiers: Body mass index: BMI 40.0-44.9 (3) Atrial fibrillation (4) Insulin dependent diabetes mellitus (5) CHF (congestive heart failure) (6) Sepsis due to undetermined organism Status: Acute (7) Hypotension (8) Hypertension Status: Acute Qualifiers: Hypertension type: primary hypertension Qualified Codes: I10 - Essential (primary) hypertension TAMRA OWENS MD Jan 23, 2022 16:31
[2022-01-23] MEDS ORDERED: ANTACID SUSP 30 ML UDC (MYLANTA) PO PRN (17:00)
[2022-01-23] MEDS ORDERED: MELATONIN 3 MG TABLET PO PRN (17:00)
[2022-01-23] MEDS ORDERED: MILK OF MAGNESIA 400 MG/5 ML 30 ML UDC PO PRN (17:00)
[2022-01-23] MEDS ORDERED: ONDANSETRON 4 MG/2 ML (SDV) Z0FRAN IV PRN (17:00)
[2022-01-23] MEDS: NS IV 1000 ML 1,000 ML IV SCH ×2 (18:20→18:21)
[2022-01-23] MEDS: cefTRIAXone 1 GM PRE-MIX 50 ML IV SCH (18:20)
--- NOTE | 2022-01-23 18:27 | Tele-ICU Consult ---
History of Present Illness History of Present Illness Date Seen by Provider: Jan 23, 2022 Time Seen by Provider: 18:27 Date of Admission (Tele-ICU Physician , consultation) Available chart/ vitals / labs / Images reviewed H&P is from ER notes Patient's information available about PMH, Shx, Fhx allergy reviewed inEMR. ROS as per chart and RN report Now in ICU, hemodynamically stable Video assessment done using teleICU camera, rest of exam as per RN Discussed with RN. Consultants: Hospital course: A/P Severe Sepsis ( elev lactate 0 - BP and lactate improved with hydration , cont IVF UTI - abx started STARR - cont hydration - if no improvenment will do CT or US h/o CAD , s/p stenting - monitor Paroxysmal atrial fibrillation, sick sinus syndrome -s/p of dual-chamber pacemaker implantation. -AC with coumadin , INR 1.3 - ? to adjusr by PCP - cards , lovenox proph dose starting tonign IDDMII -SSI Lines : , (Central Line Necessity Reviewed) Soliman: OG: Nutrition: Analgesia: Anxiety/ delirium VTE Prophylaxis: Stress Ulcer Prophylaxis: Plans in collaboration with bedside consultants and IM MDs. Discussed with RN to reach out if any questions or concerns A total of 31 minutes of critical care time was devoted to this patient today, required to treat and/or prevent further deterioration of critical care condition ( as above ) . Allergies and Home Medications Allergies Coded Allergies: Sulfa (Sulfonamide Antibiotics) (Verified Allergy, Intermediate, RASH, 01/21/17) BROKE OUT IN BRIGHT RED BURNING RASH BUT IS UNSURE OF ANY BREATHING DIFFICULTY AT THE TIME. WAS GIVEN TWO SHOTS DECADRON WHILE IN DR. OFFICE. Home Medications Alprazolam 0.5 Mg Tablet, 0.5 MG PO BID PRN for ANXIETY, (Reported) Amlodipine Besylate 5 Mg Tablet, 5 MG PO DAILY, (Reported) Duloxetine HCl 60 Mg Capsule.dr, 60 MG PO DAILY, (Reported) Furosemide 40 Mg Tablet, 40 MG PO DAILY, (Reported) Gabapentin 100 Mg Capsule, 200 MG PO TID, (Reported) TAKES 2 (100MG) CAPSULES Hydrocodone Bit/Acetaminophen 1 Each Tablet, 1-2 EACH PO Q6H Prescribed by: LESLYE MARTIN on 01/23/17 0957 Insulin Glargine,Hum.rec.anlog 100 Unit/1 Ml Vial, 32 UNIT SQ DAILY, (Reported) Insulin Glargine,Hum.rec.anlog 100 Unit/1 Ml Vial, 26 UNIT SQ HS, (Reported) Metoprolol Succinate 25 Mg Tab.er.24h, 25 MG PO DAILY, (Reported) Pantoprazole Sodium 40 Mg Tablet.dr, 40 MG PO BID, (Reported) Potassium Chloride 20 Meq Tablet.er, 20 MEQ PO BID, (Reported) Ropinirole HCl 3 Mg Tablet, 3 MG PO HS, (Reported) Spironolactone 25 Mg Tablet, 25 MG PO DAILY, (Reported) Tamsulosin HCl 0.4 Mg Cap.er.24h, 0.8 MG PO HS, (Reported) TAKES 2 (0.4 MG) CAPSULES Tizanidine HCl 4 Mg Capsule, 4 MG PO TID Prescribed by: VISHAL EL on 01/25/191901 Trazodone HCl 100 Mg Tablet, 100 MG PO HS, (Reported) Warfarin Sodium 7.5 Mg Tablet, 7.5 MG PO DAILY, (Reported) Past Medical/Social/Family Hx Patient Social History Tobacco Use?: Yes Tobacco type used: Cigars Smoking Status: Light Tobacco Smoker Smokeless type used: Chew Smokeless Tobacco Frequency: Current Everyday User Use of E-Cig and/or Vaping dev: No Substance use?: No Alcohol Use?: Yes Alcohol type: Beer Alcohol Frequency: Couple times a week Pt stated abuse/neglect: No Immunizations Up To Date Influenza Vaccine Up-to-Date: No; Not Current First/Initial COVID19 Vaccinat: 09/07 Second COVID19 Vaccination Alfredito: 09/07 Tetanus Booster (TDap): Less Than 5 Years Date of Pneumonia Vaccine: Jan 21, 2016 Current Status Advance Directives: No Communicates: Verbally Primary Language: [place] Preferred Spoken Language: [place] Is interpretation needed?: No Sensory deficits: Vision impairment Implanted or Applied Medical D: Pacemaker Review of Systems Constitutional: see HPI Focused Exam Lactate Level 01/23/22 14:45: Lactic Acid Level 3.58*H 01/23/22 17:05: Lactic Acid Level 2.99*H Height, Weight, BMI Height: 5'11.00" Weight: 301lbs. 8.0oz. 136.519265ao; 44.91 BMI Method:Stated Lactic Acid Level Laboratory Tests Test 01/23/22 14:45 01/23/22 17:05 Lactic Acid Level 3.58 MMOL/L (0.50-2.00) *H 2.99 MMOL/L (0.50-2.00) *H Exam Exam Patient acknowledged, consented, and participated in this virtual visit which was conducted using real time audio/video Vital Signs Date Time Temp Pulse Resp B/P (MAP) Pulse Ox O2 Delivery O2 Flow Rate FiO2 01/23/22 17:39 60 01/23/22 17:30 60 17 109/54 (72) 95 Room Air 01/23/22 17:15 60 17 111/58 (75) 94 Room Air 01/23/22 17:00 59 17 112/54 (73) 94 Room Air 01/23/22 14:20 36.7 60 01/23/22 14:05 36.7 63 19 109/56 (73) 96 Room Air Height & Weight Height: 5'11.00" Weight: 301lbs. 8.0oz. 136.199433gl; 44.91 BMI Method:Stated General Appearance: No Apparent Distress, Obese HEENT: PERRL/EOMI, Normal ENT Inspection, Pharynx Normal, Moist Mucous Membranes Neck: Normal Inspection, Non Tender, Supple Respiratory: Lungs Clear, Normal Breath Sounds, No Accessory Muscle Use, No Respiratory Distress; No Rales, No Wheezing Cardiovascular: Regular Rate, Rhythm, No Edema; No No Gallop; Normal Peripheral Pulses Extremity: Normal Capillary Refill Neurologic/Psychiatric: Alert, Oriented x3, No Motor/Sensory Deficits, Normal Mood/Affect Skin: Normal Color, Warm/Dry Results Lab Laboratory Tests 01/23/22 14:20 Assessment/Plan Assessment/Plan 1 DAYA WEBER MD Jan 23, 2022 18:27
[2022-01-23] MEDS: ENOXAPARIN 40 MG/0.4 ML (LOVENOX) SYR SC SCH (18:52)
[2022-01-23] MEDS: inSUlin ASPART (NovoLOG) 1 UNIT/0.01 ML (CHARGE PER UNIT) SC SCH (22:33)
[2022-01-24] MEDS: NS IV 1000 ML 1,000 ML IV SCH ×2 (00:26→07:04)
[2022-01-24 04:49] LABS: BASOPHILS # (AUTO) 0.1 10^3/uL (0.0-0.1); BASOPHILS % (AUTO) 0 % (0-10); EOSINOPHILS # (AUTO) 0.3 10^3/uL (0.0-0.3); EOSINOPHILS % (AUTO) 2 % (0-10); HEMATOCRIT 43 % (40-54); HEMOGLOBIN 14.3 g/dL (13.3-17.7); LYMPHOCYTES # (AUTO) 3.5 10^3/uL (1.0-4.0); LYMPHOCYTES % (AUTO) 22 % (12-44); MEAN CORPUSCULAR HEMOGLOBIN 31 pg (25-34); MEAN CORPUSCULAR HGB CONC 34 g/dL (32-36); MEAN CORPUSCULAR VOLUME 91 fL (80-99); MEAN PLATELET VOLUME 10.2 fL (9.0-12.2); MONOCYTES # (AUTO) 1.6 10^3/uL (0.0-1.0); MONOCYTES % (AUTO) 10 % (0-12); NEUTROPHILS # (AUTO) 10.5 10^3/uL (1.8-7.8); NEUTROPHILS % (AUTO) 65 % (42-75); PLATELET COUNT 193 10^3/uL (130-400); WHITE BLOOD COUNT 16.1 10^3/uL (4.3-11.0)
[2022-01-24 04:57] LABS: ALBUMIN 3.5 GM/DL (3.2-4.5); POTASSIUM 4.3 MMOL/L (3.6-5.0)
[2022-01-24 04:58] LABS: CALCIUM 8.9 MG/DL (8.5-10.1)
[2022-01-24 05:00] LABS: TOTAL PROTEIN 6.1 GM/DL (6.4-8.2)
[2022-01-24 05:01] LABS: BILIRUBIN,TOTAL 0.7 MG/DL (0.1-1.0)
[2022-01-24 05:03] LABS: CREATININE SERUM 1.47 MG/DL (0.60-1.30)
[2022-01-24] MEDS ORDERED: NS IV 500 ML 500 ML IV PRN (05:30)
[2022-01-24] MEDS: KCL 20 MEQ TAB (K-DUR) PO SCH (06:00)
[2022-01-24] MEDS: POTASSIUM CL 10MEQ/50ML IVPB 50 ML IV SCH (06:00)
[2022-01-24] MEDS: MAGNESIUM 1 GM/100 ML IVPB 100 ML IV SCH (06:00)
[2022-01-24] MEDS: inSUlin ASPART (NovoLOG) 1 UNIT/0.01 ML (CHARGE PER UNIT) SC SCH ×4 (06:18→20:55)
[2022-01-24] MEDS: ENOXAPARIN 40 MG/0.4 ML (LOVENOX) SYR SC SCH (06:22)
--- NOTE | 2022-01-24 09:30 | Progress Note - Hospitalist ---
Subjective HPI/CC On Admission Date Seen by Provider: Jan 24, 2022 Pt is a 76yoCM with a PMH of HTN, IDDMDII, a fib who presented to the ER due to confusion and hypotension. He states for a few days he has had some urinary frequency. Today he was seen by his PCP at the [facility] and was noted to have low blood pressure which he says was not addressed there. He returned home and found ti difficult to get in the house. His got home and noted that he was confused. He has a history of sepsis with bacteremia requiring intubation and so she insisted him come to the ER. He was found to be quite hypotensive and UA revealed bacteruria. He is being admitted for severe sepsis and IV abx. Subjective/Events-last exam Pt reports feeling much better today. No complaints. Focused Exam Lactate Level 01/23/22 19:10: Lactic Acid Level 3.18*H 01/23/22 21:15: Lactic Acid Level 3.55*H 01/23/22 23:10: Lactic Acid Level 2.71*H Objective Exam Vital Signs Vital Signs Date Time Temp Pulse Resp B/P (MAP) Pulse Ox O2 Delivery O2 Flow Rate FiO2 01/24/22 09:00 60 151/81 (104) 98 Room Air 01/24/22 08:14 36.0 01/23/22 21:00 8 Capillary Refill : General Appearance: No Apparent Distress, WD/WN, Obese Respiratory: Lungs Clear, No Respiratory Distress Cardiovascular: Regular Rate, Rhythm, No Murmur Neurologic/Psychiatric: Alert, Oriented x3 Results/Procedures Lab Laboratory Tests 01/23/22 14:20 01/24/22 04:30 Patient resulted labs reviewed. Imaging: Reviewed Imaging Report Assessment/Plan Assessment and Plan Assess & Plan/Chief Complaint Severe Sepsis metabolic encephalopathy- resolved Urine with large bacteria and leukocytosis with tachycardia Could be UTI or prostatitis Lactic acid trended down Hypotension improved but marginal- high risk for progression to shock Continue on abx Await cultures- still pending HTN Hold home meds as BP well controlled IDDMII SSI Insulin held last night, will resume once med rec done A-fib CHF Was going to continue eliquis but only filled it for 1 month in October so unsure if still on it Rate controlled currently Telemetry Watch for fluid overload with IVF for sepsis DVT ppx: Lovenox until med rec done Diagnosis/Problems Diagnosis/Problems (1) Metabolic encephalopathy (2) Obesity Qualifiers: Body mass index: BMI 40.0-44.9 (3) Atrial fibrillation (4) Insulin dependent diabetes mellitus (5) CHF (congestive heart failure) (6) Sepsis due to undetermined organism Status: Acute (7) Hypotension (8) Hypertension Status: Acute Qualifiers: Hypertension type: primary hypertension Qualified Codes: I10 - Essential (primary) hypertension TAMRA OWENS MD Jan 24, 2022 09:30
[2022-01-24 12:00] VITALS: BP 120/75
[2022-01-24] MEDS ORDERED: AMLO-251 PO (12:55)
[2022-01-24] MEDS ORDERED: METF-478 PO (12:55)
[2022-01-24] MEDS ORDERED: SEMA1PEN3 SQ (12:55)
[2022-01-24] MEDS ORDERED: INSU300I SQ (12:55)
[2022-01-24] MEDS ORDERED: LISI40TA9 PO (12:55)
[2022-01-24] MEDS ORDERED: INSU300I3 SQ (12:55)
[2022-01-24] MEDS ORDERED: CYAN500T52 SL (12:55)
[2022-01-24] MEDS ORDERED: APIX5TAB PO (12:55)
[2022-01-24] MEDS ORDERED: ATOR40TA70 PO (12:55)
[2022-01-24] MEDS ORDERED: MTP100TCR PO (12:55)
[2022-01-24] MEDS ORDERED: ROPI2TAB6 PO (12:55)
[2022-01-24] MEDS ORDERED: ACYC400T21 PO (12:55)
[2022-01-24] MEDS ORDERED: GABA300C PO (12:55)
[2022-01-24] MEDS ORDERED: EMPA25TA PO (12:55)
[2022-01-24] MEDS ORDERED: TMSL.4C PO (12:55)
[2022-01-24 15:26] VITALS: BP 115/68
[2022-01-24] MEDS: ALPRAZolam 0.5 MG (XANAX) TAB PO PRN (16:23)
[2022-01-24] MEDS: cefTRIAXone 1 GM PRE-MIX 50 ML IV SCH ×2 (17:12→17:29)
[2022-01-24 19:16] VITALS: BP 133/73
[2022-01-24] MEDS: rOPINIRole 1 MG (REQUIP) TABLET PO SCH (20:52)
[2022-01-24] MEDS: GABAPENTIN 300 MG (NEURONTIN) CAP PO SCH (20:53)
[2022-01-24] MEDS: APIXABAN 5 MG (ELIQUIS) TABLET PO SCH (20:53)
[2022-01-24] MEDS: TAMSULOSIN 0.4 MG (FLOMAX) CAP PO SCH (20:54)
[2022-01-24] MEDS: ACYCLOVIR 400 MG TABLET (ZOVIRAX) PO SCH (20:54)
[2022-01-24] MEDS ORDERED: NON-FORMULARY MEDICATION 1 EA EA (Ropinirole HCl 4 MG) PO SCH (21:00)
[2022-01-24 23:29] VITALS: BP 154/77
[2022-01-25 03:11] VITALS: BP 127/68
[2022-01-25 05:28] LABS: BASOPHILS % (AUTO) 0 % (0-10); EOSINOPHILS # (AUTO) 0.2 10^3/uL (0.0-0.3); EOSINOPHILS % (AUTO) 2 % (0-10); HEMATOCRIT 41 % (40-54); HEMOGLOBIN 13.9 g/dL (13.3-17.7); LYMPHOCYTES # (AUTO) 3.1 10^3/uL (1.0-4.0); LYMPHOCYTES % (AUTO) 26 % (12-44); MEAN CORPUSCULAR HEMOGLOBIN 31 pg (25-34); MEAN CORPUSCULAR HGB CONC 34 g/dL (32-36); MEAN CORPUSCULAR VOLUME 92 fL (80-99); MEAN PLATELET VOLUME 10.2 fL (9.0-12.2); MONOCYTES % (AUTO) 8 % (0-12); NEUTROPHILS # (AUTO) 7.5 10^3/uL (1.8-7.8); NEUTROPHILS % (AUTO) 63 % (42-75); PLATELET COUNT 175 10^3/uL (130-400)
[2022-01-25 05:39] LABS: ALBUMIN 3.5 GM/DL (3.2-4.5)
[2022-01-25 05:40] LABS: POTASSIUM 4.5 MMOL/L (3.6-5.0)
[2022-01-25 05:41] LABS: CALCIUM 9.2 MG/DL (8.5-10.1)
[2022-01-25 05:42] LABS: TOTAL PROTEIN 6.2 GM/DL (6.4-8.2)
[2022-01-25] MEDS: KCL 20 MEQ TAB (K-DUR) PO SCH (05:42)
[2022-01-25] MEDS: POTASSIUM CL 10MEQ/50ML IVPB 50 ML IV SCH (05:42)
[2022-01-25 05:44] LABS: BILIRUBIN,TOTAL 0.7 MG/DL (0.1-1.0)
[2022-01-25 05:46] LABS: CREATININE SERUM 1.16 MG/DL (0.60-1.30)
[2022-01-25] MEDS: MAGNESIUM 1 GM/100 ML IVPB 100 ML IV SCH (06:13)
[2022-01-25] MEDS: inSUlin ASPART (NovoLOG) 1 UNIT/0.01 ML (CHARGE PER UNIT) SC SCH ×4 (06:14→21:29)
[2022-01-25 08:05] VITALS: BP 130/64
[2022-01-25] MEDS: APIXABAN 5 MG (ELIQUIS) TABLET PO SCH ×2 (08:50→21:27)
[2022-01-25] MEDS: ACYCLOVIR 400 MG TABLET (ZOVIRAX) PO SCH ×2 (08:50→21:28)
[2022-01-25] MEDS: EMPAGLIFLOZIN 10 MG TABLET (JARDIANCE) PO SCH (08:51)
[2022-01-25] MEDS: GABAPENTIN 300 MG (NEURONTIN) CAP PO SCH ×2 (08:51→21:28)
[2022-01-25] MEDS ORDERED: NON-FORMULARY MEDICATION 1 EA EA (Empagliflozin (Jardiance) 25 MG) PO SCH (09:00)
--- NOTE | 2022-01-25 10:25 | Progress Note - Hospitalist ---
Subjective HPI/CC On Admission Date Seen by Provider: Jan 25, 2022 Pt is a 76yoCM with a PMH of HTN, IDDMDII, a fib who presented to the ER due to confusion and hypotension. He states for a few days he has had some urinary frequency. Today he was seen by his PCP at the [facility] and was noted to have low blood pressure which he says was not addressed there. He returned home and found ti difficult to get in the house. His got home and noted that he was confused. He has a history of sepsis with bacteremia requiring intubation and so she insisted him come to the ER. He was found to be quite hypotensive and UA revealed bacteruria. He is being admitted for severe sepsis and IV abx. Subjective/Events-last exam Pt reports doign well. Offered DC home but not quite ready. Would before to wait one more night as he has previously left the hospital from sepsis and had to return within 24 hours. Focused Exam Lactate Level 01/23/22 19:10: Lactic Acid Level 3.18*H 01/23/22 21:15: Lactic Acid Level 3.55*H 01/23/22 23:10: Lactic Acid Level 2.71*H Objective Exam Vital Signs Vital Signs Date Time Temp Pulse Resp B/P (MAP) Pulse Ox O2 Delivery O2 Flow Rate FiO2 01/25/22 08:05 36.3 60 16 130/64 (86) 96 Room Air Capillary Refill : General Appearance: No Apparent Distress, Chronically ill, Obese Respiratory: Lungs Clear, No Respiratory Distress Cardiovascular: Regular Rate, Rhythm, No Murmur Gastrointestinal: Normal Bowel Sounds, Non Tender, Soft Neurologic/Psychiatric: Alert, Oriented x3 Results/Procedures Lab Laboratory Tests 01/25/22 05:18 Patient resulted labs reviewed. Imaging: Reviewed Imaging Report Assessment/Plan Assessment and Plan Assess & Plan/Chief Complaint Severe Sepsis metabolic encephalopathy- resolved Urine with large bacteria and leukocytosis with tachycardia Cultures with multiple organisms Continue on abx- switch to oral HTN Hold home meds as BP well controlled IDDMII SSI Insulin held last night, BS relatively well controlled without long acting insulin Resume much lower dose A-fib CHF Was going to continue eliquis but only filled it for 1 month in October so unsure if still on it Rate controlled currently Telemetry DVT ppx: Eliquis Diagnosis/Problems Diagnosis/Problems (1) Metabolic encephalopathy (2) Obesity Qualifiers: Body mass index: BMI 40.0-44.9 (3) Atrial fibrillation (4) Insulin dependent diabetes mellitus (5) CHF (congestive heart failure) (6) Sepsis due to undetermined organism Status: Acute (7) Hypotension (8) Hypertension Status: Acute Qualifiers: Hypertension type: primary hypertension Qualified Codes: I10 - Essential (primary) hypertension TAMRA OWENS MD Jan 25, 2022 10:25
[2022-01-25 11:36] VITALS: BP 140/68
[2022-01-25] MEDS: ALPRAZolam 0.5 MG (XANAX) TAB PO PRN (14:39)
[2022-01-25 16:00] VITALS: BP 169/79
[2022-01-25 19:34] VITALS: BP 151/74
[2022-01-25] MEDS: rOPINIRole 1 MG (REQUIP) TABLET PO SCH (21:28)
[2022-01-25] MEDS: CEFDINIR 300 MG (OMNICEF) CAP PO SCH (21:28)
[2022-01-25] MEDS: TAMSULOSIN 0.4 MG (FLOMAX) CAP PO SCH (21:28)
[2022-01-25 23:19] VITALS: BP 138/64
[2022-01-26 04:00] VITALS: BP 134/77
[2022-01-26] MEDS: inSUlin ASPART (NovoLOG) 1 UNIT/0.01 ML (CHARGE PER UNIT) SC SCH ×2 (06:24→11:19)
[2022-01-26 06:28] LABS: BASOPHILS # (AUTO) 0.1 10^3/uL (0.0-0.1); BASOPHILS % (AUTO) 1 % (0-10); EOSINOPHILS # (AUTO) 0.2 10^3/uL (0.0-0.3); EOSINOPHILS % (AUTO) 2 % (0-10); HEMATOCRIT 40 % (40-54); HEMOGLOBIN 13.3 g/dL (13.3-17.7); LYMPHOCYTES % (AUTO) 31 % (12-44); MEAN CORPUSCULAR HEMOGLOBIN 31 pg (25-34); MEAN CORPUSCULAR HGB CONC 33 g/dL (32-36); MEAN CORPUSCULAR VOLUME 93 fL (80-99); MEAN PLATELET VOLUME 10.6 fL (9.0-12.2); MONOCYTES % (AUTO) 11 % (0-12); NEUTROPHILS # (AUTO) 5.2 10^3/uL (1.8-7.8); NEUTROPHILS % (AUTO) 54 % (42-75); PLATELET COUNT 166 10^3/uL (130-400); WHITE BLOOD COUNT 9.7 10^3/uL (4.3-11.0)
[2022-01-26 06:53] LABS: ALBUMIN 3.4 GM/DL (3.2-4.5); POTASSIUM 4.3 MMOL/L (3.6-5.0)
[2022-01-26 06:54] LABS: CALCIUM 9.2 MG/DL (8.5-10.1)
[2022-01-26 06:57] LABS: BILIRUBIN,TOTAL 0.6 MG/DL (0.1-1.0)
[2022-01-26 06:59] LABS: CREATININE SERUM 1.04 MG/DL (0.60-1.30)
[2022-01-26] MEDS: POTASSIUM CL 10MEQ/50ML IVPB 50 ML IV SCH (07:00)
[2022-01-26] MEDS: KCL 20 MEQ TAB (K-DUR) PO SCH (07:01)
[2022-01-26] MEDS: MAGNESIUM 1 GM/100 ML IVPB 100 ML IV SCH (07:26)
[2022-01-26 07:43] VITALS: BP 156/78
[2022-01-26] MEDS: ACYCLOVIR 400 MG TABLET (ZOVIRAX) PO SCH (07:54)
[2022-01-26] MEDS: CEFDINIR 300 MG (OMNICEF) CAP PO SCH (07:54)
[2022-01-26] MEDS: GABAPENTIN 300 MG (NEURONTIN) CAP PO SCH (07:54)
[2022-01-26] MEDS: EMPAGLIFLOZIN 10 MG TABLET (JARDIANCE) PO SCH (07:54)
[2022-01-26] MEDS: APIXABAN 5 MG (ELIQUIS) TABLET PO SCH (07:54)
[2022-01-26] MEDS ORDERED: amLODIPine 10 MG (NORVASC) TAB PO SCH (09:00)
[2022-01-26 11:00] VITALS: BP 123/72
[2022-01-26] MEDS ORDERED: ACETAMINOPHEN 325 MG TABLET PO PRN (11:30)
[2022-01-26] MEDS ORDERED: CEFD300C3 PO (14:16)
[2022-01-26] MEDS ORDERED: INSU300I3 SQ (14:16)
--- NOTE | 2022-01-26 14:17 | Discharge Inst-Simple/Standard ---
Discharge Inst-Standard Discharge Medications New, Converted or Re-Newed RX: Transmitted to Pharmacy Patient Instructions/Follow Up Plan of Care/Instructions/FU: Please continue to take your medications as written. Please follow up with your primary care doctor to follow up this hospital stay. Activity as Tolerated: Yes Discharge Diet: ADA Diet Return to The Hospital For: Chest pain, shortness of breath, fever, weakness, if you feel you are getting worse. TAMRA OWENS MD Jan 26, 2022 14:17
--- NOTE | 2022-01-26 14:20 | Discharge Summary ---
Diagnosis/Chief Complaint Date of Admission Jan 23, 2022 at 16:15 Date of Discharge Discharge Date: Jan 26, 2022 Admission Diagnosis Severe Sepsis Primary Care No,Local Physician Discharge Diagnosis (1) Metabolic encephalopathy (2) Obesity (3) Atrial fibrillation (4) Insulin dependent diabetes mellitus (5) CHF (congestive heart failure) (6) Sepsis due to undetermined organism Status: Acute (7) Hypotension (8) Hypertension Status: Acute Discharge Summary Discharge Physical Exam Allergies: Coded Allergies: Sulfa (Sulfonamide Antibiotics) (Verified Allergy, Intermediate, RASH, 01/21/17) BROKE OUT IN BRIGHT RED BURNING RASH BUT IS UNSURE OF ANY BREATHING DIFFICULTY AT THE TIME. WAS GIVEN TWO SHOTS DECADRON WHILE IN DR. OFFICE. Vitals & I&Os Vital Signs Date Time Temp Pulse Resp B/P (MAP) Pulse Ox O2 Delivery O2 Flow Rate FiO2 01/26/22 11:00 36.9 60 18 123/72 (89) 96 Room Air Hospital Course Labs (last 24 hrs) Laboratory Tests 01/25/22 15:36: Glucometer 205H 01/25/22 19:59: Glucometer 212H 01/26/22 05:36: Glucometer 201H 01/26/22 06:18: White Blood Count 9.7, Red Blood Count 4.30, Hemoglobin 13.3, Hematocrit 40, Mean Corpuscular Volume 93, Mean Corpuscular Hemoglobin 31, Mean Corpuscular Hemoglobin Concent 33, Red Cell Distribution Width 14.7H, Platelet Count 166, Mean Platelet Volume 10.6, Immature Granulocyte % (Auto) 1, Neutrophils (%) (Auto) 54, Lymphocytes (%) (Auto) 31, Monocytes (%) (Auto) 11, Eosinophils (%) (Auto) 2, Basophils (%) (Auto) 1, Neutrophils # (Auto) 5.2, Lymphocytes # (Auto) 3.0, Monocytes # (Auto) 1.0, Eosinophils # (Auto) 0.2, Basophils # (Auto) 0.1, Immature Granulocyte # (Auto) 0.1, Sodium Level 135, Potassium Level 4.3, Chloride Level 106, Carbon Dioxide Level 19L, Anion Gap 10, Blood Urea Nitrogen 21H, Creatinine 1.04, Estimat Glomerular Filtration Rate 75, BUN/Creatinine Ratio 20, Glucose Level 215H, Calcium Level 9.2, Corrected Calcium 9.7, Magnesium Level 2.0, Total Bilirubin 0.6, Aspartate Amino Transf (AST/SGOT) 16, Alanine Aminotransferase (ALT/SGPT) 20, Alkaline Phosphatase 89, Total Protein 6.0L, Albumin 3.4 01/26/22 10:59: Glucometer 318H Microbiology 01/23/22 MRSA Screen - Final, Complete MRSA not isolated 01/23/22 Urine Culture - Final, Complete 3 or more isolates No Susceptibility Performed 01/23/22 Blood Culture - Preliminary, Resulted No growth Patient resulted labs reviewed. Pending Labs Laboratory Tests 01/26/22 10:59: Glucometer 318 Imaging: Reviewed Imaging Report Discharge Home Medications: Active Scripts Active Cefdinir 300 Mg Capsule 300 Mg PO BID Toujeo Max Solostar (Insulin Glargine,Hum.rec.anlog) 300 Unit/Ml (3 Ml) Insuln.pen 65 Unit SQ HS Can take half dose as blood sugar has been well controlled here at the hospital. Contact your doctor if it starts going consistently above 200 or is consistently below 100. Reported Amlodipine Besylate 10 Mg Tablet 10 Mg PO DAILY Eliquis (Apixaban) 5 Mg Tablet 5 Mg PO BID Ozempic (Semaglutide) 1 Mg/0.75 Ml (4 Mg/3 Ml) Pen.injctr 2 Mg SQ SUN Metoprolol Succinate 100 Mg Tab.er.24h 50 Mg PO HS TAKES OF A 100MG TAB LAST FILLED 07-09-2021 #45/90 DAY SUPPLY Metformin HCl ER (Metformin HCl) 500 Mg Tab.er.24 2,000 Mg PO HS TAKES 4 (500MG) TABS Lisinopril 40 Mg Tablet 40 Mg PO DAILY Neurontin (Gabapentin) 300 Mg Capsule 600 Mg PO BID TAKES 2 (300MG) CAPS Jardiance (Empagliflozin) 25 Mg Tablet 25 Mg PO DAILY Vitamin B-12 (Cyanocobalamin (Vitamin B-12)) 500 Mcg Tab.subl 500 Mcg SL DAILY Atorvastatin Calcium 40 Mg Tablet 20 Mg PO HS TAKES OF A 40MG TAB Acyclovir 400 Mg Tablet 400 Mg PO BID Flomax (Tamsulosin HCl) 0.4 Mg Cap 0.4 Mg PO HS Ropinirole HCl 2 Mg Tablet 4 Mg PO HS TAKES 2 (2MG) TABS Alprazolam 0.5 Mg Tablet 0.5 Mg PO BID PRN Potassium Chloride 20 Meq Tablet.er 20 Meq PO DAILY Lasix (Furosemide) 40 Mg Tablet 40 Mg PO DAILY Instructions to patient/family Please see electronic discharge instructions given to patient. Problem Qualifiers (1) Obesity: Body mass index: BMI 40.0-44.9 (2) Hypertension: Hypertension type: primary hypertension Qualified Codes: I10 - Essential (p rimary) hypertension TAMRA OWENS MD Jan 26, 2022 14:20
[2022-01-26 15:42] VITALS: BP 123/72
== END 2022-01-26 15:43 | disposition home or self-care (01) | DRG 871 ==
LOC: EDUNIT# 13:47 → ER 13:48 → ICU 16:15 → 4TH 01-24 09:35
PROVIDERS: ADMIT Family Medicine; ATTEND Family Medicine
PROC: 5A09357 Assistance with Respiratory Ventilation, Less than 24 Consecutive Hours, Continuous Positive Airway Pressure (ICD-10-PCS; principal; 2022-01-26)
DX: A41.9 Sepsis, unspecified organism (principal); G93.41 Metabolic encephalopathy; Z68.41 Body mass index [BMI] 40.0-44.9, adult; N39.0 Urinary tract infection, site not specified; N17.9 Acute kidney failure, unspecified; R65.20 Severe sepsis without septic shock; I11.0 Hypertensive heart disease with heart failure; I50.9 Heart failure, unspecified; E66.9 Obesity, unspecified; I95.9 Hypotension, unspecified; Z95.5 Presence of coronary angioplasty implant and graft; Z95.0 Presence of cardiac pacemaker; I25.10 Atherosclerotic heart disease of native coronary artery without angina pectoris; I25.2 Old myocardial infarction; E78.00 Pure hypercholesterolemia, unspecified; E11.40 Type 2 diabetes mellitus with diabetic neuropathy, unspecified; K21.9 Gastro-esophageal reflux disease without esophagitis; M19.90 Unspecified osteoarthritis, unspecified site; F32.A Depression, unspecified; F43.10 Post-traumatic stress disorder, unspecified; F17.210 Nicotine dependence, cigarettes, uncomplicated; I48.0 Paroxysmal atrial fibrillation; I49.5 Sick sinus syndrome; Z79.4 Long term (current) use of insulin; Z79.899 Other long term (current) drug therapy
CPT/HCPCS: 36415; 71045; 80053; 81000; 82947; 83605; 83735; 83874; 84484; 85007; 85025; 85027; 85610; 85730; 87040; 87081; 87088; 93005; 96374